=== PATIENT | female | born 1945 | race Asian ===

== ENCOUNTER 2016-04-30 14:45 | Inpatient (IN) | payer OTHER ==
[~2016-04-30] VITALS: Ht 157.5 cm; Wt 59.1 kg
[2016-04-30 15:43] LABS: BASOPHILS % 0.3 % (0.0-2.0); EOSINOPHILS # 0.4 10^3/ul (0.0-0.5); EOSINOPHILS % 5.6 % (0.0-7.0); HEMATOCRIT 34.2 % (37.0-47.0); HEMOGLOBIN 11.4 g/dl (12.0-16.0); LYMPHOCYTES # 2.1 10^3/ul (0.8-2.9); LYMPHOCYTES % 29.8 % (15.0-51.0); MEAN CORPUSCULAR HEMOGLOBIN 28.2 pg (29.0-33.0); MEAN CORPUSCULAR HGB CONC 33.3 g/dl (32.0-37.0); MEAN CORPUSCULAR VOLUME 84.7 fl (82.0-101.0); MEAN PLATELET VOLUME 9.6 fl (7.4-10.4); MONOCYTE # 0.6 10^3/ul (0.3-0.9); MONOCYTES % 8.3 % (0.0-11.0); NEUTROPHIL # 3.9 10^3/ul (1.6-7.5); PLATELET COUNT 126 10^3/UL (140-440); RED BLOOD COUNT 4.04 10^6/ul (4.20-5.40); RED CELL DISTRIBUTION WIDTH 15.3 % (11.5-14.5); UNCORRECTED WBC 6.9 10^3/ul (4.8-10.8); WHITE BLOOD COUNT 6.9 10^3/ul (4.8-10.8)
[2016-04-30 15:46] LABS: CONDITION 1; LH ANALYZER COMMENTS 1
[2016-04-30 15:53] LABS: INR 0.99; PROTIME 13.1 Sec (12.2-14.2)
[2016-04-30 15:54] LABS: PARTIAL THROMBOPLASTIN TIME 33.8 Sec (25.0-35.0)
[2016-04-30 15:55] LABS: CHLORIDE 96 mmol/L (97-110); SODIUM 138 mmol/L (135-144)
[2016-04-30 15:56] LABS: POTASSIUM 4.9 mmol/L (3.5-5.1)
[2016-04-30 15:58] LABS: CREATININE 4.83 mg/dl (0.44-1.00)
[2016-04-30 15:59] LABS: ANION GAP 23 (8-16); BLOOD UREA NITROGEN 73 mg/dl (7-20); CALCIUM 9.2 mg/dl (8.4-10.2); CARBON DIOXIDE 24 mmol/L (21-31); GLUCOSE 131 mg/dl (70-220)
[2016-04-30] MEDS ORDERED: LABETALOL HCL 20MG INJ IV ONE (16:00)
[2016-04-30 16:07] LABS: B-TYPE NATRIURETIC PEPTIDE 939 PG/ML (0-125)
--- NOTE | 2016-04-30 16:09 | RADRPT ---
PROCEDURE: Chest Radiograph. CLINICAL INDICATION: Chest pain TECHNIQUE: Single frontal chest radiograph. COMPARISON: None available FINDINGS: The cardiomediastinal silhouette is within normal limits. No infiltrate or effusion is seen. Th e bones are intact. IMPRESSION: 1. Unremarkable chest radiograph. RPTAT: KK .Khanh French MD, MD Date Time Electronically viewed and signed by .Khanh French MD, on 04/30/2016 16:09 .B/
[2016-04-30 16:12] LABS: TROPONIN-I < 0.012 ng/ml (0.00-0.12)
[2016-04-30] MEDS ORDERED: ONDANSETRON 4 MG INJ IV PRN (17:00)
[2016-04-30] MEDS ORDERED: ACETAMINOPHEN 325 MG TAB PO PRN (17:00)
--- NOTE | 2016-04-30 17:10 | RADRPT ---
PROCEDURE: US right upper extremity AV fistula/graft CLINICAL INDICATION: Renal failure, clotted AV fistula TECHNIQUE: Multiple sonographic images of the right upper extremity arteries, veins and hemodialys is access was obtained utilizing grayscale, color-flow, compressive sonography and doppler imaging. The images were reviewed on a PACS workstation. COMPARISON: None. FINDINGS: The right brachial artery is patent with a velocity of 121 cm/sec. The proximal right AV fistula is patent with a velocity of 180 cm/sec. There is thrombosis of the mid and distal outflow vein of th e right basilic outflow vein of the fistula. IMPRESSION: Thrombosed right AV fistula in its mid and distal aspects. Flow is noted in the proximal aspect of the right AV fistula. RPTAT: AA .Carmelo Hobbs MD, Date Time Electronically viewed and signed by .Carmelo Hobbs MD, on 04/30/2016 17:10 .S/
[2016-04-30 17:43] VITALS: TEMP 98
[2016-04-30 18:20] VITALS: BP 189/85; PULSE 69; RESP 18
[2016-04-30 18:45] VITALS: BP 144/83; PULSE 71
--- NOTE | 2016-04-30 19:06 | ERA ---
ER Documentation Chief Complaint Date/Time DATE: 04/30/16 TIME: 18:59 Chief Complaint dialysis access problem HPI 70-year-old female was sent from dialysis after defeated dialysis was completely unable to obtain any blood flow to her right upper arm graft. Patient herself does not have any shortness of breath chest pain lightheadedness. She also denies any pain currently. I spoke with the [facility] to obtain history that she had not received any dialysis and there had been no blood flow whatsoever. She was sent by verbal order from Dr. Beauchamp. ROS All systems reviewed and are negative except as per history of present illness. Medications Home Meds No Active Prescriptions or Reported Meds Allergies Allergies: Coded Allergies: No Known Allergy (Unverified , 04/30/16) PMhx/Soc Medical and Surgical Hx: Unable to obtain Hx Alcohol Use: No Hx Substance Use: No Hx Tobacco Use: No Smoking Status: Never smoker Physical Exam Vitals Vital Signs Date Time Temp Pulse Resp B/P Pulse Ox O2 Delivery O2 Flow Rate FiO2 04/30/16 17:43 98.0 62 20 122/55 99 Room Air 04/30/16 14:48 97.6 80 20 210/79 99 Physical Exam Const: [] No distress Head: Atraumatic Eyes: Normal Conjunctiva ENT: Normal External Ears, Nose and Mouth. Moist mucous membranes. Neck: Full range of motion..~ No meningismus. Resp: Clear to auscultation bilaterally Cardio: Regular rate and rhythm, no murmurs Abd: Soft, non tender, non distended. Normal bowel sounds Skin: No petechiae or rashes Back: No midline or flank tenderness Ext: No cyanosis, or edema, right upper arm with visible shunt area with multiple needle pokes and no active bleeding, no palpable thrill. Distal pulses are intact all 4 extremities. Neur: Awake and alert and oriented 3, no focal deficits Psych: Normal Mood and Affect Result Diagram: 04/30/16 1525 04/30/16 1525 Results 24 hrs Laboratory Tests Test 04/30/16 15:25 Activated Partial Thromboplast Time 33.8Sec Anion Gap 23 B-Type Natriuretic Peptide 939PG/ML Basophils # 0.010^3/ul Basophils % 0.3% Blood Morphology Comment Blood Urea Nitrogen 73mg/dl Calcium Level 9.2mg/dl Carbon Dioxide Level 24mmol/L Chloride Level 96mmol/L Creatinine 4.83mg/dl Eosinophils # 0.410^3/ul Eosinophils % 5.6% Glucose Level 131mg/dl Hematocrit 34.2% Hemoglobin 11.4g/dl INR International Normalized Ratio 0.99 Lymphocytes # 2.110^3/ul Lymphocytes % 29.8% Mean Corpuscular Hemoglobin 28.2pg Mean Corpuscular Hemoglobin Concent 33.3g/dl Mean Corpuscular Volume 84.7fl Mean Platelet Volume 9.6fl Monocytes # 0.610^3/ul Monocytes % 8.3% Neutrophils # 3.910^3/ul Neutrophils % 56.0% Nucleated Red Blood Cells # 0.010^3/ul Nucleated Red Blood Cells % 0.0/100WBC Platelet Count 25287^3/UL Potassium Level 4.9mmol/L Prothrombin Time 13.1Sec Prothrombin Time Ratio 1.0 Red Blood Count 4.0410^6/ul Red Cell Distribution Width 15.3% Sodium Level 138mmol/L Troponin I < 0.012ng/ml White Blood Count 6.910^3/ul Current Medications Medications (Trade) Dose Ordered Sig/Hiram Route PRN Reason Start Time Stop Time Status Last Admin Dose Admin Labetalol HCl (Labetalol) 20 mg ONCE ONCE IV 04/30/16 16:00 04/30/16 16:01 DC 04/30/16 17:27 Ondansetron HCl (Zofran Inj) 4 mg BRIDGE ORDER PRN IV NAUSEA AND/OR VOMITING 04/30/16 17:00 05/01/16 16:59 Acetaminophen (Tylenol Tab) 650 mg ER BRIDGE PRN PO MILD PAIN/FEVER 04/30/16 17:00 05/01/16 16:59 Procedures/MDM No functioning upper arm dialysis graft and patient requiring dialysis today. She currently has no electrolyte abnormalities. She will be dialysis to avoid fluid overload and impending lectured abnormalities. I spoke with Dr. Beauchamp who will be admitting and requested that , vascular wrist, be consulted. Review the patient's EMR and she's never been to this hospital. Go to Dr. Beauchamp her previous workup been done at [facility]. EKG interpretation: Normal sinus rhythm rate of 74, normal axis, no ST or T- wave changes concerning for acute ischemia Ultrasound arterial of dialysis shunt, right upper arm: Apparent coagulation of upper arm shunt flow only at the anastomosis site. a and p technician interpretation: Normal sinus rhythm without arrhythmia Chest x-ray interpretation by myself: No acute process, I see no infiltrate, no pulmonary edema no pleural effusions no fractures. Departure Diagnosis: Primary Impression: Clotted dialysis shunt Additional Impression: Acute on chronic renal failure WALE LUNA DO Apr 30, 2016 19:06
[2016-04-30 20:20] VITALS: BP 138/62; PULSE 69; RESP 18
[2016-04-30 20:30] VITALS: Ht 157.5 cm; Wt 59.1 kg
[2016-04-30] MEDS ORDERED: DEXTROSE 50% 50 ML SYRINGE IV PRN ×2 (22:30)
[2016-04-30] MEDS ORDERED: GLUCAGON 1 MG INJ IM PRN (22:30)
[2016-04-30] MEDS ORDERED: GLUCOSE GEL 15 GRAM TUBE PO PRN ×2 (22:30)
[2016-04-30] MEDS ORDERED: GLUCOSE GEL 15 GRAM TUBE BUCCAL PRN (22:30)
--- NOTE | 2016-04-30 22:35 | OPR ---
DATE OF OPERATION: 04/30/2016 TYPE OF CONSULTATION: Vascular Surgery. Dear Doctors, Mrs. Lezama is a 70-year-old female with a history of end-stage renal disease who has been on dialysi s for the past year. The patient presented with right upper extremity AV graft malfunction when she had gone for her dialysis session today. The patient is right-hand dominant, and she has had a pre vious upper extremity fistula creations on the left, and she has had multiple chest wall catheters p laced. At the moment, she denies shortness of breath, chest pain, nausea, vomiting, fever, chills. She denies upper extremity claudication, and rest pain-like symptoms. REVIEW OF SYSTEMS: A 12-point review performed and negative except for what was mentioned in the HP I. PAST MEDICAL HISTORY: Entails hypertension, diabetes, end-stage renal disease, hyperlipidemia. PAST SURGICAL HISTORY: Bilateral upper extremity access creation and chest wall catheters. FAMILY HISTORY: Coronary artery disease and hypertension. ALLERGIES: NO KNOWN DRUG ALLERGIES. SOCIAL HISTORY: Denies alcohol, tobacco, or illicit drug use. PHYSICAL EXAMINATION: GENERAL: Alert and oriented x3, no apparent distress. HEENT: Normocephalic, atraumatic. PERRLA, EOMI. Mucosa moist. NECK: Supple. No carotid bruit. RESPIRATORY: Clear to auscultation bilaterally. No crackles. CARDIOVASCULAR: S1, S2 present. No murmurs. ABDOMEN: Soft, nontender, nondistended. Bowel sounds positive. EXTREMITIES: The right upper extremity has a palpable brachial pulse. Motor, sensory intact. Capi llary refill 2 to 3 seconds. Surgical scars are well healed. Palpable thrombosed graft that seems to be a brachial access graft. Left upper extremity palpable from the brachial pulse. Motor, senso ry intact. Capillary refill 2 to 3 seconds. Surgical scar is well healed. There is a thrombosed g raft looks like also a brachial access. ASSESSMENT AND PLAN: 1. End-stage renal disease: It seems that the patient has developed a malfunctioned AV graft that has thrombosed. The patient will require some workup in order to delineate as to why the graft has thrombosed. The patient over the past year has had 2 grafts placed in bilateral upper extremities a nd would benefit from obtaining a bilateral upper extremity venogram and evaluating her central veno us system for possible stenosis. 2. We will plan to obtain bilateral upper extremity noninvasive vascular studies as well to evaluat e for possible access creation with her superficial veins. 3. Optimize vascular status (BP meds, diet, nutrition, exercise, and sugar control, antiplatelets). 4. We will obtain a cardiac evaluation for eventual surgical intervention. 5. We will schedule the patient for a Vivek catheter placement for now to allow her to have her d ialysis while we plan to work her up. 6. Discussed findings, plan of management with the patient and her son at the bedside, and they und erstand. Thank you for allowing us to participate in the care of your patient. Please call with any question s. Dictated By: FABIOLA LAZO/REESE Conf#: [id number] DID#: [id number]
[2016-04-30] MEDS: INSULIN ASPART [NOVOLOG] 3 ML PEN SC SCH (23:02)
[2016-05-01] VITALS (11 sets, daily range): BP systolic 95–182; BP diastolic 40–80; PULSE 66–90; RESP 18
[2016-05-01] MEDS: ACCUCHECK XX SCH (02:00)
[2016-05-01] MEDS: INSULIN ASPART [NOVOLOG] 3 ML PEN SC SCH ×4 (07:50→23:28)
[2016-05-01] MEDS: ASPIRIN 81 MG TAB PO SCH (08:51)
[2016-05-01] MEDS ORDERED: HEPARIN 1000 UNITS/ML 10 ML INJ ONE (09:47)
[2016-05-01] MEDS: PANTOPRAZOLE (EC) 40 MG TAB PO SCH (11:55)
--- NOTE | 2016-05-01 12:11 | HP ---
DATE OF ADMISSION: 04/30/2016 CHIEF COMPLAINT: Malfunctioning AV graft. HISTORY OF PRESENT ILLNESS: This is a 70-year-old female with a past medical history of end-stage r enal disease on dialysis Wednesday, , Wednesday with access of a right upper extremity AV fistu la. The patient yesterday was unable to have dialysis due to graft malfunction. The patient came to emergency room and was admitted to medical further evaluation. The patient at med/surg, was seen by Dr. Redmond. A Vivek catheter was placed. Overnight, the patient was noted to be hemodynamical ly stable and no shortness of breath, fevers, chills, nausea, vomiting. PAST MEDICAL HISTORY: As stated above, history of end-stage renal disease, history of hypertension, dyslipidemia, history of diabetes. PAST SURGICAL HISTORY: Status post IV fistula placement right upper extremity. ALLERGIES: NO KNOWN DRUG ALLERGIES. MEDICATIONS: The patient's medications have been reviewed. FAMILY HISTORY: No family history of kidney disease or heart disease. SOCIAL HISTORY: Does not drink, smoke or do drugs. REVIEW OF SYSTEMS: A 14-point review of systems was conducted. Pertinent positives in HPI, otherwi se negative. PHYSICAL EXAMINATION: VITAL SIGNS: Blood pressure is 178/80, respiration 18, pulse 66, temperature 97.2. HEENT: Head is normocephalic. NECK: Supple. HEART: Regular rate. LUNGS: Show diminished breath sounds at the base. ABDOMEN: Soft, nontender to palpation. No rebound or guarding. EXTREMITIES: Negative for clubbing, cyanosis, no edema. DERMATOLOGIC: No rashes. MUSCULOSKELETAL: No joint effusions. NEUROLOGIC: No change in exam. MEDICATIONS: The patient's medications have been reviewed. LABORATORY DATA: Shows sodium 138, potassium 4.9, chloride 96, BUN 72, creatinine 4.83. White coun t 6.9, hemoglobin 11.4, hematocrit 34.2, platelet count 126. ASSESSMENT AND PLAN: This is a 70-year-old female who presents with: 1. Access/AV fistula failure. The patient has been seen by vascular surgeon, Dr. Redmond. The pa tient is to undergo venous mapping and possible declotting of AV fistula. A Vivek catheter was pl aced for dialysis access. Will continue to monitor closely. 2. End-stage renal disease. The patient is on dialysis Wednesday, , Wednesday. Plan is for d ialysis today via the Vivek catheter. Will dialyze for 3 hours, 2K bath, calcium 2.5, ultrafiltrat e as tolerated. 3. Anemia of end-stage renal disease. Monitor H and H levels. We will give Epogen as needed. 4. Mineral bone disorder. Monitor calcium and phosphorus levels. No need for phosphate binders. 5. Hypertension. Blood pressure elevated. The plan is for ultrafiltration with hemodialysis. We will continue current blood pressure regimen. 6. Diabetes, continue Accu-Cheks and sliding scale. 7. Gastrointestinal and deep venous thrombosis prophylaxis. The patient will be placed on PPI and sequential leg squeezers. 8. Dyslipidemia. Continue statin therapy. Please note I spent over 40 minutes of time discussing code status, advance directive, the patient i s FULL CODE. Dictated By: LEFTY BARRAZA DO NR/NTS Conf#: [id number] DID#: [id number]
--- NOTE | 2016-05-01 14:31 | RADRPT ---
PROCEDURE: US upper extremity arterial. CLINICAL INDICATION: Pain, renal failure TECHNIQUE: Multiple sonographic images of the bilateral upper extremity arteries was obtained util izing grayscale, color-flow, compressive sonography and doppler imaging. The images were reviewed o n a PACS workstation. COMPARISON: 04/30/2016 FINDINGS: Velocities and waveforms were obtained as described below. Right arm Right subclavian artery: 95 cm/s; triphasic waveforms Right axillary artery: 114 cm/s; triphasic waveforms Right brachial artery: 77 cm/s; triphasic waveforms Right radial artery: 79 cm/s; triphasic waveforms Right ulnar artery: 93 cm/s; triphasic waveforms Left arm Left subclavian artery: 87 cm/s; triphasic waveforms Left axillary artery: 69 cm/s; triphasic waveforms Left brachial artery: 96 cm/s; triphasic waveforms Left radial artery: 95 cm/s; triphasic waveforms Left ulnar artery: 56 cm/s; triphasic waveforms IMPRESSION: Unremarkable bilateral upper extremity arterial Doppler ultrasound. RPTAT: AA .Carmelo Hobbs MD, Date Time Electronically viewed and signed by .Carmelo Hobbs MD, on 05/01/2016 14:31 .S/
--- NOTE | 2016-05-01 14:49 | OPR ---
Date/Time of Note Date/Time of Note DATE: 05/01/16 TIME: 14:36 Operative Report Free Text/Dictation DATE OF OPERATION: 09/09/2015 SURGEON: Mio Martinez MD PREOPERATIVE DIAGNOSIS: ESRD POSTOPERATIVE DIAGNOSIS: same ANESTHESIA: Local BLOOD LOSS: minimal COMPLICATIONS: None. ACCESS: Right common femoral vein INDICATIONS: This is a 70 year-old female with ESRD requiring dialysis. Patient and family have been informed of the alternatives, risks, and benefits. Risks including but not limited to bleeding, thrombosis, embolization, myocardial infarction, , device malfunction, infection, pneumothorax, nephrotoxicity and patient has agreed to proceed. PROCEDURE: 1. Ultrasound guided access of right common femoral vein 2. Emergent Right common femoral vein non-tunneled hemodialysis catheter placement DESCRIPTION: The patient was in supine position in her bed. Bed was placed in slight Trendelenburg position and the groin was prepped and draped with sterile technique. The central catheter was flushed with heparin to ensure function of each port. Landmarks were identified and the skin entry site was chosen using ultrasound guidance. The skin And subcutaneous tissue were anesthetized with 1% lidocaine. The vein was then located with a needle with a 10 mL syringe using ultrasound guidance. The needle was then directed towards the vein and was entered. The needle position was secured and syringe was removed. The hub was occluded to prevent venous air embolus. The guidewire was passed easily and the needle was removed while the wire was held in place. A small incision was then made at the point of the wire entry. The dilator was placed over the wire and the tract gently dilated. The catheter was fed over the wire, ensuring the wire exited from the port before advancing the catheter. The catheter was inserted to the desired depth and the wire removed. Each port was aspirated to ensure adequate blood flow and then flushed with heparinized saline solution. The catheter was secured in place with a 2-0 nylon suture and a sterile dressing was applied. The patient tolerated the procedure well and was in stable condition. All instrument, sponge and needle counts were correct 2. MIO MARTINEZ MD May 01, 2016 14:47
--- NOTE | 2016-05-01 17:06 | RADRPT ---
PROCEDURE: US Bilateral Upper Extremity Veins. CLINICAL INDICATION: Bilateral upper extremity swelling. Venous diameter for dialysis fistula plan anjana. TECHNIQUE: Multiple longitudinal and transverse images of the bilateral upper extremity venous rama e was obtained with hernandez scale and color Doppler imaging. COMPARISON: None available FINDINGS: On the right side, the basilic vein is completely occluded. On the left side, there is an old graft in the upper arm which is occluded and the left forearm basilic vein is not visualized. Diameters are as follows: Right arm cephalic upper: 0.30 cm. Right arm cephalic mid: 0.28 cm. Right arm cephalic lower: 0.21 cm. Right forearm cephalic upper: 0.15 cm. Right forearm cephalic mid: 0.17 cm. Right forearm cephalic lower: 0.10 cm. Right arm basilic: Occluded. Right forearm basilic : Occluded. Left arm cephalic upper: 0.09 cm. Left arm cephalic mid: 0.11 cm. Left arm cephalic lower: 0.09 cm. Left forearm cephalic upper: 0.12 cm. Left forearm cephalic mid: 0.11 cm. Left forearm cephalic lower: 0.09 cm. Left arm basilic upper: 0.18 cm. Left arm basilic mid: 0.10 cm. Left arm basilic lower: 0.12 cm. Left forearm basilic: Not visualized. IMPRESSION: 1. Cephalic veins are patent as described above. 2. The diameter of the vessels as indicated above. RPTAT: QQ .Marlon Treadwell MD, Date Time Electronically viewed and signed by .Marlon Treadwell MD, on 05/01/2016 17:05 .R/
[2016-05-01] MEDS: LABETALOL 200 MG TAB PO SCH (20:41)
[2016-05-01] MEDS: ATORVASTATIN 40 MG TAB PO SCH (23:29)
[2016-05-02] MEDS: ACCUCHECK XX SCH (02:00)
[2016-05-02] MEDS: PANTOPRAZOLE (EC) 40 MG TAB PO SCH (05:30)
[2016-05-02 05:42] LABS: BASOPHILS % 0.4 % (0.0-2.0); EOSINOPHILS # 0.3 10^3/ul (0.0-0.5); EOSINOPHILS % 4.4 % (0.0-7.0); HEMATOCRIT 26.6 % (37.0-47.0); HEMOGLOBIN 8.7 g/dl (12.0-16.0); LYMPHOCYTES # 1.4 10^3/ul (0.8-2.9); LYMPHOCYTES % 22.4 % (15.0-51.0); MEAN CORPUSCULAR HEMOGLOBIN 27.7 pg (29.0-33.0); MEAN CORPUSCULAR HGB CONC 32.8 g/dl (32.0-37.0); MEAN CORPUSCULAR VOLUME 84.4 fl (82.0-101.0); MEAN PLATELET VOLUME 9.7 fl (7.4-10.4); MONOCYTE # 0.4 10^3/ul (0.3-0.9); NEUTROPHIL # 4.1 10^3/ul (1.6-7.5); NEUTROPHILS % 65.8 % (39.0-77.0); PLATELET COUNT 95 10^3/UL (140-440); RED BLOOD COUNT 3.15 10^6/ul (4.20-5.40); RED CELL DISTRIBUTION WIDTH 15.3 % (11.5-14.5); UNCORRECTED WBC 6.3 10^3/ul (4.8-10.8); WHITE BLOOD COUNT 6.3 10^3/ul (4.8-10.8)
[2016-05-02 06:30] LABS: CONDITION 1; LH ANALYZER COMMENTS 1; SUSPECT 1
[2016-05-02 06:31] LABS: POTASSIUM 4.2 mmol/L (3.5-5.1)
[2016-05-02 06:33] LABS: CREATININE 3.35 mg/dl (0.44-1.00)
[2016-05-02 06:34] LABS: CALCIUM 8.3 mg/dl (8.4-10.2); PHOSPHORUS 5.4 mg/dl (2.5-4.9)
[2016-05-02] MEDS: INSULIN ASPART [NOVOLOG] 3 ML PEN SC SCH ×4 (08:06→20:54)
[2016-05-02 08:43] VITALS: BP 121/59; PULSE 72; RESP 16
--- NOTE | 2016-05-02 09:42 | CONS ---
Date/Time of Note Date/Time of Note DATE: 05/02/16 TIME: 09:37 Consult Date/Type/Reason Admit Date/Time May 01, 2016 at 12:41 Initial Consult Date Subjective This is a 70-year-old female with a past medical history of end-stage renal disease on dialysis Wednesday, , Wednesday with access of a right upper extremity AV fistula. The patient yesterday was unable to have dialysis due to graft malfunction. The patient came to emergency room and was admitted to medical further evaluation. The patient at med/surg, was seen by Dr. Redmond. A Vivek catheter was placed. the patient was noted to be hemodynamically stable and no shortness of breath, fevers, chills, nausea, vomiting. Objective Vital Signs Date Time Temp Pulse Resp B/P Pulse Ox O2 Delivery O2 Flow Rate FiO2 05/02/16 08:43 98.2 72 16 121/59 97 Room Air Intake and Output 05/01/16 05/01/16 05/02/16 15:00 23:00 07:00 Intake Total 1100 ml 450 ml Output Total 1700 ml 400 ml Balance -600 ml 50 ml HEENT: Head is normocephalic. NECK: Supple. HEART: Regular rate. LUNGS: Show diminished breath sounds at the base. ABDOMEN: Soft, nontender to palpation. No rebound or guarding. EXTREMITIES: Negative for clubbing, cyanosis, no edema. DERMATOLOGIC: No rashes. MUSCULOSKELETAL: No joint effusions. NEUROLOGIC: No change in exam. Results/Medications Result Diagram: 05/02/16 0434 05/02/16 0434 Results 24 hrs Laboratory Tests Test 05/01/16 11:54 05/01/16 17:34 05/01/16 23:20 05/02/16 03:09 Bedside Glucose 186 204 206 141 Test 05/02/16 04:34 05/02/16 07:28 Anion Gap 18 H Basophils # 0.0 Basophils % 0.4 Blood Morphology Comment Blood Urea Nitrogen 38 #H Calcium Level 8.3 L Carbon Dioxide Level 25 Chloride Level 98 Creatinine 3.35 #H Eosinophils # 0.3 Eosinophils % 4.4 Glucose Level 140 Hematocrit 26.6 #L Hemoglobin 8.7 #L Lymphocytes # 1.4 Lymphocytes % 22.4 Magnesium Level 2.0 Mean Corpuscular Hemoglobin 27.7 L Mean Corpuscular Hemoglobin Concent 32.8 Mean Corpuscular Volume 84.4 Mean Platelet Volume 9.7 Monocytes # 0.4 Monocytes % 7.0 Neutrophils # 4.1 Neutrophils % 65.8 Nucleated Red Blood Cells # 0.0 Nucleated Red Blood Cells % 0.0 Phosphorus Level 5.4 H Platelet Count 95 #L Potassium Level 4.2 Red Blood Count 3.15 #L Red Cell Distribution Width 15.3 H Sodium Level 137 White Blood Count 6.3 Bedside Glucose 145 Medications Current Medications Atorvastatin Calcium (Lipitor) 40 mg HS PO Last administered on 05/01/16at 23: 29; Admin Dose 40 MG; Start 05/01/16 at 23:00 Aspirin (Aspirin) 81 mg DAILY PO ; Start 05/01/16 at 09:00 Diagnostic Test (Pha) (Accucheck) 1 ea 02 XX ; Start 05/01/16 at 02:00 Miscellaneous Information 1 ea NOTE XX ; Start 04/30/16 at 22:30 Glucose (Glutose) 15 gm Q15M PRN PO DECREASED GLUCOSE; Start 04/30/16 at 22:30 Glucose (Glutose) 22.5 gm Q15M PRN PO DECREASED GLUCOSE; Start 04/30/16 at 22: 30 Dextrose (D50w Syringe) 25 ml Q15M PRN IV DECREASED GLUCOSE; Start 04/30/16 at 22:30 Dextrose (D50w Syringe) 50 ml Q15M PRN IV DECREASED GLUCOSE; Start 04/30/16 at 22:30 Glucagon (Glucagen) 1 mg Q15M PRN IM DECREASED GLUCOSE; Start 04/30/16 at 22: 30 Glucose (Glutose) 15 gm Q15M PRN BUCCAL DECREASED GLUCOSE; Start 04/30/16 at 22:30 Labetalol HCl (Normodyne) 200 mg BID PO Last administered on 05/01/16at 20:41; Admin Dose 200 MG; Start 05/01/16 at 21:00 Pantoprazole (Protonix Tab) 40 mg DAILY@06 PO Last administered on 05/02/16at 05:30; Admin Dose 40 MG; Start 05/01/16 at 11:00 Assessment/Plan Chief Complaint/Hosp Course 1. Access/AV fistula failure. The patient has been seen by vascular surgeon, Dr. Redmond. The patient is to undergo venous mapping and possible declotting of AV fistula. A Vivek catheter was placed for dialysis access. Will continue to monitor closely. 2. End-stage renal disease. The patient is on dialysis Wednesday, , Wednesday. Plan is for dialysis today via the Vivek catheter in anticipation for staying on schedule and discharge. 3. Anemia of end-stage renal disease. Monitor H and H levels. We will give Epogen as needed. 4. Mineral bone disorder. Monitor calcium and phosphorus levels. No need for phosphate binders. 5. Hypertension. Blood pressure elevated. The plan is for ultrafiltration with hemodialysis. We will continue current blood pressure regimen. 6. Diabetes, continue Accu-Cheks and sliding scale. 7. Gastrointestinal and deep venous thrombosis prophylaxis. The patient will be placed on PPI and sequential leg squeezers. 8. Dyslipidemia. Continue statin therapy. Problems: ZOLTAN LONGO MD May 02, 2016 09:42
[2016-05-02] MEDS: ASPIRIN 81 MG TAB PO SCH (09:56)
[2016-05-02 12:00] VITALS: BP 122/70; PULSE 78; RESP 18
[2016-05-02] MEDS: LABETALOL 200 MG TAB PO SCH ×2 (15:27→21:00)
[2016-05-02 19:10] VITALS: BP 140/64; PULSE 75; RESP 20
[2016-05-02] MEDS: ATORVASTATIN 40 MG TAB PO SCH (20:43)
[2016-05-02 22:30] VITALS: BP 170/81; PULSE 75
[2016-05-02 22:45] VITALS: BP 155/73; PULSE 76
[2016-05-02] MEDS ORDERED: ALTEPLASE (CATHFLO) 2 MG INJ CATHETER STA (22:56)
[2016-05-02 23:00] VITALS: BP 148/57; PULSE 82
[2016-05-03] VITALS (8 sets, daily range): BP systolic 104–178; BP diastolic 50–89; PULSE 72–86; RESP 18
[2016-05-03] MEDS: ACCUCHECK XX SCH (02:06)
[2016-05-03 05:51] LABS: BASOPHILS % 0.4 % (0.0-2.0); EOSINOPHILS # 0.3 10^3/ul (0.0-0.5); EOSINOPHILS % 5.2 % (0.0-7.0); HEMATOCRIT 24.1 % (37.0-47.0); HEMOGLOBIN 8.2 g/dl (12.0-16.0); LYMPHOCYTES # 1.7 10^3/ul (0.8-2.9); LYMPHOCYTES % 26.1 % (15.0-51.0); MEAN CORPUSCULAR HEMOGLOBIN 28.4 pg (29.0-33.0); MEAN CORPUSCULAR HGB CONC 33.9 g/dl (32.0-37.0); MEAN CORPUSCULAR VOLUME 83.8 fl (82.0-101.0); MEAN PLATELET VOLUME 10.1 fl (7.4-10.4); MONOCYTE # 0.5 10^3/ul (0.3-0.9); MONOCYTES % 7.4 % (0.0-11.0); NEUTROPHIL # 4.1 10^3/ul (1.6-7.5); NEUTROPHILS % 60.9 % (39.0-77.0); RED BLOOD COUNT 2.88 10^6/ul (4.20-5.40); RED CELL DISTRIBUTION WIDTH 14.9 % (11.5-14.5); UNCORRECTED WBC 6.7 10^3/ul (4.8-10.8); WHITE BLOOD COUNT 6.7 10^3/ul (4.8-10.8)
[2016-05-03 06:01] LABS: CONDITION 1; LH ANALYZER COMMENTS 1; SUSPECT 1
[2016-05-03 06:04] LABS: POTASSIUM 4.5 mmol/L (3.5-5.1)
[2016-05-03 06:07] LABS: CREATININE 4.21 mg/dl (0.44-1.00)
[2016-05-03 06:08] LABS: CALCIUM 8.3 mg/dl (8.4-10.2); PHOSPHORUS 5.6 mg/dl (2.5-4.9)
[2016-05-03] MEDS: PANTOPRAZOLE (EC) 40 MG TAB PO SCH (06:18)
[2016-05-03 08:51] LABS: PLATELET COUNT 63 10^3/UL (140-440)
[2016-05-03 08:52] LABS: ANISOCYTOSIS 1+; HYPOCHROMASIA 1+; PLATELET ESTIMATE PLT APPEAR DECREASED; POIKILOCYTOSIS 1+
[2016-05-03] MEDS: ASPIRIN 81 MG TAB PO SCH (08:53)
[2016-05-03] MEDS: INSULIN ASPART [NOVOLOG] 3 ML PEN SC SCH ×4 (08:54→21:56)
[2016-05-03] MEDS: LABETALOL 200 MG TAB PO SCH ×2 (08:54→21:05)
--- NOTE | 2016-05-03 10:25 | PN ---
Date/Time of Note Date/Time of Note DATE: 05/03/16 TIME: 10:18 Assessment/Plan Lines/Catheters IV Catheter Type (from [facility]): Vivek catheter Lowry in Place (from [facility]): No Assessment/Plan Chief Complaint/Hosp Course -End-stage renal disease: It seems that the patient has developed a malfunctioned AV graft that has thrombosed. The patient will require some workup in order to delineate as to why the graft has thrombosed. Over the past year the patient had grafts placed in bilateral upper extremities and would benefit from obtaining a bilateral upper extremity venogram and evaluating her central venous system for possible stenosis. -Bilateral upper extremity noninvasive vascular studies demonstrated limited options for access creation except RUE cephalic vein. Brachiocephalic is an option as the size may be adequate for creation -Optimize vascular status (BP meds, diet, nutrition, exercise, and sugar control , antiplatelets). -Cardiac evaluation for eventual surgical intervention. -We will schedule the patient for declotting and possible new fistula creation -Discussed findings, plan of management with the patient and her son at the bedside, and they understand and agree to proceed -Thank you for allowing us to participate in the care of your patient. Please call with any questions. Problems: Subjective 24 Hr Interval Summary no new vascular issues overnight Exam/Review of Systems Vital Signs Vitals Vital Signs Date Time Temp Pulse Resp B/P Pulse Ox O2 Delivery O2 Flow Rate FiO2 05/03/16 08:00 98.4 86 18 117/59 100 Room Air Intake and Output 05/02/16 05/02/16 05/03/16 15:00 23:00 07:00 Intake Total 1000 ml 300 ml Output Total 400 ml 800 ml Balance 600 ml -500 ml Exam Free Text/Dictation GENERAL: Alert and oriented x3, RESPIRATORY: Clear to auscultation bilaterally CARDIOVASCULAR: S1, S2 present ABDOMEN: Soft, nontender, nondistended. Bowel sounds positive. EXTREMITIES: Right upper extremity has a palpable brachial pulse. Motor, sensory intact. Capillary refill 2 to 3 seconds. Surgical scars are well healed. Palpable thrombosed graft that seems to be a brachial access graft. Left upper extremity palpable from the brachial pulse. Motor, sensory intact. Capillary refill 2 to 3 seconds. Surgical scar is well healed. There is a thrombosed graft looks like also a brachial access. Results Result Diagram: 05/03/16 0445 05/03/16 0445 FABIOLA MARTINEZ MD May 03, 2016 10:25
--- NOTE | 2016-05-03 12:17 | CONS ---
Date/Time of Note Date/Time of Note DATE: 05/03/16 TIME: 12:12 Consult Date/Type/Reason Admit Date/Time May 01, 2016 at 12:41 Type of Consultation: neph Subjective This is a 70-year-old female with a past medical history of end-stage renal disease on dialysis Wednesday, , Wednesday with access of a right upper extremity AV fistula. The patient yesterday was unable to have dialysis due to graft malfunction. The patient came to emergency room and was admitted to medical further evaluation. The patient at med/surg, was seen by Dr. Redmond. A Vivek catheter was placed. the patient was noted to be hemodynamically stable and no shortness of breath, fevers, chills, nausea, vomiting. Patient was attempted to be dialized but poor flow noted so activase protocol was administered. she is scheduled for hd today. She has been seen by vascular and are awaiting imaging studies and cardiology clearance before declot attempt vs new fistula. HEENT: Head is normocephalic. NECK: Supple. HEART: Regular rate. LUNGS: Show diminished breath sounds at the base. ABDOMEN: Soft, nontender to palpation. No rebound or guarding. EXTREMITIES: Negative for clubbing, cyanosis, no edema. DERMATOLOGIC: No rashes. MUSCULOSKELETAL: No joint effusions. NEUROLOGIC: No change in exam. Objective Vital Signs Date Time Temp Pulse Resp B/P Pulse Ox O2 Delivery O2 Flow Rate FiO2 05/03/16 08:00 98.4 86 18 117/59 100 Room Air Intake and Output 05/02/16 05/02/16 05/03/16 15:00 23:00 07:00 Intake Total 1000 ml 300 ml Output Total 400 ml 800 ml Balance 600 ml -500 ml Results/Medications Result Diagram: 05/03/16 0445 05/03/16 0445 Results 24 hrs Laboratory Tests Test 05/02/16 17:22 05/02/16 20:46 05/03/16 01:50 05/03/16 04:45 Bedside Glucose 207 210 158 Anion Gap 19 H Anisocytosis 1+ Basophils # 0.0 Basophils % 0.4 Blood Morphology Comment Blood Urea Nitrogen 52 H Calcium Level 8.3 L Carbon Dioxide Level 23 Chloride Level 101 Creatinine 4.21 H Differential Comment AUTO w/SCAN Eosinophils # 0.3 Eosinophils % 5.2 Glucose Level 146 Hematocrit 24.1 L Hemoglobin 8.2 L Hypochromasia 1+ Lymphocytes # 1.7 Lymphocytes % 26.1 Magnesium Level 2.0 Mean Corpuscular Hemoglobin 28.4 L Mean Corpuscular Hemoglobin Concent 33.9 Mean Corpuscular Volume 83.8 Mean Platelet Volume 10.1 Monocytes # 0.5 Monocytes % 7.4 Neutrophils # 4.1 Neutrophils % 60.9 Nucleated Red Blood Cells # 0.0 Nucleated Red Blood Cells % 0.0 Phosphorus Level 5.6 H Platelet Count 63 #L Platelet Estimate PLT APPEAR DECREASED Potassium Level 4.5 Red Blood Count 2.88 L Red Cell Distribution Width 14.9 H Sodium Level 138 White Blood Count 6.7 Test 05/03/16 07:56 Bedside Glucose 230 H Medications Current Medications Atorvastatin Calcium (Lipitor) 40 mg HS PO Last administered on 05/02/16at 20: 43; Admin Dose 40 MG; Start 05/01/16 at 23:00 Aspirin (Aspirin) 81 mg DAILY PO Last administered on 05/03/16at 08:53; Admin Dose 81 MG; Start 05/01/16 at 09:00 Diagnostic Test (Pha) (Accucheck) 1 ea 02 XX Last administered on 05/03/16at 02 :06; Admin Dose 1 EA; Start 05/01/16 at 02:00 Miscellaneous Information 1 ea NOTE XX ; Start 04/30/16 at 22:30 Glucose (Glutose) 15 gm Q15M PRN PO DECREASED GLUCOSE; Start 04/30/16 at 22:30 Glucose (Glutose) 22.5 gm Q15M PRN PO DECREASED GLUCOSE; Start 04/30/16 at 22: 30 Dextrose (D50w Syringe) 25 ml Q15M PRN IV DECREASED GLUCOSE; Start 04/30/16 at 22:30 Dextrose (D50w Syringe) 50 ml Q15M PRN IV DECREASED GLUCOSE; Start 04/30/16 at 22:30 Glucagon (Glucagen) 1 mg Q15M PRN IM DECREASED GLUCOSE; Start 04/30/16 at 22: 30 Glucose (Glutose) 15 gm Q15M PRN BUCCAL DECREASED GLUCOSE; Start 04/30/16 at 22:30 Labetalol HCl (Normodyne) 200 mg BID PO Last administered on 05/03/16at 08:54; Admin Dose 200 MG; Start 05/01/16 at 21:00 Pantoprazole (Protonix Tab) 40 mg DAILY@06 PO Last administered on 05/03/16at 06:18; Admin Dose 40 MG; Start 05/01/16 at 11:00 Assessment/Plan Chief Complaint/Hosp Course 1. Access/AV fistula failure. The patient has been seen by vascular surgeon, Dr. Redmond. The patient is to undergo venous mapping and possible declotting of AV fistula. A Vivek catheter was placed for dialysis access. sp activase. will reattempt hd toda. fortunately labs are in order and no evidence of volume overload. 2. End-stage renal disease. The patient is on dialysis Wednesday, , Wednesday. Plan is for dialysis today via the Vivek catheter in anticipation for staying on schedule and discharge. 3. Anemia of end-stage renal disease. Monitor H and H levels. We will give Epogen as needed. 4. Mineral bone disorder. Monitor calcium and phosphorus levels. No need for phosphate binders. 5. Hypertension. Blood pressure elevated. The plan is for ultrafiltration with hemodialysis. We will continue current blood pressure regimen. 6. Diabetes, continue Accu-Cheks and sliding scale. 7. Gastrointestinal and deep venous thrombosis prophylaxis. The patient will be placed on PPI and sequential leg squeezers. 8. Dyslipidemia. Continue statin therapy. Problems: ZOLTAN LONGO MD May 03, 2016 12:17
--- NOTE | 2016-05-03 12:33 | RADRPT ---
PROCEDURE: US Bilateral Upper Extremity Veins. CLINICAL INDICATION: Bilateral upper extremity swelling. Venous diameter for dialysis fistula plan anjana. TECHNIQUE: Multiple longitudinal and transverse images of the bilateral upper extremity cephalic a nd basilic veins was obtained with hernandze scale and color Doppler imaging. COMPARISON: 05/01/2016. FINDINGS: Diameters are as follows: Right arm cephalic upper: 0.32 cm. Right arm cephalic mid: 0.23 cm. Right arm cephalic lower: 0.25 cm. There is a right upper extremity dialysis fistula which is completely occluded. Right forearm cephalic upper: 0.12 cm. Right forearm cephalic mid: 0.06 cm. Right forearm cephalic lower: 0.13 cm. Right arm basilic upper: 0.20 cm. Right arm basilic mid: 0.20 cm. Right arm basilic lower: 0.20 cm. Right forearm basilic upper: 0.12 cm. Right forearm basilic mid: Not visualized. Right forearm basilic lower: Not visualized. Left arm cephalic upper: 0.17 cm. Left arm cephalic mid: 0.40 cm. Left arm cephalic lower: 0.09 cm. Left forearm cephalic upper: 0.10 cm. Left forearm cephalic mid: 0.07 cm. Left forearm cephalic lower: 0.08 cm. Left arm basilic upper: 0.11 cm. Left arm basilic mid: 0.11 cm. Left arm basilic lower: 0.14 cm. Left forearm basilic upper: 0.11 cm. Left forearm basilic mid: 0.08 cm. Left forearm basilic lower: Not visualized. IMPRESSION: 1. Thrombosed dialysis fistula in the right upper extremity. 2. The diameter of the vessels as indicated above. RPTAT: QQ .Marlon Treadwell MD, MD Date Time Electronically viewed and signed by .Marlon Treadwell MD, MD on 05/03/2016 12:32 .R/
[2016-05-03 18:44] LABS: THYROID STIMULATING HORMONE 3.64 MIU/L (0.465-4.680)
--- NOTE | 2016-05-03 20:01 | CONS ---
DATE OF ADMISSION: 05/01/2016 DATE OF CONSULTATION: 05/03/2016 REASON FOR CONSULTATION: Preop cardiac clearance. HISTORY OF PRESENT ILLNESS: The patient is a 70-year-old female who was at the dialysis center on 07/03/2015. Was unable to get dialyzed due to graft malfunction and she was sent to the ER for furth er evaluation. The patient denies any chest pain, shortness of breath, dizziness, syncope, or palpitations. Denies any nausea. Denies fever, chills, or rigors. PAST MEDICAL HISTORY: 1. Hypertension. 2. Diabetes. 3. Dyslipidemia. 4. End-stage renal disease on hemodialysis. PAST SURGICAL HISTORY: Status post AV fistula. SOCIAL HISTORY: No smoking, alcohol, or recreational drugs. ALLERGIES: NONE. CURRENT MEDICATIONS: 1. Lipitor. 2. Labetalol. 3. Protonix. 4. Aspirin. 5. Insulin. REVIEW OF SYSTEMS: Unremarkable except that mentioned in the HPI. PHYSICAL EXAMINATION: VITAL SIGNS: Temperature is 98.4, heart rate of 86, blood pressure 130/59 mmHg, breathing at 18, an d saturating 100% on room air. GENERAL: The patient awake, alert, oriented, no apparent distress. NECK: No JVD or carotid bruit. CARDIOVASCULAR: Regular rate and rhythm. No murmur, rub, or gallop. LUNGS: Clear to auscultation. ABDOMEN: Soft. Bowel sounds are present. There is no organomegaly. EXTREMITIES: No pedal edema. Pedal pulses are felt bilaterally. DIAGNOSTIC DATA: EKG shows sinus rhythm with a ventricular rate of 74 beats per minute with normal IL, normal QRS, and normal QT intervals with no acute ST-T wave changes. Chest x-ray shows no cardiomegaly, no congestion, no infiltrates. LABORATORY DATA: WBC 6.7, hemoglobin 8.0, hematocrit 34.7 with a platelet of 63. Sodium 138, potas sium 4.5, chloride 101, CO2 of 23, BUN 52, creatinine of 4.21. Magnesium 2. ASSESSMENT AND PLAN: A 70-year-old female with arteriovenous graft malfunction with history of hype rtension, dyslipidemia, diabetes, end-stage renal disease on hemodialysis. The patient is asymptoma tic. Review of 12-lead EKG shows normal sinus rhythm with no acute ST-T wave changes. RECOMMENDATIONS: 1. Trend troponin, BNP. 2. Echocardiogram to assess for systolic function and rule out for segmental wall motion abnormalit y and pulmonary hypertension and pericardial disease. 3. Continue labetalol as scheduled. 4. Continue Lipitor as scheduled. 5. Continue insulin. 6. Continue aspirin. 7. Continue GI and DVT prophylaxis. Dictated By: DREA DIAZ MD SR/NTS Conf#: [id number] DID#: [id number]
[2016-05-03] MEDS: ATORVASTATIN 40 MG TAB PO SCH (21:05)
[2016-05-04] MEDS: ACCUCHECK XX SCH (02:01)
[2016-05-04] MEDS: PANTOPRAZOLE (EC) 40 MG TAB PO SCH (06:04)
[2016-05-04 08:00] VITALS: BP 116/51; PULSE 72; RESP 18
[2016-05-04] MEDS: INSULIN ASPART [NOVOLOG] 3 ML PEN SC SCH ×4 (08:27→20:54)
[2016-05-04] MEDS: LABETALOL 200 MG TAB PO SCH ×2 (08:28→20:52)
[2016-05-04] MEDS: ASPIRIN 81 MG TAB PO SCH (08:28)
--- NOTE | 2016-05-04 10:01 | PN ---
DATE: 05/04/2016 SUBJECTIVE: The patient is stable, no acute events overnight. OBJECTIVE: VITAL SIGNS: Blood pressure 116/51, respirations 18, pulse 72, temperature 98.4. HEENT: Head is normocephalic. NECK: Supple. HEART: Regular rate. LUNGS: Show diminished breath sounds at the base. ABDOMEN: Soft, nontender to palpation. No rebound or guarding. EXTREMITIES: Negative for clubbing, cyanosis. No edema. DERMATOLOGIC: No rashes. MUSCULOSKELETAL: No joint effusions. NEUROLOGIC: No change in exam. LABORATORY DATA: From May 03 was reviewed. No new labs May 04. ASSESSMENT AND PLAN: 1. Access AV fistula failure. The patient has been seen by vascular surgeon, Dr. Redmond pending revision of patient's AV fistula with declotting today. We will follow up with vascular surgery. Will monitor. 2. End-stage renal disease. The patient is on dialysis Tuesdays, , Saturdays. The patien t's access is a Vivek catheter. The patient's last hemodialysis was yesterday, anticipate dialysi s tomorrow for 3 hours in a 3K bath, calcium 2.5. 3. Anemia of end-stage renal disease. Continue to monitor hemoglobin and hematocrit levels. Will give Epogen as needed. 4. Mineral bone disorder. Continue to monitor calcium and phosphorus levels. No need for phosphat e binders. 5. Hypertension. Continue current blood pressure regimen. 6. Diabetes, continue Accu-Cheks and insulin sliding scale. 7. Gastrointestinal and deep venous thrombosis prophylaxis. Continue proton pump inhibitor and seq uential leg squeezers. 8. Dyslipidemia. Continue statin therapy. Dictated By: LEFTY PERSON/REESE Conf#: [id number] DID#: [id number]
--- NOTE | 2016-05-04 15:18 | RADRPT ---
Echocardiogram Report Patient Name: DUTCH SMALLS Gender: Female Date: 1945 Study Date: 04-May-2016 Health Clinician: Rain Kirkpatrick RDCS Location: 403 Ref. Physician: JULIUS DIAZ Quality: Good Procedures: Transthoracic echocardiogram with complete 2D, M-Mode, and doppler examination. Indications: Evaluate Left Ventricular function. 2D/M Mode Doppler Measurement Value Normal Ranges Measurement Value Normal Ranges LVIDd 2D 4.0 3.5 - 5.6 cm AV Peak Travon 1.3 m/sec LVIDs 2D 2.2 2.1 - 4.1 cm AV Peak PG 6.5 mmHg LVPWd 2D 0.9 0.6 - 1.1 cm LVOT Peak Travon 1.1 m/sec IVSd 2D 0.8 0.6 - 1.1 cm LVOT Peak PG 4.5 mmHg AoR Diam 2D 2.2 2.0 - 3.7 cm MV E Peak Travon 0.7 m/sec EDV 2D 68.9 cm3 MV A Peak Travon 1.1 m/sec ESV 2D 9.9 cm3 MV E/A 0.6 LA Dimen 2D 3.3 2.3 - 4.0 cm MV Decel Time 236 msec MV Decel Orange 3 MV E/A 0.6 TR Peak Travon 2.4 m/sec TR Peak PG 23.2 mmHg RVSP 26.0 mmHg Findings Left Ventricle: Normal left ventricular systolic function. Normal left ventricular cavity size. Normal left ventricular wall thickness. Ejection fraction is visually estimated at 65 %. Tissue Doppler/Mitral Doppler indices are consistent with impaired relaxation (Stage I diastolic dysfunction). Right Ventricle: Normal right ventricular size. Normal right ventricular systolic function. Left Atrium: The left atrium is normal in size. Right Atrium: The right atrium is normal in size. Mitral Valve: Normal appearance and function of the mitral valve with trace physiologic regurgitation. Aortic Valve: Normal appearance of the aortic valve. No significant aortic stenosis or insufficiency. Tricuspid Valve: Normal appearance of the tricuspid valve. Estimated peak PA systolic pressure 26 mmHg. There is mild tricuspid regurgitation. Pulmonic Valve: Normal pulmonic valve appearance. Pericardium: Normal pericardium with no significant pericardial effusion. Aorta: Normal aortic root. IVC: Normal size and normal respiratory collapse consistent with normal right atrial pressure. Pulmonary Artery: Normal pulmonary artery size. Conclusions 1.Normal left ventricular systolic function. Normal left ventricular cavity size. Normal left ventricular wall thickness. Ejection fraction is visually estimated at 65 %. Tissue Doppler/Mitral Doppler indices are consistent with impaired relaxation (Stage I diastolic dysfunction). 2.Normal right ventricular size. Normal right ventricular systolic function. 3.Normal appearance and function of the mitral valve with trace physiologic regurgitation. 4.Normal appearance of the aortic valve. No significant aortic stenosis or insufficiency. 5.Normal appearance of the tricuspid valve. Estimated peak PA systolic pressure 26 mmHg. There is mild tricuspid regurgitation. 6.Normal pericardium with no significant pericardial effusion. Electronically Signed By: Julius Diaz 04-May-2016 15:17:28 -0800 Patient Name: DUTCH SMALLS Study Date: 04-May-2016 [id number]
--- NOTE | 2016-05-04 17:33 | CONS ---
Date/Time of Note Date/Time of Note DATE: 05/04/16 TIME: 17:30 Assessment/Plan Assessment/Plan Additional Assessment/Plan ASSESSMENT AND PLAN: A 70-year-old female with arteriovenous graft malfunction with history of hypertension, dyslipidemia, diabetes, end-stage renal disease on hemodialysis. The patient is asymptomatic. Review of 12-lead EKG shows normal sinus rhythm with no acute ST-T wave changes. She had been ruled out for ACS with negative troponin's and is not in pulmonary edema and echo shows normal systolic function RECOMMENDATIONS: 1. Cleared for AV Fistulae with low to intermediate risk 2. Continue labetalol as scheduled. 3. Continue Lipitor as scheduled. 4. Continue insulin. 5. Continue aspirin. 6. Continue GI and DVT prophylaxis. Consultation Date/Type/Reason Admit Date/Time May 01, 2016 at 12:41 Initial Consult Date Type of Consultation: neph Exam/Review of Systems Vital Signs Vitals Vital Signs Date Time Temp Pulse Resp B/P Pulse Ox O2 Delivery O2 Flow Rate FiO2 05/04/16 08:00 98.4 72 18 116/51 97 Room Air Intake and Output 05/03/16 05/03/16 05/04/16 15:00 23:00 07:00 Intake Total 1140 ml 470 ml Output Total 1900 ml Balance -760 ml 470 ml Exam Constitutional: alert, oriented Head: atraumatic, normocephalic Neck: non-tender, supple Respiratory: clear to auscultation Cardiovascular: regular rate and rhythm Gastrointestinal: nl liver, spleen, non-tender, soft Extremities: normal pulses Results Result Diagram: 05/03/16 0445 05/03/16 0445 Results 24 hrs Laboratory Tests Test 05/03/16 17:31 05/03/16 21:40 05/03/16 21:46 05/04/16 01:55 Bedside Glucose 242 H 213 161 Troponin I < 0.012 Test 05/04/16 08:23 05/04/16 11:00 05/04/16 12:11 05/04/16 13:35 Bedside Glucose 142 211 Troponin I < 0.012 < 0.012 Medications Medications Current Medications Atorvastatin Calcium (Lipitor) 40 mg HS PO Last administered on 05/03/16at 21: 05; Admin Dose 40 MG; Start 05/01/16 at 23:00 Aspirin (Aspirin) 81 mg DAILY PO Last administered on 05/03/16at 08:53; Admin Dose 81 MG; Start 05/01/16 at 09:00 Diagnostic Test (Pha) (Accucheck) 1 ea 02 XX Last administered on 05/04/16at 02 :01; Admin Dose 1 EA; Start 05/01/16 at 02:00 Miscellaneous Information 1 ea NOTE XX ; Start 04/30/16 at 22:30 Glucose (Glutose) 15 gm Q15M PRN PO DECREASED GLUCOSE; Start 04/30/16 at 22:30 Glucose (Glutose) 22.5 gm Q15M PRN PO DECREASED GLUCOSE; Start 04/30/16 at 22: 30 Dextrose (D50w Syringe) 25 ml Q15M PRN IV DECREASED GLUCOSE; Start 04/30/16 at 22:30 Dextrose (D50w Syringe) 50 ml Q15M PRN IV DECREASED GLUCOSE; Start 04/30/16 at 22:30 Glucagon (Glucagen) 1 mg Q15M PRN IM DECREASED GLUCOSE; Start 04/30/16 at 22: 30 Glucose (Glutose) 15 gm Q15M PRN BUCCAL DECREASED GLUCOSE; Start 04/30/16 at 22:30 Labetalol HCl (Normodyne) 200 mg BID PO Last administered on 05/03/16at 21:05; Admin Dose 200 MG; Start 05/01/16 at 21:00 Pantoprazole (Protonix Tab) 40 mg DAILY@06 PO Last administered on 05/04/16at 06:04; Admin Dose 40 MG; Start 05/01/16 at 11:00 DREA DIAZ M.D. May 04, 2016 17:33
[2016-05-04 20:07] VITALS: BP 115/55; PULSE 80; RESP 18
[2016-05-04] MEDS: ATORVASTATIN 40 MG TAB PO SCH (20:52)
[2016-05-05] MEDS: ACCUCHECK XX SCH (02:38)
[2016-05-05] MEDS: PANTOPRAZOLE (EC) 40 MG TAB PO SCH (05:28)
[2016-05-05] MEDS: INSULIN ASPART [NOVOLOG] 3 ML PEN SC SCH ×5 (07:50→20:57)
[2016-05-05 08:00] VITALS: BP 141/63; PULSE 74; RESP 18
[2016-05-05 08:05] LABS: BASOPHILS % 0.4 % (0.0-2.0); EOSINOPHILS # 0.3 10^3/ul (0.0-0.5); EOSINOPHILS % 5.1 % (0.0-7.0); HEMATOCRIT 24.9 % (37.0-47.0); HEMOGLOBIN 8.4 g/dl (12.0-16.0); LYMPHOCYTES # 1.4 10^3/ul (0.8-2.9); LYMPHOCYTES % 22.6 % (15.0-51.0); MEAN CORPUSCULAR HEMOGLOBIN 28.3 pg (29.0-33.0); MEAN CORPUSCULAR HGB CONC 33.7 g/dl (32.0-37.0); MEAN PLATELET VOLUME 9.6 fl (7.4-10.4); MONOCYTE # 0.5 10^3/ul (0.3-0.9); MONOCYTES % 7.5 % (0.0-11.0); NEUTROPHILS % 64.4 % (39.0-77.0); PLATELET COUNT 88 10^3/UL (140-440); RED BLOOD COUNT 2.97 10^6/ul (4.20-5.40); RED CELL DISTRIBUTION WIDTH 15.4 % (11.5-14.5); UNCORRECTED WBC 6.3 10^3/ul (4.8-10.8); WHITE BLOOD COUNT 6.3 10^3/ul (4.8-10.8)
[2016-05-05 08:14] LABS: CONDITION 1; LH ANALYZER COMMENTS 1
[2016-05-05] MEDS: ASPIRIN 81 MG TAB PO SCH ×2 (08:14→09:16)
[2016-05-05 08:24] LABS: POTASSIUM 5.4 mmol/L (3.5-5.1)
[2016-05-05] MEDS ORDERED: HEPARIN 1000 UNITS/NS (A-LINE) 0 ML ONE (08:25)
[2016-05-05] MEDS ORDERED: LIDOCAINE 1% (MDV) 20 ML INJ ONE (08:25)
[2016-05-05] MEDS ORDERED: IODIXANOL LOCM 100 ML BTL ONE (08:25)
[2016-05-05 08:26] LABS: CREATININE 5.53 mg/dl (0.44-1.00)
[2016-05-05 08:27] LABS: CALCIUM 9.1 mg/dl (8.4-10.2); MAGNESIUM 2.1 mg/dl (1.7-2.5); PHOSPHORUS 6.6 mg/dl (2.5-4.9)
[2016-05-05] MEDS: LABETALOL 200 MG TAB PO SCH ×3 (09:00→20:55)
--- NOTE | 2016-05-05 09:53 | PN ---
DATE: 05/05/2016 SUBJECTIVE: The patient is stable, no acute events overnight. No fevers, chills, nausea, vomiting, no shortness of breath. The patient is pending for surgery today of her clotted AV fistula. OBJECTIVE: VITAL SIGNS: Blood pressure 122/57, respiration 18, pulse 80, temperature 97.6. HEENT: Head is normocephalic. NECK: Supple. HEART: Regular rate. LUNGS: Show diminished breath sounds at the base. ABDOMEN: Soft, nontender to palpation without rebound or guarding. EXTREMITIES: Negative for clubbing, cyanosis. No edema. DERMATOLOGIC: No rashes. MUSCULOSKELETAL: No joint effusion. NEUROLOGIC: No change in exam. MEDICATIONS: Have been reviewed. LABORATORY DATA: Have been reviewed. The patient has a white count of 6.3, hemoglobin 8.4, hematoc rit 24.9, platelet count is 88. ASSESSMENT AND PLAN: 1. Access failure, arteriovenous fistula clotted. The patient has been pending possible thrombecto my and revascularization of her clotted arteriovenous fistula. We will follow up with Vascular Surg ivan. 2. End-stage renal disease. Patient scheduled for dialysis today for 3 hours, 2K bath, calcium 2.5 . 3. Anemia of end-stage renal disease. Continue monitoring hemoglobin and hematocrit levels. [place] nue Epogen following dialysis. 4. Mineral bone disorder. Continue to monitor calcium and phosphorus levels. 5. Hypertension. Continue current blood pressure regimen. 6. Diabetes, continue Accu-Cheks and sliding scale. 7. Gastrointestinal and deep venous thrombosis prophylaxis. Continue proton pump inhibitor, sequen tial leg squeezers. 8. Dyslipidemia. Continue statin therapy. Dictated By: LEFTY BARRAZA DO NR/NTS Conf#: [id number] DID#: [id number] CC: HUMAIRA MC DO;*EndCC*
--- NOTE | 2016-05-05 13:50 | CONS ---
Date/Time of Note Date/Time of Note DATE: 05/05/16 TIME: 13:45 Assessment/Plan Assessment/Plan Chief Complaint/Hosp Course IMp: 1. Pre-op eval prior to AVF intervention-negative troponin x 3/NL EF by echo this admit with no sig valve abnl. Ok to proceed at moderate CV risk. 2.HTN 3.ESRD on HD 4.HL 5.DM 6.Anemia Recc -Continue labetelol -Continue asa/statin -HD for volume removal -Check post-op ecg Problems: Consultation Date/Type/Reason Admit Date/Time May 01, 2016 at 12:41 Initial Consult Date 05/03/2016 Type of Consultation: Cardiology Reason for Consultation Pre-op Referring Provider: MEGHA CROFT MD Exam/Review of Systems Vital Signs Vitals Vital Signs Date Time Temp Pulse Resp B/P Pulse Ox O2 Delivery O2 Flow Rate FiO2 05/05/16 08:00 98.0 74 18 141/63 99 Room Air Intake and Output 05/04/16 05/04/16 05/05/16 14:59 22:59 06:59 Intake Total 1350 ml 900 ml Output Total 800 ml Balance 1350 ml 100 ml Exam Review of Systems: CONSTITUTIONAL: No fevers, chills. PULMONARY: No sob CARDIOVASCULAR: No chest pain/palpitations GASTROINTESTINAL: No nausea/vomiting. GENITOURINARY: No hematuria/dysuria. MUSCULOSKELETAL: No myagias/arthalgias. PSYCHIATRIC: The patient denies depression. NEUROLOGIC: No weakness Constitutional: alert Psych: no complaints Head: normocephalic ENMT: mucosa pink and moist Neck: jvd (9 cm water), supple Respiratory: diminished breath sounds (at bases/B) Cardiovascular: regular rate and rhythm Gastrointestinal: non-tender, soft Musculoskeletal: muscle tone (normal) Extremities: edema (none), other (ecchympsis in R arm near fistula) Results Result Diagram: 05/05/16 0745 05/05/16 0745 Results 24 hrs Laboratory Tests Test 05/04/16 17:15 05/04/16 17:23 05/04/16 20:49 05/04/16 21:00 Troponin I < 0.012 < 0.012 Bedside Glucose 163 207 Test 05/05/16 02:36 05/05/16 07:45 05/05/16 08:22 05/05/16 12:14 Bedside Glucose 181 169 223 H Anion Gap 24 H Basophils # 0.0 Basophils % 0.4 Blood Morphology Comment Blood Urea Nitrogen 74 H Calcium Level 9.1 Carbon Dioxide Level 19 L Chloride Level 102 Creatinine 5.53 H Eosinophils # 0.3 Eosinophils % 5.1 Glucose Level 170 Hematocrit 24.9 L Hemoglobin 8.4 L Lymphocytes # 1.4 Lymphocytes % 22.6 Magnesium Level 2.1 Mean Corpuscular Hemoglobin 28.3 L Mean Corpuscular Hemoglobin Concent 33.7 Mean Corpuscular Volume 84.0 Mean Platelet Volume 9.6 Monocytes # 0.5 Monocytes % 7.5 Neutrophils # 4.0 Neutrophils % 64.4 Nucleated Red Blood Cells # 0.0 Nucleated Red Blood Cells % 0.0 Phosphorus Level 6.6 H Platelet Count 88 #L Potassium Level 5.4 H Red Blood Count 2.97 L Red Cell Distribution Width 15.4 H Sodium Level 140 White Blood Count 6.3 Medications Medications Current Medications Atorvastatin Calcium (Lipitor) 40 mg HS PO Last administered on 05/04/16at 20: 52; Admin Dose 40 MG; Start 05/01/16 at 23:00 Aspirin (Aspirin) 81 mg DAILY PO Last administered on 05/05/16at 09:16; Admin Dose 81 MG; Start 05/01/16 at 09:00 Diagnostic Test (Pha) (Accucheck) 1 ea 02 XX Last administered on 05/05/16at 02 :38; Admin Dose 1 EA; Start 05/01/16 at 02:00 Miscellaneous Information 1 ea NOTE XX ; Start 04/30/16 at 22:30 Glucose (Glutose) 15 gm Q15M PRN PO DECREASED GLUCOSE; Start 04/30/16 at 22:30 Glucose (Glutose) 22.5 gm Q15M PRN PO DECREASED GLUCOSE; Start 04/30/16 at 22: 30 Dextrose (D50w Syringe) 25 ml Q15M PRN IV DECREASED GLUCOSE; Start 04/30/16 at 22:30 Dextrose (D50w Syringe) 50 ml Q15M PRN IV DECREASED GLUCOSE; Start 04/30/16 at 22:30 Glucagon (Glucagen) 1 mg Q15M PRN IM DECREASED GLUCOSE; Start 04/30/16 at 22: 30 Glucose (Glutose) 15 gm Q15M PRN BUCCAL DECREASED GLUCOSE; Start 04/30/16 at 22:30 Labetalol HCl (Normodyne) 200 mg BID PO Last administered on 05/04/16at 20:52; Admin Dose 200 MG; Start 05/01/16 at 21:00 Pantoprazole (Protonix Tab) 40 mg DAILY@06 PO Last administered on 05/04/16at 06:04; Admin Dose 40 MG; Start 05/01/16 at 11:00 RENÉ BECK May 05, 2016 13:50
--- NOTE | 2016-05-05 14:46 | PN ---
Date/Time of Note Date/Time of Note DATE: 05/05/16 TIME: 14:41 Assessment/Plan Lines/Catheters IV Catheter Type (from [facility]): DEXTER CATH [place] in Place (from [facility]): No Assessment/Plan Chief Complaint/Hosp Course -End-stage renal disease: It seems that the patient has developed a malfunctioned AV graft that has thrombosed. The patient will require some workup in order to delineate as to why the graft has thrombosed. Over the past year the patient had grafts placed in bilateral upper extremities and would benefit from obtaining a bilateral upper extremity venogram and evaluating her central venous system for possible stenosis. -Thrombocytopenia-Unclear etiology and will await for improvement -Bilateral upper extremity noninvasive vascular studies demonstrated limited options for access creation except RUE cephalic vein. Brachiocephalic is an option as the size may be adequate for creation -Optimize vascular status (BP meds, diet, nutrition, exercise, and sugar control , antiplatelets). -Cardiac evaluation appreciated -We will schedule the patient for declotting and possible new fistula creation once cleared from medical standpoint -Discussed findings, plan of management with the patient and her son at the bedside, and they understand and agree to proceed -Thank you for allowing us to participate in the care of your patient. Please call with any questions. Problems: Subjective 24 Hr Interval Summary no new vascular events overnight. Patient was fed yestersay morning prior to OR and recently developed thrombocytopenia. Exam/Review of Systems Vital Signs Vitals Vital Signs Date Time Temp Pulse Resp B/P Pulse Ox O2 Delivery O2 Flow Rate FiO2 05/05/16 08:00 98.0 74 18 141/63 99 Room Air Intake and Output 05/04/16 05/04/16 05/05/16 15:00 23:00 07:00 Intake Total 1350 ml 900 ml Output Total 800 ml Balance 1350 ml 100 ml Exam Free Text/Dictation GENERAL: Alert and oriented x3, RESPIRATORY: Clear to auscultation bilaterally CARDIOVASCULAR: S1, S2 present ABDOMEN: Soft, nontender, nondistended. Bowel sounds positive. EXTREMITIES: Right upper extremity has a palpable brachial pulse. Motor, sensory intact. Capillary refill 2 to 3 seconds. Surgical scars are well healed. Palpable thrombosed graft that seems to be a Brach-Ax access graft. Left upper extremity palpable from the brachial pulse. Motor, sensory intact. Capillary refill 2 to 3 seconds. Surgical scar is well healed. Palpable thrombosed graft Brach-Ax access. Results Result Diagram: 05/05/16 0745 05/05/16 0745 FABIOLA MARTINEZ MD May 05, 2016 14:46
[2016-05-05 20:00] VITALS: BP 168/72; PULSE 73; RESP 18
[2016-05-05] MEDS: ATORVASTATIN 40 MG TAB PO SCH (20:54)
[2016-05-06] VITALS (14 sets, daily range): BP systolic 84–175; BP diastolic 52–78; PULSE 73–79; RESP 16–18
[2016-05-06] MEDS: ACCUCHECK XX SCH (01:44)
[2016-05-06 05:21] LABS: BASOPHILS % 0.3 % (0.0-2.0); EOSINOPHILS # 0.4 10^3/ul (0.0-0.5); EOSINOPHILS % 5.5 % (0.0-7.0); HEMATOCRIT 23.6 % (37.0-47.0); LYMPHOCYTES # 2.1 10^3/ul (0.8-2.9); LYMPHOCYTES % 27.1 % (15.0-51.0); MEAN CORPUSCULAR HEMOGLOBIN 28.2 pg (29.0-33.0); MEAN CORPUSCULAR HGB CONC 33.9 g/dl (32.0-37.0); MEAN CORPUSCULAR VOLUME 83.2 fl (82.0-101.0); MEAN PLATELET VOLUME 9.8 fl (7.4-10.4); MONOCYTE # 0.6 10^3/ul (0.3-0.9); MONOCYTES % 7.1 % (0.0-11.0); NEUTROPHIL # 4.7 10^3/ul (1.6-7.5); PLATELET COUNT 98 10^3/UL (140-440); RED BLOOD COUNT 2.84 10^6/ul (4.20-5.40); RED CELL DISTRIBUTION WIDTH 14.8 % (11.5-14.5); UNCORRECTED WBC 7.8 10^3/ul (4.8-10.8); WHITE BLOOD COUNT 7.8 10^3/ul (4.8-10.8)
[2016-05-06 05:41] LABS: POTASSIUM 4.8 mmol/L (3.5-5.1)
[2016-05-06] MEDS: PANTOPRAZOLE (EC) 40 MG TAB PO SCH (05:41)
[2016-05-06 05:43] LABS: CREATININE 5.79 mg/dl (0.44-1.00)
[2016-05-06 05:44] LABS: MAGNESIUM 2.2 mg/dl (1.7-2.5)
[2016-05-06 06:02] LABS: CONDITION 1; LH ANALYZER COMMENTS 1
[2016-05-06] MEDS: LABETALOL 200 MG TAB PO SCH ×2 (08:19→20:22)
[2016-05-06] MEDS: ASPIRIN 81 MG TAB PO SCH (08:31)
[2016-05-06] MEDS: INSULIN ASPART [NOVOLOG] 3 ML PEN SC SCH ×4 (08:33→20:22)
[2016-05-06] MEDS ORDERED: EPOETIN 4000 UNITS/1 ML INJ (ESRD) SC SCH (10:00)
[2016-05-06] MEDS: SEVELAMER 800 MG TAB PO SCH ×2 (12:31→17:19)
--- NOTE | 2016-05-06 13:55 | CONS ---
Date/Time of Note Date/Time of Note DATE: 05/06/16 TIME: 13:54 Assessment/Plan Assessment/Plan Chief Complaint/Hosp Course IMp: 1. Pre-op eval prior to AVF intervention-negative troponin x 3/NL EF by echo this admit with no sig valve abnl. Ok to proceed at moderate CV risk. 2.HTN 3.ESRD on HD 4.HL 5.DM 6.Anemia Recc -pnding surgery -Continue labetelol -Continue asa/statin -HD for volume removal -Check post-op ecg Problems: Consultation Date/Type/Reason Admit Date/Time May 01, 2016 at 12:41 Initial Consult Date 05/03/2016 Type of Consultation: Cardiology Reason for Consultation Pre-op Referring Provider: MEGHA CROFT MD Exam/Review of Systems Vital Signs Vitals Vital Signs Date Time Temp Pulse Resp B/P Pulse Ox O2 Delivery O2 Flow Rate FiO2 05/06/16 08:00 98.1 77 17 122/56 98 Room Air Intake and Output 05/05/16 05/05/16 05/06/16 15:00 23:00 07:00 Intake Total 840 ml 350 ml Balance 840 ml 350 ml Exam Review of Systems: CONSTITUTIONAL: No fevers, chills. PULMONARY: No sob CARDIOVASCULAR: No chest pain/palpitations GASTROINTESTINAL: No nausea/vomiting. GENITOURINARY: No hematuria/dysuria. MUSCULOSKELETAL: No myagias/arthalgias. PSYCHIATRIC: The patient denies depression. NEUROLOGIC: No weakness Constitutional: alert, oriented Psych: no complaints Head: normocephalic ENMT: mucosa pink and moist Neck: jvd (9 cm water), supple Respiratory: clear to auscultation Cardiovascular: regular rate and rhythm Gastrointestinal: non-tender, soft Musculoskeletal: muscle tone (normal) Extremities: edema (none) Neurological: other (No focal deficits) Results Result Diagram: 05/06/16 0435 05/06/16 0435 Results 24 hrs Laboratory Tests Test 05/05/16 17:13 05/05/16 20:08 05/06/16 01:37 05/06/16 04:35 Bedside Glucose 158 219 175 Anion Gap 25 H Basophils # 0.0 Basophils % 0.3 Blood Morphology Comment Blood Urea Nitrogen 84 H Calcium Level 9.0 Carbon Dioxide Level 18 L Chloride Level 104 Creatinine 5.79 H Eosinophils # 0.4 Eosinophils % 5.5 Glucose Level 169 Hematocrit 23.6 L Hemoglobin 8.0 L Lymphocytes # 2.1 Lymphocytes % 27.1 Magnesium Level 2.2 Mean Corpuscular Hemoglobin 28.2 L Mean Corpuscular Hemoglobin Concent 33.9 Mean Corpuscular Volume 83.2 Mean Platelet Volume 9.8 Monocytes # 0.6 Monocytes % 7.1 Neutrophils # 4.7 Neutrophils % 60.0 Nucleated Red Blood Cells # 0.0 Nucleated Red Blood Cells % 0.0 Phosphorus Level 7.0 H Platelet Count 98 L Potassium Level 4.8 Red Blood Count 2.84 L Red Cell Distribution Width 14.8 H Sodium Level 142 White Blood Count 7.8 # Test 05/06/16 08:09 05/06/16 11:57 Bedside Glucose 168 147 Medications Medications Current Medications Atorvastatin Calcium (Lipitor) 40 mg HS PO Last administered on 05/05/16at 20: 54; Admin Dose 40 MG; Start 05/01/16 at 23:00 Aspirin (Aspirin) 81 mg DAILY PO Last administered on 05/06/16at 08:31; Admin Dose 81 MG; Start 05/01/16 at 09:00 Diagnostic Test (Pha) (Accucheck) 1 ea 02 XX Last administered on 05/05/16at 02 :38; Admin Dose 1 EA; Start 05/01/16 at 02:00 Miscellaneous Information 1 ea NOTE XX ; Start 04/30/16 at 22:30 Glucose (Glutose) 15 gm Q15M PRN PO DECREASED GLUCOSE; Start 04/30/16 at 22:30 Glucose (Glutose) 22.5 gm Q15M PRN PO DECREASED GLUCOSE; Start 04/30/16 at 22: 30 Dextrose (D50w Syringe) 25 ml Q15M PRN IV DECREASED GLUCOSE; Start 04/30/16 at 22:30 Dextrose (D50w Syringe) 50 ml Q15M PRN IV DECREASED GLUCOSE; Start 04/30/16 at 22:30 Glucagon (Glucagen) 1 mg Q15M PRN IM DECREASED GLUCOSE; Start 04/30/16 at 22: 30 Glucose (Glutose) 15 gm Q15M PRN BUCCAL DECREASED GLUCOSE; Start 04/30/16 at 22:30 Labetalol HCl (Normodyne) 200 mg BID PO Last administered on 05/04/16at 20:52; Admin Dose 200 MG; Start 05/01/16 at 21:00 Pantoprazole (Protonix Tab) 40 mg DAILY@06 PO Last administered on 05/06/16at 05:41; Admin Dose 40 MG; Start 05/01/16 at 11:00 RENÉ BECK May 06, 2016 13:55
--- NOTE | 2016-05-06 15:26 | PN ---
DATE: 05/06/2016 SUBJECTIVE: The patient is stable, no acute events overnight. The patient yesterday was unable to have hemodialysis as her Vivek catheter was not working. No other events noted. OBJECTIVE: VITAL SIGNS: Blood pressure is 122/76, respirations 16, pulse 72, temperature 98.6. HEENT: Head is normocephalic. NECK: Supple. HEART: Regular rate. LUNGS: Show diminished breath sounds at the base. ABDOMEN: Soft, nontender to palpation. No rebound or guarding. EXTREMITIES: Negative for clubbing, cyanosis, no edema. DERMATOLOGIC: No rashes. MUSCULOSKELETAL: No joint effusions. NEUROLOGIC: No change in exam. MEDICATIONS: The patient's medications have been reviewed. LABORATORY DATA: Shows a sodium of ____, potassium ____, ____, BUN 84, creatinine 5.79, phosphorus 7.0. White count 7.8, hemoglobin 9.0, hematocrit 32.6, platelet count is 98. ASSESSMENT AND PLAN: 1. Access failure. The patient is pending possible revascularization by Dr. Redmond probably in the next 1 to 2 days. We will follow up with vascular surgery. 2. End-stage renal disease. The patient is on dialysis, unable to be dialyzed yesterday as Vivek catheter clotted. We will discuss with Dr. Redmond about placing a new Vivek catheter. I anti cipate dialysis once a new access site is available. 3. Anemia of end-stage renal disease. Continue to monitor H and H levels. Continue Epogen. 4. Mineral bone disorder. The patient's phosphorus levels are elevated. We will start phosphate b inders, Renagel 800 mg t.i.d. with meals. 5. Diabetes. Continue Accu-Cheks and insulin sliding scale. 6. Dyslipidemia. Continue statin therapy. 7. Thrombocytopenia. Etiology is unclear. We will continue to monitor. Platelet counts have been improving. I would recommend outpatient hematologic evaluation. 8. Dyslipidemia. Continue statin therapy. 9. Hypertension. Continue current blood pressure regimen. Dictated By: LEFTY PERSON/NTS Conf#: [id number] DID#: [id number]
[2016-05-06] MEDS ORDERED: HEPARIN 1000 UNITS/ML 10 ML INJ ONE (15:38)
--- NOTE | 2016-05-06 16:36 | OPR ---
DATE OF OPERATION: 05/06/2016 SURGEON: Mio Redmond MD FLUOROSCOPY TOPETE: PREOPERATIVE DIAGNOSIS: End-stage renal disease and right groin malfunctioning HD catheter. POSTOPERATIVE DIAGNOSIS: End-stage renal disease and right groin malfunctioning HD catheter. ANESTHESIA: Local. BLOOD LOSS: Minimal. COMPLICATIONS: None. ACCESS: Right common femoral vein. INDICATIONS: This is a 70-year-old female with a history of end-stage renal disease and bilateral u pper extremity AV graft creations that have thrombosed and malfunctioned. The patient also had requ ired an emergent right groin common femoral vein HD catheter in which it has also malfunctioned. We have discussed with the patient that we will obtain bilateral upper extremity venograms to better a scertain as to why her previous grafts have occluded and exchange her right groin catheter. T he patient and family have been informed of alternatives, risks, benefits and risks not included, bu t not limited to bleeding, thrombosis, embolization, myocardial infarction, , stroke, device ma lfunction, infection, nephrotoxicity and the patient has agreed to proceed. PROCEDURE: 1. Bilateral upper extremity venograms. 2. Central venogram. 3. Exchange and placement of a new non-tunneled hemodialysis catheter in the right common femoral v ein. DESCRIPTION OF PROCEDURE: The patient was brought into the angio suite and placed in supine positio n. Bed was placed in slight Trendelenburg position and the groin was prepped and draped in usual st andard sterile fashion. The central catheter was then flushed with heparinized saline solution to e nsure function of each port. Landmarks were identified and the previous catheter port was used to p ass a stiff Amplatz wire. Once we had positioned the wire appropriately, the previous catheter was removed and exchanged with a new one. The guidewire passed easily through the catheter and the cath eter was fed over the wire without any problems. Ensuring that the wire exited the port before adva ncing the catheter any further. The catheter was inserted to the desired depth and the wire was rem rosalie. Each port was aspirated to ensure adequate blood flow and then flushed with heparinized solut ion. The catheter was secured in place with a 3-0 nylon suture and a sterile dressing was applied. Each port was flushed with heparin as indicated on the catheter itself. The patient tolerated the procedure well and was taken to the patient's room in stable condition. Next, we had placed 2 mini punctures in the bilateral upper extremity hands. We went ahead and performed a venogram of the tim ateral upper extremities and we also obtained a central venogram. These were done in multiple stati ons. FINDINGS: 1. Right upper extremity antecubital vein is patent. 2. Right cephalic vein is patent in the upper arm. 3. Right cephalic arch is patent. 4. Right basilic vein was occluded. 5. Right basilic vein was occluded. Right axillary vein is patent. 6. Right subclavian vein with a moderate stenosis at the junction of the internal jugular vein. Th e right superior vena cava was patent, right internal jugular vein is not visualized. 7. Left axillary vein is patent. 8. Left subclavian vein is patent. 9. Left brachiocephalic vein is patent. 10. Left brachial vein is patent. 11. Left basilic vein is small in caliber. 12. Right cephalic vein was small in caliber. Dictated By: MIO LAZO/REESE Conf#: [id number] DID#: [id number]
[2016-05-06] MEDS: ATORVASTATIN 40 MG TAB PO SCH (20:22)
[2016-05-07] MEDS: ACCUCHECK XX SCH (02:00)
[2016-05-07] MEDS: PANTOPRAZOLE (EC) 40 MG TAB PO SCH (05:00)
[2016-05-07 08:00] VITALS: BP 124/53; PULSE 78; RESP 17
[2016-05-07] MEDS: LABETALOL 200 MG TAB PO SCH ×2 (08:27→20:50)
[2016-05-07] MEDS: SEVELAMER 800 MG TAB PO SCH ×3 (08:28→17:38)
[2016-05-07] MEDS: ASPIRIN 81 MG TAB PO SCH (08:28)
[2016-05-07] MEDS: INSULIN ASPART [NOVOLOG] 3 ML PEN SC SCH ×4 (08:35→20:54)
--- NOTE | 2016-05-07 11:20 | PN ---
DATE: 05/07/2016 SUBJECTIVE: The patient is stable, no acute events overnight. The patient had hemodialysis yesterd ay, tolerated well. No other acute events noted. OBJECTIVE: VITAL SIGNS: Blood pressure is 130/59, respiration 18, pulse 75, temperature 97.9. HEENT: Head is normocephalic. NECK: Supple. HEART: Regular rate. LUNGS: Show diminished breath sounds at base. ABDOMEN: Soft, nontender to palpation without rebound or guarding. EXTREMITIES: Negative for clubbing, cyanosis, no edema. DERMATOLOGIC: No rashes. MUSCULOSKELETAL: No joint effusions. NEUROLOGIC: No change in exam. MEDICATIONS: Have been reviewed. LABORATORY DATA FOR 05/06/2016: Reviewed. ASSESSMENT AND PLAN: 1. Access failure. The patient had a new Vivek catheter placed yesterday, non-tunneled. The pat ient is pending revascularization surgery of her clotted AV fistula tomorrow, possibly by Dr. . Will continue to monitor. 2. End-stage renal disease. The patient had hemodialysis yesterday, tolerated well. Plan for dial ysis tomorrow. 3. Anemia of end-stage renal disease. Hemoglobin level stable. Continue Epogen. 4. Mineral bone disorder. Continue to monitor calcium and phosphorus levels. Continue Renagel. 5. Diabetes. Continue Accu-Cheks and sliding scale. 6. Continue statin therapy. 7. Thrombocytopenia, clear, slowly been improving. Continue to monitor. 8. Dyslipidemia. Continue statin therapy. 9. Hypertension. Continue current medical management. 10. Gastrointestinal and deep venous thrombosis prophylaxis. Continue sequential leg squeezers and PPI. Dictated By: LEFTY PERSON/REESE Conf#: [id number] DID#: [id number]
--- NOTE | 2016-05-07 17:37 | CONS ---
Date/Time of Note Date/Time of Note DATE: 05/07/16 TIME: 17:34 Assessment/Plan Assessment/Plan Chief Complaint/Hosp Course IMp: 1. Pre-op eval prior to AVF intervention-negative troponin x 3/NL EF by echo this admit with no sig valve abnl. Ok to proceed at moderate CV risk.-s/p R groin HD catheter placement and upper extremity venogram assessment of AVF site 2.HTN 3.ESRD on HD 4.HL 5.DM 6.Anemia Recc -Continue labetelol post-op -Continue asa/statin -HD for volume removal Problems: Consultation Date/Type/Reason Admit Date/Time May 01, 2016 at 12:41 Initial Consult Date 05/03/2016 Type of Consultation: Cardiology Reason for Consultation HTN/pre-op Referring Provider: MEGHA CROFT MD Exam/Review of Systems Vital Signs Vitals Vital Signs Date Time Temp Pulse Resp B/P Pulse Ox O2 Delivery O2 Flow Rate FiO2 05/07/16 08:00 98.4 78 17 124/53 94 Room Air Intake and Output 05/06/16 05/06/16 05/07/16 14:59 22:59 06:59 Intake Total 980 ml 440 ml Output Total 1900 ml Balance -920 ml 440 ml Exam Review of Systems: CONSTITUTIONAL: No fevers, chills. PULMONARY: No sob CARDIOVASCULAR: No chest pain/palpitations GASTROINTESTINAL: No nausea/vomiting. GENITOURINARY: No hematuria/dysuria. MUSCULOSKELETAL: Mild pain in arm PSYCHIATRIC: The patient denies depression. NEUROLOGIC: No weakness Constitutional: alert Psych: no complaints Head: normocephalic ENMT: mucosa pink and moist Neck: jvd (9 cm water), supple Respiratory: diminished breath sounds (at bases/B) Cardiovascular: regular rate and rhythm Gastrointestinal: non-tender, soft Genitourinary - Female: other (R femoral dialysis catheter) Musculoskeletal: muscle tone (normal), other Extremities: edema (none) Results Result Diagram: 05/06/16 0435 05/06/16 0435 Results 24 hrs Laboratory Tests Test 05/06/16 17:40 05/06/16 19:59 05/07/16 08:05 05/07/16 11:56 Bedside Glucose 177 178 170 195 Medications Medications Current Medications Atorvastatin Calcium (Lipitor) 40 mg HS PO Last administered on 05/06/16at 20: 22; Admin Dose 40 MG; Start 05/01/16 at 23:00 Aspirin (Aspirin) 81 mg DAILY PO Last administered on 05/07/16at 08:28; Admin Dose 81 MG; Start 05/01/16 at 09:00 Diagnostic Test (Pha) (Accucheck) 1 ea 02 XX Last administered on 05/05/16at 02 :38; Admin Dose 1 EA; Start 05/01/16 at 02:00 Miscellaneous Information 1 ea NOTE XX ; Start 04/30/16 at 22:30 Glucose (Glutose) 15 gm Q15M PRN PO DECREASED GLUCOSE; Start 04/30/16 at 22:30 Glucose (Glutose) 22.5 gm Q15M PRN PO DECREASED GLUCOSE; Start 04/30/16 at 22: 30 Dextrose (D50w Syringe) 25 ml Q15M PRN IV DECREASED GLUCOSE; Start 04/30/16 at 22:30 Dextrose (D50w Syringe) 50 ml Q15M PRN IV DECREASED GLUCOSE; Start 04/30/16 at 22:30 Glucagon (Glucagen) 1 mg Q15M PRN IM DECREASED GLUCOSE; Start 04/30/16 at 22: 30 Glucose (Glutose) 15 gm Q15M PRN BUCCAL DECREASED GLUCOSE; Start 04/30/16 at 22:30 Labetalol HCl (Normodyne) 200 mg BID PO Last administered on 05/06/16at 20:22; Admin Dose 200 MG; Start 05/01/16 at 21:00 Pantoprazole (Protonix Tab) 40 mg DAILY@06 PO Last administered on 05/07/16at 05:00; Admin Dose 40 MG; Start 05/01/16 at 11:00 RENÉ BECK May 07, 2016 17:37
[2016-05-07 20:00] VITALS: BP 134/65; PULSE 80; RESP 18
[2016-05-07] MEDS: ATORVASTATIN 40 MG TAB PO SCH (20:49)
[2016-05-08] VITALS (23 sets, daily range): BP systolic 77–164; BP diastolic 37–67; PULSE 65–118; RESP 12–18
[2016-05-08] MEDS: ACCUCHECK XX SCH ×2 (01:58→21:40)
[2016-05-08] MEDS: PANTOPRAZOLE (EC) 40 MG TAB PO SCH (06:00)
[2016-05-08 06:36] LABS: BASOPHILS % 0.3 % (0.0-2.0); EOSINOPHILS # 0.4 10^3/ul (0.0-0.5); EOSINOPHILS % 5.5 % (0.0-7.0); HEMATOCRIT 23.9 % (37.0-47.0); HEMOGLOBIN 8.1 g/dl (12.0-16.0); LYMPHOCYTES # 1.6 10^3/ul (0.8-2.9); LYMPHOCYTES % 21.5 % (15.0-51.0); MEAN CORPUSCULAR HEMOGLOBIN 28.3 pg (29.0-33.0); MEAN CORPUSCULAR HGB CONC 33.8 g/dl (32.0-37.0); MEAN CORPUSCULAR VOLUME 83.8 fl (82.0-101.0); MEAN PLATELET VOLUME 9.8 fl (7.4-10.4); MONOCYTE # 0.6 10^3/ul (0.3-0.9); MONOCYTES % 7.9 % (0.0-11.0); NEUTROPHIL # 4.7 10^3/ul (1.6-7.5); NEUTROPHILS % 64.8 % (39.0-77.0); PLATELET COUNT 98 10^3/UL (140-440); RED BLOOD COUNT 2.86 10^6/ul (4.20-5.40); RED CELL DISTRIBUTION WIDTH 15.1 % (11.5-14.5); UNCORRECTED WBC 7.3 10^3/ul (4.8-10.8); WHITE BLOOD COUNT 7.3 10^3/ul (4.8-10.8)
[2016-05-08 06:44] LABS: CONDITION 1; LH ANALYZER COMMENTS 1
[2016-05-08 07:04] LABS: POTASSIUM 4.7 mmol/L (3.5-5.1)
[2016-05-08 07:06] LABS: CREATININE 6.09 mg/dl (0.44-1.00)
[2016-05-08 07:07] LABS: CALCIUM 8.9 mg/dl (8.4-10.2); MAGNESIUM 2.1 mg/dl (1.7-2.5)
[2016-05-08] MEDS: INSULIN ASPART [NOVOLOG] 3 ML PEN SC SCH ×4 (07:50→21:00)
[2016-05-08] MEDS: SEVELAMER 800 MG TAB PO SCH ×3 (07:50→17:54)
[2016-05-08] MEDS ORDERED: VANCOMYCIN 1 GM (PMX) 250 ML IVPB SCH (08:00)
[2016-05-08] MEDS ORDERED: FENTAnyl 50 MCG/ML VIAL ONE (08:02)
[2016-05-08] MEDS ORDERED: GELATIN SIZE 100 SPONGE ONE (08:41)
[2016-05-08] MEDS ORDERED: THROMBIN 5000 UNIT VIAL ONE (08:41)
[2016-05-08] MEDS ORDERED: HEPARIN 1000 UNITS/ML 10 ML INJ ONE ×2 (08:41→09:30)
[2016-05-08] MEDS ORDERED: HEPARIN 1000 UNITS/ML 10 ML INJ IRR ONE (08:44)
[2016-05-08] MEDS ORDERED: FENTAnyl 50 MCG/ML VIAL IV PRN (09:00)
[2016-05-08] MEDS ORDERED: hydrALAzine 20 MG INJ IV PRN (09:00)
[2016-05-08] MEDS: ASPIRIN 81 MG TAB PO SCH (09:00)
[2016-05-08] MEDS ORDERED: ONDANSETRON 4 MG INJ IV PRN (09:00)
[2016-05-08] MEDS: LABETALOL 200 MG TAB PO SCH ×2 (09:00→20:59)
[2016-05-08] MEDS ORDERED: DIPHENHYDRAMINE 50 MG INJ IV PRN (09:00)
--- NOTE | 2016-05-08 09:34 | PN ---
DATE: 05/08/2016 SUBJECTIVE: The patient is stable, scheduled for surgery this morning. No other acute events noted . OBJECTIVE: VITAL SIGNS: Blood pressure is 134/64, respiration 18, pulse 78, temperature 97.8. HEENT: Head is normocephalic. NECK: Supple. HEART: Regular rate. LUNGS: Show diminished breath sounds at base. ABDOMEN: Soft, nontender to palpation without rebound or guarding. EXTREMITIES: Negative for clubbing, cyanosis, no edema. DERMATOLOGIC: No rashes. MUSCULOSKELETAL: No joint effusions. NEUROLOGIC: No change in exam. MEDICATIONS: The patient's medications have been reviewed. LABORATORY DATA: Shows sodium 139, potassium 4.7, BUN 80, creatinine 6.09. White count 7.3, hemogl obin 8.1, hematocrit 33.9, platelet count is 98. ASSESSMENT AND PLAN: 1. Access failure. The patient has a catheter. Pending revascularization surgery for clotte d AV fistula today. 2. End-stage renal disease. The patient is scheduled for hemodialysis today following surgery. 3. Anemia of end-stage renal disease. Continue to monitor hemoglobin and hematocrit levels. 4. Mineral bone disorder. Continue to monitor calcium and phosphorus levels. Continue Renagel. 5. Diabetes, continue Accu-Cheks and sliding scale. 6. Dyslipidemia. Continue statin therapy. 7. Thrombocytopenia. Etiology is unclear, slowly been improving. Continue to monitor. 8. Hypertension. Continue current medical management. 9. Gastrointestinal and deep vein thrombosis prophylaxis. Continue proton pump inhibitor and seque ntial leg squeezers. Dictated By: LEFTY PERSON/REESE Conf#: [id number] DID#: [id number]
[2016-05-08] MEDS ORDERED: ETOMIDATE 20 MG INJ ONE (10:18)
[2016-05-08] MEDS ORDERED: ONDANSETRON 4 MG INJ ONE (10:19)
[2016-05-08] MEDS ORDERED: LIDOCAINE 2% (SDV) 5 ML INJ ONE (10:19)
--- NOTE | 2016-05-08 11:33 | OPR ---
DATE OF OPERATION: 05/08/2016 SURGEON: Mio Redmond MD PREOPERATIVE DIAGNOSIS: End-stage renal disease and left upper extremity swelling. POSTOPERATIVE DIAGNOSIS: End-stage renal disease and left upper extremity swelling. PROCEDURE: Creation of a right brachiocephalic arteriovenous fistula (antecubital vein). Evacuatio n of hematoma in antecubital fossa. ANESTHESIA: LMA. COMPLICATIONS: None. SPECIMEN: Hematoma sent for pathology. ESTIMATED BLOOD LOSS: Minimal. TRANSFUSION: None. INDICATIONS: This is a 70-year-old female with a history of end-stage renal disease who underwent b ilateral upper extremity AV graft creation. As of recent her right upper extremity AV graft had becky tted and malfunctioned. She further developed a hematoma secondary from a cannulation site and punc ture injury. During her hospitalization, the patient had a right groin Vivek catheter placed and she was getting her hemodialysis sessions through that. She underwent bilateral upper extremity trice ogram which identified the patient having adequate cephalic vein of the right upper extremity. Risk s and benefits of the procedure were discussed with the patient not limited to , stroke, PR, pn eumonia, infection, thrombosis of arteriovenous fistula revisions of the arteriovenous fistula, stea l syndrome, nerve injury, limb loss, and she elected to undergo surgical intervention. DESCRIPTION OF PROCEDURE: The patient was brought into the operating room table, placed in supine p osition. Arms were padded at 80 degrees. Normal bony prominences were padded. The anesthesia team had placed appropriate lines anesthesia was induced. Patient tolerated that well. Time out was pe rformed. Appropriate site was marked and confirmed. The patient's right upper extremity was preppe d and draped in the usual standard sterile fashion. Preop antibiotics were administered prior to sk in incision. A 6 cm transverse incision was performed below the antecubital fossa. The cephalic vein was identif ied and dissected for a segment of nearly 5 cm. Dissection was then carried as distally as possible through that incision. It was also identified that the cephalic vein was attached to the antecubit al vein in which the basilic vein had its bifurcation there as well. At this point, it was decided to keep the basilic vein and the cephalic vein in continued fashion with antecubital vein. Attentio n was then directed to the brachial artery. There was a lot of hematoma present when the tendinous aponeurosis of the biceps muscle was incised. It seems that this was secondary to the patient dax andrew her puncture site hematoma that had developed over the past week and half when she was originally admitted. This hematoma was evacuated and with careful dissection the brachial artery was exposed. This dissection took some time as it was very difficult to remove and clean the hematoma that was pr esent. Location of the brachial artery was then identified with Doppler and palpation. The soft ti ssue over the brachial artery was incised. The brachial artery was then confirmed. The patient was given 2500 units of heparin intravenously. The cephalic vein was then ligated at its most distal e nd. This entailed it continuing to become antecubital vein, which was salvaged in order to give the patient of seeing which vein, basilic or cephalic will become the dominant vein for her fistula. T he ____ trocars were then applied to the brachial artery and a 6 mm incision in the anterior wall of the brachial artery was then performed. The antecubital vein was then curved and to lie over the a rteriotomy. The end of the vein was then spatulated to match the site of the arteriotomy. Anastomosis was then performed using a running 6-0 Prolene suture. At the completion of the suture line the brachial artery was forward flushed and then allowed to backbleed. The cephalic vein was a llowed to back bleed. The anastomosis was then irrigated with heparinized saline solution. The sut ure was then tied and the suture line evaluated for hemostasis which was adequate. There was eviden ce of excellent thrill in the cephalic vein. There was also strong pulse and a palpable pulse in th e brachial and radial arteries. The radial and ulnar arteries were also checked with Doppler which were triphasic. There was no evidence of any kinks. The subcutaneous tissue was then closed with 3 -0 Vicryl running suture. The skin was then closed with skin erickson. There was still evidence of excellent thrill in the cephalic vein after wound closure. We further checked with ultrasound the t rack of the cephalic vein which had adequate flow. There was also a good Dopplerable signal as well . The patient tolerated the procedure well and was taken to postanesthesia care unit in stable cond ition. All instruments, catheters, sponges and needles were correct x2. Dictated By: MIO SHINE/NTS Conf#: [id number] DID#: [id number]
[2016-05-08] MEDS: HYDROCODONE/APAP (5/325) TAB PO PRN (16:15)
[2016-05-08] MEDS ORDERED: morphine 4 MG/ML VIAL IV PRN (16:30)
--- NOTE | 2016-05-08 17:18 | CONS ---
Date/Time of Note Date/Time of Note DATE: 05/08/16 TIME: 17:14 Assessment/Plan Assessment/Plan Chief Complaint/Hosp Course IMp: 1. Pre-op eval prior to AVF intervention-negative troponin x 3/NL EF by echo this admit with no sig valve abnl. Ok to proceed at moderate CV risk.-s/p R groin HD catheter placement and upper extremity venogram assessment and now s/p creation AVF 2.HTN 3.ESRD on HD 4.HL 5.DM 6.Anemia Recc -Continue labetelol post-op -Continue asa/statin -HD for volume removal Problems: Consultation Date/Type/Reason Admit Date/Time May 01, 2016 at 12:41 Initial Consult Date 05/03/2016 Type of Consultation: Cardiology Reason for Consultation Pre-op/HTN Referring Provider: MEGHA CROFT MD Exam/Review of Systems Vital Signs Vitals Vital Signs Date Time Temp Pulse Resp B/P Pulse Ox O2 Delivery O2 Flow Rate FiO2 05/08/16 16:50 72 05/08/16 15:00 98.0 18 130/60 97 Room Air 05/08/16 10:42 8.0 Intake and Output 05/07/16 05/07/16 05/08/16 15:00 23:00 07:00 Intake Total 600 ml 650 ml Balance 600 ml 650 ml Exam Review of Systems: CONSTITUTIONAL: No fevers, chills. PULMONARY: No sob CARDIOVASCULAR: No chest pain/palpitations GASTROINTESTINAL: No nausea/vomiting. GENITOURINARY: No hematuria/dysuria. MUSCULOSKELETAL: No myagias/arthalgias. PSYCHIATRIC: The patient denies depression. NEUROLOGIC: No weakness Constitutional: alert, oriented Psych: no complaints Head: normocephalic ENMT: mucosa pink and moist Neck: jvd (8 cm water), supple Respiratory: diminished breath sounds (at bases/B) Cardiovascular: regular rate and rhythm Gastrointestinal: non-tender, soft Musculoskeletal: muscle tone (normal), other (eccymosis around dialysis access site) Extremities: edema (trace) Results Result Diagram: 05/08/16 0429 05/08/16 0429 Results 24 hrs Laboratory Tests Test 05/07/16 17:37 05/07/16 20:49 05/08/16 01:56 05/08/16 04:29 Bedside Glucose 133 188 172 Anion Gap 22 H Basophils # 0.0 Basophils % 0.3 Blood Morphology Comment Blood Urea Nitrogen 80 H Calcium Level 8.9 Carbon Dioxide Level 20 L Chloride Level 102 Creatinine 6.09 H Eosinophils # 0.4 Eosinophils % 5.5 Glucose Level 154 Hematocrit 23.9 L Hemoglobin 8.1 L Lymphocytes # 1.6 Lymphocytes % 21.5 Magnesium Level 2.1 Mean Corpuscular Hemoglobin 28.3 L Mean Corpuscular Hemoglobin Concent 33.8 Mean Corpuscular Volume 83.8 Mean Platelet Volume 9.8 Monocytes # 0.6 Monocytes % 7.9 Neutrophils # 4.7 Neutrophils % 64.8 Nucleated Red Blood Cells # 0.0 Nucleated Red Blood Cells % 0.0 Phosphorus Level 6.0 H Platelet Count 98 L Potassium Level 4.7 Red Blood Count 2.86 L Red Cell Distribution Width 15.1 H Sodium Level 139 White Blood Count 7.3 Test 05/08/16 06:41 05/08/16 12:29 Bedside Glucose 171 118 Medications Medications Current Medications Atorvastatin Calcium (Lipitor) 40 mg HS PO Last administered on 05/07/16at 20: 49; Admin Dose 40 MG; Start 05/01/16 at 23:00 Aspirin (Aspirin) 81 mg DAILY PO Last administered on 05/08/16at 09:00; Admin Dose 81 MG; Start 05/01/16 at 09:00 Diagnostic Test (Pha) (Accucheck) 1 ea 02 XX Last administered on 05/08/16at 01 :58; Admin Dose 1 EA; Start 05/01/16 at 02:00 Miscellaneous Information 1 ea NOTE XX ; Start 04/30/16 at 22:30 Glucose (Glutose) 15 gm Q15M PRN PO DECREASED GLUCOSE; Start 04/30/16 at 22:30 Glucose (Glutose) 22.5 gm Q15M PRN PO DECREASED GLUCOSE; Start 04/30/16 at 22: 30 Dextrose (D50w Syringe) 25 ml Q15M PRN IV DECREASED GLUCOSE; Start 04/30/16 at 22:30 Dextrose (D50w Syringe) 50 ml Q15M PRN IV DECREASED GLUCOSE; Start 04/30/16 at 22:30 Glucagon (Glucagen) 1 mg Q15M PRN IM DECREASED GLUCOSE; Start 04/30/16 at 22: 30 Glucose (Glutose) 15 gm Q15M PRN BUCCAL DECREASED GLUCOSE; Start 04/30/16 at 22:30 Labetalol HCl (Normodyne) 200 mg BID PO Last administered on 05/07/16at 20:50; Admin Dose 200 MG; Start 05/01/16 at 21:00 Pantoprazole (Protonix Tab) 40 mg DAILY@06 PO Last administered on 05/07/16at 05:00; Admin Dose 40 MG; Start 05/01/16 at 11:00 Acetaminophen/ Hydrocodone Bitart ([place] (5/325)) 1 tab Q6H PRN PO moderate pain Last administered on 05/08/16at 16:15; Admin Dose 1 TAB; Start 05/08/16 at 16:30 Morphine Sulfate (morphine) 4 mg Q6H PRN IV SEVERE PAIN; Start 05/08/16 at 16: 30 RENÉ BECK May 08, 2016 17:18
[2016-05-08] MEDS: ATORVASTATIN 40 MG TAB PO SCH (20:59)
[2016-05-09] VITALS: BP 146/64; PULSE 89; RESP 18
[2016-05-09] MEDS: HYDROCODONE/APAP (5/325) TAB PO PRN (01:16)
[2016-05-09] MEDS: PANTOPRAZOLE (EC) 40 MG TAB PO SCH (05:25)
[2016-05-09 05:29] LABS: BASOPHILS % 0.2 % (0.0-2.0); EOSINOPHILS # 0.2 10^3/ul (0.0-0.5); EOSINOPHILS % 2.5 % (0.0-7.0); HEMATOCRIT 22.8 % (37.0-47.0); HEMOGLOBIN 7.7 g/dl (12.0-16.0); LYMPHOCYTES # 0.9 10^3/ul (0.8-2.9); LYMPHOCYTES % 11.3 % (15.0-51.0); MEAN CORPUSCULAR HEMOGLOBIN 28.2 pg (29.0-33.0); MEAN CORPUSCULAR HGB CONC 33.7 g/dl (32.0-37.0); MEAN CORPUSCULAR VOLUME 83.9 fl (82.0-101.0); MEAN PLATELET VOLUME 9.1 fl (7.4-10.4); MONOCYTE # 0.6 10^3/ul (0.3-0.9); MONOCYTES % 7.4 % (0.0-11.0); NEUTROPHIL # 6.4 10^3/ul (1.6-7.5); NEUTROPHILS % 78.6 % (39.0-77.0); PLATELET COUNT 83 10^3/UL (140-440); RED BLOOD COUNT 2.72 10^6/ul (4.20-5.40); RED CELL DISTRIBUTION WIDTH 14.9 % (11.5-14.5); UNCORRECTED WBC 8.2 10^3/ul (4.8-10.8); WHITE BLOOD COUNT 8.2 10^3/ul (4.8-10.8)
[2016-05-09 05:55] LABS: CONDITION 1; LH ANALYZER COMMENTS 1
[2016-05-09 06:35] LABS: POTASSIUM 5.1 mmol/L (3.5-5.1)
[2016-05-09 06:38] LABS: CREATININE 5.71 mg/dl (0.44-1.00)
[2016-05-09 06:39] LABS: CALCIUM 8.1 mg/dl (8.4-10.2); MAGNESIUM 1.9 mg/dl (1.7-2.5)
[2016-05-09] MEDS: SEVELAMER 800 MG TAB PO SCH ×3 (07:50→17:39)
[2016-05-09] MEDS: INSULIN ASPART [NOVOLOG] 3 ML PEN SC SCH ×4 (07:50→21:02)
[2016-05-09 08:40] VITALS: BP 117/56; RESP 17
[2016-05-09] MEDS: ASPIRIN 81 MG TAB PO SCH (09:00)
[2016-05-09] MEDS: LABETALOL 200 MG TAB PO SCH ×2 (09:00→21:00)
--- NOTE | 2016-05-09 11:36 | CONS ---
Date/Time of Note Date/Time of Note DATE: 05/09/16 TIME: 11:35 Assessment/Plan Assessment/Plan Chief Complaint/Hosp Course IMp: 1. Pre-op eval prior to AVF intervention-negative troponin x 3/NL EF by echo this admit with no sig valve abnl. Ok to proceed at moderate CV risk.-s/p R groin HD catheter placement and upper extremity venogram assessment and now s/p creation AVF 2.HTN 3.ESRD on HD 4.HL 5.DM 6.Anemia Recc -Continue labetelol -Continue asa/statin -HD for volume removal -pnding tunneled HD catheter Problems: Consultation Date/Type/Reason Admit Date/Time May 01, 2016 at 12:41 Initial Consult Date 05/03/2016 Type of Consultation: Cardiology Reason for Consultation HTN/pre-op Referring Provider: MEGHA CROFT MD Exam/Review of Systems Vital Signs Vitals Vital Signs Date Time Temp Pulse Resp B/P Pulse Ox O2 Delivery O2 Flow Rate FiO2 05/09/16 08:40 97.7 17 117/56 96 Room Air 05/09/16 00:00 89 05/08/16 10:42 8.0 Intake and Output 05/08/16 05/08/16 05/09/16 14:59 22:59 06:59 Intake Total 450 ml 920 ml 550 ml Output Total 20 ml 800 ml 500 ml Balance 430 ml 120 ml 50 ml Exam Review of Systems: CONSTITUTIONAL: No fevers, chills. PULMONARY: No sob CARDIOVASCULAR: No chest pain/palpitations GASTROINTESTINAL: No nausea/vomiting. GENITOURINARY: No hematuria/dysuria. MUSCULOSKELETAL: No myagias/arthalgias. PSYCHIATRIC: The patient denies depression. NEUROLOGIC: No weakness Constitutional: alert, oriented Psych: no complaints Head: normocephalic ENMT: mucosa pink and moist Neck: jvd (9 cm water), supple Respiratory: diminished breath sounds (at bases/B) Cardiovascular: regular rate and rhythm Gastrointestinal: non-tender, soft Musculoskeletal: muscle tone Extremities: normal pulses Neurological: other (No focal deficits) Results Result Diagram: 05/09/16 0451 05/09/16 0451 Results 24 hrs Laboratory Tests Test 05/08/16 12:29 05/08/16 17:39 05/08/16 20:26 05/09/16 04:51 Bedside Glucose 118 163 177 Anion Gap 20 H Basophils # 0.0 Basophils % 0.2 Blood Morphology Comment Blood Urea Nitrogen 68 H Calcium Level 8.1 L Carbon Dioxide Level 21 Chloride Level 103 Creatinine 5.71 H Eosinophils # 0.2 Eosinophils % 2.5 Glucose Level 156 Hematocrit 22.8 L Hemoglobin 7.7 L Lymphocytes # 0.9 Lymphocytes % 11.3 L Magnesium Level 1.9 Mean Corpuscular Hemoglobin 28.2 L Mean Corpuscular Hemoglobin Concent 33.7 Mean Corpuscular Volume 83.9 Mean Platelet Volume 9.1 Monocytes # 0.6 Monocytes % 7.4 Neutrophils # 6.4 Neutrophils % 78.6 H Nucleated Red Blood Cells # 0.0 Nucleated Red Blood Cells % 0.0 Phosphorus Level 5.0 H Platelet Count 83 L Potassium Level 5.1 Red Blood Count 2.72 L Red Cell Distribution Width 14.9 H Sodium Level 139 White Blood Count 8.2 Test 05/09/16 07:47 Bedside Glucose 181 Medications Medications Current Medications Atorvastatin Calcium (Lipitor) 40 mg HS PO Last administered on 05/08/16at 20: 59; Admin Dose 40 MG; Start 05/01/16 at 23:00 Aspirin (Aspirin) 81 mg DAILY PO Last administered on 05/08/16at 09:00; Admin Dose 81 MG; Start 05/01/16 at 09:00 Diagnostic Test (Pha) (Accucheck) 1 ea 02 XX Last administered on 05/08/16at 01 :58; Admin Dose 1 EA; Start 05/01/16 at 02:00 Miscellaneous Information 1 ea NOTE XX ; Start 04/30/16 at 22:30 Glucose (Glutose) 15 gm Q15M PRN PO DECREASED GLUCOSE; Start 04/30/16 at 22:30 Glucose (Glutose) 22.5 gm Q15M PRN PO DECREASED GLUCOSE; Start 04/30/16 at 22: 30 Dextrose (D50w Syringe) 25 ml Q15M PRN IV DECREASED GLUCOSE; Start 04/30/16 at 22:30 Dextrose (D50w Syringe) 50 ml Q15M PRN IV DECREASED GLUCOSE; Start 04/30/16 at 22:30 Glucagon (Glucagen) 1 mg Q15M PRN IM DECREASED GLUCOSE; Start 04/30/16 at 22: 30 Glucose (Glutose) 15 gm Q15M PRN BUCCAL DECREASED GLUCOSE; Start 04/30/16 at 22:30 Labetalol HCl (Normodyne) 200 mg BID PO Last administered on 05/08/16at 20:59; Admin Dose 200 MG; Start 05/01/16 at 21:00 Pantoprazole (Protonix Tab) 40 mg DAILY@06 PO Last administered on 05/07/16at 05:00; Admin Dose 40 MG; Start 05/01/16 at 11:00 Acetaminophen/ Hydrocodone Bitart ([place] (5/325)) 1 tab Q6H PRN PO moderate pain Last administered on 05/09/16at 01:16; Admin Dose 1 TAB; Start 05/08/16 at 16:30 Morphine Sulfate (morphine) 4 mg Q6H PRN IV SEVERE PAIN Last administered on at 20:11; Admin Dose 4 MG; Start 05/08/16 at 16:30 RENÉ BECK May 09, 2016 11:36
--- NOTE | 2016-05-09 11:48 | PN ---
Date/Time of Note Date/Time of Note DATE: 05/09/16 TIME: 11:45 Assessment/Plan Lines/Catheters IV Catheter Type (from Nrs): Saline Lock Lowry in Place (from Nrs): No Assessment/Plan Chief Complaint/Hosp Course -End-stage renal disease: S/P right brachiocephalic fistula creation -Will schedule patient for perm cath with IR prior to discharge -May remove dressing on Wednesday -Followup in two weeks -Optimize vascular status (BP meds, diet, nutrition, exercise, and sugar control , antiplatelets). -Discussed findings, plan of management with the patient and her son at the bedside, and they understand and agree to proceed -Thank you for allowing us to participate in the care of your patient. Please call with any questions. Problems: Subjective 24 Hr Interval Summary no new vascular events overnight Exam/Review of Systems Vital Signs Vitals Vital Signs Date Time Temp Pulse Resp B/P Pulse Ox O2 Delivery O2 Flow Rate FiO2 05/09/16 08:40 97.7 17 117/56 96 Room Air 05/09/16 00:00 89 05/08/16 10:42 8.0 Intake and Output 05/08/16 05/08/16 05/09/16 15:00 23:00 07:00 Intake Total 450 ml 920 ml 550 ml Output Total 20 ml 800 ml 500 ml Balance 430 ml 120 ml 50 ml Exam Free Text/Dictation GENERAL: Alert and oriented x3, RESPIRATORY: Clear to auscultation bilaterally CARDIOVASCULAR: S1, S2 present ABDOMEN: Soft, nontender, nondistended. Bowel sounds positive. EXTREMITIES: Right upper extremity has a palpable brachial pulse. Motor, sensory intact. Capillary refill 2 to 3 seconds. Surgical scars are well healed. Palpable thrombosed graft that seems to be a Brach-Ax access graft. incision site w dressing intact, fistula with bruit and thrill present, ecchymosis and previous hematoma of the upper arm no change Left upper extremity palpable from the brachial pulse. Motor, sensory intact. Capillary refill 2 to 3 seconds. Surgical scar is well healed. Palpable thrombosed graft Brach-Ax access. Results Result Diagram: 05/09/16 0451 05/09/16 0451 FABIOLA MARTINEZ MD May 09, 2016 11:47
--- NOTE | 2016-05-09 14:09 | PN ---
DATE: 05/08/2016 SUBJECTIVE: Yesterday, the patient underwent a fistula placement on the right upper extremity, tole rated well with creation of a right radiocephalic AV fistula. The patient is otherwise stable. Curr ently n.p.o. pending possible Perm-A-Cath placement. No other events noted. OBJECTIVE VITAL SIGNS: Blood pressure 117/56, respirations 17, pulse 89, temperature 97.7. HEENT: Head is normocephalic. NECK: Supple. HEART: Regular rate. LUNGS: Show diminished breath sounds at base. ABDOMEN: Soft, nontender to palpation without rebound or guarding. EXTREMITIES: Negative for clubbing, cyanosis, no edema. DERMATOLOGIC: No rashes. MUSCULOSKELETAL: No joint effusions. NEUROLOGIC: No focal deficits. MEDICATIONS: Reviewed. LABORATORY DATA: Shows a white count 8.2, hemoglobin 7.7, hematocrit 22.8, platelet count is 83. S odium 139, potassium 5.1, BUN is 68, creatinine 5.51, phosphorus 5.0. ASSESSMENT AND PLAN 1. End-stage renal disease. The patient is on dialysis Wednesday, Wednesday, Wednesday. The patient had hemodialysis yesterday, tolerated well. Plan for next dialysis on Wednesday. 2. Access failure. The patient is status post brachiocephalic right AV fistula placement. The pat ient is impending a Perm-A-Cath placement. 3. Anemia of end-stage renal disease. Hemoglobin levels are low. Will check an iron panel. [place] nue Epogen following dialysis. Will start the patient on . 4. Mineral bone disorder. Continue to monitor calcium and phosphorus levels, phosphate binder s. 5. Diabetes. Continue Accu-Cheks and sliding scale. 5. Dyslipidemia. Continue statin therapy. 6. Thrombocytopenia, levels are low but stable. Continue to monitor. 7. Hypertension current medical management. 8. GI and DVT prophylaxis, continue PPI and sequential leg squeezers. Dictated By: LEFTY PERSON/REESE Conf#: [id number] DID#: [id number]
[2016-05-09 15:00] LABS: IRON 24 ug/dl (35-150)
[2016-05-09 15:16] LABS: TOTAL IRON BINDING CAPACITY 204 ug/dl (241-421)
[2016-05-09 16:07] VITALS: BP 118/64; PULSE 74; RESP 18
[2016-05-09] MEDS: EPOETIN 10000 UNITS/1 ML INJ (ESRD) SC SCH (18:04)
[2016-05-09 21:00] VITALS: BP 117/52; PULSE 82; RESP 18
[2016-05-09] MEDS: ATORVASTATIN 40 MG TAB PO SCH (21:02)
[2016-05-10] VITALS (10 sets, daily range): BP systolic 113–155; BP diastolic 50–72; PULSE 72–85; RESP 18–19
[2016-05-10] MEDS: ACCUCHECK XX SCH (02:00)
[2016-05-10 05:18] LABS: BASOPHILS % 0.2 % (0.0-2.0); EOSINOPHILS # 0.2 10^3/ul (0.0-0.5); EOSINOPHILS % 2.3 % (0.0-7.0); HEMATOCRIT 21.5 % (37.0-47.0); HEMOGLOBIN 7.2 g/dl (12.0-16.0); LYMPHOCYTES % 13.1 % (15.0-51.0); MEAN CORPUSCULAR HEMOGLOBIN 28.4 pg (29.0-33.0); MEAN CORPUSCULAR HGB CONC 33.6 g/dl (32.0-37.0); MEAN CORPUSCULAR VOLUME 84.5 fl (82.0-101.0); MEAN PLATELET VOLUME 9.2 fl (7.4-10.4); MONOCYTE # 0.6 10^3/ul (0.3-0.9); NEUTROPHIL # 5.7 10^3/ul (1.6-7.5); NEUTROPHILS % 76.4 % (39.0-77.0); PLATELET COUNT 95 10^3/UL (140-440); RED BLOOD COUNT 2.55 10^6/ul (4.20-5.40); RED CELL DISTRIBUTION WIDTH 15.4 % (11.5-14.5); UNCORRECTED WBC 7.5 10^3/ul (4.8-10.8); WHITE BLOOD COUNT 7.5 10^3/ul (4.8-10.8)
[2016-05-10 05:32] LABS: POTASSIUM 4.8 mmol/L (3.5-5.1)
[2016-05-10 05:34] LABS: CREATININE 6.66 mg/dl (0.44-1.00)
[2016-05-10 05:35] LABS: CALCIUM 8.2 mg/dl (8.4-10.2); PHOSPHORUS 5.8 mg/dl (2.5-4.9)
[2016-05-10 05:36] LABS: MAGNESIUM 2.1 mg/dl (1.7-2.5)
[2016-05-10] MEDS: PANTOPRAZOLE (EC) 40 MG TAB PO SCH (06:00)
[2016-05-10 06:40] LABS: CONDITION 1; LH ANALYZER COMMENTS 1
[2016-05-10] MEDS ORDERED: SOD CHLORIDE 0.9% 250 ML IV* ONE (10:03)
[2016-05-10] MEDS: ASPIRIN 81 MG TAB PO SCH (10:50)
[2016-05-10] MEDS: SEVELAMER 800 MG TAB PO SCH ×3 (10:50→17:46)
[2016-05-10] MEDS: LABETALOL 200 MG TAB PO SCH ×2 (10:52→21:06)
[2016-05-10] MEDS: INSULIN ASPART [NOVOLOG] 3 ML PEN SC SCH ×4 (10:53→21:00)
--- NOTE | 2016-05-10 11:48 | PN ---
Date/Time of Note Date/Time of Note DATE: 05/10/16 TIME: 11:47 Assessment/Plan Lines/Catheters IV Catheter Type (from Nrs): Saline Lock Lowry in Place (from Nrs): No Assessment/Plan Chief Complaint/Hosp Course -End-stage renal disease: S/P right brachiocephalic fistula creation -Will schedule patient for perm cath with IR prior to discharge -Followup in two weeks -Optimize vascular status (BP meds, diet, nutrition, exercise, and sugar control , antiplatelets). -Discussed findings, plan of management with the patient and her son at the bedside, and they understand and agree to proceed -Thank you for allowing us to participate in the care of your patient. Please call with any questions. Problems: Subjective 24 Hr Interval Summary no new vascular events overnight Exam/Review of Systems Vital Signs Vitals Vital Signs Date Time Temp Pulse Resp B/P Pulse Ox O2 Delivery O2 Flow Rate FiO2 05/10/16 08:00 98.0 81 19 121/54 98 05/09/16 21:00 Room Air 05/08/16 10:42 8.0 Intake and Output 05/09/16 05/09/16 05/10/16 15:00 23:00 07:00 Intake Total 400 ml 650 ml Output Total 500 ml Balance 400 ml 150 ml Exam Free Text/Dictation GENERAL: Alert and oriented x3, RESPIRATORY: Clear to auscultation bilaterally CARDIOVASCULAR: S1, S2 present ABDOMEN: Soft, nontender, nondistended. Bowel sounds positive. EXTREMITIES: Right upper extremity has a palpable brachial pulse. Motor, sensory intact. Capillary refill 2 to 3 seconds. Surgical scars are well healed. Palpable thrombosed graft that seems to be a Brach-Ax access graft. incision site w dressing - removed and clean, fistula with bruit and thrill present, ecchymosis and previous hematoma of the upper arm no change Results Result Diagram: 05/10/1642705/10/16427 FABIOLA MARTINEZ MD May 10, 2016 11:48
--- NOTE | 2016-05-10 12:39 | CONS ---
Date/Time of Note Date/Time of Note DATE: 05/10/16 TIME: 12:38 Assessment/Plan Assessment/Plan Chief Complaint/Hosp Course IMp: 1. Pre-op eval prior to AVF intervention-negative troponin x 3/NL EF by echo this admit with no sig valve abnl. Ok to proceed at moderate CV risk.-s/p R groin HD catheter placement and upper extremity venogram assessment and now s/p creation AVF 2.HTN 3.ESRD on HD 4.HL 5.DM 6.Anemia Recc -Continue labetelol -Continue asa/statin -HD for volume removal -pnding tunneled HD catheter Problems: Consultation Date/Type/Reason Admit Date/Time May 01, 2016 at 12:41 Initial Consult Date 05/03/2016 Type of Consultation: Cardiology Reason for Consultation Pre-op/HTN Referring Provider: MEGHA CROFT MD Exam/Review of Systems Vital Signs Vitals Vital Signs Date Time Temp Pulse Resp B/P Pulse Ox O2 Delivery O2 Flow Rate FiO2 05/10/16 08:00 98.0 81 19 121/54 98 05/09/16 21:00 Room Air 05/08/16 10:42 8.0 Intake and Output 05/09/16 05/09/16 05/10/16 14:59 22:59 06:59 Intake Total 400 ml 650 ml Output Total 500 ml Balance 400 ml 150 ml Exam Review of Systems: CONSTITUTIONAL: No fevers, chills. PULMONARY: No sob CARDIOVASCULAR: No chest pain/palpitations GASTROINTESTINAL: No nausea/vomiting. GENITOURINARY: No hematuria/dysuria. MUSCULOSKELETAL: No myagias/arthalgias. PSYCHIATRIC: The patient denies depression. NEUROLOGIC: No weakness Constitutional: alert, oriented Psych: no complaints Head: normocephalic ENMT: mucosa pink and moist Neck: jvd (9 cm water), supple Respiratory: diminished breath sounds (at bases/B) Cardiovascular: regular rate and rhythm Gastrointestinal: non-tender, soft Musculoskeletal: muscle tone (normal) Extremities: edema (none) Neurological: other (No focal deficits) Results Result Diagram: 05/10/16 0428 05/10/16 0428 Results 24 hrs Laboratory Tests Test 05/09/16 14:05 05/09/16 16:48 05/09/16 20:09 05/10/16 02:30 Ferritin 689.0 H Iron Level 24 L Percent Iron Saturation 12 L Total Iron Binding Capacity 204 L Bedside Glucose 170 205 140 Test 05/10/16 04:28 05/10/16 08:20 05/10/16 12:00 Anion Gap 22 H Basophils # 0.0 Basophils % 0.2 Blood Morphology Comment Blood Urea Nitrogen 79 H Calcium Level 8.2 L Carbon Dioxide Level 18 L Chloride Level 103 Creatinine 6.66 H Eosinophils # 0.2 Eosinophils % 2.3 Glucose Level 138 Hematocrit 21.5 L Hemoglobin 7.2 L Lymphocytes # 1.0 Lymphocytes % 13.1 L Magnesium Level 2.1 Mean Corpuscular Hemoglobin 28.4 L Mean Corpuscular Hemoglobin Concent 33.6 Mean Corpuscular Volume 84.5 Mean Platelet Volume 9.2 Monocytes # 0.6 Monocytes % 8.0 Neutrophils # 5.7 Neutrophils % 76.4 Nucleated Red Blood Cells # 0.0 Nucleated Red Blood Cells % 0.0 Phosphorus Level 5.8 H Platelet Count 95 L Potassium Level 4.8 Red Blood Count 2.55 L Red Cell Distribution Width 15.4 H Sodium Level 138 White Blood Count 7.5 Bedside Glucose 153 240 H Medications Medications Current Medications Atorvastatin Calcium (Lipitor) 40 mg HS PO Last administered on 05/09/16at 21: 02; Admin Dose 40 MG; Start 05/01/16 at 23:00 Aspirin (Aspirin) 81 mg DAILY PO Last administered on 05/10/16t 10:50; Admin Dose 81 MG; Start 05/01/16 at 09:00 Diagnostic Test (Pha) (Accucheck) 1 ea 02 XX Last administered on 05/08/16at 01 :58; Admin Dose 1 EA; Start 05/01/16 at 02:00 Miscellaneous Information 1 ea NOTE XX ; Start 04/30/16 at 22:30 Glucose (Glutose) 15 gm Q15M PRN PO DECREASED GLUCOSE; Start 04/30/16 at 22:30 Glucose (Glutose) 22.5 gm Q15M PRN PO DECREASED GLUCOSE; Start 04/30/16 at 22: 30 Dextrose (D50w Syringe) 25 ml Q15M PRN IV DECREASED GLUCOSE; Start 04/30/16 at 22:30 Dextrose (D50w Syringe) 50 ml Q15M PRN IV DECREASED GLUCOSE; Start 04/30/16 at 22:30 Glucagon (Glucagen) 1 mg Q15M PRN IM DECREASED GLUCOSE; Start 04/30/16 at 22: 30 Glucose (Glutose) 15 gm Q15M PRN BUCCAL DECREASED GLUCOSE; Start 04/30/16 at 22:30 Labetalol HCl (Normodyne) 200 mg BID PO Last administered on 05/10/16t 10:52; Admin Dose 200 MG; Start 05/01/16 at 21:00 Pantoprazole (Protonix Tab) 40 mg DAILY@06 PO Last administered on 05/07/16at 05:00; Admin Dose 40 MG; Start 05/01/16 at 11:00 Acetaminophen/ Hydrocodone Bitart ([place] (5/325)) 1 tab Q6H PRN PO moderate pain Last administered on 05/09/16at 01:16; Admin Dose 1 TAB; Start 05/08/16 at 16:30 Morphine Sulfate (morphine) 4 mg Q6H PRN IV SEVERE PAIN Last administered on at 20:11; Admin Dose 4 MG; Start 05/08/16 at 16:30 RENÉ BECK May 10, 2016 12:39
[2016-05-10] MEDS: EPOETIN 10000 UNITS/1 ML INJ (ESRD) SC SCH (17:47)
--- NOTE | 2016-05-10 18:10 | PN ---
DATE: 05/10/2016 SUBJECTIVE: The patient is stable, no acute events overnight. The fevers, chills, nausea, or vomit ing. No shortness of breath. OBJECTIVE: VITAL SIGNS: Blood pressure is 121/54, respiration 19, pulse 81, temperature 98.0. HEENT: Head is normocephalic. NECK: Supple. HEART: Regular rate. LUNGS: Show diminished breath sounds at base. ABDOMEN: Soft, nontender to palpation without rebound or guarding. EXTREMITIES: Negative for clubbing or cyanosis. No edema. DERMATOLOGIC: No rashes. MUSCULOSKELETAL: No joint effusions. NEUROLOGIC: No change in exam. MEDICATIONS: The patient's medications have been reviewed. LABORATORY DATA: Shows white count of 7.5, hemoglobin 7.2, hematocrit 21.5, platelet count is 95. Sodium 138, potassium 4.0, chloride 103, BUN of 79, creatinine 6.66, phosphorus 5.8. ASSESSMENT AND PLAN: 1. End-stage renal disease. The patient is on dialysis Wednesday, Wednesday, Wednesday. Plan is to anti cipate dialysis today for solute clearance. We will dialyze for 3 hours, 3K bath, calcium 2.5, ultr afiltrate as tolerated. 2. Anemia of end-stage renal disease. We will transfuse 2 units of PRBC with dialysis. Continue E pogen. 3. Status post brachiocephalic right AV fistula placement. We will continue to monitor. 4. Mineral bone disorder. Continue to monitor calcium and phosphorus levels. Continue phosphate b inders. 5. Diabetes. Continue Accu-Cheks and sliding scale. 6. Dyslipidemia. Continue statin therapy. 7. Thrombocytopenia. Platelet levels are low. Continue to monitor. 8. Hypertension. Continue current blood pressure regimen. 9. GI and DVT prophylaxis. Continue proton pump inhibitor and sequential leg squeezers. Dictated By: LEFTY BARRAZA DO NR/NTS Conf#: [id number] DID#: [id number]
[2016-05-10] MEDS: ATORVASTATIN 40 MG TAB PO SCH (21:05)
[2016-05-11] VITALS (19 sets, daily range): BP systolic 117–196; BP diastolic 51–85; PULSE 67–78; RESP 14–20
[2016-05-11] MEDS: ACCUCHECK XX SCH (02:00)
[2016-05-11 06:01] LABS: BASOPHILS % 0.1 % (0.0-2.0); EOSINOPHILS # 0.3 10^3/ul (0.0-0.5); EOSINOPHILS % 4.2 % (0.0-7.0); HEMATOCRIT 34.5 % (37.0-47.0); HEMOGLOBIN 11.6 g/dl (12.0-16.0); LYMPHOCYTES # 1.2 10^3/ul (0.8-2.9); LYMPHOCYTES % 19.1 % (15.0-51.0); MEAN CORPUSCULAR HEMOGLOBIN 28.4 pg (29.0-33.0); MEAN CORPUSCULAR HGB CONC 33.6 g/dl (32.0-37.0); MEAN CORPUSCULAR VOLUME 84.6 fl (82.0-101.0); MEAN PLATELET VOLUME 9.3 fl (7.4-10.4); MONOCYTE # 0.6 10^3/ul (0.3-0.9); MONOCYTES % 9.9 % (0.0-11.0); NEUTROPHIL # 4.1 10^3/ul (1.6-7.5); NEUTROPHILS % 66.7 % (39.0-77.0); PLATELET COUNT 112 10^3/UL (140-440); RED BLOOD COUNT 4.08 10^6/ul (4.20-5.40); RED CELL DISTRIBUTION WIDTH 15.5 % (11.5-14.5); UNCORRECTED WBC 6.1 10^3/ul (4.8-10.8); WHITE BLOOD COUNT 6.1 10^3/ul (4.8-10.8)
[2016-05-11 06:07] LABS: CONDITION 1; LH ANALYZER COMMENTS 1
[2016-05-11 06:23] LABS: POTASSIUM 4.3 mmol/L (3.5-5.1)
[2016-05-11 06:25] LABS: CREATININE 5.27 mg/dl (0.44-1.00)
[2016-05-11 06:26] LABS: CALCIUM 8.6 mg/dl (8.4-10.2); MAGNESIUM 2.3 mg/dl (1.7-2.5)
[2016-05-11] MEDS: PANTOPRAZOLE (EC) 40 MG TAB PO SCH (06:52)
[2016-05-11] MEDS: SEVELAMER 800 MG TAB PO SCH ×3 (07:29→17:55)
[2016-05-11] MEDS: ASPIRIN 81 MG TAB PO SCH (07:30)
[2016-05-11] MEDS: INSULIN ASPART [NOVOLOG] 3 ML PEN SC SCH ×4 (07:50→20:50)
[2016-05-11] MEDS: LABETALOL 200 MG TAB PO SCH ×2 (08:50→20:44)
--- NOTE | 2016-05-11 09:22 | PN ---
DATE: 05/11/2016 SUBJECTIVE: The patient had hemodialysis yesterday and received 2 units of PRBC, tolerated well. N o other acute events noted. No hemoptysis, hematemesis or hematochezia. OBJECTIVE: VITAL SIGNS: Blood pressure is 155/68, respiration 18, pulse 78, temperature 97.6. HEENT: Head is normocephalic. NECK: Supple. HEART: Regular rate. LUNGS: Show diminished breath sounds at the base. ABDOMEN: Soft, nontender to palpation. No rebound or guarding. EXTREMITIES: Negative for clubbing, cyanosis, no edema. DERMATOLOGIC: No rashes. MUSCULOSKELETAL: The patient has a right AV fistula with good thrill and bruit. NEUROLOGIC: No change in exam. MEDICATIONS: The patient's medications have been reviewed. LABORATORY DATA: Shows sodium 140, potassium 4.3, chloride 102, BUN 62, creatinine 5.27. White cou nt 6.1, hemoglobin 11.6, hematocrit 34.5, and platelet count is 112. ASSESSMENT AND PLAN: 1. End-stage renal disease. The patient has on dialysis Wednesday, Wednesday, Wednesday. Had dialysis y . Will have dialysis again today for 3 hours, 3K bath, calcium 2.5, ultrafiltrate as tolera jose g. 2. Anemia of end-stage renal disease. The patient was transfused 2 units PRBC with dialysis yester day with appropriate response. Will continue to monitor hemoglobin and hematocrit levels. Will giv e Epogen as needed. 3. Status post right brachiocephalic AV fistula placement. The patient has good thrill and bruit. Continue to monitor. 4. Mineral bone disorder. Continue to monitor calcium and phosphorous levels. Continue phos binders . 5. Diabetes. Continue Accu-Cheks and sliding scale. 6. Dyslipidemia. Continue statin therapy. 7. Thrombocytopenia. Platelet levels are low but stable. Continue to monitor. 8. Hypertension. Continue current blood pressure regimen. 9. Gastrointestinal and deep venous thrombosis prophylaxis. Continue proton pump inhibitor, sequen tial leg squeezers. Dictated By: LEFTY BARRAZA DO NR/NTS Conf#: [id number] DID#: [id number]
[2016-05-11] MEDS ORDERED: HEPARIN 1000 UNITS/ML 10 ML INJ ONE (10:23)
--- NOTE | 2016-05-11 11:26 | CONS ---
Date/Time of Note Date/Time of Note DATE: 05/11/16 TIME: 11:24 Assessment/Plan Assessment/Plan Chief Complaint/Hosp Course IMp: 1. Pre-op eval prior to AVF intervention-negative troponin x 3/NL EF by echo this admit with no sig valve abnl. Ok to proceed at moderate CV risk.-s/p R groin HD catheter placement and upper extremity venogram assessment and now s/p creation AVF 2.HTN-reasonable control 3.ESRD on HD 4.HL 5.DM 6.Anemia Recc -Continue labetelol -Continue asa/statin -HD for volume removal -pnding tunneled HD catheter? Problems: Consultation Date/Type/Reason Admit Date/Time May 01, 2016 at 12:41 Initial Consult Date 05/03/2016 Type of Consultation: Cardiology Reason for Consultation Pre-op/HTN Referring Provider: MEGHA CROFT MD Exam/Review of Systems Vital Signs Vitals Vital Signs Date Time Temp Pulse Resp B/P Pulse Ox O2 Delivery O2 Flow Rate FiO2 05/11/16 08:48 97.8 70 18 135/73 98 Room Air 05/08/16 10:42 8.0 Intake and Output 05/10/16 05/10/16 05/11/16 15:00 23:00 07:00 Intake Total 1400 ml 100 ml Output Total 2550 ml 400 ml Balance -1150 ml -300 ml Exam Review of Systems: CONSTITUTIONAL: No fevers, chills. PULMONARY: No sob CARDIOVASCULAR: No chest pain/palpitations GASTROINTESTINAL: No nausea/vomiting. GENITOURINARY: No hematuria/dysuria. MUSCULOSKELETAL: No myagias/arthalgias. PSYCHIATRIC: The patient denies depression. NEUROLOGIC: No weakness Constitutional: alert, oriented Psych: no complaints Head: normocephalic ENMT: mucosa pink and moist Neck: jvd (9 cm water), supple Respiratory: diminished breath sounds (at bases/B) Cardiovascular: regular rate and rhythm Gastrointestinal: non-tender, soft Musculoskeletal: muscle tone (normal) Extremities: edema (none), other (mild ecchymosis around AVF site) Neurological: other (No focal deficits) Results Result Diagram: 05/11/16 0427 05/11/16 0427 Results 24 hrs Laboratory Tests Test 05/10/16 12:00 05/10/16 17:25 05/10/16 21:04 05/11/16 04:27 Bedside Glucose 240 H 127 153 Anion Gap 21 H Basophils # 0.0 Basophils % 0.1 Blood Morphology Comment Blood Urea Nitrogen 62 H Calcium Level 8.6 Carbon Dioxide Level 21 Chloride Level 102 Creatinine 5.27 H Eosinophils # 0.3 Eosinophils % 4.2 Glucose Level 128 Hematocrit 34.5 #L Hemoglobin 11.6 #L Lymphocytes # 1.2 Lymphocytes % 19.1 Magnesium Level 2.3 Mean Corpuscular Hemoglobin 28.4 L Mean Corpuscular Hemoglobin Concent 33.6 Mean Corpuscular Volume 84.6 Mean Platelet Volume 9.3 Monocytes # 0.6 Monocytes % 9.9 Neutrophils # 4.1 Neutrophils % 66.7 Nucleated Red Blood Cells # 0.0 Nucleated Red Blood Cells % 0.0 Phosphorus Level 5.0 H Platelet Count 112 L Potassium Level 4.3 Red Blood Count 4.08 #L Red Cell Distribution Width 15.5 H Sodium Level 140 White Blood Count 6.1 Test 05/11/16 07:56 Bedside Glucose 127 Medications Medications Current Medications Atorvastatin Calcium (Lipitor) 40 mg HS PO Last administered on 05/10/16 21:05 ; Admin Dose 40 MG; Start 05/01/16 at 23:00 Aspirin (Aspirin) 81 mg DAILY PO Last administered on 05/10/16 10:50; Admin Dose 81 MG; Start 05/01/16 at 09:00 Diagnostic Test (Pha) (Accucheck) 1 ea 02 XX Last administered on 05/08/16at 01 :58; Admin Dose 1 EA; Start 05/01/16 at 02:00 Miscellaneous Information 1 ea NOTE XX ; Start 04/30/16 at 22:30 Glucose (Glutose) 15 gm Q15M PRN PO DECREASED GLUCOSE; Start 04/30/16 at 22:30 Glucose (Glutose) 22.5 gm Q15M PRN PO DECREASED GLUCOSE; Start 04/30/16 at 22: 30 Dextrose (D50w Syringe) 25 ml Q15M PRN IV DECREASED GLUCOSE; Start 04/30/16 at 22:30 Dextrose (D50w Syringe) 50 ml Q15M PRN IV DECREASED GLUCOSE; Start 04/30/16 at 22:30 Glucagon (Glucagen) 1 mg Q15M PRN IM DECREASED GLUCOSE; Start 04/30/16 at 22: 30 Glucose (Glutose) 15 gm Q15M PRN BUCCAL DECREASED GLUCOSE; Start 04/30/16 at 22:30 Labetalol HCl (Normodyne) 200 mg BID PO Last administered on 05/11/16 08:50; Admin Dose 200 MG; Start 05/01/16 at 21:00 Pantoprazole (Protonix Tab) 40 mg DAILY@06 PO Last administered on 05/11/16 06: 52; Admin Dose 40 MG; Start 05/01/16 at 11:00 Acetaminophen/ Hydrocodone Bitart (Paxton (5/325)) 1 tab Q6H PRN PO moderate pain Last administered on 05/09/16at 01:16; Admin Dose 1 TAB; Start 05/08/16 at 16:30 Morphine Sulfate (morphine) 4 mg Q6H PRN IV SEVERE PAIN Last administered on at 20:11; Admin Dose 4 MG; Start 05/08/16 at 16:30 RENÉ BECK May 11, 2016 11:26
--- NOTE | 2016-05-11 11:34 | RADRPT ---
PROCEDURE: US upper extremity Venous. CLINICAL INDICATION: Rule out DVT TECHNIQUE: Multiple sonographic images of the bilateral upper extremity venous system was obtained utilizing grayscale, color-flow, compressive sonography and doppler imaging with augmentation. The images were reviewed on a PACS workstation. COMPARISON: None. FINDINGS: There is normal compressibility and flow within the bilateral internal jugular vein, subclavian vein , axillary vein, brachial, basilic, cephalic , radial and ulnar veins. RPTAT: AA IMPRESSION: No sonographic evidence for venous thrombosis in the bilateral upper extremities, as above. Physician Frankie Date Time Electronically viewed and signed by Physician Frankie on 05/11/2016 11:33 /
[2016-05-11] MEDS ORDERED: ONDANSETRON 4 MG INJ ONE (12:07)
[2016-05-11] MEDS ORDERED: MIDAZOLAM 1 MG/ML 2 ML INJ ONE (12:07)
[2016-05-11] MEDS ORDERED: FENTAnyl 50 MCG/ML VIAL ONE (12:07)
--- NOTE | 2016-05-11 15:35 | RADRPT ---
PROCEDURE: Ultrasound guidance for placement of needle in left internal jugular vein. CLINICAL INDICATION: Venous access. TECHNIQUE: Prior to the procedure, informed consent was obtained. Risks including bleeding, infection, and pneu mothorax were explained to the patient. The patient understood and was willing to proceed. A procedu ral pause was performed. The patient's name, date of , and procedure to be performed were verif ied. The central line was inserted with all elements of maximal sterile barrier technique. All of th e following were used: head covering, facial mask, sterile gown, sterile gloves, a large sterile she et, hand hygiene, and 2% chlorhexidine for cutaneous antisepsis. The left neck and anterior/superi or chest wall was prepped and draped in usual sterile fashion. Limited sonography of the left neck was then performed. Noted is a patent left internal jugular vein . Ultrasound images were recorded and stored in the patient's medical record. Following the local injection of Xylocaine, the left internal jugular vein was punctured under sonog raphic guidance with a 20-gauge needle through which a 0.018 inch floppy tip guidewire was advanced into the superior vena cava. The patient tolerated the procedure well. The remainder of the proced ure was performed and dictated under separate cover. COMPARISON: None. FINDINGS: The ultrasound images demonstrate a patent left internal jugular vein. The subsequent images demons trate the needle entering the left internal jugular vein. IMPRESSION: 1. Ultrasound guidance for a needle placement in left internal jugular vein. RPTAT: QQ .Marlon Treadwell MD, Date Time Electronically viewed and signed by .Marlon Treadwell MD, on 05/11/2016 15:34 .R/
--- NOTE | 2016-05-11 15:36 | RADRPT ---
PROCEDURE: PLACEMENT OF LEFT INTERNAL JUGULAR VENOUS TUNNELED DIALYSIS CATHETER. CLINICAL INDICATION: Renal failure. Right arm dialysis fistula. TECHNIQUE: Prior to the procedure, informed consent was obtained. Risks including bleeding, infection, and pneu mothorax were explained to the patient. The patient understood and was willing to proceed. A procedu ral pause was performed. The patient's name, date of , and procedure to be performed were verif ied. The left neck and anterior/superior chest wall was prepped and draped in usual sterile fashion. The central line was inserted with all elements of maximal sterile barrier technique. All of the fol lowing were used: head covering, facial mask, sterile gown, sterile gloves, a large sterile sheet, h and hygiene, and 2% chlorhexidine for cutaneous antisepsis. Limited sonography of the left neck was then performed. Noted is a patent left internal jugular vein . Following the local injection of Xylocaine, the left internal jugular vein was punctured under sonog raphic guidance with a 20-gauge needle through which a 0.018 inch floppy tip guidewire was advanced into the superior vena cava. The tract was dilated to 5 Tunisian and the wire was then replaced with a 0.035 in Amplatz guidewire. A tunnel was then created from the anterior lateral aspect of the supe rior left chest wall to the puncture site in the neck and the catheter was pulled through the tract. Serial dilatation was then performed and a 16 Tunisian peel away sheath was introduced. The 14.5 Tunisian 23 cm tip to cuff Angiodynamics dialysis catheter was advanced through the 16 Tunisian peel-away sheath. The tip of the catheter was confirmed in position within the right atrium. The pe el-away sheath was removed. The 2 ports were each flushed with 2.4 ml of 1:1000 heparin. The catheter was secured to the skin w ith 2-0 silk. The wound in the neck was closed with 4-0 Vicryl suture using subcuticular running te chnique. The site was dressed. The patient tolerated the procedure well. COMPARISON: None. FINDINGS: Final images demonstrate the tip of the catheter in the upper right atrium. A total of 0.8 minutes of fluoroscopy time was used. IMPRESSION: 1. Percutaneous insertion of left internal jugular dialysis tunneled dialysis catheter under fluoros copic and sonographic guidance. RPTAT: QQ .Marlon Treadwell MD, MD Date Time Electronically viewed and signed by .Marlon Treadwell MD, MD on 05/11/2016 15:36 .R/
[2016-05-11] MEDS: ATORVASTATIN 40 MG TAB PO SCH (20:51)
[2016-05-12] MEDS: ACCUCHECK XX SCH (02:00)
[2016-05-12] MEDS: PANTOPRAZOLE (EC) 40 MG TAB PO SCH (06:23)
[2016-05-12 07:33] VITALS: BP 113/59; RESP 18
[2016-05-12] MEDS: INSULIN ASPART [NOVOLOG] 3 ML PEN SC SCH (07:50)
[2016-05-12] MEDS: LABETALOL 200 MG TAB PO SCH (08:52)
[2016-05-12] MEDS: ASPIRIN 81 MG TAB PO SCH (08:53)
[2016-05-12] MEDS: SEVELAMER 800 MG TAB PO SCH (08:53)
--- NOTE | 2016-05-12 11:09 | CONS ---
Date/Time of Note Date/Time of Note DATE: 05/12/16 TIME: 11:06 Assessment/Plan Assessment/Plan Additional Assessment/Plan 1. Pre-op eval prior to AVF intervention-negative troponin x 3/NL EF by echo this admit with no sig valve abnl. Ok to proceed at moderate CV risk.-s/p R groin HD catheter placement and upper extremity venogram assessment and now s/p creation AVF- tolerated procedure well. 2.HTN-reasonable control - con't to adjust Rx as needed. 3.ESRD on HD 4.HL 5.DM- con't to keep euglycemic,. Resumed diet now. 6.Anemia- of chronic disease. H/H stable now. Consultation Date/Type/Reason Admit Date/Time May 01, 2016 at 12:41 Initial Consult Date Type of Consultation: Cardiology Referring Provider: MEGHA CROFT MD 24 HR Interval Summary Free Text/Dictation No acte evens. Tolerated procedure well. ROS: No fever, no chills, no nausea, no vomiting, no diarrhea/constipation No recent weight changes No chest pain, no PND, no orthopnea No dizziness, blurred vision No thirst, no heat or cold intolerance Exam/Review of Systems Vital Signs Vitals Vital Signs Date Time Temp Pulse Resp B/P Pulse Ox O2 Delivery O2 Flow Rate FiO2 05/12/16 07:33 98.2 78 18 113/59 96 05/11/16 19:30 Room Air 05/11/16 13:08 3 Intake and Output 05/11/16 05/11/16 05/12/16 15:00 23:00 07:00 Intake Total 500 ml 300 ml Output Total 1700 ml Balance -1200 ml 300 ml Exam General: WN/WD/NAD, AOx 3 HEENT: Unicetric/atraumatic/EOMI (follow commands) NECK: JVD elevated, no thyromegaly Lymph: no lymphadenopathy HEART: regular with no S3, II/ systolic murmur at apex LUNGS: Coarse sounds ABD: soft, NT, ND, +BS : Intact Neuro: non focal SKIN: chronic changes, R/U E post op EXT: trace edema Results Result Diagram: 05/11/16 0427 05/11/16426 Results 24 hrs Laboratory Tests Test 05/11/16 13:51 05/11/16 17:15 05/11/16 20:48 05/12/16 07:48 Bedside Glucose 126 144 167 137 Medications Medications Current Medications Atorvastatin Calcium (Lipitor) 40 mg HS PO Last administered on 05/11/16 20:51 ; Admin Dose 40 MG; Start 05/01/16 at 23:00 Aspirin (Aspirin) 81 mg DAILY PO Last administered on 05/12/16 08:53; Admin Dose 81 MG; Start 05/01/16 at 09:00 Diagnostic Test (Pha) (Accucheck) 1 ea 02 XX Last administered on 05/08/16at 01 :58; Admin Dose 1 EA; Start 05/01/16 at 02:00 Miscellaneous Information 1 ea NOTE XX ; Start 04/30/16 at 22:30 Glucose (Glutose) 15 gm Q15M PRN PO DECREASED GLUCOSE; Start 04/30/16 at 22:30 Glucose (Glutose) 22.5 gm Q15M PRN PO DECREASED GLUCOSE; Start 04/30/16 at 22: 30 Dextrose (D50w Syringe) 25 ml Q15M PRN IV DECREASED GLUCOSE; Start 04/30/16 at 22:30 Dextrose (D50w Syringe) 50 ml Q15M PRN IV DECREASED GLUCOSE; Start 04/30/16 at 22:30 Glucagon (Glucagen) 1 mg Q15M PRN IM DECREASED GLUCOSE; Start 04/30/16 at 22: 30 Glucose (Glutose) 15 gm Q15M PRN BUCCAL DECREASED GLUCOSE; Start 04/30/16 at 22:30 Labetalol HCl (Normodyne) 200 mg BID PO Last administered on 05/11/16 08:50; Admin Dose 200 MG; Start 05/01/16 at 21:00 Pantoprazole (Protonix Tab) 40 mg DAILY@06 PO Last administered on 05/12/16 06: 23; Admin Dose 40 MG; Start 05/01/16 at 11:00 Acetaminophen/ Hydrocodone Bitart (Biggers (5/325)) 1 tab Q6H PRN PO moderate pain Last administered on 05/09/16at 01:16; Admin Dose 1 TAB; Start 05/08/16 at 16:30 Morphine Sulfate (morphine) 4 mg Q6H PRN IV SEVERE PAIN Last administered on at 20:11; Admin Dose 4 MG; Start 05/08/16 at 16:30 TOMMIE BHATT MD May 12, 2016 11:08
--- NOTE | 2016-05-12 13:28 | DS ---
DATE OF ADMISSION: 05/01/2016 DATE OF DISCHARGE: 05/12/2016 HOSPITAL COURSE: This is a 70-year-old female with a past medical history of end-stage renal diseas e on dialysis Wednesday, , Wednesday who presented to [facility] due to acces s failure. The patient was subsequently admitted in med/surg. While in med/surg, the patient was e valuated by vascular surgeon, Dr. Redmond. The patient had a Vivek catheter placed in order to do temporary dialysis. Dr. Redmond then created a new AV fistula in the patient's right upper ext remity. The patient tolerated the procedure well without any complications. The patient additional ly also had a Perm-A-Cath placed in her left upper chest, where she is using for access until such t lauren that her fistula matures. The patient's other medical problems including anemia, mineral bone disorder, diabetes have been wel l controlled. The patient was also placed on perioperative beta jemal prior to the surgery. The patient herself does not normally take blood pressure medications at home. Currently, at this time, the patient is stable, in no acute distress. She will be discharged home, where she will follow up with Dr. Redmond in 1 to 2 weeks' time to have erickson removed from her AV fistula, and she will follow up with her normal routined hemodialysis at her dialysis center. FINAL DIAGNOSES: 1. Status post right brachiocephalic fistula creation. 2. End-stage renal disease. 3. Anemia. 4. Diabetes. 5. Hypertension. 6. Dyslipidemia. 7. Thrombocytopenia. 8. Mineral bone disorder. FINAL MEDICATIONS: 1. Patient will resume her home medications of amlodipine. 2. Lipitor. 3. Aspirin. 4. Insulin. CONDITION ON DISCHARGE: At time of discharge, the patient is stable, in no acute distress. Please not I spent over 40 minutes of time preparing patient's discharge. Dictated By: LEFTY PERSON/REESE Conf#: [id number] DID#: [id number]
== END 2016-05-12 11:11 | disposition home or self-care (01) | DRG 264 ==
LOC: E/R 14:45 → MS1 17:56 → OBSVTOIN 05-01 12:41
PROVIDERS: ADMIT Internal Medicine Nephrology; ATTEND Internal Medicine Nephrology
PROC: 06HM33Z Insertion of Infusion Device into Right Femoral Vein, Percutaneous Approach (ICD-10-PCS; 2016-05-01)
PROC: 06PY33Z Removal of Infusion Device from Lower Vein, Percutaneous Approach (ICD-10-PCS; 2016-05-06)
PROC: 06HM33Z Insertion of Infusion Device into Right Femoral Vein, Percutaneous Approach (ICD-10-PCS; 2016-05-06)
PROC: 5A1D60Z (ICD-10-PCS; 2016-05-06)
PROC: 0KC Muscles, Extirpation (ICD-10-PCS; 2016-05-08)
PROC: 03170ZD Bypass Right Brachial Artery to Upper Arm Vein, Open Approach (ICD-10-PCS; principal; 2016-05-08 08:00)
PROC: 02H633Z Insertion of Infusion Device into Right Atrium, Percutaneous Approach (ICD-10-PCS; 2016-05-11)
DX: T82.868A Thrombosis due to vascular prosthetic devices, implants and grafts, initial encounter (principal); N18.6 End stage renal disease; I12.0 Hypertensive chronic kidney disease with stage 5 chronic kidney disease or end stage renal disease; E11.22 Type 2 diabetes mellitus with diabetic chronic kidney disease; D69.6 Thrombocytopenia, unspecified; M96.841 Postprocedural hematoma of a musculoskeletal structure following other procedure; Y83.2 Surgical operation with anastomosis, bypass or graft as the cause of abnormal reaction of the patient, or of later complication, without mention of misadventure at the time of the procedure; D63.1 Anemia in chronic kidney disease; E78.5 Hyperlipidemia, unspecified; E83.9 Disorder of mineral metabolism, unspecified; Y84.1 Kidney dialysis as the cause of abnormal reaction of the patient, or of later complication, without mention of misadventure at the time of the procedure; Y92.89 Other specified places as the place of occurrence of the external cause; Z99.2 Dependence on renal dialysis
CPT/HCPCS: 36430; 36558; 71010; 75822; 76942; 80048; 82728; 82962; 83540; 83735; 83880; 84100; 84443; 84484; 85025; 85610; 85730; 86644; 86850; 86900; 86901; 86920; 88304; 90935; 93005; 93306; 93923; 93931; 93965; 93970; 96374; 97001; 97116; 97530; C1769; G0378; J0886; J1644; J1815; J2250; J2270; J2405; J2997; J3010; J3370; J7040; P9016; Q9967

== ENCOUNTER 2016-09-28 11:03 | Day surgery (SDC) | payer OTHER ==
[~2016-09-28] VITALS: Ht 147.3 cm; Wt 56.5 kg
[2016-09-28] MEDS ORDERED: CALC667C PO (11:35)
[2016-09-28] MEDS ORDERED: ATOR80TA75 PO (11:35)
[2016-09-28] MEDS ORDERED: INSU100V3 IJ (11:38)
[2016-09-28] MEDS ORDERED: ASPI-664 PO (11:39)
[2016-09-28 13:05] VITALS: Ht 147.3 cm; Wt 56.5 kg
[2016-09-28 13:07] LABS: ADD SCAN DIFF NO
[2016-09-28 13:09] VITALS: BP 184/75; PULSE 78; RESP 16
[2016-09-28 13:11] LABS: BASOPHILS % 0.2 % (0.0-2.0); EOSINOPHILS # 0.3 10^3/ul (0.0-0.5); EOSINOPHILS % 4.8 % (0.0-7.0); HEMATOCRIT 35.8 % (37.0-47.0); HEMOGLOBIN 11.8 g/dl (12.0-16.0); LYMPHOCYTES # 2.1 10^3/ul (0.8-2.9); LYMPHOCYTES % 32.7 % (15.0-51.0); MEAN CORPUSCULAR HEMOGLOBIN 27.8 pg (29.0-33.0); MEAN CORPUSCULAR VOLUME 84.4 fl (82.0-101.0); MEAN PLATELET VOLUME 11.3 fl (7.4-10.4); MONOCYTE # 0.6 10^3/ul (0.3-0.9); NEUTROPHIL # 3.4 10^3/ul (1.6-7.5); PLATELET COUNT 102 10^3/UL (140-415); RED BLOOD COUNT 4.24 10^6/ul (4.20-5.40); RED CELL DISTRIBUTION WIDTH 15.1 % (11.5-14.5); WHITE BLOOD COUNT 6.4 10^3/ul (4.8-10.8)
[2016-09-28 13:18] LABS: ADD UMIC YES; URINE BILIRUBIN (Dip) NEGATIVE (NEGATIVE); URINE BLOOD (Dip) TRACE (NEGATIVE); URINE COLOR LT. YELLOW (YELLOW); URINE GLUCOSE (Dip) NEGATIVE (NEGATIVE); URINE KETONES (Dip) NEGATIVE (NEGATIVE); URINE LEUKOCYTE ESTERASE (Dip) NEGATIVE (NEGATIVE); URINE NITRITE (Dip) NEGATIVE (NEGATIVE); URINE TOTAL PROTEIN (Dip) 1+ (NEGATIVE); URINE UROBILINOGEN (Dip) 0.2 E.U./dL (0.1-1.0)
[2016-09-28 13:24] LABS: POTASSIUM 4.7 mmol/L (3.5-5.1)
[2016-09-28 13:27] LABS: CREATININE 4.92 mg/dl (0.44-1.00)
[2016-09-28 13:29] LABS: CALCIUM 9.5 mg/dl (8.4-10.2)
[2016-09-28 13:33] LABS: INR 1.12; PROTIME 14.4 Sec (12.2-14.2); PT RATIO 1.1
[2016-09-28 13:47] LABS: SQUAMOUS EPITHELIAL CELL,UR FEW; URINE RBCS 0-2 /HPF (0)
[2016-09-28 13:54] LABS: PARTIAL THROMBOPLASTIN TIME 35.8 Sec (25.0-35.0)
== END 2016-09-29 16:08 | disposition home or self-care (01) ==
LOC: SDS 11:03
PROVIDERS: ATTEND Student in an Organized Health Care Education/Training Program
DX: I12.0 Hypertensive chronic kidney disease with stage 5 chronic kidney disease or end stage renal disease (principal); N18.6 End stage renal disease; Z99.2 Dependence on renal dialysis; Z53.9 Procedure and treatment not carried out, unspecified reason
CPT/HCPCS: 80048; 81001; 81003; 82962; 85025; 85610; 85730

== ENCOUNTER 2016-09-30 08:17 | Day surgery (SDC) | payer OTHER ==
[~2016-09-30] VITALS: Ht 144.8 cm; Wt 56.1 kg
[~2016-09-30 08:17] MED LIST: ASPI-664 PO; ATOR80TA75 PO; CALC667C PO; INSU100V3 IJ
[2016-09-30 08:30] VITALS: BP 144/87; PULSE 75; RESP 16; Ht 144.8 cm; Wt 56.1 kg
[2016-09-30] MEDS ORDERED: IODIXANOL LOCM 100 ML BTL ONE (12:05)
[2016-09-30] MEDS ORDERED: LIDOCAINE 1% (MDV) 20 ML INJ ONE ×4 (12:05→13:06)
[2016-09-30] MEDS ORDERED: FENTAnyl 50 MCG/ML VIAL ONE (12:06)
[2016-09-30] MEDS ORDERED: IODIXANOL LOCM 50 ML BTL ONE ×3 (12:06→13:32)
[2016-09-30] MEDS ORDERED: MIDAZOLAM 1 MG/ML 2 ML INJ ONE (12:06)
[2016-09-30] MEDS ORDERED: HEPARIN 1000 UNITS/NS (A-LINE) 0 ML ONE (12:06)
[2016-09-30] MEDS ORDERED: hydrALAzine 20 MG INJ ONE (12:28)
[2016-09-30] MEDS ORDERED: HEPARIN 1000 UNITS/ML 10 ML INJ ONE (13:06)
[2016-09-30 14:17] VITALS: BP 139/60; PULSE 78; RESP 18
--- NOTE | 2016-10-07 13:56 | OPR ---
DATE OF OPERATION: 09/30/2016 SURGEON: Mio Redmond M.D. PREOPERATIVE DIAGNOSIS: Malfunctioning right upper extremity arteriovenous fistula. POSTOPERATIVE DIAGNOSIS: Malfunctioning right upper extremity arteriovenous fistula. ANESTHESIA: Local with sedation. BLOOD LOSS: Minimal. COMPLICATIONS: None. HEPARIN: As recorded. CONTRAST: As recorded. ACCESS: A 6 Urdu sheath at the right upper extremity fistula. CLOSURE: Manual compression and 3-0 nylon suture. INDICATIONS: This is a 70-year-old female who has presented with creation of a new right upper extr emity fistula that has now matured. The patient has been informed of the alternatives, risks and be nefits of an angiogram with an angioplasty and stenting. Risks include, but are not limited to blee ding, thrombosis, embolization, myocardial infarction, , device malfunction, infection, nephrot oxicity and the patient has agreed to proceed. PROCEDURES: 1. Ultrasound-guided access of the right upper extremity fistula. 2. Right upper extremity venogram. 3. Central venogram involving subclavian vein, superior vena cava and internal jugular vein. 4. Venoplasty of the cephalic vein in the upper arm. 5. Venoplasty of the basilic vein. 6. Venoplasty of the arterial anastomosis of the brachial artery. FINDINGS: 1. Upper arm cephalic vein, small in caliber and non-maturing. 2. Right cephalic arch patent. 3. Right axillary artery patent. 4. Right subclavian artery patent. 5. Right superior vena cava with mild stenosis, but patent. 6. Left hemodialysis catheter in appropriate place. 7. Right basilic vein seems to be patent. 8. The proximal aspect of the fistula with significant stenosis. DESCRIPTION OF PROCEDURE: The patient was brought into the angio suite and positioned in the supin e position on the fluoroscopic table. Sedation and local anesthesia was administered without any co mplications. The left upper extremity was shaved and prepped in the usual standard sterile fashion. A time-out and the appropriate site was marked and confirmed. Further local anesthesia was infiltr ated in the region of the right upper extremity fistula. The fistula was then cannulated with a angela ro access needle under ultrasound guidance and the guidewire was advanced into the upper arm cephali c vein under fluoroscopic guidance. The needle was then removed and a short 6 Urdu sheath was caryl monika. A venogram was performed of the upper extremity and the central veins. Findings are noted abo ve. The distal end was identified. The patient has a non-maturing cephalic vein; therefore, balloo n angioplasty was performed of this segment. Upon the completion of that, a retrograde fistulogram was performed which identified the patient having significant stenosis of the proximal spect of the cephalic vein near the arterial anastomosis. Also, there was stenosis in the segment where the ante cubital vein which was connected to both the cephalic vein and the brachial vein had significant harjinder nosis in that segment near the artery. At this point, it was determined to place a retrograde sheat h towards the anastomosis and to select the basilic vein in the second order of selection. At this point, the venogram was performed which identified the basilic vein being patent and no flow-limitin g stenosis was identified except near the anastomosis. Therefore, at this point, we went ahead and performed a balloon angioplasty of the proximal aspect of the cephalic vein and the arterial anastom osis segment and the proximal aspect of the basilic vein. Upon the completion of that, improved anibal w through both the cephalic vein and the basilic vein was identified. However, there was still mode rate stenosis in the segment of the arterial anastomosis and antecubital vein. We went ahead and pe rformed the venoplasty with the larger balloon in order to try to dilate the segment; however, the s egment still had its stenosis. A retrograde fistula angiogram was performed in order to evaluate th e arterial inflow to the forearm, which was adequate. At this point, it was determined that the pat ient had slightly improved inflow to both basilic vein and the cephalic vein from the antecubital an astomosis with the brachial artery. The patient tolerated the procedure well and was taken to the p ost-anesthesia care unit in stable condition. All needles, catheters and wires were counted for and correct x2. The sheath was removed, and then using a 3-0 nylon suture to close the puncture site w as performed for both sites. Manual compression was also applied. PLAN: We will schedule the patient to follow up in our office for evaluation of a new ultrasound to evaluate the cephalic and the basilic vein for maturation. Likely the basilic vein will be the vei n that has appropriately matured and we will transpose it for new fistula access. Dictated By: MIO LAZO/REESE Conf#: [id number] [facility]#: [id number]
== END 2016-09-30 14:40 | disposition home or self-care (01) ==
LOC: SDS 08:17
PROVIDERS: ATTEND Student in an Organized Health Care Education/Training Program
DX: T82.898A Other specified complication of vascular prosthetic devices, implants and grafts, initial encounter (principal); Y84.8 Other medical procedures as the cause of abnormal reaction of the patient, or of later complication, without mention of misadventure at the time of the procedure; Y92.89 Other specified places as the place of occurrence of the external cause; I12.0 Hypertensive chronic kidney disease with stage 5 chronic kidney disease or end stage renal disease; N18.6 End stage renal disease; Z99.2 Dependence on renal dialysis; E11.9 Type 2 diabetes mellitus without complications; Z79.4 Long term (current) use of insulin
CPT/HCPCS: 36902; 75820; 82962; 84132; C1725; C1769; C1887; C1894; J0360; J1644; J2250; J3010; Q9967; Z7610

== ENCOUNTER 2016-10-10 15:22 | Inpatient (IN) | payer OTHER ==
[~2016-10-10] VITALS: Ht 160 cm; Wt 60.0 kg
[2016-10-10 15:39] VITALS: Ht 160 cm; Wt 60.0 kg
[2016-10-10] MEDS ORDERED: SODIUM CHLORIDE 0.9% 1L BAG IV* STA (17:05)
[2016-10-10] MEDS ORDERED: CEFEPIME 2GM/50 ML (PMX) 50 ML IVPB STA (17:05)
[2016-10-10] MEDS ORDERED: ACETAMINOPHEN 500 MG TAB PO STA (17:05)
[2016-10-10] MEDS ORDERED: VANCOMYCIN 1 GM (PMX) 250 ML IVPB ONE (17:30)
[2016-10-10 17:50] LABS: ADD SCAN DIFF NO
[2016-10-10 17:55] LABS: ABNORMAL IP MESSAGE 1; HEMATOCRIT 32.4 % (37.0-47.0); MEAN CORPUSCULAR HEMOGLOBIN 28.2 pg (29.0-33.0); MEAN CORPUSCULAR VOLUME 83.1 fl (82.0-101.0); MEAN PLATELET VOLUME 10.6 fl (7.4-10.4); PLATELET COUNT 96 10^3/UL (140-415); RED CELL DISTRIBUTION WIDTH 15.2 % (11.5-14.5); WHITE BLOOD COUNT 6.3 10^3/ul (4.8-10.8)
[2016-10-10 18:12] LABS: INR 1.02; PARTIAL THROMBOPLASTIN TIME 29.9 Sec (25.0-35.0); PROTIME 13.4 Sec (12.2-14.2)
[2016-10-10 18:15] LABS: ALANINE AMINOTRANSFERASE 47 IU/L (13-69); ALBUMIN 4.9 g/dl (3.3-4.9); ALBUMIN/GLOBULIN RATIO 1.53; ALKALINE PHOSPHATASE 112 IU/L (42-121); ASPARTATE AMINO TRANSFERASE 42 IU/L (15-46); BILIRUBIN,INDIRECT 0.4 mg/dl (0-1.1); BILIRUBIN,TOTAL 0.4 mg/dl (0.2-1.3); BLOOD UREA NITROGEN 20 mg/dl (7-20); CALCIUM 8.7 mg/dl (8.4-10.2); CARBON DIOXIDE 31 mmol/L (21-31); CHLORIDE 94 mmol/L (97-110); CREATININE 2.84 mg/dl (0.44-1.00); GLUCOSE 70 mg/dl (70-220); SODIUM 134 mmol/L (135-144); TOTAL PROTEIN 8.1 g/dl (6.1-8.1)
[2016-10-10 18:16] LABS: EOSINOPHILS # 0.1 10^3/ul (0.0-0.5); LYMPHOCYTES # 0.6 10^3/ul (0.8-2.9); MONOCYTE # 0.3 10^3/ul (0.3-0.9); NEUTROPHIL # 5.2 10^3/ul (1.6-7.5)
[2016-10-10 18:17] LABS: ANISOCYTOSIS 1+; PLATELET ESTIMATE PLT APPEAR DECREASED
[2016-10-10 18:20] LABS: ADD UMIC YES; URINE BILIRUBIN (Dip) NEGATIVE (NEGATIVE); URINE BLOOD (Dip) TRACE (NEGATIVE); URINE COLOR LT. YELLOW (YELLOW); URINE GLUCOSE (Dip) NEGATIVE (NEGATIVE); URINE KETONES (Dip) NEGATIVE (NEGATIVE); URINE LEUKOCYTE ESTERASE (Dip) NEGATIVE (NEGATIVE); URINE NITRITE (Dip) NEGATIVE (NEGATIVE); URINE TOTAL PROTEIN (Dip) 2+ (NEGATIVE); URINE UROBILINOGEN (Dip) 0.2 E.U./dL (0.1-1.0)
[2016-10-10 18:27] LABS: URINE RBCS NONE SEEN /HPF (0)
[2016-10-10 18:31] LABS: ANION GAP 13 (8-16); POTASSIUM 4.3 mmol/L (3.5-5.1); TROPONIN-I < 0.012 ng/ml (0.00-0.12)
--- NOTE | 2016-10-10 19:51 | ERA ---
ER Documentation Chief Complaint Date/Time DATE: 10/10/16 TIME: 19:48 Chief Complaint FEVER CHILLS TREMORS TO WHOLE BODY HPI 70-year-old female history of end-stage renal disease on dialysis Wednesday and Wednesday with recent surgery to the right upper extremity for an AV fistula who presents with fever and chills. The patient during dialysis today started to develop a fever and shaking chills and rigors. She describes generalized malaise without focal complaints other than a dry nonproductive cough. She denies any abdominal pain but has had loose stools over the last 24- 48 hours. She states that the right upper extremity AV fistula has no erythema warmth or tenderness. ROS All systems reviewed and are negative except as per history of present illness. Medications Home Meds Reported Medications Aspirin (Low Dose Aspirin) 81 Mg Tablet.dr, 81 MG PO DAILY, #30 TAB 09/28/16 Insulin Regular, Human (Humulin R) 100 Unit/1 Ml Vial, 0 IJ AC MEALS, VIAL 09/28/16 Calcium Acetate* (Calcium Acetate*) 667 Mg Capsule, 667 MG PO WITH MEALS, #30 CAP 09/28/16 Atorvastatin* (Atorvastatin*) 80 Mg Tablet, 80 MG PO DAILY, #30 TAB 09/28/16 Allergies Allergies: Coded Allergies: No Known Allergy (Unverified , 09/30/16) PMhx/Soc History of Surgery: Yes (AV SHUNT PLACEMENT 2013, AV FISTULA REPAIR 2015) Anesthesia Reaction: No Hx Neurological Disorder: No Hx Respiratory Disorders: No Hx Cardiac Disorders: No Hx Psychiatric Problems: No Hx Miscellaneous Medical Probl: Yes (ESRD) Hx Alcohol Use: No Hx Substance Use: No Hx Tobacco Use: No Smoking Status: Never smoker FmHx Family History: No diabetes Physical Exam Vitals Vital Signs Date Time Temp Pulse Resp B/P Pulse Ox O2 Delivery O2 Flow Rate FiO2 10/10/16 18:25 99 23 129/53 97 Room Air 10/10/16 17:58 96 20 129/53 94 Room Air 10/10/16 15:39 101.5 109 19 150/69 97 Physical Exam General: Slightly ill-appearing Head: Normocephalic, atraumatic. Eyes: Pupils equally reactive, EOM intact ENT: Moist mucous membranes Neck: Supple, no lymphadenopathy Respiratory: Lungs clear bilaterally, no distress Cardiovascular: RRR, no murmurs, rubs, or gallops Abdominal: Soft, non-tender, non-distended, no peritoneal signs : Deferred MSK: No edema, no unilateral swelling, 5/5 strength, right upper extremity AV fistula without erythema warmth or tenderness with bruit and thrill Neurologic: Alert and oriented, moving all extremities, normal speech, no focal weakness, no cerebellar signs Skin: No rash Psych: Normal mood Result Diagram: 10/10/16 1740 10/10/16 1740 Results 24 hrs Laboratory Tests Test 10/10/16 17:40 10/10/16 18:10 White Blood Count 6.310^3/ul Red Blood Count 3.9010^6/ul Hemoglobin 11.0g/dl Hematocrit 32.4% Mean Corpuscular Volume 83.1fl Mean Corpuscular Hemoglobin 28.2pg Mean Corpuscular Hemoglobin Concent 34.0g/dl Red Cell Distribution Width 15.2% Platelet Count 9610^3/UL Mean Platelet Volume 10.6fl Neutrophils % 83.0% Band Neutrophils % 3.0% Lymphocytes % 9.0% Monocytes % 4.0% Eosinophils % 1.0% Neutrophils # 5.210^3/ul Lymphocytes # 0.610^3/ul Monocytes # 0.310^3/ul Eosinophils # 0.110^3/ul Platelet Estimate PLT APPEAR DECREASED Anisocytosis 1+ Prothrombin Time 13.4Sec Prothrombin Time Ratio 1.0 INR International Normalized Ratio 1.02 Activated Partial Thromboplast Time 29.9Sec Sodium Level 134mmol/L Potassium Level 4.3mmol/L Chloride Level 94mmol/L Carbon Dioxide Level 31mmol/L Anion Gap 13 Blood Urea Nitrogen 20mg/dl Creatinine 2.84mg/dl Glucose Level 70mg/dl Lactic Acid Level 1.7mmol/L Calcium Level 8.7mg/dl Total Bilirubin 0.4mg/dl Direct Bilirubin 0.00mg/dl Indirect Bilirubin 0.4mg/dl Aspartate Amino Transf (AST/SGOT) 42IU/L Alanine Aminotransferase (ALT/SGPT) 47IU/L Alkaline Phosphatase 112IU/L Troponin I < 0.012ng/ml Total Protein 8.1g/dl Albumin 4.9g/dl Globulin 3.20g/dl Albumin/Globulin Ratio 1.53 Urine Color LT. YELLOW Urine Clarity CLEAR Urine pH 8.0 Urine Specific [place] 1.015 Urine Ketones NEGATIVE Urine Nitrite NEGATIVE Urine Bilirubin NEGATIVE Urine Urobilinogen 0.2 E.U./dL Urine Leukocyte Esterase NEGATIVE Urine Microscopic RBC NONE SEEN/HPF Urine Microscopic WBC NONE SEEN/HPF Urine Hemoglobin TRACE Urine Glucose NEGATIVE% Urine Total Protein 2+ Current Medications Medications (Trade) Dose Ordered Sig/Hiram Route PRN Reason Start Time Stop Time Status Last Admin Dose Admin Sodium Chloride 1860 ml 1,860 ml BOLUS OVER 2 HOURS STAT IV* 10/10/16 17:05 10/10/16 17:06 DC 10/10/16 17:41 Cefepime HCl 50 ml @ 100 mls/hr ONCE STAT IVPB 10/10/16 17:05 10/10/16 17:34 DC 10/10/16 18:11 Vancomycin HCl (Vancocin) 250 ml @ 125 mls/hr ONCE ONCE IVPB 10/10/16 17:30 10/10/16 19:29 DC 10/10/16 19:05 Acetaminophen (Tylenol Tab) 1,000 mg ONCE STAT PO 10/10/16 17:05 10/10/16 17:07 DC 10/10/16 17:40 Ondansetron HCl (Zofran Inj) 4 mg BRIDGE ORDER PRN IV NAUSEA AND/OR VOMITING 10/10/16 21:30 10/11/16 21:29 Acetaminophen (Tylenol Tab) 650 mg ER BRIDGE PRN PO MILD PAIN/FEVER 10/10/16 21:30 10/11/16 21:29 Procedures/MDM EKG, MONITORS, & DIAGNOSTIC IMAGING: EKG: I reviewed and interpreted a 12-lead EKG. Rhythm: Normal sinus rhythm Ectopy: None Intervals: No abnormalities ST segments: No elevations or depressions T waves: No contiguous inversions Chest x-ray: I reviewed and interpreted a 1 view of the chest Mediastinum: No enlargement Cardiac silhouette: No cardiomegaly Airspace: Clear lung culver bilaterally without evidence of pneumothorax Bones: No evidence of fracture CT abdomen and pelvis: IMPRESSION: 1. Small posterior basal segment right lower lobe infiltrate not visible on portable chest x-ray is concerning for pneumonia. 2. Mild urinary bladder wall thickening and stranding of the surrounding urinary bladder fat is equivocal for cystitis and correlation with urinalysis, if not already performed, is suggested. 3. Cholelithiasis without evidence of cholecystitis. 4. Renal cortex thinning consistent with medical renal disease. 5. Constipation pattern and colonic diverticulosis. 6. Extensive atherosclerotic calcification. LAB INTERPRETATION: No leukocytosis, elevated creatinine, no hyperkalemia, normal lactic acid, negative troponin MEDICAL DECISION MAKING: The patient presents with fevers and chills. Consider viral process, consider diarrheal illness versus pneumonia given the patient's cough. The patient also has risk for line infection given her dialysis. Empiric antibiotics would be reasonable with inpatient hospitalization and culture monitoring. Her recent surgery to the right upper extremity has a well appearing AV fistula without evidence of infection. ER COURSE: Patient was initiated on saline but does not meet severe sepsis criteria, 300 cc total given, avoid aggressive fluid given her dialysis status. Blood cultures taken. Antipyretics provided. Patient given vancomycin and cefepime. She remains hemodynamically stable with a normal lactic acid. Patient has evidence of pneumonia. Appropriate antibiotics are provided. The patient does not meet severe sepsis criteria. The patient will be admitted for further management. I kept the patient and/or family informed of laboratory and diagnostic imaging results throughout the emergency room course. DISPOSITION PLAN: Medical surgical admission for management of fever, Sirs CONSULTATION: Accepting care team and consultations: I discussed the current laboratory data, diagnostic imaging and emergency care provided. Admitting team: Dr. Smith Admitting team indication: Insurance directed Departure Diagnosis: Primary Impression: Sepsis Qualified Code: A41.9 - Sepsis, due to unspecified organism Additional Impressions: Healthcare-associated pneumonia End stage renal disease on dialysis Thrombocytopenia Condition: Stable RICH COSBY MD Oct 10, 2016 19:51
--- NOTE | 2016-10-10 20:36 | RADRPT ---
PROCEDURE: XR Chest. CLINICAL INDICATION: Chest pain. Possible sepsis TECHNIQUE: Portable AP view of the chest was obtained. COMPARISON: 04/30/2016 FINDINGS: The cardiomediastinal silhouette is within normal limits. The lungs are clear. There is no evidenc e for pleural effusion, pneumothorax or pulmonary vascular congestion. The osseous structures are i ntact with no evidence for acute abnormality. A left-sided approach Perma-Cath is now present. Calci fication is visible within the aorta. RPTAT:HJJR IMPRESSION: 1. No evidence for acute intrathoracic pathology. 2. Interval insertion of a left-sided Perma-Cath compared to the prior study the distal tip project ing in the right atrium. 3. Aortic atherosclerosis is present. Physician Otilia Date Time Electronically viewed and signed by Physician Otilia on 10/10/2016 20:36 /
--- NOTE | 2016-10-10 20:43 | RADRPT ---
PROCEDURE: CT abdomen and pelvis without contrast. CLINICAL INDICATION: Abdominal pain. Possible sepsis TECHNIQUE: CT scan of the abdomen and pelvis without contrast was performed. Sagittal and coronal reformatted images were obtained from the axial source images. CTDI = 5.64 mGy; DLP = 304.37 mGy-cm COMPARISON: Chest x-ray 10/10/2016 FINDINGS: Visualized lower thorax: Not visible on the x-ray is a subtle infiltrate in the posterior basal seg ment right lower lobe concerning for pneumonia. The visualized left lung base is clear. There is n o evidence for pleural effusion. Liver, gallbladder, pancreas and spleen: The liver is normal and size, contour and attenuation. Th ere is no evidence for a liver mass or ductal dilatation. Calcified gallstones are present with mil d gallbladder hydrops but the pericholecystic fat appears preserved. No common bile duct abnormalit y is demonstrated. The pancreas is unremarkable. The spleen is normal in size. Adrenal glands and genitourinary system: The adrenal glands are normal bilaterally. Bilateral renal cortex thinning is present. There is no evidence of renal calculus or hydronephrosis. The ureters are unremarkable. The urinary bladder wall is mildly thickened at 4 mm and there is subtle strandin g of the adjacent fat. The uterus and adnexa are unremarkable. Gastrointestinal system: The stomach is normal in caliber with no abnormality of significance. The small bowel is normal in caliber with no ileus, obstruction or wall thickening. The appendix and s urrounding fat are within the limits of normal. Scattered diverticular disease of the colon is pres ent and there is a moderate constipation pattern. There is no evidence for colitis or diverticuliti s. Peritoneum, retroperitoneum, lymph nodes and vessels: The abdominal aorta is normal in caliber. The re is moderate to severe aortic and branch atherosclerotic calcification. The inferior vena cava is unremarkable. There is no evidence for adenopathy or mass. There is no ascites. No intraperitonea l abscess is present. There is no evidence of pneumoperitoneum Osseous structures and musculoskeletal findings: There is no fracture, lytic or blastic lesion. No muscular abnormality or soft tissue pathology is present. RPTAT:HJJR IMPRESSION: 1. Small posterior basal segment right lower lobe infiltrate not visible on portable chest x-ray is concerning for pneumonia. 2. Mild urinary bladder wall thickening and stranding of the surrounding urinary bladder fat is equ ivocal for cystitis and correlation with urinalysis, if not already performed, is suggested. 3. Cholelithiasis without evidence of cholecystitis. 4. Renal cortex thinning consistent with medical renal disease. 5. Constipation pattern and colonic diverticulosis. 6. Extensive atherosclerotic calcification. Physician Otilia Date Time Electronically viewed and signed by Misha Cruz Physician on 10/10/2016 20:43 JR/
[2016-10-10] MEDS ORDERED: ONDANSETRON 4 MG INJ IV PRN ×2 (21:30→23:30)
[2016-10-10] MEDS ORDERED: ACETAMINOPHEN 325 MG TAB PO PRN ×2 (21:30→23:30)
[2016-10-10 22:44] VITALS: BP 118/55; RESP 18
[2016-10-10] MEDS ORDERED: VANCOMYCIN IV PER PHARMACY XX SCH (23:30)
[2016-10-10] MEDS ORDERED: NACL 0.9% 3 ML SYG IV SCH (23:30)
[2016-10-10] MEDS ORDERED: GLUCAGON 1 MG INJ IM PRN (23:45)
[2016-10-10] MEDS ORDERED: DEXTROSE 50% 50 ML SYRINGE IV PRN ×2 (23:45)
[2016-10-10] MEDS ORDERED: GLUCOSE GEL 15 GRAM TUBE BUCCAL PRN (23:45)
[2016-10-10] MEDS ORDERED: GLUCOSE GEL 15 GRAM TUBE PO PRN ×2 (23:45)
[2016-10-10 23:50] VITALS: BP 140/64; RESP 20
[2016-10-11] MEDS: ALBUTEROL 0.083% (NEB) 2.5 MG/3 ML AMP NEB SCH ×6 (01:57→20:43)
[2016-10-11] MEDS: ACCU-CHEK XX SCH (02:00)
[2016-10-11 05:19] LABS: ADD SCAN DIFF NO
[2016-10-11 05:26] LABS: ABNORMAL IP MESSAGE 1; BASOPHILS % 0.1 % (0.0-2.0); EOSINOPHILS % 0.3 % (0.0-7.0); HEMATOCRIT 29.8 % (37.0-47.0); HEMOGLOBIN 9.8 g/dl (12.0-16.0); LYMPHOCYTES # 0.7 10^3/ul (0.8-2.9); LYMPHOCYTES % 5.3 % (15.0-51.0); MEAN CORPUSCULAR HEMOGLOBIN 27.4 pg (29.0-33.0); MEAN CORPUSCULAR HGB CONC 32.9 g/dl (32.0-37.0); MEAN CORPUSCULAR VOLUME 83.2 fl (82.0-101.0); MEAN PLATELET VOLUME 11.5 fl (7.4-10.4); MONOCYTE # 0.7 10^3/ul (0.3-0.9); MONOCYTES % 5.3 % (0.0-11.0); NEUTROPHIL # 11.3 10^3/ul (1.6-7.5); NEUTROPHILS % 88.7 % (39.0-77.0); PLATELET COUNT 96 10^3/UL (140-415); RED BLOOD COUNT 3.58 10^6/ul (4.20-5.40); RED CELL DISTRIBUTION WIDTH 15.3 % (11.5-14.5); WHITE BLOOD COUNT 12.7 10^3/ul (4.8-10.8)
[2016-10-11 05:46] LABS: ALBUMIN 4.1 g/dl (3.3-4.9); ALBUMIN/GLOBULIN RATIO 1.46; BILIRUBIN,INDIRECT 0.5 mg/dl (0-1.1); BILIRUBIN,TOTAL 0.5 mg/dl (0.2-1.3); CALCIUM 8.1 mg/dl (8.4-10.2); CREATININE 3.48 mg/dl (0.44-1.00); MAGNESIUM 1.7 mg/dl (1.7-2.5); PHOSPHORUS 4.3 mg/dl (2.5-4.9); POTASSIUM 4.2 mmol/L (3.5-5.1); TOTAL PROTEIN 6.9 g/dl (6.1-8.1)
[2016-10-11 06:01] LABS: T3 UPTAKE 38.9 % (23.5-40.5)
[2016-10-11] MEDS: CEFEPIME 2GM/50 ML (PMX) 50 ML IV SCH ×2 (06:53→14:04)
[2016-10-11 07:59] VITALS: BP 116/58; RESP 19
--- NOTE | 2016-10-11 08:34 | CONS ---
DATE OF ADMISSION: 10/10/2016 DATE OF CONSULTATION: 10/11/2016 TYPE OF CONSULTATION: VASCULAR SURGERY Dear Doctors, Ms. Lezama is a 70-year-old female known to our vascular surgery service group secondary to end-stage renal disease who had recently undergone a right upper extremity fistulogram for evaluation of a no nmaturing fistula. The patient seems to have presented with findings of fever and chills during her dialysis session. The patient was admitted for further evaluation. Upon her diagnostic studies, s he did have a CTA of the abdomen and pelvis which identified a right lower lobe infiltrate, possible pneumonia. Otherwise, she denies any upper extremity claudication or rest pain-like symptoms. Cur rently, denies any left-sided chest pain where her PermCath site is located. REVIEW OF SYSTEMS: A 14-point review performed and negative except what is mentioned in the HPI. PAST MEDICAL HISTORY: Entails hypertension, end-stage renal disease, coronary artery disease on eugenio lysis scheduled Wednesday, , and Wednesday. PAST SURGICAL HISTORY: 1. Bilateral upper extremity AV graft creation. 2. New right upper extremity AV fistula creation (antecubital vein to brachial artery). 3. Right upper extremity fistulogram and intervention. ALLERGIES: NO KNOWN DRUG ALLERGIES. FAMILY HISTORY: Positive for hypertension. SOCIAL HISTORY: Denies tobacco, alcohol, or illicit drug use. PHYSICAL EXAMINATION: GENERAL: Alert and oriented x3. HEENT: Normocephalic, atraumatic. Mucosa moist. EOMI. NECK: Supple. No carotid bruit. PULMONARY: Clear to auscultation bilaterally. No crackles. CARDIOVASCULAR: S1, S2 present. No murmurs. ABDOMEN: Soft, nontender, nondistended. Bowel sounds positive. EXTREMITIES: LOWER EXTREMITIES: Palpable femoral pulse, nonpalpable pedal pulse. Motor, sensory intact. Cap re fill 3 seconds. No ulcers. RIGHT UPPER EXTREMITY: Palpable brachial pulse. Motor, sensory intact. Cap refill 2 to 3 seconds. Surgical scar well healed. Two sutures that are intact in the anterolateral aspect of the upper a rm. There is a bruit in the medial aspect of the arm following the basilic vein, decreased bruit of the cephalic vein in the anterolateral aspect of the arm. ASSESSMENT AND PLAN: End-stage renal disease: It seems the patient has presented with what seems t o be a possible pneumonia. There is no concern of a chest wall catheter infection/line sepsis. Wou ld not recommend removing her PermCath for now unless there is active erythema, tenderness upon the location of her PermCath. As far as her right upper extremity AV fistula, the plan was to schedule to follow with our office as an outpatient for recommendations of the second stage intervention. Th e patient will likely require a transposition of her basilic vein for eventual fistula access. Discussed findings, plan, and management with the patient with a certified aviation consultant, and they unde rstand. Optimize vascular status (BP meds, diet, nutrition, exercise, sugar control, antiplatelet). We will continue to follow the patient's progress. Thank you for allowing us to partake in the care of your patient. Please call with any questions. Dictated By: FABIOLA LAZO/REESE Conf#: [id number] DID#: [id number]
[2016-10-11] MEDS: CALCIUM ACETATE 667 MG CAP PO SCH ×3 (09:19→18:19)
[2016-10-11] MEDS: ATORVASTATIN 80 MG TAB PO SCH (09:19)
[2016-10-11] MEDS: ASPIRIN (EC) 81 MG TAB PO SCH (09:20)
[2016-10-11] MEDS: ENOXAPARIN 30 MG/0.3 ML SYG SC SCH (09:25)
[2016-10-11] MEDS: INSULIN ASPART [NOVOLOG] 3 ML PEN SC SCH ×4 (10:04→21:04)
--- NOTE | 2016-10-11 11:03 | RADRPT ---
PROCEDURE: XR Chest. CLINICAL INDICATION: Pneumonia . TECHNIQUE: PA and lateral chest x-ray. COMPARISON: 04/30/2016 FINDINGS: The lungs are clear. The cardiomediastinal silhouette is unremarkable. The osseous structures are u nremarkable. There has been placement of a left-sided tunneled dialysis catheter with tip at the ca voatrial junction. There is no evidence of pneumothorax. IMPRESSION: 1. No acute cardiopulmonary disease. 2. Interval placement of left-sided tunneled dialysis catheter. RPTAT: QQ .Carlitos Pool MD, MD Date Time Electronically viewed and signed by .Carlitos Pool MD, MD on 10/11/2016 11:03 .L/
[2016-10-11 19:30] VITALS: BP 132/62; RESP 16
--- NOTE | 2016-10-11 23:49 | CONS ---
Date/Time of Note Date/Time of Note DATE: 10/11/16 TIME: 23:33 Consult Date/Type/Reason Admit Date/Time Oct 10, 2016 at 21:02 Initial Consult Date Subjective 70-year-old female history of end-stage renal disease on dialysis Wednesday and Wednesday with recent surgery to the right upper extremity for an AV fistula who presents with fever and chills. The patient during dialysis today started to develop a fever and shaking chills and rigors. She describes generalized malaise without focal complaints other than a dry nonproductive cough. She denies any abdominal pain but has had loose stools over the last 24- 48 hours. She states that the right upper extremity AV fistula has no erythema warmth or tenderness. She feels much better today after receiving abx. chills are nearly resolved. cough has improved. poc reviewed with dr. watson. spent 30 min reviewing goals and values and reaffirmed full code status. Objective Vital Signs Date Time Temp Pulse Resp B/P Pulse Ox O2 Delivery O2 Flow Rate FiO2 10/11/16 20:45 87 18 97 21 10/11/16 19:30 98.1 132/62 10/10/16 22:20 Room Air Results/Medications Result Diagram: 10/11/16 0430 10/11/16 0430 Results 24 hrs Laboratory Tests Test 10/11/16 00:31 10/11/16 04:30 10/11/16 09:57 10/11/16 13:13 Lactic Acid Level 1.2 White Blood Count 12.7 #H Red Blood Count 3.58 L Hemoglobin 9.8 L Hematocrit 29.8 L Mean Corpuscular Volume 83.2 Mean Corpuscular Hemoglobin 27.4 L Mean Corpuscular Hemoglobin Concent 32.9 Red Cell Distribution Width 15.3 H Platelet Count 96 L Mean Platelet Volume 11.5 H Neutrophils % 88.7 H Lymphocytes % 5.3 L Monocytes % 5.3 Eosinophils % 0.3 Basophils % 0.1 Nucleated Red Blood Cells % 0.0 Neutrophils # 11.3 H Lymphocytes # 0.7 L Monocytes # 0.7 Eosinophils # 0.0 Basophils # 0.0 Nucleated Red Blood Cells # 0.0 Sodium Level 135 Potassium Level 4.2 Chloride Level 97 Carbon Dioxide Level 26 Anion Gap 16 Blood Urea Nitrogen 26 H Creatinine 3.48 H Glucose Level 97 Calcium Level 8.1 L Phosphorus Level 4.3 Magnesium Level 1.7 Total Bilirubin 0.5 Direct Bilirubin 0.00 Indirect Bilirubin 0.5 Aspartate Amino Transf (AST/SGOT) 42 Alanine Aminotransferase (ALT/SGPT) 48 Alkaline Phosphatase 84 Total Protein 6.9 # Albumin 4.1 Globulin 2.80 Albumin/Globulin Ratio 1.46 Free Thyroxine Index 2.88 Thyroxine (T4) 7.4 Triiodothyronine (T3) Uptake 38.9 Bedside Glucose 160 149 Test 10/11/16 17:51 10/11/16 21:01 Bedside Glucose 213 253 H Medications Current Medications Ondansetron HCl (Zofran Inj) 4 mg Q6H PRN IV NAUSEA AND/OR VOMITING; Start 10/10 at 23:30 Acetaminophen (Tylenol Tab) 650 mg Q6H PRN PO PAIN LEVEL 1-3 OR FEVER; Start at 23:30 Enoxaparin Sodium (Lovenox) 30 mg DAILY SC Last administered on 10/11/16 09:25 ; Admin Dose 30 MG; Start 10/11/16 at 09:00 Aspirin (Halfprin) 81 mg DAILY PO Last administered on 10/11/16 09:20; Admin Dose 81 MG; Start 10/11/16 at 09:00 Atorvastatin Calcium (Lipitor) 80 mg DAILY PO Last administered on 10/11/16 09: 19; Admin Dose 80 MG; Start 10/11/16 at 09:00 Diagnostic Test (Pha) (Accu-Chek) 1 ea 02 XX ; Start 10/11/16 at 02:00 Miscellaneous Information 1 ea NOTE XX ; Start 10/10/16 at 23:45 Glucose (Glutose) 15 gm Q15M PRN PO DECREASED GLUCOSE; Start 10/10/16 at 23:45 Glucose (Glutose) 22.5 gm Q15M PRN PO DECREASED GLUCOSE; Start 10/10/16 at 23:45 Dextrose (D50w Syringe) 25 ml Q15M PRN IV DECREASED GLUCOSE; Start 10/10/16 at 23:45 Dextrose (D50w Syringe) 50 ml Q15M PRN IV DECREASED GLUCOSE; Start 10/10/16 at 23:45 Glucagon (Glucagen) 1 mg Q15M PRN IM DECREASED GLUCOSE; Start 10/10/16 at 23:45 Glucose 15 gm 15 gm Q15M PRN BUCCAL DECREASED GLUCOSE; Start 10/10/16 at 23:45 Vancomycin HCl 250 ml @ 125 mls/hr Q96H IVPB ; Start 10/12/16 at 20:00 Cefepime HCl (Maxipime 1gm/50 ml (Pmx)) 50 ml @ 100 mls/hr Q24H IVPB ; Start at 14:00 Assessment/Plan Chief Complaint/Hosp Course 1. Pneumonia- comm acquired. cont abx. fu cultures. 2. End-stage renal disease.Status post right brachiocephalic fistula creation. cont hd on qod schedule while in hospital. 3. Anemia. ackd. cont epo with hd. 4. Diabetes. 5. Hypertension. 6. Dyslipidemia. 7. Thrombocytopenia. 8. Mineral bone disorder 9. sepsis- likely r 10. chronic cough- suddenly improved. Problems: ZOLTAN LONGO MD Oct 11, 2016 23:43
[2016-10-12] MEDS: ALBUTEROL 0.083% (NEB) 2.5 MG/3 ML AMP NEB SCH ×6 (01:30→20:01)
[2016-10-12] MEDS: ACCU-CHEK XX SCH (01:49)
--- NOTE | 2016-10-12 03:39 | HP ---
DATE OF ADMISSION: 10/10/2016 HISTORY OF PRESENT ILLNESS: The patient is a 70-year-old female with past medical history of end-st age renal disease on dialysis Wednesday, , Wednesday with recent right upper extremity AV fistu la formation. The patient presents after dialysis, where she was noted to have severe chills. The patient has noted cough recently but has actually had a cough for 2 months, noted to have fever, sti ll has the catheter in, denies dysuria, hematuria, still urinates, was on dialysis for at least 10 m onths. Denies dysuria, hematuria. PAST MEDICAL HISTORY: Significant for end-stage renal disease, hypertension, dyslipidemia, history of diabetes. MEDICATIONS: Include 1. Aspirin. 2. Insulin. 3. Calcium acetate. 4. Lipitor. ALLERGIES: THE PATIENT HAS NO KNOWN ALLERGIES. SOCIAL HISTORY: Does not smoke, drink, or use drugs. FAMILY HISTORY: No significant history of kidney disease. REVIEW OF SYSTEMS: A 14-point review of systems attempted and negative unless stated. PHYSICAL EXAMINATION: VITAL SIGNS: We see temperature 98.1, blood pressure 132/62. HEENT: Normocephalic, atraumatic. Pupils equal and reactive to light. Moist mucous membranes. NECK: Supple. HEART: Regular rate and rhythm. LUNGS: Clear. ABDOMEN: Soft, nontender, nondistended, bowel sounds present. LABORATORY EVALUATION: White count 6.3, hemoglobin 11, hematocrit 32. Sodium is 134, potassium 4.3 , BUN 20, creatinine 2.84. UA is reviewed on microscopy. Chest x-ray ____. IMPRESSION: 1. Fevers, chills, possible early sepsis. Possibilities include pneumonia, early urinary tract inf ection, catheter related infection. Follow up cultures. 2. Pneumonia present on CT, small posterior basal segment right lower lobe infiltrate. Continue an tibiotics. 3. Urinary bladder wall thickening, possible UTI, covered with antibiotics. 4. End-stage renal disease on hemodialysis, completed dialysis today, so no need for emergent dialy sis. We will try to keep on schedule or one day early. 5. Persistent cough, concerning. We will monitor. 6. Diabetes. Continue sliding scale. 7. Hypertension, well controlled. 8. Anemia of chronic disease, mild. Epogen per recommendations. 9. Mineral bone disorder. Follow up phosphorus and PTH. 10. History of thrombocytopenia, possibly related to sepsis. Monitor serially. Dictated By: ZOLTAN LONGO MD DF/REESE Conf#: [id number] DID#: [id number]
[2016-10-12] MEDS: CALCIUM ACETATE 667 MG CAP PO SCH ×3 (08:44→17:58)
[2016-10-12] MEDS: ASPIRIN (EC) 81 MG TAB PO SCH (08:44)
[2016-10-12] MEDS: ATORVASTATIN 80 MG TAB PO SCH (08:44)
[2016-10-12] MEDS: ENOXAPARIN 30 MG/0.3 ML SYG SC SCH (08:45)
[2016-10-12] MEDS: INSULIN ASPART [NOVOLOG] 3 ML PEN SC SCH ×4 (08:46→20:48)
[2016-10-12 09:03] VITALS: BP 148/67; RESP 18
--- NOTE | 2016-10-12 11:21 | PN ---
DATE: 10/12/2016 SUBJECTIVE: The patient is stable, no acute events overnight. No fevers, chills, nausea, no shortn ess of breath. OBJECTIVE: VITAL SIGNS: Blood pressure 132/62, respiration 16, pulse 93, temperature 98.1. HEENT: Head is normocephalic. NECK: Supple. HEART: Regular rate. LUNGS: Show diminished breath sounds at base. ABDOMEN: Soft, nontender to palpation. No rebound or guarding. EXTREMITIES: Negative for clubbing, cyanosis, edema. DERMATOLOGIC: No rashes. MUSCULOSKELETAL: No joint effusions. NEUROLOGIC: No change in exam. MEDICATIONS: Reviewed. LABORATORY DATA: Has been reviewed. Blood culture grew out gram-negative rods. ASSESSMENT AND PLAN 1. Sepsis, etiology is unclear, possibly due to pneumonia, urinary tract infection versus line infe ction. The patient's blood culture grew out gram-negative rods. Plan at this point is continue cur rent antibiotic regimen. We will place an infectious disease consult for evaluation. 2. End-stage renal disease. The patient dialyzes Wednesday, , Wednesday. Anticipate dialysis tomorrow for 3 ours 3K bath, calcium 2.5. 3. Access. The patient has a left upper extremity AV fistula. Was seen by vascular surgery. Plan for outpatient transposition. 4. Diabetes. Continue Accu-Cheks and sliding scale. 5. Hypertension. Continue current blood pressure regimen. 6. Anemia of chronic disease. Continue to monitor hemoglobin and hematocrit levels. Will wit h dialysis. 7. Mineral bone disorder. Monitor calcium and phosphorus levels. 8. Thrombocytopenia, unclear etiology. We will continue to monitor. Dictated By: LEFTY PERSON/REESE Conf#: [id number] DID#: [id number]
[2016-10-12 12:09] LABS: ADD SCAN DIFF NO
[2016-10-12 12:15] LABS: ABNORMAL IP MESSAGE 1; BASOPHILS % 0.1 % (0.0-2.0); EOSINOPHILS # 0.3 10^3/ul (0.0-0.5); EOSINOPHILS % 3.8 % (0.0-7.0); HEMATOCRIT 27.5 % (37.0-47.0); HEMOGLOBIN 9.3 g/dl (12.0-16.0); LYMPHOCYTES # 0.9 10^3/ul (0.8-2.9); LYMPHOCYTES % 12.5 % (15.0-51.0); MEAN CORPUSCULAR HEMOGLOBIN 27.8 pg (29.0-33.0); MEAN CORPUSCULAR HGB CONC 33.8 g/dl (32.0-37.0); MEAN CORPUSCULAR VOLUME 82.3 fl (82.0-101.0); MEAN PLATELET VOLUME 11.7 fl (7.4-10.4); MONOCYTE # 0.8 10^3/ul (0.3-0.9); MONOCYTES % 11.4 % (0.0-11.0); NEUTROPHILS % 71.9 % (39.0-77.0); PLATELET COUNT 80 10^3/UL (140-415); RED BLOOD COUNT 3.34 10^6/ul (4.20-5.40); RED CELL DISTRIBUTION WIDTH 15.1 % (11.5-14.5); WHITE BLOOD COUNT 6.9 10^3/ul (4.8-10.8)
[2016-10-12 12:46] LABS: CALCIUM 8.7 mg/dl (8.4-10.2); CREATININE 5.1 mg/dl (0.44-1.00)
--- NOTE | 2016-10-12 13:34 | CONS ---
DATE OF ADMISSION: 10/10/2016 DATE OF CONSULTATION: 10/12/2016 TYPE OF CONSULTATION: Infectious Disease. REASON FOR CONSULTATION: Antibiotic management. HISTORY OF PRESENT ILLNESS: Tomy Lezama is a 70-year-old female who was admitted with significant cough and is being seen for antibiotic management. Her past problems include: 1. End-stage renal disease on hemodialysis. 2. Right upper extremity AV fistula recently placed. The patient developed severe chills after dialysis. She had noted a cough recently, but has had a c ough for 2 months. She still has a catheter in place. She denies dysuria or hematuria. On admissi on, her white count was 6.3, H and H of 11 and 32.4, platelet count of 96,000. BUN and creatinine w as 26/3.48. Urine is negative for nitrite and leukocyte esterase. Chest x-ray: No evidence for ac [place] intrathoracic pathology. The patient has a left-sided Perm-A-Cath, aortic atherosclerosis. CT scan of the abdomen and pelvis shows small posterior basilar segment right lower lobe infiltrate, no t visible on portable chest x-ray, consistent with pneumonia, mild urinary bladder thickening, preston lithiasis, renal cortex thinning. PAST MEDICAL HISTORY: Operations as outlined. FAMILY HISTORY: Noncontributory. SOCIAL HISTORY: She does not smoke, drink or abuse drugs. ALLERGIES: NONE TO PENICILLIN, SULFA OR FOODS. MEDICATIONS: Per chart. REVIEW OF SYSTEMS: Noncontributory. PHYSICAL EXAMINATION: GENERAL: The patient is an elderly-appearing female who is awake, responsive, in no acute distress. VITAL SIGNS: Stable. She is afebrile. SKIN: Without generalized rash. She has an AV fistula in the right upper extremity. HEENT: Within normal limits. NECK: Supple. LYMPH NODES: None palpable. CHEST: Decreased breath sounds at the bases. HEART: Without murmur or gallop. THORAX: She has a left-sided Perm-A-Cath. ABDOMEN: Soft, nontender, without organosplenomegaly or masses. EXTREMITIES: Without cyanosis, clubbing, or edema. RECTAL AND GENITAL: Exam is deferred. NEUROLOGIC: No focal neurological abnormality. RECTAL AND GENITAL: Exam deferred. NEUROLOGIC: No focal neurologic deficit. ANCILLARY LABORATORY DATA: Blood culture comes back with gram negative rods, etiology of which is u nclear. The patient is on vancomycin and cefepime. We will continue her on this regimen. I will d ictate my findings to Dr. Smith, Dr. Jamil and Dr. Redmond. Dictated By: ARIAS MARINA MD, JD/REESE Conf#: [id number] DID#: [id number]
[2016-10-12] MEDS: CEFEPIME 1GM/50 ML (PMX) 50 ML IVPB SCH (14:24)
[2016-10-12] MEDS ORDERED: VANCOMYCIN 1 GM in NS 250 ML IVPB SCH ×2 (19:00→20:00)
[2016-10-12 19:20] VITALS: BP 151/68; RESP 18
[2016-10-12] MEDS ORDERED: VANCOMYCIN 750 MG in SOD CHLORIDE 0.9% 150 ML IVPB SCH (20:00)
[2016-10-13] VITALS (10 sets, daily range): BP systolic 115–157; BP diastolic 50–88; PULSE 80–85; RESP 16–20
[2016-10-13] MEDS: ALBUTEROL 0.083% (NEB) 2.5 MG/3 ML AMP NEB SCH ×6 (01:36→20:19)
[2016-10-13] MEDS: ACCU-CHEK XX SCH (01:47)
[2016-10-13 05:35] LABS: ADD SCAN DIFF NO
[2016-10-13 05:44] LABS: ABNORMAL IP MESSAGE 1; BASOPHILS % 0.1 % (0.0-2.0); EOSINOPHILS # 0.3 10^3/ul (0.0-0.5); EOSINOPHILS % 4.7 % (0.0-7.0); HEMATOCRIT 27.4 % (37.0-47.0); HEMOGLOBIN 9.1 g/dl (12.0-16.0); LYMPHOCYTES # 1.2 10^3/ul (0.8-2.9); LYMPHOCYTES % 16.5 % (15.0-51.0); MEAN CORPUSCULAR HEMOGLOBIN 27.4 pg (29.0-33.0); MEAN CORPUSCULAR HGB CONC 33.2 g/dl (32.0-37.0); MEAN CORPUSCULAR VOLUME 82.5 fl (82.0-101.0); MEAN PLATELET VOLUME 11.3 fl (7.4-10.4); MONOCYTES % 13.7 % (0.0-11.0); NEUTROPHIL # 4.6 10^3/ul (1.6-7.5); NEUTROPHILS % 64.7 % (39.0-77.0); PLATELET COUNT 88 10^3/UL (140-415); RED BLOOD COUNT 3.32 10^6/ul (4.20-5.40); RED CELL DISTRIBUTION WIDTH 15.2 % (11.5-14.5); WHITE BLOOD COUNT 7.2 10^3/ul (4.8-10.8)
[2016-10-13 06:04] LABS: CALCIUM 9.1 mg/dl (8.4-10.2); CREATININE 5.68 mg/dl (0.44-1.00); MAGNESIUM 2.1 mg/dl (1.7-2.5); PHOSPHORUS 4.6 mg/dl (2.5-4.9); POTASSIUM 4.1 mmol/L (3.5-5.1)
[2016-10-13] MEDS: INSULIN ASPART [NOVOLOG] 3 ML PEN SC SCH ×4 (07:50→20:57)
[2016-10-13] MEDS ORDERED: EPOETIN 10000 UNITS/1 ML INJ (ESRD) SC SCH (08:30)
--- NOTE | 2016-10-13 09:56 | PN ---
DATE: 10/13/2016 SUBJECTIVE: The patient is stable, no acute events overnight. No fevers, chills, nausea or vomitin g. No shortness of breath. OBJECTIVE: VITAL SIGNS: Blood pressure is 151/68, respiration 18, pulse 83, temperature 98.0. HEENT: Head is normocephalic. NECK: Supple. HEART: Regular rate. LUNGS: Show diminished breath sounds at the base. ABDOMEN: Soft, nontender to palpation. No rebound or guarding. EXTREMITIES: Negative for clubbing, cyanosis, no edema. DERMATOLOGIC: No rashes. MUSCULOSKELETAL: No joint effusions. NEUROLOGIC: No change in exam. MEDICATIONS: The patient's medications have been reviewed. LABORATORY DATA: Shows sodium 143, potassium 4.1, BUN 54, creatinine ____ .61, white count 7.2, h emoglobin 10.1, hematocrit 27.4 and platelet count is 88. ASSESSMENT AND PLAN: 1. Sepsis, etiology is concerning for a line infection. Other possibilities including urinary trac t infection and pneumonia are consideration, although less likely. The patient's initial blood cult ures grew out Klebsiella. Repeat cultures have been negative. The patient is currently on broad sp ectrum antibiotics, tolerating well. Plan is to follow up with Infectious Disease for their recomme ndations to see if the patient's PermCath needs to be exchanged. Will continue to monitor closely. 2. End-stage renal disease. The patient is on dialysis Wednesday, , Wednesday. Plan for dial ysis today for 3 hours, 2K bath, calcium 2.5. 3. Access. The patient's left upper extremity AV fistula seen by vascular surgery. Plan for outpat ient transition. 4. Diabetes, continue Accu-Cheks and sliding scale. 5. Hypertension. Continue current blood pressure regimen. 6. Mineral bone disorder. Will monitor calcium and phosphorus levels. Continue phos binders. 7. Anemia of chronic disease. Continue to monitor H and H levels. Continue Epogen with dialysis. 8. Mild thrombocytopenia, improving. Continue to observe. 9. Gastrointestinal and deep venous thrombosis prophylaxis. Continue proton pump inhibitor and Kerrie enox. Dictated By: LEFTY PERSON/REESE Conf#: [id number] DID#: [id number]
[2016-10-13] MEDS: ASPIRIN (EC) 81 MG TAB PO SCH (10:50)
[2016-10-13] MEDS: CALCIUM ACETATE 667 MG CAP PO SCH ×3 (10:50→17:58)
[2016-10-13] MEDS: ATORVASTATIN 80 MG TAB PO SCH (10:51)
[2016-10-13] MEDS: ENOXAPARIN 30 MG/0.3 ML SYG SC SCH (10:59)
--- NOTE | 2016-10-13 11:49 | PN ---
Date/Time of Note Date/Time of Note DATE: 10/13/16 TIME: 11:44 Assessment/Plan Lines/Catheters IV Catheter Type (from [facility] Saline Lock Lowry in Place (from Nrs): No Assessment/Plan Chief Complaint/Hosp Course -End-stage renal disease: It seems the patient has presented with what seems to be a possible pneumonia. There is no concern of a chest wall catheter infection/line sepsis as there does not seem to be a clinical finding with the catheter thus far. Would not recommend removing her PermCath for now unless there is active erythema, tenderness upon the location of her PermCath. - Right upper extremity AV fistula plan to follow with our office as an outpatient for second stage intervention. The patient will likely require a transposition of her basilic vein for eventual fistula access. -Discussed findings, plan, and management with the patient with a certified accounts receivable associate, and they understand. -Optimize vascular status (BP meds, diet, nutrition, exercise, sugar control, antiplatelet). -We will continue to follow the patient's progress. -Thank you for allowing us to partake in the care of your patient. Please call with any questions. Problems: Subjective Detailed Summary Free Text/Dictation no new vascular events overnight Exam/Review of Systems Vital Signs Vitals Vital Signs Date Time Temp Pulse Resp B/P Pulse Ox O2 Delivery O2 Flow Rate FiO2 10/13/16 09:55 80 20 21 10/13/16 08:40 97.5 156/66 99 10/10/16 22:20 Room Air Intake and Output 10/12/16 10/12/16 10/13/16 15:00 23:00 07:00 Intake Total 50 ml 840 ml 200 ml Output Total 700 ml 600 ml Balance 50 ml 140 ml -400 ml Exam Free Text/Dictation GENERAL: Alert and oriented x3. PULMONARY: Clear to auscultation bilaterally, chest wall catheter intact and no erythema, nontender CARDIOVASCULAR: S1, S2 present. ABDOMEN: Soft, nontender, nondistended. Bowel sounds positive. EXTREMITIES: LOWER EXTREMITIES: Palpable femoral pulse, nonpalpable pedal pulse. Motor, sensory intact. Cap refill 3 seconds. No ulcers. RIGHT UPPER EXTREMITY: Palpable brachial pulse. Motor, sensory intact. Cap refill 2 to 3 seconds. Surgical scar well healed. Two sutures that are intact in the anterolateral aspect of the upper arm. There is a bruit in the medial aspect of the arm following the basilic vein, decreased bruit of the cephalic vein in the anterolateral aspect of the arm. Results Result Diagram: 10/13/16 0445 10/13/16 0445 FABIOLA MARTINEZ MD Oct 13, 2016 11:48
--- NOTE | 2016-10-13 13:45 | PN ---
DATE: 10/13/2016 SUBJECTIVE: No events overnight. The patient is awake, currently in hemodialysis, looks comfortabl e. No fevers. WBC 7.2, platelets 88, neutrophils 64.7. INDWELLINGS: Left chest Perm-A-Cath. MICROBIOLOGY: Blood cultures on admission grew Klebsiella pneumoniae susceptible to all antibiotics . Urine culture negative. ANTIMICROBIALS: The patient is on: 1. Vancomycin. 2. Cefepime. DIAGNOSTICS: Abdominal and pelvis CT revealed right lower lobe infiltrate concerning for pneumonia, mild urinary bladder wall thickening and cholelithiasis without evidence of cholecystitis, constipa tion pattern and colonic diverticulosis. Chest x-ray this morning revealed no acute cardiopulmonary disease. PHYSICAL EXAMINATION: GENERAL: This is a well-developed, elderly woman who is awake, in no distress. HEENT: Head atraumatic, normocephalic. Sclerae anicteric. Buccal mucosa dry. NECK: Supple. CHEST: Rise symmetrical. Breath sounds clear, diminished to bases. HEART: S1, S2. ABDOMEN: Soft. Bowel tones present. EXTREMITIES: Without cyanosis. ASSESSMENT: 1. Klebsiella pneumoniae bacteremia, possibly secondary to infected line. 2. Questionable pneumonia. 3. End-stage renal disease, hemodialysis dependent. 4. Diabetes. 5. Hypertension. PLAN: The patient remains stable. We are going to repeat blood cultures with hemodialysis and cont inue her on current antimicrobials for now and swab nares for MRSA. The patient may need hemodialys is catheter to be removed if repeat blood culture is positive. Dictated By: SAHARA RAYMUNDO SALON RECEPTIONIST for ARIAS MARY/REESE Conf#: [id number] DID#: [id number]
[2016-10-13] MEDS: CEFEPIME 1GM/50 ML (PMX) 50 ML IVPB SCH (17:13)
[2016-10-13] MEDS ORDERED: ZOLPIDEM 5 MG TAB PO PRN (23:00)
[2016-10-14] MEDS: ALBUTEROL 0.083% (NEB) 2.5 MG/3 ML AMP NEB SCH ×6 (00:33→20:44)
[2016-10-14] MEDS: ACCU-CHEK XX SCH (02:00)
[2016-10-14] MEDS: INSULIN ASPART [NOVOLOG] 3 ML PEN SC SCH ×4 (07:50→20:24)
[2016-10-14 08:54] VITALS: BP 154/117; RESP 18
--- NOTE | 2016-10-14 09:28 | PN ---
DATE: 10/14/2016 SUBJECTIVE: The patient is stable, no acute events overnight. The patient had low-grade temperatur e of 100.4. The patient was noted to have some episodes of confusion. Per patient's family, son, dorys his has been ongoing for the last several months. No other acute events noted. OBJECTIVE: VITAL SIGNS: Blood pressure is 131/51, respirations 28, pulse 105, temperature 100.4. HEENT: Head is normocephalic. NECK: Supple. HEART: Regular rate. LUNGS: Show diminished breath sounds at base, otherwise clear. ABDOMEN: Soft, nontender to palpation without rebound or guarding. EXTREMITIES: Negative for clubbing, cyanosis, or edema. DERMATOLOGIC: No rashes. MUSCULOSKELETAL: No joint effusions. NEUROLOGIC: No change in exam. MEDICATIONS: Reviewed. LABORATORY DATA: Reviewed labs. ASSESSMENT AND PLAN: 1. Sepsis. Etiology is concerning for a line infection. The patient is currently on broad-spectru m antibiotics with improvement in white count. The patient's repeat blood cultures and dialysis cat heter have been drawn. If they remain negative to date, the patient will be discharged with IV anti biotics. However, if the blood cultures are positive, will likely need replacement of Perm-A-Cath. We will follow up with infectious disease for further recommendations. 2. End-stage renal disease. The patient is on dialysis Wednesday, , Wednesday. Anticipate di alysis tomorrow. 3. Access. Patient has left upper extremity arteriovenous fistula. Was seen by vascular surgery w [facility] for outpatient transposition. 4. Diabetes. Continue current regimen. 5. Hypertension. Continue current blood pressure regimen. 6. Mineral bone disorder. Continue to monitor calcium. Continue phosphate binders. 7. Anemia of chronic disease. Continue to monitor H and H. 8. Mild thrombocytopenia, improving. Continue to monitor. 9. Gastrointestinal and deep venous thrombosis prophylaxis. Continue proton pump inhibitor and Kerrie enox. Dictated By: LEFTY PERSON/REESE Conf#: [id number] DID#: [id number]
[2016-10-14] MEDS: CALCIUM ACETATE 667 MG CAP PO SCH ×3 (10:47→17:37)
[2016-10-14] MEDS: ATORVASTATIN 80 MG TAB PO SCH (10:47)
[2016-10-14] MEDS: ASPIRIN (EC) 81 MG TAB PO SCH (10:47)
--- NOTE | 2016-10-14 12:26 | CONS ---
Date/Time of Note Date/Time of Note DATE: 10/14/16 TIME: 12:24 Assessment/Plan Assessment/Plan Chief Complaint/Hosp Course SUBJECTIVE: No events overnight. The patient is awake, looks comfortable. INDWELLINGS: Left chest Perm-A-Cath. MICROBIOLOGY: Blood cultures on admission grew Klebsiella pneumoniae susceptible to all antibiotics. Urine culture negative. ANTIMICROBIALS: 1. Vancomycin. 2. Cefepime. DIAGNOSTICS: Abdominal and pelvis CT revealed right lower lobe infiltrate concerning for pneumonia, mild urinary bladder wall thickening and cholelithiasis without evidence of cholecystitis, constipation pattern and colonic diverticulosis. PHYSICAL EXAMINATION: GENERAL: This is a well-developed, elderly woman who is awake, in no distress. HEENT: Head atraumatic, normocephalic. Sclerae anicteric. Buccal mucosa dry. NECK: Supple. CHEST: Rise symmetrical. Breath sounds clear, diminished to bases. HEART: S1, S2. ABDOMEN: Soft. Bowel tones present. EXTREMITIES: Without cyanosis. ASSESSMENT: 1. Klebsiella pneumoniae bacteremia, possibly secondary to infected line. 2. Questionable pneumonia. 3. End-stage renal disease, hemodialysis dependent. 4. Diabetes. 5. Hypertension. PLAN: The patient remains stable. Pending repeat blood cultures, continue antibiotics [facility] staff Problems: Consultation Date/Type/Reason Admit Date/Time Oct 10, 2016 at 21:02 Initial Consult Date Type of Consultation: ID Exam/Review of Systems Vital Signs Vitals Vital Signs Date Time Temp Pulse Resp B/P Pulse Ox O2 Delivery O2 Flow Rate FiO2 10/14/16 08:54 98.3 104 18 154/117 100 10/14/16 04:18 21 10/10/16 22:20 Room Air Intake and Output 10/13/16 10/13/16 10/14/16 15:00 23:00 07:00 Intake Total 1760 ml 950 ml Output Total 1800 ml 1100 ml Balance -40 ml -150 ml Results Result Diagram: 10/13/16 0445 10/13/16 0445 Results 24 hrs Laboratory Tests Test 10/13/16 17:19 10/13/16 20:56 10/14/16 08:46 Bedside Glucose 118 158 133 Medications Medications Current Medications Ondansetron HCl (Zofran Inj) 4 mg Q6H PRN IV NAUSEA AND/OR VOMITING; Start 10/10 at 23:30 Acetaminophen (Tylenol Tab) 650 mg Q6H PRN PO PAIN LEVEL 1-3 OR FEVER; Start at 23:30 Enoxaparin Sodium (Lovenox) 30 mg DAILY SC Last administered on 10/13/16 10:59 ; Admin Dose 30 MG; Start 10/11/16 at 09:00; Status Future Hold Aspirin (Halfprin) 81 mg DAILY PO Last administered on 10/14/16 10:47; Admin Dose 81 MG; Start 10/11/16 at 09:00 Atorvastatin Calcium (Lipitor) 80 mg DAILY PO Last administered on 10/14/16 10: 47; Admin Dose 80 MG; Start 10/11/16 at 09:00 Diagnostic Test (Pha) (Accu-Chek) 1 ea 02 XX Last administered on 10/12/16 01: 49; Admin Dose 1 EA; Start 10/11/16 at 02:00 Miscellaneous Information 1 ea NOTE XX ; Start 10/10/16 at 23:45 Glucose (Glutose) 15 gm Q15M PRN PO DECREASED GLUCOSE; Start 10/10/16 at 23:45 Glucose (Glutose) 22.5 gm Q15M PRN PO DECREASED GLUCOSE; Start 10/10/16 at 23:45 Dextrose (D50w Syringe) 25 ml Q15M PRN IV DECREASED GLUCOSE; Start 10/10/16 at 23:45 Dextrose (D50w Syringe) 50 ml Q15M PRN IV DECREASED GLUCOSE; Start 10/10/16 at 23:45 Glucagon (Glucagen) 1 mg Q15M PRN IM DECREASED GLUCOSE; Start 10/10/16 at 23:45 Glucose 15 gm 15 gm Q15M PRN BUCCAL DECREASED GLUCOSE; Start 10/10/16 at 23:45 Vancomycin HCl 250 ml @ 125 mls/hr Q96H IVPB Last administered on 10/12/16 20: 19; Admin Dose 125 MLS/HR; Start 10/12/16 at 20:00 Cefepime HCl (Maxipime 1gm/50 ml (Pmx)) 50 ml @ 100 mls/hr Q24H IVPB Last administered on 10/13/16 17:13; Admin Dose 100 MLS/HR; Start 10/12/16 at 14:00 Zolpidem Tartrate (Ambien) 5 mg HS PRN PO INSOMNIA Last administered on 6/6/ 17at 23:36; Admin Dose 5 MG; Start 10/13/16 at 23:00 SHAARA RAYMUNDO NP Oct 14, 2016 12:26
[2016-10-14] MEDS: CEFEPIME 1GM/50 ML (PMX) 50 ML IVPB SCH (16:43)
[2016-10-14 20:30] VITALS: BP 187/78; RESP 18
[2016-10-14] MEDS: hydrALAzine 20 MG INJ IV PRN (21:00)
[2016-10-15] VITALS (10 sets, daily range): BP systolic 107–174; BP diastolic 34–95; PULSE 95–112; RESP 18–20
[2016-10-15] MEDS: ALBUTEROL 0.083% (NEB) 2.5 MG/3 ML AMP NEB SCH ×6 (01:00→20:14)
[2016-10-15] MEDS: ACCU-CHEK XX SCH ×2 (02:00→20:48)
[2016-10-15 05:12] LABS: ADD SCAN DIFF NO
[2016-10-15 05:17] LABS: ABNORMAL IP MESSAGE 1; BASOPHILS % 0.1 % (0.0-2.0); EOSINOPHILS # 0.3 10^3/ul (0.0-0.5); HEMATOCRIT 30.2 % (37.0-47.0); HEMOGLOBIN 9.7 g/dl (12.0-16.0); LYMPHOCYTES # 1.3 10^3/ul (0.8-2.9); LYMPHOCYTES % 18.7 % (15.0-51.0); MEAN CORPUSCULAR HEMOGLOBIN 26.5 pg (29.0-33.0); MEAN CORPUSCULAR HGB CONC 32.1 g/dl (32.0-37.0); MEAN CORPUSCULAR VOLUME 82.5 fl (82.0-101.0); MEAN PLATELET VOLUME 11.5 fl (7.4-10.4); MONOCYTE # 0.8 10^3/ul (0.3-0.9); NEUTROPHIL # 4.6 10^3/ul (1.6-7.5); NEUTROPHILS % 65.8 % (39.0-77.0); RED BLOOD COUNT 3.66 10^6/ul (4.20-5.40); RED CELL DISTRIBUTION WIDTH 15.4 % (11.5-14.5)
[2016-10-15 05:39] LABS: PLATELET COUNT 75 10^3/UL (140-415)
[2016-10-15] MEDS: hydrALAzine 20 MG INJ IV PRN (06:32)
[2016-10-15] MEDS: ATORVASTATIN 80 MG TAB PO SCH (09:25)
[2016-10-15] MEDS: ASPIRIN (EC) 81 MG TAB PO SCH (09:25)
[2016-10-15] MEDS: CALCIUM ACETATE 667 MG CAP PO SCH ×3 (09:25→17:58)
[2016-10-15] MEDS: INSULIN ASPART [NOVOLOG] 3 ML PEN SC SCH ×4 (09:30→20:48)
--- NOTE | 2016-10-15 09:46 | PN ---
DATE: 10/15/2016 SUBJECTIVE: The patient is stable. The patient, however, is confused. I spoke yesterday with the patient's family. They informed me that she has been having episodes of confusion over the past sev eral months which they attributed to early dementia. No other acute events noted. No hemoptysis, h ematemesis, or hematochezia. OBJECTIVE: VITAL SIGNS: Blood pressure is 160/76, respirations 18, pulse 96, temperature 98.0. HEENT: Head is normocephalic. NECK: Supple. HEART: Regular rate. LUNGS: Show diminished breath sounds at the base. ABDOMEN: Soft, nontender to palpation. No rebound or guarding. EXTREMITIES: Negative for clubbing, cyanosis, no edema. DERMATOLOGIC: No rashes. MUSCULOSKELETAL: No joint effusions. NEUROLOGIC: No change in exam. MEDICATIONS: The patient's medications have been reviewed. LABORATORY DATA: From October 15, shows a white count 7.0, hemoglobin 9.7, hematocrit 30.0, platelet count is 75. ASSESSMENT AND PLAN: 1. Sepsis, etiology is concerning for possible line infection. The patient's repeat blood cultures have been negative. Currently on broad-spectrum antibiotics, tolerating it well, will follow up [facility] infectious disease for final recommendations. 2. End-stage renal disease. The patient is on dialysis Wednesday, , Wednesday. Plan for dial ysis today. 3. Access. The patient has a left upper extremity arteriovenous fistula, was seen by vascular surg ivan, plan for outpatient transposition. 4. Diabetes. Continue Accu-Cheks and insulin sliding scale. 5. Encephalopathy on top of dementia. Etiology is likely toxic metabolic. The patient continues t o be confused, although has improved with family at bedside. Will continue to monitor closely. Con child welfare manager neurologic evaluation. 6. Hypertension. Continue current blood pressure regimen. 7. Mineral bone disorder. Continue to monitor calcium and phosphorus levels. 8. Anemia. Continue to monitor hemoglobin and hematocrit levels. Continue Epogen. 9. Thrombocytopenia, chronic, unclear etiology. The patient would benefit from outpatient hematolo gic workup. 10. Gastrointestinal and deep venous thrombosis prophylaxis, continue PPI. Will hold Lovenox in th e setting of thrombocytopenia and use SCDs for DVT prophylaxis. Dictated By: LEFTY PERSON/REESE Conf#: [id number] [facility]#: [id number]
--- NOTE | 2016-10-15 13:13 | CONS ---
Date/Time of Note Date/Time of Note DATE: 10/15/16 TIME: 13:12 Assessment/Plan Assessment/Plan Chief Complaint/Hosp Course SUBJECTIVE: No events overnight. The patient is awake, looks comfortable, no fevers. INDWELLINGS: Left chest Perm-A-Cath. MICROBIOLOGY: Blood cultures on admission grew Klebsiella pneumoniae susceptible to all antibiotics. Urine culture negative. ANTIMICROBIALS: 1. Vancomycin. 2. Cefepime. DIAGNOSTICS: Abdominal and pelvis CT revealed right lower lobe infiltrate concerning for pneumonia, mild urinary bladder wall thickening and cholelithiasis without evidence of cholecystitis, constipation pattern and colonic diverticulosis. PHYSICAL EXAMINATION: GENERAL: This is a well-developed, elderly woman who is awake, in no distress. HEENT: Head atraumatic, normocephalic. Sclerae anicteric. Buccal mucosa dry. NECK: Supple. CHEST: Rise symmetrical. Breath sounds clear, diminished to bases. HEART: S1, S2. ABDOMEN: Soft. Bowel tones present. EXTREMITIES: Without cyanosis. ASSESSMENT: 1. Klebsiella pneumoniae bacteremia, possibly secondary to infected line. 2. Questionable pneumonia. 3. End-stage renal disease, hemodialysis dependent. 4. Diabetes. 5. Hypertension. PLAN: The patient remains stable.Repeat blood cultures negative, will change abx to Gentamicin and continue for 2 more weeks [facility] staff Problems: Consultation Date/Type/Reason Admit Date/Time Oct 10, 2016 at 21:02 Type of Consultation: ID Exam/Review of Systems Vital Signs Vitals Vital Signs Date Time Temp Pulse Resp B/P Pulse Ox O2 Delivery O2 Flow Rate FiO2 10/15/16 12:20 106 10/15/16 10:20 18 10/15/16 08:51 98 21 10/15/16 08:13 98.2 140/95 Intake and Output 10/14/16 10/14/16 10/15/16 15:00 23:00 07:00 Intake Total 1140 ml 240 ml Balance 1140 ml 240 ml Results Result Diagram: 10/15/16 0430 10/13/16 0445 Results 24 hrs Laboratory Tests Test 10/14/16 17:36 10/14/16 20:23 10/15/16 04:30 10/15/16 09:24 Bedside Glucose 162 167 144 White Blood Count 7.0 Red Blood Count 3.66 L Hemoglobin 9.7 L Hematocrit 30.2 L Mean Corpuscular Volume 82.5 Mean Corpuscular Hemoglobin 26.5 L Mean Corpuscular Hemoglobin Concent 32.1 Red Cell Distribution Width 15.4 H Platelet Count 75 L Mean Platelet Volume 11.5 H Neutrophils % 65.8 Lymphocytes % 18.7 Monocytes % 11.0 Eosinophils % 4.0 Basophils % 0.1 Nucleated Red Blood Cells % 0.0 Neutrophils # 4.6 Lymphocytes # 1.3 Monocytes # 0.8 Eosinophils # 0.3 Basophils # 0.0 Nucleated Red Blood Cells # 0.0 Test 10/15/16 11:54 Bedside Glucose 140 Medications Medications Current Medications Ondansetron HCl (Zofran Inj) 4 mg Q6H PRN IV NAUSEA AND/OR VOMITING; Start 10/10 at 23:30 Acetaminophen (Tylenol Tab) 650 mg Q6H PRN PO PAIN LEVEL 1-3 OR FEVER; Start at 23:30 Enoxaparin Sodium (Lovenox) 30 mg DAILY SC Last administered on 10/13/16 10:59 ; Admin Dose 30 MG; Start 10/11/16 at 09:00; Status Future Hold Aspirin (Halfprin) 81 mg DAILY PO Last administered on 10/15/16 09:25; Admin Dose 81 MG; Start 10/11/16 at 09:00 Atorvastatin Calcium (Lipitor) 80 mg DAILY PO Last administered on 10/15/16 09: 25; Admin Dose 80 MG; Start 10/11/16 at 09:00 Diagnostic Test (Pha) (Accu-Chek) 1 ea 02 XX Last administered on 10/12/16 01: 49; Admin Dose 1 EA; Start 10/11/16 at 02:00 Miscellaneous Information 1 ea NOTE XX ; Start 10/10/16 at 23:45 Glucose (Glutose) 15 gm Q15M PRN PO DECREASED GLUCOSE; Start 10/10/16 at 23:45 Glucose (Glutose) 22.5 gm Q15M PRN PO DECREASED GLUCOSE; Start 10/10/16 at 23:45 Dextrose (D50w Syringe) 25 ml Q15M PRN IV DECREASED GLUCOSE; Start 10/10/16 at 23:45 Dextrose (D50w Syringe) 50 ml Q15M PRN IV DECREASED GLUCOSE; Start 10/10/16 at 23:45 Glucagon (Glucagen) 1 mg Q15M PRN IM DECREASED GLUCOSE; Start 10/10/16 at 23:45 Glucose 15 gm 15 gm Q15M PRN BUCCAL DECREASED GLUCOSE; Start 10/10/16 at 23:45 Vancomycin HCl 250 ml @ 125 mls/hr Q96H IVPB Last administered on 10/12/16 20: 19; Admin Dose 125 MLS/HR; Start 10/12/16 at 20:00 Cefepime HCl (Maxipime 1gm/50 ml (Pmx)) 50 ml @ 100 mls/hr Q24H IVPB Last administered on 10/14/16 16:43; Admin Dose 100 MLS/HR; Start 10/12/16 at 14:00 Zolpidem Tartrate (Ambien) 5 mg HS PRN PO INSOMNIA Last administered on 23:36; Admin Dose 5 MG; Start 10/13/16 at 23:00 Hydralazine HCl (Apresoline) 10 mg Q4H PRN IV SBP greater than 160 Last administered on 10/15/16 06:32; Admin Dose 10 MG; Start 10/14/16 at 20:30 SAHARA RAYMUNDO NP Oct 15, 2016 13:13
[2016-10-15] MEDS ORDERED: GENTAMICIN IV PER PHARMACY XX SCH (13:30)
[2016-10-15] MEDS ORDERED: GENTAMICIN 100 MG in SOD CHLORIDE 0.9% 50 ML IVPB SCH (14:00)
--- NOTE | 2016-10-15 18:54 | PN ---
Date/Time of Note Date/Time of Note DATE: 10/15/16 TIME: 18:53 Assessment/Plan Lines/Catheters IV Catheter Type (from Nrs): Saline Lock Lowry in Place (from Nrs): No Assessment/Plan Chief Complaint/Hosp Course -End-stage renal disease: It seems the patient has presented with what seems to be a possible pneumonia. There is no concern of a chest wall catheter infection/line sepsis as there does not seem to be a clinical finding with the catheter itself thus far. Would not recommend removing her PermCath for now unless there is active erythema, tenderness upon the location of her PermCath- and for now the pt refuses to exchange the catheter so far should the source of infection be the catheter -Right upper extremity AV fistula plan to follow with our office as an outpatient for second stage intervention. The patient will likely require a transposition of her basilic vein for eventual fistula access. -Discussed findings, plan, and management with the patient with a certified inspector and clerk, and they understand. -Optimize vascular status (BP meds, diet, nutrition, exercise, sugar control, antiplatelet). -We will continue to follow the patient's progress. -Thank you for allowing us to partake in the care of your patient. Please call with any questions. Problems: Subjective 24 Hr Interval Summary no new vascular events overnight, denies chills or fever Exam/Review of Systems Vital Signs Vitals Vital Signs Date Time Temp Pulse Resp B/P Pulse Ox O2 Delivery O2 Flow Rate FiO2 10/15/16 13:20 95 10/15/16 10:20 18 10/15/16 08:51 98 21 10/15/16 08:13 98.2 140/95 Intake and Output 10/14/16 10/14/16 10/15/16 15:00 23:00 07:00 Intake Total 1140 ml 240 ml Balance 1140 ml 240 ml Exam Free Text/Dictation GENERAL: Alert and oriented x3. PULMONARY: Clear to auscultation bilaterally, chest wall catheter intact and no erythema, nontender CARDIOVASCULAR: S1, S2 present. ABDOMEN: Soft, nontender, nondistended. Bowel sounds positive. EXTREMITIES: LOWER EXTREMITIES: Palpable femoral pulse, nonpalpable pedal pulse. Motor, sensory intact. Cap refill 3 seconds. No ulcers. RIGHT UPPER EXTREMITY: Palpable brachial pulse. Motor, sensory intact. Cap refill 2 to 3 seconds. Surgical scar well healed. There is a bruit in the medial aspect of the arm following the basilic vein, decreased bruit of the cephalic vein in the anterolateral aspect of the arm. Results Result Diagram: 10/15/16 0430 10/13/16 0445 FABIOLA MARTINEZ MD Oct 15, 2016 18:54
[2016-10-16 00:27] VITALS: BP 128/56; RESP 20
[2016-10-16] MEDS: ALBUTEROL 0.083% (NEB) 2.5 MG/3 ML AMP NEB SCH ×5 (01:00→17:00)
[2016-10-16 05:32] LABS: ADD SCAN DIFF NO
[2016-10-16 05:42] LABS: BASOPHILS % 0.1 % (0.0-2.0); EOSINOPHILS # 0.3 10^3/ul (0.0-0.5); EOSINOPHILS % 3.2 % (0.0-7.0); HEMATOCRIT 29.8 % (37.0-47.0); HEMOGLOBIN 9.6 g/dl (12.0-16.0); LYMPHOCYTES # 1.6 10^3/ul (0.8-2.9); LYMPHOCYTES % 20.6 % (15.0-51.0); MEAN CORPUSCULAR HEMOGLOBIN 26.7 pg (29.0-33.0); MEAN CORPUSCULAR HGB CONC 32.2 g/dl (32.0-37.0); MEAN PLATELET VOLUME 12.4 fl (7.4-10.4); MONOCYTE # 0.8 10^3/ul (0.3-0.9); MONOCYTES % 10.5 % (0.0-11.0); NEUTROPHIL # 5.1 10^3/ul (1.6-7.5); PLATELET COUNT 104 10^3/UL (140-415); RED BLOOD COUNT 3.59 10^6/ul (4.20-5.40); RED CELL DISTRIBUTION WIDTH 15.6 % (11.5-14.5); WHITE BLOOD COUNT 7.9 10^3/ul (4.8-10.8)
[2016-10-16] MEDS: INSULIN ASPART [NOVOLOG] 3 ML PEN SC SCH ×3 (07:50→17:35)
[2016-10-16 08:04] VITALS: BP 150/67; RESP 18
[2016-10-16] MEDS: ASPIRIN (EC) 81 MG TAB PO SCH (09:01)
[2016-10-16] MEDS: ATORVASTATIN 80 MG TAB PO SCH (09:01)
[2016-10-16] MEDS: CALCIUM ACETATE 667 MG CAP PO SCH ×3 (09:01→17:39)
--- NOTE | 2016-10-16 09:36 | DS ---
DATE OF ADMISSION: 10/10/2016 DATE OF DISCHARGE: HOSPITAL COURSE: This is a 70-year-old female with a past medical history of end-stage renal diseas e, history of diabetes, and hypertension who presents to [facility] with fevers an d chills. The patient was subsequently admitted for evaluation. The patient was diagnosed with Kle bsiella pneumoniae bacteremia, likely secondary to line infection. The patient was treated with IV antibiotics with resolution of her bacteremia. Repeat blood cultures from the dialysis catheter and the periphery were negative. The patient was seen by infectious disease, Dr. Michael, who recommend ed a course of 14 days of IV antibiotics. If the patient should have recurrence of her bacteremia, she would require removal of PermCath. The patient has otherwise been clinically stable. The patie nt also, during the hospital course, has had hypertension, diabetes, and anemia that have been stabl e. The patient does have thrombocytopenia which is stable and chronic, and the patient will follow up with senior java web developer in outpatient setting for further evaluation. The patient also experienced epi sodes of encephalopathy. This was felt to be maybe toxic metabolic. Her mental status has been imp roving. The patient will also follow up with a neurologist in outpatient setting for definitive carri luation. Currently, at this time, the patient is stable, in no acute distress. She will be dischar ged home where she will be taken care by her daughter. The patient will continue IV antibiotics in outpatient setting at her dialysis center. At the time of discharge, the patient is stable, in no a cute distress. FINAL DIAGNOSES: 1. Sepsis secondary to line infection. 2. End-stage renal disease. 3. Diabetes. 4. Encephalopathy, resolved. 5. Hypertension. 6. Mineral bone disorder. 7. Anemia. 8. Chronic thrombocytopenia. At the time of discharge, the patient is stable, in no acute distress. Please note, I spent over 40 minutes of time preparing this patient's discharge. MEDICATIONS: See reconciliation list. Dictated By: LEFTY PERSON/REESE Conf#: [id number] DID#: [id number]
--- NOTE | 2016-10-16 13:12 | CONS ---
Date/Time of Note Date/Time of Note DATE: 10/16/16 TIME: 13:10 Assessment/Plan Assessment/Plan Chief Complaint/Hosp Course SUBJECTIVE: No events overnight. The patient is awake, looks comfortable, no fevers. INDWELLINGS: Left chest Perm-A-Cath. MICROBIOLOGY: Blood cultures on admission grew Klebsiella pneumoniae susceptible to all antibiotics. Urine culture negative. ANTIMICROBIALS: 1. Gentamicin DIAGNOSTICS: Abdominal and pelvis CT revealed right lower lobe infiltrate concerning for pneumonia, mild urinary bladder wall thickening and cholelithiasis without evidence of cholecystitis, constipation pattern and colonic diverticulosis. PHYSICAL EXAMINATION: GENERAL: This is a well-developed, elderly woman who is awake, in no distress. HEENT: Head atraumatic, normocephalic. Sclerae anicteric. Buccal mucosa dry. NECK: Supple. CHEST: Rise symmetrical. Breath sounds clear, diminished to bases. HEART: S1, S2. ABDOMEN: Soft. Bowel tones present. EXTREMITIES: Without cyanosis. ASSESSMENT: 1. Klebsiella pneumoniae bacteremia, possibly secondary to infected line, Repeat bx negative. 2. Questionable pneumonia. 3. End-stage renal disease, hemodialysis dependent. 4. Diabetes. 5. Hypertension. PLAN: The patient remains stable. Repeat blood cultures negative, continue Gentamicin for 2 more weeks. DW staff Problems: Consultation Date/Type/Reason Admit Date/Time Oct 10, 2016 at 21:02 Initial Consult Date Type of Consultation: ID Exam/Review of Systems Vital Signs Vitals Vital Signs Date Time Temp Pulse Resp B/P Pulse Ox O2 Delivery O2 Flow Rate FiO2 10/16/16 08:04 98.2 82 18 150/67 91 10/15/16 08:51 21 Intake and Output 10/15/16 10/15/16 10/16/16 15:00 23:00 07:00 Intake Total 403 ml 400 ml 100 ml Output Total 2300 ml Balance -1897 ml 400 ml 100 ml Results Result Diagram: 10/16/16 0432 10/13/16 0445 Results 24 hrs Laboratory Tests Test 10/15/16 17:57 10/15/16 20:46 10/16/16 04:32 10/16/16 08:53 Bedside Glucose 110 115 68 L White Blood Count 7.9 Red Blood Count 3.59 L Hemoglobin 9.6 L Hematocrit 29.8 L Mean Corpuscular Volume 83.0 Mean Corpuscular Hemoglobin 26.7 L Mean Corpuscular Hemoglobin Concent 32.2 Red Cell Distribution Width 15.6 H Platelet Count 104 #L Mean Platelet Volume 12.4 H Neutrophils % 65.0 Lymphocytes % 20.6 Monocytes % 10.5 Eosinophils % 3.2 Basophils % 0.1 Nucleated Red Blood Cells % 0.0 Neutrophils # 5.1 Lymphocytes # 1.6 Monocytes # 0.8 Eosinophils # 0.3 Basophils # 0.0 Nucleated Red Blood Cells # 0.0 Test 10/16/16 09:11 10/16/16 12:21 Bedside Glucose 105 138 Medications Medications Current Medications Ondansetron HCl (Zofran Inj) 4 mg Q6H PRN IV NAUSEA AND/OR VOMITING; Start 10/10 at 23:30 Acetaminophen (Tylenol Tab) 650 mg Q6H PRN PO PAIN LEVEL 1-3 OR FEVER; Start at 23:30 Enoxaparin Sodium (Lovenox) 30 mg DAILY SC Last administered on 10/13/16 10:59 ; Admin Dose 30 MG; Start 10/11/16 at 09:00; Status Future Hold Aspirin (Halfprin) 81 mg DAILY PO Last administered on 10/16/16 09:01; Admin Dose 81 MG; Start 10/11/16 at 09:00 Atorvastatin Calcium (Lipitor) 80 mg DAILY PO Last administered on 10/16/16 09: 01; Admin Dose 80 MG; Start 10/11/16 at 09:00 Diagnostic Test (Pha) (Accu-Chek) 1 ea 02 XX Last administered on 10/12/16 01: 49; Admin Dose 1 EA; Start 10/11/16 at 02:00 Miscellaneous Information 1 ea NOTE XX ; Start 10/10/16 at 23:45 Glucose (Glutose) 15 gm Q15M PRN PO DECREASED GLUCOSE; Start 10/10/16 at 23:45 Glucose (Glutose) 22.5 gm Q15M PRN PO DECREASED GLUCOSE; Start 10/10/16 at 23:45 Dextrose (D50w Syringe) 25 ml Q15M PRN IV DECREASED GLUCOSE; Start 10/10/16 at 23:45 Dextrose (D50w Syringe) 50 ml Q15M PRN IV DECREASED GLUCOSE; Start 10/10/16 at 23:45 Glucagon (Glucagen) 1 mg Q15M PRN IM DECREASED GLUCOSE; Start 10/10/16 at 23:45 Glucose (Glutose) 15 gm Q15M PRN BUCCAL DECREASED GLUCOSE; Start 10/10/16 at 23: 45 Zolpidem Tartrate (Ambien) 5 mg HS PRN PO INSOMNIA Last administered on 23:36; Admin Dose 5 MG; Start 10/13/16 at 23:00 Hydralazine HCl (Apresoline) 10 mg Q4H PRN IV SBP greater than 160 Last administered on 10/15/16 06:32; Admin Dose 10 MG; Start 10/14/16 at 20:30 Gentamicin Sulfate (Gentamicin Iv Per Pharmacy) GENTAMICIN PER PHARMACY NOTE XX ; Start 10/15/16 at 13:30 JADE DOYLE NP Oct 16, 2016 13:12
[2016-10-16] MEDS ORDERED: GENTAMICIN 60 MG in SOD CHLORIDE 0.9% 50 ML IVPB SCH (13:30)
[2016-10-16 19:00] VITALS: BP 147/63; RESP 18
== END 2016-10-16 20:20 | disposition home or self-care (01) | DRG 314 ==
LOC: E/R 15:22 → MS1 21:02
PROVIDERS: ADMIT Internal Medicine; ATTEND Internal Medicine
PROC: 5A1D60Z (ICD-10-PCS; principal; 2016-10-13)
DX: T82.7XXA Infection and inflammatory reaction due to other cardiac and vascular devices, implants and grafts, initial encounter (principal); A41.59 Other Gram-negative sepsis; N18.6 End stage renal disease; G93.40 Encephalopathy, unspecified; J18.9 Pneumonia, unspecified organism; I12.0 Hypertensive chronic kidney disease with stage 5 chronic kidney disease or end stage renal disease; E11.22 Type 2 diabetes mellitus with diabetic chronic kidney disease; D69.6 Thrombocytopenia, unspecified; F03.90 Unspecified dementia, unspecified severity, without behavioral disturbance, psychotic disturbance, mood disturbance, and anxiety; Z99.2 Dependence on renal dialysis; M89.8X9 Other specified disorders of bone, unspecified site; D63.8 Anemia in other chronic diseases classified elsewhere
CPT/HCPCS: 36415; 71010; 71020; 74176; 80048; 80053; 81001; 82962; 83605; 83735; 84100; 84436; 84479; 84484; 85025; 85610; 85730; 87040; 87086; 90935; 92610; 93005; 94640; 94664; 96374; 96375; J0360; J0692; J1580; J1650; J1815; J3370; J7030; Q4081

== ENCOUNTER 2016-10-20 14:42 | Outpatient (CLI) | payer OTHER ==
[~2016-10-20] VITALS: Ht 160 cm; Wt 57.3 kg
[2016-10-20 14:38] VITALS: BP 111/56; PULSE 83; RESP 18; Ht 160 cm; Wt 57.3 kg
--- NOTE | 2016-10-20 16:04 | PN ---
Date/Time of Note Date/Time of Note DATE: 10/20/16 TIME: 15:57 Outpatient Progress Note Chief Complaint Sepsis/diabetes/hypertension/anemia/end-stage renal disease HPI Sepsis/patient was recently admitted with a sepsis, patient also had a UTI and line sepsis, and pneumonia, patient was treated with antibiotic, patient afebrile, feeling better, no fever chill, Diabetes/no polydipsia polyuria hypoglycemia, gastroparesis, blood sugar between 101 and 150, Hypertension/no headache or dizziness, no lightheadedness, no local focal weakness, Anemia/no hematemesis or melena, ecchymoses bruises or bleeding, slightly fatigued, End-stage renal disease/patient has end-stage renal disease, patient on hemodialysis, Review of Systems Const: No Fever, no chills, no Wt. loss, slight fatigue, normal appetite, no diaphoresis. Eyes: No pain, no discharge, no redness, no visual change, no foreign body. ENT: No pain, no bleeding, no congestion, no sore throat, no dysphagia, no discharge or rhinitis. Lymph: No adenopathy, no tender nodes, no lymphedema. Resp: No SOB, no cough, no sputum, no wheezing, no chest pain. CV: No chest pain, no palpitaions, no DIAZ, no PND, no edema. GI: Normal appetite, no pain, no nausea, no vomiting, no diarrhea, no blood, no constipation. : No frequency, no urgency, no dysuria, no hematuria, no flank pain, no discharge, no bleeding. Musc: No bone/joint pain, no back pain, no neck pain, no knee pain, no restricted ROM. Skin: No rash, no skin lesions, no erythema, no laceration, no bruising, no pruritus. Neuro: No CORTEZ, no dizziness, no syncope, no seizure, no focal-weakness. Endo: No polyuria, no polydypsia, no dry-skin, no temp-intolerance. Psych: No hallucinations, no depression, no anxiety, no suicidal ideation. Ext: No edema, no pain, no ulcer, no weakness. Physical Exam Vital Signs Date Time Temp Pulse Resp B/P Pulse Ox O2 Delivery O2 Flow Rate FiO2 10/20/16 14:38 98.1 83 18 111/56 100 Room Air General Appearance: A 70] year-old female who appears well-developed, well- nourished, in no acute distress. HEENT: Head normocephalic, atraumatic. Pupils equal, round, reactive to light and accommodate. Sclerae are no jaundice. Nasal turbinates pink without erythema or nasal discharge. Mucous membranes pink and moist without lesions. Oropharynx clear without any exudate or discharge. NECK: Supple. Trachea midline, No thyromegaly, No cervical lymphadenopathy, No mass, No carotid bruits, No JVD, Carotid pulses 2+ bilaterally. PULMONARY: Clear to auscultaion bilaterally, No retractions, Chest expansion symmetric bilaterally, no rales, no ronchi, no dulness on percussion. Patient has dialysis access on the left side of the chest, CARDIAC: Normal SI and S2, Regular rate and rythm, no murmur, gallop, or rub. GASTROINTESTINAL: Abdomen is soft, non-tender, Non Rigid, No distention, Positive bowel sounds x4 quadrants, Liver normal. SKIN: Warm, dry, no rash, no bruise, no echmosis. No cellulitis at site of dialysis line, EXTREMITIES: Bilateral lower extremities normal, no edema, no phlabitus, pulse palpable, no contracture. MUSCULOSKELETAL: Spine Normal, Non-tender, Normal range of motion, No swelling, no deformity, no clubbing, or cyanosis, the patient has no edema to bilateral lower extremities, dorsalis pedis pulses palpable bilaterally. NEUROLOGIC: The patient is awake, alert, oriented, responding to yes/no questions appropriately, moving all extremities, cranial nerve intact, normal strenght, normal power, normal coordination, normal gait. Allergies Coded Allergies: No Known Allergy (Unverified , 09/30/16) PMH Renal failure/diabetes/hypertension/anemia/thrombocytopenia/slight depression Dialysis access left side of chest wall, Social Hx No smoking no drinking, Family Hx Noncontributory Assessment/Plan Impression Sepsis/diabetes/hypertension/anemia/end-stage renal disease/thrombocytopenia Plan Patient education done about diabetes hypertension sepsis etc., Discussed with the family/daughter If patient has any fever to call us immediately and will see her next day, Patient encouraged to increase activity, patient slightly depressed after the hospitalization, discussed with the daughter, Patient has all the medical supply, patient to bring blood sugar report and a blood pressure report, Medications Home Meds Reported Medications Aspirin (Low Dose Aspirin) 81 Mg Tablet.dr, 81 MG PO DAILY, #30 TAB 09/28/16 Insulin Regular, Human (Humulin R) 100 Unit/1 Ml Vial, 0 IJ AC MEALS, VIAL 09/28/16 Calcium Acetate* (Calcium Acetate*) 667 Mg Capsule, 667 MG PO WITH MEALS, #30 CAP 09/28/16 Atorvastatin* (Atorvastatin*) 80 Mg Tablet, 80 MG PO DAILY, #30 TAB 09/28/16 EBN MARTINEZ MD Oct 20, 2016 16:04
== END 2016-10-20 16:48 | disposition home or self-care (01) ==
LOC: DCC 14:42
PROVIDERS: ATTEND Internal Medicine
DX: E11.9 Type 2 diabetes mellitus without complications (principal); I12.0 Hypertensive chronic kidney disease with stage 5 chronic kidney disease or end stage renal disease; N18.6 End stage renal disease; Z99.2 Dependence on renal dialysis; D64.9 Anemia, unspecified; D69.6 Thrombocytopenia, unspecified

== ENCOUNTER 2016-10-30 15:36 | Outpatient (CLI) | payer OTHER ==
[~2016-10-30] VITALS: Ht 160 cm; Wt 56.8 kg
[2016-10-30 15:44] VITALS: BP 117/56; PULSE 80; RESP 18; Ht 160 cm; Wt 56.8 kg
--- NOTE | 2016-10-30 16:18 | PN ---
Date/Time of Note Date/Time of Note DATE: 10/30/16 TIME: 16:13 Outpatient Progress Note Chief Complaint Chills/chronic renal failure/diabetes/hypertension/anemia/ HPI Chill/patient had chill during dialysis, patient was referred to ER, patient did not want to go to ER, no chills now, no fever, patient is okay at present, feels fine, Chronic renal failure/no nausea vomiting, on hemodialysis, no pruritus, Diabetes/no polydipsia polyuria hypoglycemia, gastroparesis, Hypertension/no headache or dizziness, no lightheadedness, no local focal weakness, Anemia/no hematemesis melena, ecchymoses bruises or bleeding, Review of Systems Const: No Fever, no chills, no Wt. loss, no Fatigue, normal appetite, no diaphoresis. Eyes: No pain, no discharge, no redness, no visual change, no foreign body. ENT: No pain, no bleeding, no congestion, no sore throat, no dysphagia, no discharge or rhinitis. Lymph: No adenopathy, no tender nodes, no lymphedema. Resp: No SOB, no cough, no sputum, no wheezing, no chest pain. CV: No chest pain, no palpitaions, no DIAZ, no PND, no edema. GI: Normal appetite, no pain, no nausea, no vomiting, no diarrhea, no blood, no constipation. : No frequency, no urgency, no dysuria, no hematuria, no flank pain, no discharge, no bleeding. Musc: No bone/joint pain, no back pain, no neck pain, no knee pain, no restricted ROM. Skin: No rash, no skin lesions, no erythema, no laceration, no bruising, no pruritus. Neuro: No CORTEZ, no dizziness, no syncope, no seizure, no focal-weakness. Endo: No polyuria, no polydypsia, no dry-skin, no temp-intolerance. Psych: No hallucinations, no depression, no anxiety, no suicidal ideation. Ext: No edema, no pain, no ulcer, no weakness. Patient has AV shunt new on the right upper extremity, and has old shunt on left upper extremity, which is closed in thrombosed, patient also has hemodialysis access on the left side of the chest, patient used to have on the right side of the chest previously, Physical Exam Vital Signs Date Time Temp Pulse Resp B/P Pulse Ox O2 Delivery O2 Flow Rate FiO2 10/30/16 15:44 98.8 80 18 117/56 96 Room Air General Appearance: A 71 year-old female who appears well-developed, well- nourished, in no acute distress. HEENT: Head normocephalic, atraumatic. Pupils equal, round, reactive to light and accommodate. Sclerae are no jaundice. Nasal turbinates pink without erythema or nasal discharge. Mucous membranes pink and moist without lesions. Oropharynx clear without any exudate or discharge. NECK: Supple. Trachea midline, No thyromegaly, No cervical lymphadenopathy, No mass, No carotid bruits, No JVD, Carotid pulses 2+ bilaterally. PULMONARY: Clear to auscultaion bilaterally, No retractions, Chest expansion symmetric bilaterally, no rales, no ronchi, no dulness on percussion. CARDIAC: Normal SI and S2, Regular rate and rythm, no murmur, gallop, or rub. GASTROINTESTINAL: Abdomen is soft, non-tender, Non Rigid, No distention, Positive bowel sounds x4 quadrants, Liver normal. SKIN: Warm, dry, no rash, no bruise, no echmosis. EXTREMITIES: Bilateral lower extremities normal, no edema, no phlabitus, pulse palpable, no contracture. Patient has a left-sided clotted AV fistula, and has a new right-sided AV fistula, and has Anil catheter on the left side of chest wall, MUSCULOSKELETAL: Spine Normal, Non-tender, Normal range of motion, No swelling, no deformity, no clubbing, or cyanosis, the patient has no edema to bilateral lower extremities, dorsalis pedis pulses palpable bilaterally. NEUROLOGIC: The patient is awake, alert, oriented, responding to yes/no questions appropriately, moving all extremities, cranial nerve intact, normal strenght, normal power, normal coordination, normal gait. Allergies Coded Allergies: No Known Allergy (Unverified , 09/30/16) PMH No change Family Hx No change Assessment/Plan Impression Chill/chronic renal failure/diabetes/hypertension/anemia Plan Patient daughter says patient had chill at the dialysis center, and at present patient feeling okay, no subjective complaint, Patient advised to get CBC CMP blood culture, and patient and the family wants to wait, as patient is feeling fine, I have explained the risk of sepsis, patient very high risk for repeated admission, Patient also told and her daughter told if any fever chill take the patient to emergency room, and get admitted, patient also going for surgery in few days, Patient daughter feel that patient will be going for surgery on the shunt in few days so they are going to do blood test anyway, I explained that it will be very important that she has a blood test right away when she has a fever and chill, and also had a blood culture, Patient encouraged to follow with the primary care physician, patient has appointment with primary care physician, Medications Home Meds Reported Medications Aspirin (Low Dose Aspirin) 81 Mg Tablet.dr, 81 MG PO DAILY, #30 TAB 09/28/16 Insulin Regular, Human (Humulin R) 100 Unit/1 Ml Vial, 0 IJ AC MEALS, VIAL 09/28/16 Calcium Acetate* (Calcium Acetate*) 667 Mg Capsule, 667 MG PO WITH MEALS, #30 CAP 09/28/16 Atorvastatin* (Atorvastatin*) 80 Mg Tablet, 80 MG PO DAILY, #30 TAB 09/28/16 BEN MARTINEZ MD Oct 30, 2016 16:18
== END 2016-10-30 16:46 | disposition home or self-care (01) ==
LOC: DCC 15:36
PROVIDERS: ATTEND Internal Medicine
DX: R68.83 Chills (without fever) (principal); I12.0 Hypertensive chronic kidney disease with stage 5 chronic kidney disease or end stage renal disease; N18.6 End stage renal disease; Z99.2 Dependence on renal dialysis; D64.9 Anemia, unspecified; E11.9 Type 2 diabetes mellitus without complications; Z79.4 Long term (current) use of insulin; Z79.82 Long term (current) use of aspirin

== ENCOUNTER 2016-11-14 16:30 | Inpatient (IN) | payer OTHER ==
[~2016-11-14] VITALS: Ht 160 cm; Wt 57.9 kg
[2016-11-14 16:40] VITALS: Ht 160 cm; Wt 57.9 kg
[2016-11-14] MEDS ORDERED: CEFEPIME 2GM/50 ML (PMX) 50 ML IVPB STA (16:46)
[2016-11-14] MEDS ORDERED: ACETAMINOPHEN 500 MG TAB PO STA (16:46)
[2016-11-14] MEDS ORDERED: VANCOMYCIN 1 GM (PMX) 250 ML IVPB ONE (17:00)
[2016-11-14 17:32] LABS: ADD SCAN DIFF NO
[2016-11-14 17:54] LABS: ABNORMAL IP MESSAGE 1; HEMATOCRIT 28.2 % (37.0-47.0); HEMOGLOBIN 9.1 g/dl (12.0-16.0); MEAN CORPUSCULAR HEMOGLOBIN 26.3 pg (29.0-33.0); MEAN CORPUSCULAR HGB CONC 32.3 g/dl (32.0-37.0); MEAN CORPUSCULAR VOLUME 81.5 fl (82.0-101.0); MEAN PLATELET VOLUME 11.6 fl (7.4-10.4); PLATELET COUNT 103 10^3/UL (140-415); RED BLOOD COUNT 3.46 10^6/ul (4.20-5.40); RED CELL DISTRIBUTION WIDTH 16.3 % (11.5-14.5); WHITE BLOOD COUNT 9.6 10^3/ul (4.8-10.8)
--- NOTE | 2016-11-14 17:59 | RADRPT ---
PROCEDURE: XR Chest. CLINICAL INDICATION: Shortness of breath. Possible sepsis. TECHNIQUE: Single frontal view. COMPARISON: 10/11/2016. FINDINGS: There is a tunneled left internal jugular vein dialysis catheter with the tip in the right atrium. The lungs are clear. The heart size is normal. There is calcification in the aorta consistent with atherosclerosis. There is no pleural effusion. There is no pneumothorax. IMPRESSION: 1. Dialysis catheter in satisfactory position. 2. Atherosclerosis. 3. Clear lungs. RPTAT: QQ .Marlon Treadwell MD, MD Date Time Electronically viewed and signed by .Marlon Treadwell MD, MD on 11/14/2016 17:59 .R/
[2016-11-14] MEDS ORDERED: AMLO-147 PO (18:04)
[2016-11-14 18:05] LABS: INR 1.1; PROTIME 14.2 Sec (12.2-14.2); PT RATIO 1.1
[2016-11-14 18:06] LABS: PARTIAL THROMBOPLASTIN TIME 31.9 Sec (25.0-35.0)
[2016-11-14 18:17] LABS: ALANINE AMINOTRANSFERASE 49 IU/L (13-69); ALBUMIN 4.6 g/dl (3.3-4.9); ALBUMIN/GLOBULIN RATIO 1.53; ALKALINE PHOSPHATASE 106 IU/L (42-121); ANION GAP 16 (8-16); ASPARTATE AMINO TRANSFERASE 42 IU/L (15-46); BILIRUBIN,INDIRECT 0.4 mg/dl (0-1.1); BILIRUBIN,TOTAL 0.4 mg/dl (0.2-1.3); BLOOD UREA NITROGEN 14 mg/dl (7-20); CALCIUM 8.3 mg/dl (8.4-10.2); CARBON DIOXIDE 29 mmol/L (21-31); CHLORIDE 95 mmol/L (97-110); CREATININE 2.29 mg/dl (0.44-1.00); GLUCOSE 118 mg/dl (70-220); POTASSIUM 3.8 mmol/L (3.5-5.1); SODIUM 136 mmol/L (135-144); TOTAL PROTEIN 7.6 g/dl (6.1-8.1)
--- NOTE | 2016-11-14 18:17 | RADRPT ---
PROCEDURE: CT Brain without contrast. CLINICAL INDICATION: Altered mental status. TECHNIQUE: A CT of the brain without contrast was performed utilizing axial sections from the skul l base through the vertex. The patient was scanned without intravenous contrast enhancement. Sagitta l and coronal reformatted images were obtained using the data from the axial images. Total exam DLP is 630.20 mGy-cm. CTDIvol is 44.33 mGy. One or more of the following dose reduction techniques were used: Automated exposure control, adjustment of the mA and/or kV according to patient size, use of iterative reconstruction technique. COMPARISON: None available. FINDINGS: There is normal hernandez-white matter differentiation. There is enlargement of the ventricles and subarachnoid spaces consistent with atrophy. There is decreased attenuation of the periventricular white matter consistent with microangiopathic ischemic change. There is no intracranial hemorrhage or space-occupying lesion. There are vascular calcifications consistent with atherosclerosis. There is no skull fracture or lytic lesion. IMPRESSION: 1. Atrophy. 2. Microangiopathic ischemic change. 3. Atherosclerosis. 4. Otherwise unremarkable noncontrast CT scan of the brain. RPTAT: QQ .Marlon Treadwell MD, MD Date Time Electronically viewed and signed by .Marlon Treadwell MD, on 11/14/2016 18:16 .R/
[2016-11-14 18:26] LABS: EOSINOPHILS # 0.1 10^3/ul (0.0-0.5); LYMPHOCYTES # 0.6 10^3/ul (0.8-2.9); MONOCYTE # 0.3 10^3/ul (0.3-0.9); NEUTROPHIL # 8.6 10^3/ul (1.6-7.5)
[2016-11-14 18:28] LABS: PLATELET ESTIMATE PLT APPEAR DECREASED
[2016-11-14 18:43] LABS: TROPONIN-I < 0.012 ng/ml (0.00-0.12)
--- NOTE | 2016-11-14 19:03 | ERA ---
ER Documentation Chief Complaint Date/Time DATE: 11/14/16 TIME: 18:55 Chief Complaint FROM DIALYSIS WITH N/V HPI 71-year-old female who presents with nausea vomiting, fever from dialysis. The patient does not speak Upper Sorbian. Initially we did not know what language she spoke however a grandson arrived later and states that she speaks Swedish. Further conversation with the patient's referring physician Dr. Smith appears that the patient had a temperature at dialysis. She initially refused to go to the emergency room. It is unclear whether she received vancomycin because she was refusing care. However, EMS reports that the patient was found outside in a jacket in 100 weather. Remainder of HPI is limited. ROS Limited given language barrier as we did not know what language she spoke upon arrival. Medications Home Meds Reported Medications Amlodipine Besylate* (Amlodipine Besylate*) 10 Mg Tablet, 10 MG PO DAILY, #30 TAB 11/14/16 Aspirin (Low Dose Aspirin) 81 Mg Tablet.dr, 81 MG PO DAILY, #30 TAB 09/28/16 Insulin Regular, Human (Humulin R) 100 Unit/1 Ml Vial, 2 UNITS IJ AC MEALS, VIAL 09/28/16 Calcium Acetate* (Calcium Acetate*) 667 Mg Capsule, 667 MG PO WITH MEALS, #30 CAP 09/28/16 Atorvastatin* (Atorvastatin*) 80 Mg Tablet, 80 MG PO DAILY, #30 TAB 09/28/16 Allergies Allergies: Coded Allergies: No Known Allergy (Unverified , 11/14/16) PMhx/Soc History of Surgery: Yes (AV SHUNT PLACEMENT 2013 (REPAIR 2015,2016)) Anesthesia Reaction: No Hx Neurological Disorder: No Hx Respiratory Disorders: No Hx Cardiac Disorders: No Hx Psychiatric Problems: No Hx Miscellaneous Medical Probl: Yes (IMPAIRED VISION) Hx Alcohol Use: No Hx Substance Use: No Hx Tobacco Use: No Smoking Status: Never smoker FmHx Family History: No diabetes Physical Exam Vitals Vital Signs Date Time Temp Pulse Resp B/P Pulse Ox O2 Delivery O2 Flow Rate FiO2 11/14/16 18:25 101.1 90 22 108/35 98 Room Air 11/14/16 16:40 102.8 86 20 116/84 95 Physical Exam General: Well developed, well nourished, no acute distress Head: Normocephalic, atraumatic. Eyes: Pupils equally reactive, EOM intact ENT: Moist mucous membranes Neck: Supple, no lymphadenopathy Respiratory: Lungs clear bilaterally, no distress Cardiovascular: RRR, no murmurs, rubs, or gallops Abdominal: Soft, non-tender, non-distended, no peritoneal signs : Deferred MSK: No edema, no unilateral swelling, 5/5 strength Neurologic: Alert and oriented, moving all extremities, normal speech, no focal weakness, no cerebellar signs Skin: No rash Psych: Normal mood Result Diagram: 11/14/16 1725 11/14/16 1725 Results 24 hrs Laboratory Tests Test 11/14/16 17:25 11/14/16 17:26 White Blood Count 9.610^3/ul Red Blood Count 3.4610^6/ul Hemoglobin 9.1g/dl Hematocrit 28.2% Mean Corpuscular Volume 81.5fl Mean Corpuscular Hemoglobin 26.3pg Mean Corpuscular Hemoglobin Concent 32.3g/dl Red Cell Distribution Width 16.3% Platelet Count 68179^3/UL Mean Platelet Volume 11.6fl Neutrophils % 90.0% Lymphocytes % 6.0% Monocytes % 3.0% Eosinophils % 1.0% Neutrophils # 8.610^3/ul Lymphocytes # 0.610^3/ul Monocytes # 0.310^3/ul Eosinophils # 0.110^3/ul Platelet Estimate PLT APPEAR DECREASED Prothrombin Time 14.2Sec Prothrombin Time Ratio 1.1 INR International Normalized Ratio 1.10 Activated Partial Thromboplast Time 31.9Sec Sodium Level 136mmol/L Potassium Level 3.8mmol/L Chloride Level 95mmol/L Carbon Dioxide Level 29mmol/L Anion Gap 16 Blood Urea Nitrogen 14mg/dl Creatinine 2.29mg/dl Glucose Level 118mg/dl Lactic Acid Level 1.9mmol/L Calcium Level 8.3mg/dl Total Bilirubin 0.4mg/dl Direct Bilirubin 0.00mg/dl Indirect Bilirubin 0.4mg/dl Aspartate Amino Transf (AST/SGOT) 42IU/L Alanine Aminotransferase (ALT/SGPT) 49IU/L Alkaline Phosphatase 106IU/L Troponin I < 0.012ng/ml Total Protein 7.6g/dl Albumin 4.6g/dl Globulin 3.00g/dl Albumin/Globulin Ratio 1.53 Bedside Glucose 108mg/dL Current Medications Medications (Trade) Dose Ordered Sig/Hiram Route PRN Reason Start Time Stop Time Status Last Admin Dose Admin Cefepime HCl 50 ml @ 100 mls/hr ONCE STAT IVPB 11/14/16 16:46 11/14/16 17:15 DC 11/14/16 17:22 Vancomycin HCl (Vancocin) 250 ml @ 125 mls/hr ONCE ONCE IVPB 11/14/16 17:00 11/14/16 18:59 11/14/16 18:23 Acetaminophen (Tylenol Tab) 1,000 mg ONCE STAT PO 11/14/16 16:46 11/14/16 16:48 DC 11/14/16 17:27 Procedures/MDM EKG, MONITORS, & DIAGNOSTIC IMAGING: EKG: I reviewed and interpreted a 12-lead EKG. Rhythm: Normal sinus rhythm Ectopy: None Intervals: No abnormalities ST segments: No elevations or depressions T waves: No contiguous inversions Chest x-ray: I reviewed and interpreted a 1 view of the chest Mediastinum: No enlargement Cardiac silhouette: No cardiomegaly Airspace: Clear lung culver bilaterally without evidence of pneumothorax Bones: No evidence of fracture CT brain: IMPRESSION: 1. Atrophy. 2. Microangiopathic ischemic change. 3. Atherosclerosis. 4. Otherwise unremarkable noncontrast CT scan of the brain. RPTAT: QQ LAB INTERPRETATION: No leukocytosis, no lactic acidosis, chronic renal insufficiency MEDICAL DECISION MAKING: The patient presents with altered mental status and a fever. However, after appear to time it is clear that the patient is not altered and there may have been a language barrier. Her grandson is here and speaking to the patient states that she is at her neurologic baseline. She does have a fever, consider environmental exposure versus catheter associated sepsis. Empiric antibiotics provided in the form of vancomycin and cefepime. The patient is a dialysis patient does not have hypotension therefore she does not require a full 30 cc/ kg bolus of saline. She has no evidence of endorgan dysfunction and does not meet severe sepsis criteria. Gentle fluid bolus appropriate, aggressive fluid resuscitation may precipitate respiratory failure. Given that the patient is not altered and no signs of meningismus no indication for lumbar puncture. ER COURSE: The patient is stabilized. She has received empiric antibiotics. Her fever is improving. The patient will be admitted to medical surgical service for culture monitoring, broad-spectrum antibiotics and further assessment. I kept the patient and/or family informed of laboratory and diagnostic imaging results throughout the emergency room course. DISPOSITION PLAN: Medical surgical admission for management of sepsis CONSULTATION: Accepting care team and consultations: I discussed the current laboratory data, diagnostic imaging and emergency care provided. Admitting team: Dr. Smith Admitting team indication: Insurance directed Sepsis Documentation: Patient's infectious symptoms have not stabilized and the patient is at risk of rapid decompensation. The patient will be admitted for careful hydration, antibiotic therapy, and infectious source control. SEVERE SEPSIS CRITERIA: Infectious source: Potential dialysis site End organ damage indicated by: No endorgan damage, renal function at baseline SEPSIS MANAGEMENT Time of recognition of severe sepsis/septic shock: Upon arrival 3 HOUR BUNDLE Blood cultures x 2 before broad-spectrum antibiotics: Yes 30 ml/kg NS bolus not provided given no evidence of severe sepsis Initial lactate less than 2 Repeat lactate pending SEPTIC SHOCK ASSESSMENT: No lactic acid > 4.0 No persistent hypotension (SBP < 90 or 40 mmHg drop, MAP < 65) despite 30 mL/kg IV fluid bolus VOLUME REASSESSMENT FOR SEPTIC SHOCK: Reevaluation Time: Patient does not meet criteria for septic shock. Reevaluation at 7:01 PM Temperature 101.1, heart rate 90, respiratory rate 22, blood pressure 108/35, pulse ox 98 Heart Regular rate & rhythm Lungs No crackles Skin Warm & dry Cap Refill Less than 2 seconds Peripheral pulses Radially present PERSISTENT HYPOTENSION TREATMENT: Comfort care No Central line Not Required Vasopressor started Not required I considered further perfusion assessment with CVP measurement, SCVO2, bedside ultrasound volume assessment, passive leg raise, trial of further fluid bolus. And proceeded with fluid bolus of NSS, broad spectrum antbiotics, and admission. CRITICAL CARE Critical care time 35 minutes Emergent fluid management while maintaining close respiratory support. Provision of immediate and broad-spectrum antibiotic therapy. Simultaneous assessment for possible sources in order to direct targeted therapy. Consideration for invasive and chemical support to prevent cardiopulmonary collapse. Critical care time is independent of procedures performed. Departure Diagnosis: Primary Impression: Sepsis Qualified Code: A41.9 - Sepsis, due to unspecified organism Additional Impression: End stage renal disease on dialysis Condition: Stable RICH COSBY MD Nov 14, 2016 19:03
[2016-11-14] MEDS ORDERED: ONDANSETRON 4 MG INJ IV PRN ×2 (19:30→21:30)
[2016-11-14] MEDS ORDERED: ACETAMINOPHEN 325 MG TAB PO PRN ×2 (19:30→21:30)
[2016-11-14 19:58] VITALS: TEMP 98.1
[2016-11-14 21:21] VITALS: BP 110/53; RESP 18
[2016-11-14] MEDS ORDERED: VANCOMYCIN IV PER PHARMACY XX SCH (21:30)
[2016-11-14] MEDS ORDERED: ZOLPIDEM 5 MG TAB PO PRN (21:30)
[2016-11-14] MEDS ORDERED: DEXTROSE 50% 50 ML SYRINGE IV PRN ×2 (22:30)
[2016-11-14] MEDS ORDERED: GLUCOSE GEL 15 GRAM TUBE PO PRN ×2 (22:30)
[2016-11-14] MEDS ORDERED: GLUCOSE GEL 15 GRAM TUBE BUCCAL PRN (22:30)
[2016-11-14] MEDS ORDERED: GLUCAGON 1 MG INJ IM PRN (22:30)
[2016-11-14] MEDS: HEPARIN 5,000 UNIT/0.5 ML VIAL SC SCH (22:38)
[2016-11-15 02:00] VITALS: BP 103/51; RESP 18
[2016-11-15] MEDS: ACCU-CHEK XX SCH (02:00)
[2016-11-15 06:23] LABS: ADD SCAN DIFF NO
[2016-11-15 06:32] LABS: ABNORMAL IP MESSAGE 1; BASOPHILS % 0.2 % (0.0-2.0); EOSINOPHILS # 0.1 10^3/ul (0.0-0.5); EOSINOPHILS % 2.3 % (0.0-7.0); HEMATOCRIT 30.2 % (37.0-47.0); HEMOGLOBIN 9.4 g/dl (12.0-16.0); LYMPHOCYTES # 0.4 10^3/ul (0.8-2.9); LYMPHOCYTES % 7.1 % (15.0-51.0); MEAN CORPUSCULAR HEMOGLOBIN 25.4 pg (29.0-33.0); MEAN CORPUSCULAR HGB CONC 31.1 g/dl (32.0-37.0); MEAN CORPUSCULAR VOLUME 81.6 fl (82.0-101.0); MONOCYTE # 0.7 10^3/ul (0.3-0.9); MONOCYTES % 10.7 % (0.0-11.0); NEUTROPHIL # 4.9 10^3/ul (1.6-7.5); NEUTROPHILS % 79.2 % (39.0-77.0); PLATELET COUNT 109 10^3/UL (140-415); RED CELL DISTRIBUTION WIDTH 16.5 % (11.5-14.5); WHITE BLOOD COUNT 6.2 10^3/ul (4.8-10.8)
[2016-11-15 06:59] LABS: ALBUMIN 4.2 g/dl (3.3-4.9); ALBUMIN/GLOBULIN RATIO 1.44; BILIRUBIN,INDIRECT 0.3 mg/dl (0-1.1); BILIRUBIN,TOTAL 0.3 mg/dl (0.2-1.3); CREATININE 3.21 mg/dl (0.44-1.00); MAGNESIUM 1.7 mg/dl (1.7-2.5); PHOSPHORUS 4.4 mg/dl (2.5-4.9); POTASSIUM 3.9 mmol/L (3.5-5.1); TOTAL PROTEIN 7.1 g/dl (6.1-8.1)
[2016-11-15] MEDS ORDERED: INSULIN REGULAR, HUMAN 100 UNIT/1 ML 3ML VIAL SC SCH (08:00)
[2016-11-15] MEDS: INSULIN ASPART [NOVOLOG] 3 ML PEN SC SCH ×7 (08:00→22:01)
[2016-11-15 08:15] VITALS: BP 117/58; RESP 20
[2016-11-15] MEDS: CEFEPIME 1GM/50 ML (PMX) 50 ML IVPB SCH (08:56)
[2016-11-15] MEDS: ASPIRIN (EC) 81 MG TAB PO SCH (08:57)
[2016-11-15] MEDS: AMLODIPINE 10 MG TAB PO SCH (08:57)
[2016-11-15] MEDS: CALCIUM ACETATE 667 MG CAP PO SCH ×3 (08:57→16:11)
[2016-11-15] MEDS: ATORVASTATIN 80 MG TAB PO SCH (08:57)
[2016-11-15] MEDS: HEPARIN 5,000 UNIT/0.5 ML VIAL SC SCH ×2 (09:14→21:56)
--- NOTE | 2016-11-15 11:05 | HP ---
Date/Time of Note Date/Time of Note DATE: 11/15/16 TIME: 10:50 Assessment/Plan VTE Prophylaxis VTE Prophylaxis Intervention: heparin Lines/Catheters IV Catheter Type (from [facility]): Sal[facility] Lock Urinary Cath still in place: No Assessment/Plan Chief Complaint/Hosp Course 1. Fevers, chills, possible early sepsis. Possibilities include pneumonia, early urinary tract infection, catheter related infection, and ho cholelithiasis. Follow up cultures. ruq amy. 2. ho Pneumonia present on CT, small posterior basal segment right lower lobe infiltrate. Continue antibiotics. 3. ho Urinary bladder wall thickening, possible UTI, covered with antibiotics. 4. End-stage renal disease on hemodialysis, completed dialysis yesterday, so no need for emergent dialysis. We will try to keep on schedule or one day early. 5. Persistent cough, concerning. We will monitor. 6. Diabetes. Continue sliding scale. 7. Hypertension, well controlled. 8. Anemia of chronic disease, mild. Epogen per recommendations. 9. Mineral bone disorder. Follow up phosphorus and PTH. 10. History of thrombocytopenia, possibly related to sepsis. Monitor serially. Problems: HPI/ROS Admit Date/Time Admit Date/Time Nov 14, 2016 at 19:06 Hx of Present Illness HISTORY OF PRESENT ILLNESS: The patient is a 70-year-old female with past medical history of end-stage renal disease on dialysis Wednesday, , Wednesday with recent right upper extremity AV fistula formation. The patient presents after dialysis, where she was noted to have severe chills. The patient has noted cough recently but has actually had a cough for 2 months, noted to have fever, still has the catheter in, denies dysuria, hematuria, still urinates, was on dialysis for at least 10 months. Denies dysuria, hematuria. Had recent hospitalization for similar episode. The patient was diagnosed with Klebsiella pneumoniae bacteremia, likely secondary to line infection and received full treatment. Initially refused to go to er. given vanco in dialysis unit and again in er. started on cefepime. PAST MEDICAL HISTORY: Significant for end-stage renal disease, hypertension, dyslipidemia, history of diabetes. SOCIAL HISTORY: Does not smoke, drink, or use drugs. FAMILY HISTORY: No significant history of kidney disease. REVIEW OF SYSTEMS: A 14-point review of systems attempted and negative unless stated. LABORATORY EVALUATION: White count 6.3, hemoglobin 11, hematocrit 32. Sodium is 134, potassium 4.3, BUN 20, creatinine 2.84. UA is reviewed on microscopy. Chest x-ray ____. IMPRESSION: 1. Fevers, chills, possible early sepsis. Possibilities include pneumonia, early urinary tract infection, catheter related infection. Follow up cultures. 2. Pneumonia present on CT, small posterior basal segment right lower lobe infiltrate. Continue antibiotics. 3. Urinary bladder wall thickening, possible UTI, covered with antibiotics. 4. End-stage renal disease on hemodialysis, completed dialysis today, so no need for emergent dialysis. We will try to keep on schedule or one day early. 5. Persistent cough, concerning. We will monitor. 6. Diabetes. Continue sliding scale. 7. Hypertension, well controlled. 8. Anemia of chronic disease, mild. Epogen per recommendations. 9. Mineral bone disorder. Follow up phosphorus and PTH. 10. History of thrombocytopenia, possibly related to sepsis. Monitor serially. PMH/Family/Social Social History Smoking Status: Never smoker Exam/Review of Systems Vital Signs Vitals Vital Signs Date Time Temp Pulse Resp B/P Pulse Ox O2 Delivery O2 Flow Rate FiO2 11/15/16 08:15 99.4 81 20 117/58 95 11/14/16 19:58 Room Air Intake and Output 11/14/16 11/14/16 11/15/16 15:00 23:00 07:00 Intake Total 300 ml Balance 300 ml Exam Exam HEENT: Normocephalic, atraumatic. Pupils equal and reactive to light. Moist mucous membranes. NECK: Supple. HEART: Regular rate and rhythm. LUNGS: Clear. ABDOMEN: Soft, nontender, nondistended, bowel sounds present. Labs Result Diagram: 11/15/16 0520 11/15/16 0520 Medications Medications Current Medications Acetaminophen (Tylenol Tab) 650 mg Q6H PRN PO PAIN AND OR ELEVATED TEMP; Start 11/14/16 at 21:30 Ondansetron HCl (Zofran Inj) 4 mg Q6H PRN IV NAUSEA AND/OR VOMITING; Start 11/14 at 21:30 Zolpidem Tartrate 5 mg 5 mg HS PRN PO INSOMNIA; Start 11/14/16 at 21:30 Cefepime HCl (Maxipime 1gm/50 ml (Pmx)) 50 ml @ 100 mls/hr DAILY IVPB Last administered on 11/15/16 08:56; Admin Dose 100 MLS/HR; Start 11/15/16 at 09:00 Heparin Sodium (Porcine) (Heparin (5000 Units/0.5 ml)) 5,000 unit BID SC Last administered on 11/15/16 09:14; Admin Dose 5,000 UNIT; Start 11/14/16 at 21:30 Diagnostic Test (Pha) (Accu-Chek) 1 ea 02 XX ; Start 11/15/16 at 02:00 Amlodipine Besylate (Norvasc) 10 mg DAILY PO Last administered on 11/15/16 08: 57; Admin Dose 10 MG; Start 11/15/16 at 09:00 Aspirin (Halfprin) 81 mg DAILY PO Last administered on 11/15/16 08:57; Admin Dose 81 MG; Start 11/15/16 at 09:00 Atorvastatin Calcium (Lipitor) 80 mg DAILY PO Last administered on 11/15/16 08: 57; Admin Dose 80 MG; Start 11/15/16 at 09:00 Miscellaneous Information 1 ea NOTE XX ; Start 11/14/16 at 22:30 Glucose (Glutose) 15 gm Q15M PRN PO DECREASED GLUCOSE; Start 11/14/16 at 22:30 Glucose (Glutose) 22.5 gm Q15M PRN PO DECREASED GLUCOSE; Start 11/14/16 at 22:30 Dextrose (D50w Syringe) 25 ml Q15M PRN IV DECREASED GLUCOSE; Start 11/14/16 at 22:30 Dextrose (D50w Syringe) 50 ml Q15M PRN IV DECREASED GLUCOSE; Start 11/14/16 at 22:30 Glucagon (Glucagen) 1 mg Q15M PRN IM DECREASED GLUCOSE; Start 11/14/16 at 22:30 Glucose (Glutose) 15 gm Q15M PRN BUCCAL DECREASED GLUCOSE; Start 11/14/16 at 22: 30 Miscellaneous Information (*Rx Drug Level Order Reminder*) RANDOM VANCOMYCIN LEVEL 7... ONCE ONCE XX ; Start 11/16/16 at 05:00; Stop 11/16/16 at 05:01 ZOLTAN LONGO MD Nov 15, 2016 11:00
--- NOTE | 2016-11-15 16:19 | RADRPT ---
PROCEDURE: US Abdomen and Retroperitoneum. CLINICAL INDICATION: Elevated liver function tests. TECHNIQUE: Multiple real-time longitudinal and transverse images were acquired of the patient's ab domen and retroperitoneum utilizing a curved array transducer. COMPARISON: CT scan of the abdomen and pelvis dated 10/10/2016. FINDINGS: The liver is normal in size and normal in echogenicity. The liver has a normal smooth surface. Ther e is no focal hepatic lesion. Color Doppler and pulsed Doppler sonography demonstrate normal antegra de flow in the portal vein. Gallstones are present in the gallbladder. There is mild gallbladder wall thickening measuring 3.6 mm. There is no surrounding fluid. The bile ducts are normal with the common bile duct measuring 3.6 mm in diameter. The spleen is normal in size. There is no focal splenic lesion. The pancreas is not visualized due to overlying bowel gas. There is no free fluid. The right kidney measures 8.1 x 4.5 x 3.8 cm and the left kidney measures 8.2 x 3.8 x 3.5 cm. There is no renal mass, hydronephrosis, or calculus. Both kidneys small and have increased echogenicity consistent with medical renal disease. There is thinning of the renal parenchyma bilaterally. The abdominal aorta is not dilated. The inferior vena cava is unremarkable. IMPRESSION: 1. Multiple gallstones in the gallbladder and mild gallbladder wall thickening. This may indicate cholecystitis. Clinical correlation is advised. Correlation with nuclear medicine hepatobiliary sc an should be considered. 2. Pancreas not visualized. 3. Bilateral hyperechoic and atrophic kidneys consistent with medical renal disease. 4. Otherwise unremarkable study. RPTAT: QQ .Marlon Treadwell MD, Date Time Electronically viewed and signed by .Marlon Treadwell MD, MD on 11/15/2016 16:18 .R/
[2016-11-15 20:16] VITALS: BP 103/54; RESP 20
[2016-11-16] MEDS: ACCU-CHEK XX SCH (02:00)
[2016-11-16 02:09] VITALS: BP 109/53; RESP 18
[2016-11-16 06:05] LABS: ADD SCAN DIFF NO
[2016-11-16 06:46] LABS: ABNORMAL IP MESSAGE 1; BASOPHILS % 0.2 % (0.0-2.0); EOSINOPHILS # 0.2 10^3/ul (0.0-0.5); EOSINOPHILS % 4.7 % (0.0-7.0); HEMATOCRIT 28.4 % (37.0-47.0); HEMOGLOBIN 9.1 g/dl (12.0-16.0); LYMPHOCYTES # 1.2 10^3/ul (0.8-2.9); LYMPHOCYTES % 26.5 % (15.0-51.0); MEAN CORPUSCULAR HEMOGLOBIN 26.4 pg (29.0-33.0); MEAN CORPUSCULAR VOLUME 82.3 fl (82.0-101.0); MONOCYTE # 0.7 10^3/ul (0.3-0.9); MONOCYTES % 14.5 % (0.0-11.0); NEUTROPHIL # 2.5 10^3/ul (1.6-7.5); NEUTROPHILS % 53.9 % (39.0-77.0); PLATELET COUNT 100 10^3/UL (140-415); RED BLOOD COUNT 3.45 10^6/ul (4.20-5.40); RED CELL DISTRIBUTION WIDTH 16.5 % (11.5-14.5); WHITE BLOOD COUNT 4.7 10^3/ul (4.8-10.8)
[2016-11-16] MEDS ORDERED: VANCOMYCIN 1 GM in NS 250 ML IVPB SCH (07:00)
[2016-11-16 07:05] LABS: ALBUMIN 4.2 g/dl (3.3-4.9); ALBUMIN/GLOBULIN RATIO 1.44; BILIRUBIN,INDIRECT 0.1 mg/dl (0-1.1); BILIRUBIN,TOTAL 0.1 mg/dl (0.2-1.3); CALCIUM 8.5 mg/dl (8.4-10.2); CREATININE 4.74 mg/dl (0.44-1.00); PHOSPHORUS 4.7 mg/dl (2.5-4.9); POTASSIUM 3.9 mmol/L (3.5-5.1); TOTAL PROTEIN 7.1 g/dl (6.1-8.1)
[2016-11-16 07:34] VITALS: BP 125/59; RESP 20
[2016-11-16] MEDS: INSULIN ASPART [NOVOLOG] 3 ML PEN SC SCH ×8 (08:00→22:33)
[2016-11-16] MEDS: ATORVASTATIN 80 MG TAB PO SCH (09:13)
[2016-11-16] MEDS: CEFEPIME 1GM/50 ML (PMX) 50 ML IVPB SCH (09:13)
[2016-11-16] MEDS: ASPIRIN (EC) 81 MG TAB PO SCH (09:14)
[2016-11-16] MEDS: AMLODIPINE 10 MG TAB PO SCH (09:14)
[2016-11-16] MEDS: HEPARIN 5,000 UNIT/0.5 ML VIAL SC SCH ×2 (09:27→22:55)
[2016-11-16] MEDS: CALCIUM ACETATE 667 MG CAP PO SCH ×3 (09:37→17:40)
[2016-11-16] MEDS: ERTAPENEM SODIUM 1 GM in SOD CHLORIDE 0.9% 100 ML IVPB SCH (11:57)
--- NOTE | 2016-11-16 12:22 | PN ---
Date/Time of Note Date/Time of Note DATE: 11/16/16 TIME: 12:18 Assessment/Plan VTE Prophylaxis VTE Prophylaxis Intervention: other Lines/Catheters IV [facility] Sal[facility] Urinary Cath still in place: No Assessment/Plan Chief Complaint/Hosp Course 1. Sepsis. -Etiology secondary to UTI. ? cholecystitis -Abdominal ultrasound shows evidence of gallstones., Clinically patient has no abdominal pain -Continue current antibiotic regimen. Will place ID consult for evaluation 2. Cholelithiasis -No clinical evidence of cholecystitis. -We will place a general surgery consult for evaluation 2. End-stage renal disease. The patient is on dialysis Wednesday, , Wednesday. Anticipate dialysis tomorrow. 4. Diabetes. Continue current regimen. 5. Hypertension. Continue current blood pressure regimen. 6. Mineral bone disorder. Continue to monitor calcium. Continue phosphate binders. 7. Anemia of chronic disease. Continue to monitor H and H. 8. Mild thrombocytopenia, improving. Continue to monitor. 9. Gastrointestinal and deep venous thrombosis prophylaxis. Continue proton pump inhibitor and Lovenox. 10. Recent history of line infection. Patient completed antibiotic course Problems: Subjective 24 Hr Interval Summary Free Text/Dictation Patient seen. No acute events overnight. No fevers chills nausea vomiting Exam/Review of Systems Vital Signs Vitals Vital Signs Date Time Temp Pulse Resp B/P Pulse Ox O2 Delivery O2 Flow Rate FiO2 11/16/16 07:34 98.5 77 20 125/59 99 11/14/16 19:58 Room Air Intake and Output 11/15/16 11/15/16 11/16/16 15:00 23:00 07:00 Intake Total 250 ml 360 ml 440 ml Output Total 250 ml 500 ml Balance 250 ml 110 ml -60 ml Exam HEENT: Head is normocephalic. NECK: Supple. HEART: Regular rate. LUNGS: Show diminished breath sounds at base, otherwise clear. ABDOMEN: Soft, nontender to palpation without rebound or guarding. EXTREMITIES: Negative for clubbing, cyanosis, or edema. DERMATOLOGIC: No rashes. MUSCULOSKELETAL: No joint effusions. NEUROLOGIC: No change in exam. Results Result Diagram: 11/16/16 0510 11/16/16 0510 Results 24 hrs Laboratory Tests Test 11/15/16 16:03 11/15/16 21:58 11/16/16 05:10 11/16/16 08:11 Bedside Glucose 99 107 103 White Blood Count 4.7 #L Red Blood Count 3.45 L Hemoglobin 9.1 L Hematocrit 28.4 L Mean Corpuscular Volume 82.3 Mean Corpuscular Hemoglobin 26.4 L Mean Corpuscular Hemoglobin Concent 32.0 Red Cell Distribution Width 16.5 H Platelet Count 100 L Mean Platelet Volume Neutrophils % 53.9 Lymphocytes % 26.5 Monocytes % 14.5 H Eosinophils % 4.7 Basophils % 0.2 Nucleated Red Blood Cells % 0.0 Neutrophils # 2.5 Lymphocytes # 1.2 Monocytes # 0.7 Eosinophils # 0.2 Basophils # 0.0 Nucleated Red Blood Cells # 0.0 Sodium Level 137 Potassium Level 3.9 Chloride Level 97 Carbon Dioxide Level 26 Anion Gap 18 H Blood Urea Nitrogen 37 #H Creatinine 4.74 #H Glucose Level 101 Calcium Level 8.5 Phosphorus Level 4.7 Magnesium Level 2.0 Total Bilirubin 0.1 L Direct Bilirubin 0.00 Indirect Bilirubin 0.1 Aspartate Amino Transf (AST/SGOT) 31 Alanine Aminotransferase (ALT/SGPT) 40 Alkaline Phosphatase 90 Total Protein 7.1 Albumin 4.2 Globulin 2.90 Albumin/Globulin Ratio 1.44 Random Vancomycin Level 21.1 Test 11/16/16 12:13 Bedside Glucose 147 Medications Medications Current Medications Acetaminophen (Tylenol Tab) 650 mg Q6H PRN PO PAIN AND OR ELEVATED TEMP; Start 11/14/16 at 21:30 Ondansetron HCl (Zofran Inj) 4 mg Q6H PRN IV NAUSEA AND/OR VOMITING; Start 11/14 at 21:30 Zolpidem Tartrate (Ambien) 5 mg HS PRN PO INSOMNIA; Start 11/14/16 at 21:30 Heparin Sodium (Porcine) (Heparin (5000 Units/0.5 ml)) 5,000 unit BID SC Last administered on 11/16/16 09:27; Admin Dose 5,000 UNIT; Start 11/14/16 at 21:30 Diagnostic Test (Pha) (Accu-Chek) 1 ea 02 XX ; Start 11/15/16 at 02:00 Amlodipine Besylate (Norvasc) 10 mg DAILY PO Last administered on 11/16/16 09: 14; Admin Dose 10 MG; Start 11/15/16 at 09:00 Aspirin (Halfprin) 81 mg DAILY PO Last administered on 11/16/16 09:14; Admin Dose 81 MG; Start 11/15/16 at 09:00 Atorvastatin Calcium (Lipitor) 80 mg DAILY PO Last administered on 11/16/16 09 :13; Admin Dose 80 MG; Start 11/15/16 at 09:00 Miscellaneous Information 1 ea NOTE XX ; Start 11/14/16 at 22:30 Glucose (Glutose) 15 gm Q15M PRN PO DECREASED GLUCOSE; Start 11/14/16 at 22:30 Glucose (Glutose) 22.5 gm Q15M PRN PO DECREASED GLUCOSE; Start 11/14/16 at 22:30 Dextrose (D50w Syringe) 25 ml Q15M PRN IV DECREASED GLUCOSE; Start 11/14/16 at 22:30 Dextrose (D50w Syringe) 50 ml Q15M PRN IV DECREASED GLUCOSE; Start 11/14/16 at 22:30 Glucagon (Glucagen) 1 mg Q15M PRN IM DECREASED GLUCOSE; Start 11/14/16 at 22:30 Glucose 15 gm 15 gm Q15M PRN BUCCAL DECREASED GLUCOSE; Start 11/14/16 at 22:30 Vancomycin HCl 750 mg/Sodium Chloride 150 ml @ 75 mls/hr Q96H IVPB ; Start 03/26 at 16:00 Ertapenem/Sodium Chloride (Invanz/NS) 100 ml @ 200 mls/hr Q24H IVPB Last administered on 11/16/16 11:57; Admin Dose 200 MLS/HR; Start 11/16/16 at 10:30 LEFTY BARRAZA DO Nov 16, 2016 12:22
--- NOTE | 2016-11-16 13:19 | CONS ---
Date/Time of Note Date/Time of Note DATE: 11/16/16 TIME: 13:19 Assessment/Plan Assessment/Plan Chief Complaint/Hosp Course Awake, denies pain, looks comfortable, no fevers Indwelling left chest permacath WBC today 4.7 no shift no balance Urine culture on November 14 growing E. coli ESBL Antibiotics:Vanco Invanz Chest x-ray on admission revealed clear lung culver, ultrasound of the abdomen revealed multiple gallstones with mild gallbladder wall thickening Physical examination: Well-developed chronically ill-appearing fragile elderly woman who is alert in no distress. Head atraumatic, normocephalic, sclera anicteric. Neck is supple, trachea midline. Chest rise symmetrical breath sounds clear. Heart: S1-S2. Abdomen soft, bowel tones present. Extremities without cyanosis Assessment: 1. Sepsis with high fevers and worsening mental status 2. E. coli ESBL UTI 3. Gallstones with a questionable cholecystitis 4. End-stage renal disease, hemodialysis dependent 5. Hypertension 6. Diabetes Plan: Clinically stable, discontinue vancomycin continue Invanz, consider HIDA scan Problems: Consultation Date/Type/Reason Admit Date/Time Nov 14, 2016 at 19:06 Initial Consult Date Type of Consultation: ID Exam/Review of Systems Vital Signs Vitals Vital Signs Date Time Temp Pulse Resp B/P Pulse Ox O2 Delivery O2 Flow Rate FiO2 11/16/16 07:34 98.5 77 20 125/59 99 11/14/16 19:58 Room Air Intake and Output 11/15/16 11/15/16 11/16/16 15:00 23:00 07:00 Intake Total 250 ml 360 ml 440 ml Output Total 250 ml 500 ml Balance 250 ml 110 ml -60 ml Results Result Diagram: 11/16/16 0510 11/16/16 0510 Results 24 hrs Laboratory Tests Test 11/15/16 16:03 11/15/16 21:58 11/16/16 05:10 11/16/16 08:11 Bedside Glucose 99 107 103 White Blood Count 4.7 #L Red Blood Count 3.45 L Hemoglobin 9.1 L Hematocrit 28.4 L Mean Corpuscular Volume 82.3 Mean Corpuscular Hemoglobin 26.4 L Mean Corpuscular Hemoglobin Concent 32.0 Red Cell Distribution Width 16.5 H Platelet Count 100 L Mean Platelet Volume Neutrophils % 53.9 Lymphocytes % 26.5 Monocytes % 14.5 H Eosinophils % 4.7 Basophils % 0.2 Nucleated Red Blood Cells % 0.0 Neutrophils # 2.5 Lymphocytes # 1.2 Monocytes # 0.7 Eosinophils # 0.2 Basophils # 0.0 Nucleated Red Blood Cells # 0.0 Sodium Level 137 Potassium Level 3.9 Chloride Level 97 Carbon Dioxide Level 26 Anion Gap 18 H Blood Urea Nitrogen 37 #H Creatinine 4.74 #H Glucose Level 101 Calcium Level 8.5 Phosphorus Level 4.7 Magnesium Level 2.0 Total Bilirubin 0.1 L Direct Bilirubin 0.00 Indirect Bilirubin 0.1 Aspartate Amino Transf (AST/SGOT) 31 Alanine Aminotransferase (ALT/SGPT) 40 Alkaline Phosphatase 90 Total Protein 7.1 Albumin 4.2 Globulin 2.90 Albumin/Globulin Ratio 1.44 Random Vancomycin Level 21.1 Test 11/16/16 12:13 Bedside Glucose 147 Medications Medications Current Medications Acetaminophen (Tylenol Tab) 650 mg Q6H PRN PO PAIN AND OR ELEVATED TEMP; Start 11/14/16 at 21:30 Ondansetron HCl (Zofran Inj) 4 mg Q6H PRN IV NAUSEA AND/OR VOMITING; Start 11/14 at 21:30 Zolpidem Tartrate (Ambien) 5 mg HS PRN PO INSOMNIA; Start 11/14/16 at 21:30 Heparin Sodium (Porcine) (Heparin (5000 Units/0.5 ml)) 5,000 unit BID SC Last administered on 11/16/16 09:27; Admin Dose 5,000 UNIT; Start 11/14/16 at 21:30 Diagnostic Test (Pha) (Accu-Chek) 1 ea 02 XX ; Start 11/15/16 at 02:00 Amlodipine Besylate (Norvasc) 10 mg DAILY PO Last administered on 11/16/16 09: 14; Admin Dose 10 MG; Start 11/15/16 at 09:00 Aspirin (Halfprin) 81 mg DAILY PO Last administered on 11/16/16 09:14; Admin Dose 81 MG; Start 11/15/16 at 09:00 Atorvastatin Calcium (Lipitor) 80 mg DAILY PO Last administered on 11/16/16 09 :13; Admin Dose 80 MG; Start 11/15/16 at 09:00 Miscellaneous Information 1 ea NOTE XX ; Start 11/14/16 at 22:30 Glucose (Glutose) 15 gm Q15M PRN PO DECREASED GLUCOSE; Start 11/14/16 at 22:30 Glucose (Glutose) 22.5 gm Q15M PRN PO DECREASED GLUCOSE; Start 11/14/16 at 22:30 Dextrose (D50w Syringe) 25 ml Q15M PRN IV DECREASED GLUCOSE; Start 11/14/16 at 22:30 Dextrose (D50w Syringe) 50 ml Q15M PRN IV DECREASED GLUCOSE; Start 11/14/16 at 22:30 Glucagon (Glucagen) 1 mg Q15M PRN IM DECREASED GLUCOSE; Start 11/14/16 at 22:30 Glucose 15 gm 15 gm Q15M PRN BUCCAL DECREASED GLUCOSE; Start 11/14/16 at 22:30 Vancomycin HCl 750 mg/Sodium Chloride 150 ml @ 75 mls/hr Q96H IVPB ; Start 03/26 at 16:00 Ertapenem/Sodium Chloride (Invanz/NS) 100 ml @ 200 mls/hr Q24H IVPB Last administered on 11/16/16t 11:57; Admin Dose 200 MLS/HR; Start 11/16/16 at 10:30 SAHARA RAYMUNDO NP Nov 16, 2016 13:19
[2016-11-16 20:03] VITALS: BP 122/58; RESP 16
[2016-11-17] VITALS (11 sets, daily range): BP systolic 100–144; BP diastolic 50–66; PULSE 74–79; RESP 16–18
[2016-11-17] MEDS: ACCU-CHEK XX SCH (01:54)
[2016-11-17 05:44] LABS: ADD SCAN DIFF NO
[2016-11-17 05:45] LABS: ABNORMAL IP MESSAGE 1; BASOPHILS % 0.2 % (0.0-2.0); EOSINOPHILS # 0.2 10^3/ul (0.0-0.5); EOSINOPHILS % 4.8 % (0.0-7.0); HEMOGLOBIN 9.6 g/dl (12.0-16.0); LYMPHOCYTES # 1.5 10^3/ul (0.8-2.9); LYMPHOCYTES % 31.3 % (15.0-51.0); MEAN CORPUSCULAR HEMOGLOBIN 26.1 pg (29.0-33.0); MEAN CORPUSCULAR VOLUME 81.5 fl (82.0-101.0); MONOCYTE # 0.4 10^3/ul (0.3-0.9); MONOCYTES % 8.9 % (0.0-11.0); NEUTROPHIL # 2.6 10^3/ul (1.6-7.5); NEUTROPHILS % 54.6 % (39.0-77.0); PLATELET COUNT 102 10^3/UL (140-415); RED BLOOD COUNT 3.68 10^6/ul (4.20-5.40); RED CELL DISTRIBUTION WIDTH 16.2 % (11.5-14.5); WHITE BLOOD COUNT 4.8 10^3/ul (4.8-10.8)
[2016-11-17 06:29] LABS: CALCIUM 9.6 mg/dl (8.4-10.2); CREATININE 5.53 mg/dl (0.44-1.00); MAGNESIUM 2.1 mg/dl (1.7-2.5); PHOSPHORUS 4.4 mg/dl (2.5-4.9); POTASSIUM 4.1 mmol/L (3.5-5.1)
[2016-11-17] MEDS: INSULIN ASPART [NOVOLOG] 3 ML PEN SC SCH ×7 (08:15→21:00)
[2016-11-17] MEDS: ASPIRIN (EC) 81 MG TAB PO SCH (08:20)
[2016-11-17] MEDS: CALCIUM ACETATE 667 MG CAP PO SCH ×3 (08:20→17:52)
[2016-11-17] MEDS: ATORVASTATIN 80 MG TAB PO SCH (08:20)
[2016-11-17] MEDS: HEPARIN 5,000 UNIT/0.5 ML VIAL SC SCH ×2 (08:31→21:32)
[2016-11-17] MEDS: AMLODIPINE 10 MG TAB PO SCH (09:00)
--- NOTE | 2016-11-17 10:40 | PN ---
Date/Time of Note Date/Time of Note DATE: 11/17/16 TIME: 10:38 Assessment/Plan Lines/Catheters IV C[facility]ter Type (from [facility]): Permacath Urinary Cath still in place: No Assessment/Plan Chief Complaint/Hosp Course 1. Sepsis. -Etiology secondary to UTI. ? cholecystitis -Abdominal ultrasound shows evidence of gallstones., Clinically patient has no abdominal pain -Continue current antibiotic regimen. Will place ID consult for evaluation 2. Cholelithiasis -No clinical evidence of cholecystitis. -We will place a general surgery consult for evaluation 2. End-stage renal disease. The patient is on dialysis Wednesday, , Wednesday. Anticipate dialysis tomorrow. 4. Diabetes. Continue current regimen. 5. Hypertension. Continue current blood pressure regimen. 6. Mineral bone disorder. Continue to monitor calcium. Continue phosphate binders. 7. Anemia of chronic disease. Continue to monitor H and H. 8. Mild thrombocytopenia, improving. Continue to monitor. 9. Gastrointestinal and deep venous thrombosis prophylaxis. Continue proton pump inhibitor and Lovenox. 10. Recent history of line infection. Patient completed antibiotic course Problems: Subjective 24 Hr Interval Summary Free Text/Dictation Patient stable. No acute events overnight Receiving hemodialysis Exam/Review of Systems Vital Signs Vitals Vital Signs Date Time Temp Pulse Resp B/P Pulse Ox O2 Delivery O2 Flow Rate FiO2 11/17/16 10:30 78 11/17/16 07:45 16 11/17/16 07:45 98.5 127/61 96 11/16/16 20:00 Room Air Intake and Output 11/16/16 11/16/16 11/17/16 15:00 23:00 07:00 Intake Total 150 ml 600 ml 500 ml Balance 150 ml 600 ml 500 ml Exam HEENT: Head is normocephalic. NECK: Supple. HEART: Regular rate. LUNGS: Show diminished breath sounds at base, otherwise clear. ABDOMEN: Soft, nontender to palpation without rebound or guarding. EXTREMITIES: Negative for clubbing, cyanosis, or edema. DERMATOLOGIC: No rashes. MUSCULOSKELETAL: No joint effusions. NEUROLOGIC: No change in exam. Results Result Diagram: 11/17/16 0507 11/17/16 0507 Results 24 hrs Laboratory Tests Test 11/16/16 12:13 11/16/16 17:38 11/16/16 22:21 11/17/16 05:07 Bedside Glucose 147 113 103 White Blood Count 4.8 Red Blood Count 3.68 L Hemoglobin 9.6 L Hematocrit 30.0 L Mean Corpuscular Volume 81.5 L Mean Corpuscular Hemoglobin 26.1 L Mean Corpuscular Hemoglobin Concent 32.0 Red Cell Distribution Width 16.2 H Platelet Count 102 L Mean Platelet Volume Neutrophils % 54.6 Lymphocytes % 31.3 Monocytes % 8.9 Eosinophils % 4.8 Basophils % 0.2 Nucleated Red Blood Cells % 0.0 Neutrophils # 2.6 Lymphocytes # 1.5 Monocytes # 0.4 Eosinophils # 0.2 Basophils # 0.0 Nucleated Red Blood Cells # 0.0 Sodium Level 141 Potassium Level 4.1 Chloride Level 99 Carbon Dioxide Level 24 Anion Gap 22 H Blood Urea Nitrogen 46 H Creatinine 5.53 H Glucose Level 86 Calcium Level 9.6 Phosphorus Level 4.4 Magnesium Level 2.1 Test 11/17/16 08:08 Bedside Glucose 90 Medications Medications Current Medications Acetaminophen (Tylenol Tab) 650 mg Q6H PRN PO PAIN AND OR ELEVATED TEMP; Start 11/14/16 at 21:30 Ondansetron HCl (Zofran Inj) 4 mg Q6H PRN IV NAUSEA AND/OR VOMITING; Start 11/14 at 21:30 Zolpidem Tartrate (Ambien) 5 mg HS PRN PO INSOMNIA; Start 11/14/16 at 21:30 Heparin Sodium (Porcine) (Heparin (5000 Units/0.5 ml)) 5,000 unit BID SC Last administered on 11/17/16 08:31; Admin Dose 5,000 UNIT; Start 11/14/16 at 21:30 Diagnostic Test (Pha) (Accu-Chek) 1 ea 02 XX ; Start 11/15/16 at 02:00 Amlodipine Besylate (Norvasc) 10 mg DAILY PO Last administered on 11/16/16 09: 14; Admin Dose 10 MG; Start 11/15/16 at 09:00 Aspirin (Halfprin) 81 mg DAILY PO Last administered on 11/17/16 08:20; Admin Dose 81 MG; Start 11/15/16 at 09:00 Atorvastatin Calcium (Lipitor) 80 mg DAILY PO Last administered on 11/17/16 08 :20; Admin Dose 80 MG; Start 11/15/16 at 09:00 Miscellaneous Information 1 ea NOTE XX ; Start 11/14/16 at 22:30 Glucose (Glutose) 15 gm Q15M PRN PO DECREASED GLUCOSE; Start 11/14/16 at 22:30 Glucose (Glutose) 22.5 gm Q15M PRN PO DECREASED GLUCOSE; Start 11/14/16 at 22:30 Dextrose (D50w Syringe) 25 ml Q15M PRN IV DECREASED GLUCOSE; Start 11/14/16 at 22:30 Dextrose (D50w Syringe) 50 ml Q15M PRN IV DECREASED GLUCOSE; Start 11/14/16 at 22:30 Glucagon (Glucagen) 1 mg Q15M PRN IM DECREASED GLUCOSE; Start 11/14/16 at 22:30 Glucose 15 gm 15 gm Q15M PRN BUCCAL DECREASED GLUCOSE; Start 11/14/16 at 22:30 Ertapenem/Sodium Chloride (Invanz/NS) 100 ml @ 200 mls/hr Q24H IVPB Last administered on 11/16/16t 11:57; Admin Dose 200 MLS/HR; Start 11/16/16 at 10:30 LEFTY BARRAZA DO Nov 17, 2016 10:40
[2016-11-17] MEDS: ERTAPENEM SODIUM 1 GM in SOD CHLORIDE 0.9% 100 ML IVPB SCH (11:28)
--- NOTE | 2016-11-17 12:01 | CONS ---
Date/Time of Note Date/Time of Note DATE: 11/17/16 TIME: 11:41 Assessment/Plan Assessment/Plan Chief Complaint/Hosp Course 1. Cholelithiasis without cholecystitis: abdominal us: mild gallbladder wall thickening measuring 3.6 mm without surrounding fluid; LFT's normal; HIDA today -supportive -on abx 2. Sepsis: UTI; urine cx: ecoli -supportive -abx 3. ESRD: on dialysis -dialysis per renal 4. Diabetes: bedside glucose well controlled -blood sugar optimization -accuchecks 5. Hypertension. BP controlled -on norvasc 6. Mineral bone disorder. Continue to monitor calcium. Continue phosphate binders. 7. Anemia: chronic disease, ESRD; h/h stable -monitor -transfuse as needed 8. Thrombocytopenia: likely 2/2 Infection -monitor -bleeding precautions 9. Hyperlipidemia: -continue statin Patient seen and examined in collaboration with Dr. Dexter Beauchamp Problems: Consultation Date/Type/Reason Admit Date/Time Nov 14, 2016 at 19:06 Date of Consultation: Nov 17, 2016 Type of Consultation: surgical Reason for Consultation cholelithiasis Tomy Lezama is a 70 yo female with past medical history of on dialysis with recent right upper extremity AV fistula formation. Post dialysis she was noted to have severe chills. Associated symptoms include cough for 2 months and fevers. She denies dysuria, hematuria, still urinates. While at dialysis she was given iv vanco because she initially refused to go to ED. Had recent hospitalization for similar episode. Ultrasound of abdomen shows cholelithiasis. General surgery was called to evaluate. Constitutional: chills, No diaphoresis, No febrile Eyes: no complaints, No pain ENT: No pain Respiratory: No cough, No pain, No shortness of breath Cardiovascular: No chest pain, No edema, No lightheadedness Gastrointestinal: passing stool, No constipation, No pain Genitourinary: No dysuria Musculoskeletal: No back pain Skin: No bruising, No erythema, No pruritis Neurologic: confusion Psychological: nl mood/affect Past Medical History end-stage renal disease on dialysis hypertension dyslipidemia history of diabetes. Past Surgical History av fistula Family History Significant Family History: no pertinent family hx Social History Alcohol Use: none Smoking Status: Never smoker Drug Use: none Exam/Review of Systems Vital Signs Vitals Vital Signs Date Time Temp Pulse Resp B/P Pulse Ox O2 Delivery O2 Flow Rate FiO2 11/17/16 11:33 78 11/17/16 07:45 16 11/17/16 07:45 98.5 127/61 96 11/16/16 20:00 Room Air Intake and Output 11/16/16 11/16/16 11/17/16 15:00 23:00 07:00 Intake Total 150 ml 600 ml 500 ml Balance 150 ml 600 ml 500 ml Exam Constitutional: alert, No oriented (confused ) Psych: nl mood/affect, no complaints Head: atraumatic, normocephalic Eyes: nl lids, nl sclera ENMT: mucosa pink and moist Neck: non-tender, supple Respiratory: clear to auscultation Cardiovascular: nl pulses, regular rate and rhythm Gastrointestinal: non-tender, soft, No rebound or guarding (negative mann's) Musculoskeletal: nl extremities to inspection Extremities: normal pulses Neurological: No nl mental status (confused) Skin: nl turgor, No rash or lesions Results Result Diagram: 11/17/16 0507 11/17/16 0507 Results 24 hrs Laboratory Tests Test 11/16/16 12:13 11/16/16 17:38 11/16/16 22:21 11/17/16 05:07 Bedside Glucose 147 113 103 White Blood Count 4.8 Red Blood Count 3.68 L Hemoglobin 9.6 L Hematocrit 30.0 L Mean Corpuscular Volume 81.5 L Mean Corpuscular Hemoglobin 26.1 L Mean Corpuscular Hemoglobin Concent 32.0 Red Cell Distribution Width 16.2 H Platelet Count 102 L Mean Platelet Volume Neutrophils % 54.6 Lymphocytes % 31.3 Monocytes % 8.9 Eosinophils % 4.8 Basophils % 0.2 Nucleated Red Blood Cells % 0.0 Neutrophils # 2.6 Lymphocytes # 1.5 Monocytes # 0.4 Eosinophils # 0.2 Basophils # 0.0 Nucleated Red Blood Cells # 0.0 Sodium Level 141 Potassium Level 4.1 Chloride Level 99 Carbon Dioxide Level 24 Anion Gap 22 H Blood Urea Nitrogen 46 H Creatinine 5.53 H Glucose Level 86 Calcium Level 9.6 Phosphorus Level 4.4 Magnesium Level 2.1 Test 11/17/16 08:08 Bedside Glucose 90 Medications Medications Current Medications Acetaminophen (Tylenol Tab) 650 mg Q6H PRN PO PAIN AND OR ELEVATED TEMP; Start 11/14/16 at 21:30 Ondansetron HCl (Zofran Inj) 4 mg Q6H PRN IV NAUSEA AND/OR VOMITING; Start 11/14 at 21:30 Zolpidem Tartrate (Ambien) 5 mg HS PRN PO INSOMNIA; Start 11/14/16 at 21:30 Heparin Sodium (Porcine) (Heparin (5000 Units/0.5 ml)) 5,000 unit BID SC Last administered on 11/17/16 08:31; Admin Dose 5,000 UNIT; Start 11/14/16 at 21:30 Diagnostic Test (Pha) (Accu-Chek) 1 ea 02 XX ; Start 11/15/16 at 02:00 Amlodipine Besylate (Norvasc) 10 mg DAILY PO Last administered on 11/16/16 09: 14; Admin Dose 10 MG; Start 11/15/16 at 09:00 Aspirin (Halfprin) 81 mg DAILY PO Last administered on 11/17/16 08:20; Admin Dose 81 MG; Start 11/15/16 at 09:00 Atorvastatin Calcium (Lipitor) 80 mg DAILY PO Last administered on 11/17/16 08 :20; Admin Dose 80 MG; Start 11/15/16 at 09:00 Miscellaneous Information 1 ea NOTE XX ; Start 11/14/16 at 22:30 Glucose (Glutose) 15 gm Q15M PRN PO DECREASED GLUCOSE; Start 11/14/16 at 22:30 Glucose (Glutose) 22.5 gm Q15M PRN PO DECREASED GLUCOSE; Start 11/14/16 at 22:30 Dextrose (D50w Syringe) 25 ml Q15M PRN IV DECREASED GLUCOSE; Start 11/14/16 at 22:30 Dextrose (D50w Syringe) 50 ml Q15M PRN IV DECREASED GLUCOSE; Start 11/14/16 at 22:30 Glucagon (Glucagen) 1 mg Q15M PRN IM DECREASED GLUCOSE; Start 11/14/16 at 22:30 Glucose 15 gm 15 gm Q15M PRN BUCCAL DECREASED GLUCOSE; Start 11/14/16 at 22:30 Ertapenem/Sodium Chloride (Invanz/NS) 100 ml @ 200 mls/hr Q24H IVPB Last administered on 11/17/16 11:28; Admin Dose 200 MLS/HR; Start 11/16/16 at 10:30 ETHEL YANG NP Nov 17, 2016 12:01
--- NOTE | 2016-11-17 13:29 | CONS ---
Date/Time of Note Date/Time of Note DATE: 11/17/16 TIME: 13:27 Assessment/Plan Assessment/Plan Chief Complaint/Hosp Course Awake, denies pain, looks comfortable, no fevers Indwelling left chest permacath Urine culture on November 14 growing E. coli ESBL Antibiotics: Invanz Chest x-ray on admission revealed clear lung culver, ultrasound of the abdomen revealed multiple gallstones with mild gallbladder wall thickening Physical examination: Well-developed chronically ill-appearing fragile elderly woman who is alert in no distress. Head atraumatic, normocephalic, sclera anicteric. Neck is supple, trachea midline. Chest rise symmetrical breath sounds clear. Heart: S1-S2. Abdomen soft, bowel tones present. Extremities without cyanosis Assessment: 1. S/p sepsis with high fevers and worsening mental status on admission 2. E. coli ESBL UTI 3. Gallstones with a questionable cholecystitis 4. End-stage renal disease, hemodialysis dependent 5. Hypertension 6. Diabetes Plan: Clinically stable, continue Invanz, surgical rec-s noted [facility] staff Problems: Consultation Date/Type/Reason Admit Date/Time Nov 14, 2016 at 19:06 Type of Consultation: ID Exam/Review of Systems Vital Signs Vitals Vital Signs Date Time Temp Pulse Resp B/P Pulse Ox O2 Delivery O2 Flow Rate FiO2 11/17/16 11:33 78 11/17/16 07:45 16 11/17/16 07:45 98.5 127/61 96 11/16/16 20:00 Room Air Intake and Output 11/16/16 11/16/16 11/17/16 15:00 23:00 07:00 Intake Total 150 ml 600 ml 500 ml Balance 150 ml 600 ml 500 ml Results Result Diagram: 11/17/16 0507 11/17/16 0507 Results 24 hrs Laboratory Tests Test 11/16/16 17:38 11/16/16 22:21 11/17/16 05:07 11/17/16 08:08 Bedside Glucose 113 103 90 White Blood Count 4.8 Red Blood Count 3.68 L Hemoglobin 9.6 L Hematocrit 30.0 L Mean Corpuscular Volume 81.5 L Mean Corpuscular Hemoglobin 26.1 L Mean Corpuscular Hemoglobin Concent 32.0 Red Cell Distribution Width 16.2 H Platelet Count 102 L Mean Platelet Volume Neutrophils % 54.6 Lymphocytes % 31.3 Monocytes % 8.9 Eosinophils % 4.8 Basophils % 0.2 Nucleated Red Blood Cells % 0.0 Neutrophils # 2.6 Lymphocytes # 1.5 Monocytes # 0.4 Eosinophils # 0.2 Basophils # 0.0 Nucleated Red Blood Cells # 0.0 Sodium Level 141 Potassium Level 4.1 Chloride Level 99 Carbon Dioxide Level 24 Anion Gap 22 H Blood Urea Nitrogen 46 H Creatinine 5.53 H Glucose Level 86 Calcium Level 9.6 Phosphorus Level 4.4 Magnesium Level 2.1 Test 11/17/16 12:34 Bedside Glucose 105 Medications Medications Current Medications Acetaminophen (Tylenol Tab) 650 mg Q6H PRN PO PAIN AND OR ELEVATED TEMP; Start 11/14/16 at 21:30 Ondansetron HCl (Zofran Inj) 4 mg Q6H PRN IV NAUSEA AND/OR VOMITING; Start 11/14 at 21:30 Zolpidem Tartrate (Ambien) 5 mg HS PRN PO INSOMNIA; Start 11/14/16 at 21:30 Heparin Sodium (Porcine) (Heparin (5000 Units/0.5 ml)) 5,000 unit BID SC Last administered on 11/17/16 08:31; Admin Dose 5,000 UNIT; Start 11/14/16 at 21:30 Diagnostic Test (Pha) (Accu-Chek) 1 ea 02 XX ; Start 11/15/16 at 02:00 Amlodipine Besylate (Norvasc) 10 mg DAILY PO Last administered on 11/16/16 09: 14; Admin Dose 10 MG; Start 11/15/16 at 09:00 Aspirin (Halfprin) 81 mg DAILY PO Last administered on 11/17/16 08:20; Admin Dose 81 MG; Start 11/15/16 at 09:00 Atorvastatin Calcium (Lipitor) 80 mg DAILY PO Last administered on 11/17/16 08 :20; Admin Dose 80 MG; Start 11/15/16 at 09:00 Miscellaneous Information 1 ea NOTE XX ; Start 11/14/16 at 22:30 Glucose (Glutose) 15 gm Q15M PRN PO DECREASED GLUCOSE; Start 11/14/16 at 22:30 Glucose (Glutose) 22.5 gm Q15M PRN PO DECREASED GLUCOSE; Start 11/14/16 at 22:30 Dextrose (D50w Syringe) 25 ml Q15M PRN IV DECREASED GLUCOSE; Start 11/14/16 at 22:30 Dextrose (D50w Syringe) 50 ml Q15M PRN IV DECREASED GLUCOSE; Start 11/14/16 at 22:30 Glucagon (Glucagen) 1 mg Q15M PRN IM DECREASED GLUCOSE; Start 11/14/16 at 22:30 Glucose 15 gm 15 gm Q15M PRN BUCCAL DECREASED GLUCOSE; Start 11/14/16 at 22:30 Ertapenem/Sodium Chloride (Invanz/NS) 100 ml @ 200 mls/hr Q24H IVPB Last administered on 11/17/16t 11:28; Admin Dose 200 MLS/HR; Start 11/16/16 at 10:30 SAHARA RAYMUNDO NP Nov 17, 2016 13:29
[2016-11-17] MEDS ORDERED: VANCOMYCIN 750 MG in SOD CHLORIDE 0.9% 150 ML IVPB SCH (16:00)
--- NOTE | 2016-11-17 20:24 | RADRPT ---
PROCEDURE: Nuclear medicine hepatobiliary scan CLINICAL INDICATION: Gallstones TECHNIQUE: 7.9 Millicuries of technetium 99 Choletec was injected intravenously. Anterior images of the abdomen obtained 75 - 90 minutes post injection as well as anterior, posterior, bilateral latera l and right anterior oblique and left posterior oblique images of the abdomen performed 90 - 95 brandi az postinjection are submitted. COMPARISON: Abdominal ultrasound of 11/15/2016 FINDINGS: On the submitted images, activity is seen in the gallbladder consistent with patency of the cystic d uct. Activity is seen in bowel consistent with patency of the common bile duct. IMPRESSION: Images obtained 75- 95 minutes post injection are available for interpretation. Patent cystic and c ommon bile ducts. No evidence of acute cholecystitis. RPTAT: HJES .Carlitos Fultno MD, MD Date Time Electronically viewed and signed by .Carlitos Fulton MD, on 11/17/2016 20:24 .S/
[2016-11-18] MEDS: ACCU-CHEK XX SCH (02:00)
[2016-11-18 05:34] LABS: ADD SCAN DIFF NO
[2016-11-18 05:42] LABS: ABNORMAL IP MESSAGE 1; BASOPHILS % 0.2 % (0.0-2.0); EOSINOPHILS # 0.2 10^3/ul (0.0-0.5); EOSINOPHILS % 4.5 % (0.0-7.0); HEMATOCRIT 31.3 % (37.0-47.0); HEMOGLOBIN 10.2 g/dl (12.0-16.0); LYMPHOCYTES # 1.4 10^3/ul (0.8-2.9); LYMPHOCYTES % 34.4 % (15.0-51.0); MEAN CORPUSCULAR HEMOGLOBIN 26.6 pg (29.0-33.0); MEAN CORPUSCULAR HGB CONC 32.6 g/dl (32.0-37.0); MEAN CORPUSCULAR VOLUME 81.7 fl (82.0-101.0); MONOCYTE # 0.4 10^3/ul (0.3-0.9); MONOCYTES % 10.3 % (0.0-11.0); NEUTROPHIL # 2.1 10^3/ul (1.6-7.5); NEUTROPHILS % 50.4 % (39.0-77.0); PLATELET COUNT 106 10^3/UL (140-415); RED BLOOD COUNT 3.83 10^6/ul (4.20-5.40); RED CELL DISTRIBUTION WIDTH 16.5 % (11.5-14.5); WHITE BLOOD COUNT 4.2 10^3/ul (4.8-10.8)
[2016-11-18 06:08] LABS: CALCIUM 9.5 mg/dl (8.4-10.2); CREATININE 4.51 mg/dl (0.44-1.00); POTASSIUM 4.2 mmol/L (3.5-5.1)
[2016-11-18 07:50] VITALS: BP 135/63; RESP 18
[2016-11-18] MEDS: INSULIN ASPART [NOVOLOG] 3 ML PEN SC SCH ×7 (07:56→20:58)
[2016-11-18] MEDS: CALCIUM ACETATE 667 MG CAP PO SCH ×3 (08:27→18:06)
[2016-11-18] MEDS: ATORVASTATIN 80 MG TAB PO SCH (09:12)
[2016-11-18] MEDS: ASPIRIN (EC) 81 MG TAB PO SCH (09:12)
[2016-11-18] MEDS: AMLODIPINE 10 MG TAB PO SCH (09:14)
[2016-11-18 09:17] VITALS: BP 126/58; PULSE 74
[2016-11-18] MEDS: HEPARIN 5,000 UNIT/0.5 ML VIAL SC SCH ×2 (09:19→20:59)
[2016-11-18] MEDS: ERTAPENEM SODIUM 1 GM in SOD CHLORIDE 0.9% 100 ML IVPB SCH (10:19)
--- NOTE | 2016-11-18 10:23 | PN ---
Date/Time of Note Date/Time of Note DATE: 11/18/16 TIME: 10:15 Assessment/Plan Lines/Catheters IV Catheter Type (from [facility]): [facility] cath [place] in Place (from [facility]): No Assessment/Plan Chief Complaint/Hosp Course 1. Cholelithiasis without cholecystitis: abdominal us: mild gallbladder wall thickening measuring 3.6 mm without surrounding fluid; LFT's normal; HIDA negative; no abdominal pain/guarding/tenderness -supportive -on abx 2. Sepsis: UTI; urine cx: ecoli; improved -supportive -abx 3. ESRD: on dialysis -dialysis per renal 4. Diabetes: bedside glucose well controlled -blood sugar optimization -accuchecks 5. Hypertension. BP controlled -on norvasc 6. Mineral bone disorder. Continue to monitor calcium. Continue phosphate binders. 7. Anemia: chronic disease, ESRD; h/h improved -monitor -transfuse as needed 8. Thrombocytopenia: likely 2/2 Infection -monitor -bleeding precautions 9. Hyperlipidemia: -continue statin Patient seen and examined in collaboration with Dr. Dexter Beauchamp Problems: Subjective 24 Hr Interval Summary Awake, in good spirits. No c/o abdominal pain/tenderness, n/v/d,cp, palpitations , santiago, sz, fevers. Tolerating diet. + flatus. Exam/Review of Systems Vital Signs Vitals Vital Signs Date Time Temp Pulse Resp B/P Pulse Ox O2 Delivery O2 Flow Rate FiO2 11/18/16 09:17 74 126/58 11/18/16 07:50 98.0 18 100 11/16/16 20:00 Room Air Intake and Output 11/17/16 11/17/16 11/18/16 14:59 22:59 06:59 Intake Total 300 ml 180 ml 120 ml Output Total 2500 ml Balance -2200 ml 180 ml 120 ml Exam Free Text/Dictation Constitutional: alert, No oriented (confused ) Psych: nl mood/affect, no complaints Head: atraumatic, normocephalic Eyes: nl lids, nl sclera ENMT: mucosa pink and moist Neck: non-tender, supple Respiratory: clear to auscultation Cardiovascular: nl pulses, regular rate and rhythm Gastrointestinal: non-tender, soft, No rebound or guarding (negative mann's) Musculoskeletal: nl extremities to inspection Extremities: normal pulses Neurological: No nl mental status (confused) Skin: nl turgor, No rash or lesions Results Result Diagram: 11/18/16 0523 11/18/16 0523 ETHEL YANG NP Nov 18, 2016 10:23
[2016-11-18] MEDS ORDERED: ERTAPENEM SODIUM 0.5 GM in SOD CHLORIDE 0.9% 100 ML IVPB SCH (11:11)
--- NOTE | 2016-11-18 11:53 | CONS ---
Date/Time of Note Date/Time of Note DATE: 11/18/16 TIME: 11:52 Assessment/Plan Assessment/Plan Chief Complaint/Hosp Course Alert denies pain, looks comfortable, no fevers Indwelling: Left chest permacath Urine culture on November 14 growing E. coli ESBL Antibiotics: Invanz Chest x-ray on admission revealed clear lung culver, ultrasound of the abdomen revealed multiple gallstones with mild gallbladder wall thickening Physical examination: Well-developed chronically ill-appearing fragile elderly woman who is alert in no distress. Head atraumatic, normocephalic, sclera anicteric. Neck is supple, trachea midline. Chest rise symmetrical breath sounds clear. Heart: S1-S2. Abdomen soft, bowel tones present. Extremities without cyanosis Assessment: 1. S/p sepsis with high fevers and worsening mental status on admission 2. E. coli ESBL UTI 3. Gallstones, no evidence of cholecystitis per surgery 4. End-stage renal disease, hemodialysis dependent 5. Hypertension 6. Diabetes Plan: Clinically stable, will change Invanz to amikacin for 7 more days Invanz [facility] staff Problems: Consultation Date/Type/Reason Admit Date/Time Nov 14, 2016 at 19:06 Type of Consultation: ID Exam/Review of Systems Vital Signs Vitals Vital Signs Date Time Temp Pulse Resp B/P Pulse Ox O2 Delivery O2 Flow Rate FiO2 11/18/16 09:17 74 126/58 11/18/16 07:50 98.0 18 100 11/16/16 20:00 Room Air Intake and Output 11/17/16 11/17/16 11/18/16 15:00 23:00 07:00 Intake Total 300 ml 180 ml 120 ml Output Total 2500 ml Balance -2200 ml 180 ml 120 ml Results Result Diagram: 11/18/16 0523 11/18/16 0523 Results 24 hrs Laboratory Tests Test 11/17/16 12:34 11/17/16 17:38 11/17/16 21:25 11/18/16 05:23 Bedside Glucose 105 86 120 White Blood Count 4.2 L Red Blood Count 3.83 L Hemoglobin 10.2 L Hematocrit 31.3 L Mean Corpuscular Volume 81.7 L Mean Corpuscular Hemoglobin 26.6 L Mean Corpuscular Hemoglobin Concent 32.6 Red Cell Distribution Width 16.5 H Platelet Count 106 L Mean Platelet Volume Neutrophils % 50.4 Lymphocytes % 34.4 Monocytes % 10.3 Eosinophils % 4.5 Basophils % 0.2 Nucleated Red Blood Cells % 0.0 Neutrophils # 2.1 Lymphocytes # 1.4 Monocytes # 0.4 Eosinophils # 0.2 Basophils # 0.0 Nucleated Red Blood Cells # 0.0 Sodium Level 134 L Potassium Level 4.2 Chloride Level 99 Carbon Dioxide Level 27 Anion Gap 12 # Blood Urea Nitrogen 30 #H Creatinine 4.51 #H Glucose Level 94 Calcium Level 9.5 Test 11/18/16 07:54 Bedside Glucose 102 Medications Medications Current Medications Acetaminophen (Tylenol Tab) 650 mg Q6H PRN PO PAIN AND OR ELEVATED TEMP; Start 11/14/16 at 21:30 Ondansetron HCl (Zofran Inj) 4 mg Q6H PRN IV NAUSEA AND/OR VOMITING; Start 11/14 at 21:30 Zolpidem Tartrate (Ambien) 5 mg HS PRN PO INSOMNIA; Start 11/14/16 at 21:30 Heparin Sodium (Porcine) (Heparin (5000 Units/0.5 ml)) 5,000 unit BID SC Last administered on 11/18/16 09:19; Admin Dose 5,000 UNIT; Start 11/14/16 at 21:30 Diagnostic Test (Pha) (Accu-Chek) 1 ea 02 XX ; Start 11/15/16 at 02:00 Amlodipine Besylate (Norvasc) 10 mg DAILY PO Last administered on 11/18/16 09: 14; Admin Dose 10 MG; Start 11/15/16 at 09:00 Aspirin (Halfprin) 81 mg DAILY PO Last administered on 11/18/16 09:12; Admin Dose 81 MG; Start 11/15/16 at 09:00 Atorvastatin Calcium (Lipitor) 80 mg DAILY PO Last administered on 11/18/16 09 :12; Admin Dose 80 MG; Start 11/15/16 at 09:00 Miscellaneous Information 1 ea NOTE XX ; Start 11/14/16 at 22:30 Glucose (Glutose) 15 gm Q15M PRN PO DECREASED GLUCOSE; Start 11/14/16 at 22:30 Glucose (Glutose) 22.5 gm Q15M PRN PO DECREASED GLUCOSE; Start 11/14/16 at 22:30 Dextrose (D50w Syringe) 25 ml Q15M PRN IV DECREASED GLUCOSE; Start 11/14/16 at 22:30 Dextrose (D50w Syringe) 50 ml Q15M PRN IV DECREASED GLUCOSE; Start 11/14/16 at 22:30 Glucagon (Glucagen) 1 mg Q15M PRN IM DECREASED GLUCOSE; Start 11/14/16 at 22:30 Glucose 15 gm 15 gm Q15M PRN BUCCAL DECREASED GLUCOSE; Start 11/14/16 at 22:30 Ertapenem/Sodium Chloride (Invanz/NS) 100 ml @ 200 mls/hr Q24H IVPB ; Start at 12:00 SAHARA RAYMUNDO NP Nov 18, 2016 11:53
[2016-11-18] MEDS ORDERED: AMIKACIN IV PER PHARMACY XX SCH (12:00)
[2016-11-18] MEDS ORDERED: AMIKACIN 350 MG in SOD CHLORIDE 0.9% 100 ML IVPB SCH (14:00)
[2016-11-18 20:13] VITALS: BP 123/59; RESP 18
[2016-11-19] VITALS (11 sets, daily range): BP systolic 90–149; BP diastolic 43–94; PULSE 70–87; RESP 16–22
[2016-11-19] MEDS: ACCU-CHEK XX SCH (02:00)
[2016-11-19] MEDS: INSULIN ASPART [NOVOLOG] 3 ML PEN SC SCH ×9 (07:58→20:45)
[2016-11-19] MEDS: CALCIUM ACETATE 667 MG CAP PO SCH ×3 (07:58→17:16)
[2016-11-19] MEDS: AMLODIPINE 10 MG TAB PO SCH ×2 (09:00→10:39)
[2016-11-19] MEDS: ATORVASTATIN 80 MG TAB PO SCH ×2 (09:00→10:34)
[2016-11-19] MEDS: ASPIRIN (EC) 81 MG TAB PO SCH ×2 (09:00→10:34)
[2016-11-19] MEDS: HEPARIN 5,000 UNIT/0.5 ML VIAL SC SCH ×3 (09:00→21:31)
--- NOTE | 2016-11-19 09:52 | PN ---
Date/Time of Note Date/Time of Note DATE: 11/19/16 TIME: 09:46 Assessment/Plan Lines/Catheters IV Catheter Type (from [facility]): port a cath Urinary Cath still in place: No Assessment/Plan Chief Complaint/Hosp Course 1. Sepsis. -Etiology secondary to UTI. -Abdominal ultrasound shows evidence of gallstones., Clinically patient has no abdominal pain -Continue current antibiotic regimen. 2. Cholelithiasis -HIDA scan negative -No evidence of cholecystitis. General surgery evaluated patient no plan for surgery 2. End-stage renal disease. The patient is on dialysis Wednesday, , Wednesday. Anticipate dialysis today 4. Diabetes. Continue current regimen. 5. Hypertension. Continue current blood pressure regimen. 6. Mineral bone disorder. Continue to monitor calcium. Continue phosphate binders. 7. Anemia of chronic disease. Continue to monitor H and H. 8. Mild thrombocytopenia, improving. Continue to monitor. 9. Gastrointestinal and deep venous thrombosis prophylaxis. Continue proton pump inhibitor and Lovenox. 10. Recent history of line infection. Patient completed antibiotic course Disposition. Plan for DC home and will continue antibiotics at the dialysis center Problems: Subjective 24 Hr Interval Summary Free Text/Dictation Patient is stable currently on hemodialysis No other events noted Exam/Review of Systems Vital Signs Vitals Vital Signs Date Time Temp Pulse Resp B/P Pulse Ox O2 Delivery O2 Flow Rate FiO2 11/19/16 09:00 78 11/19/16 07:51 98.2 16 90/51 99 11/16/16 20:00 Room Air Intake and Output 11/18/16 11/18/16 11/19/16 15:00 23:00 07:00 Intake Total 202 ml 880 ml Balance 202 ml 880 ml Exam HEENT: Head is normocephalic. NECK: Supple. HEART: Regular rate. LUNGS: Show diminished breath sounds at base, otherwise clear. ABDOMEN: Soft, nontender to palpation without rebound or guarding. EXTREMITIES: Negative for clubbing, cyanosis, or edema. DERMATOLOGIC: No rashes. MUSCULOSKELETAL: No joint effusions. NEUROLOGIC: No change in exam. Results Result Diagram: 11/18/16 0523 11/18/16 0523 Results 24 hrs Laboratory Tests Test 11/18/16 11:59 11/18/16 17:20 11/18/16 20:57 11/19/16 07:46 Bedside Glucose 151 105 103 120 Medications Medications Current Medications Acetaminophen (Tylenol Tab) 650 mg Q6H PRN PO PAIN AND OR ELEVATED TEMP; Start 11/14/16 at 21:30 Ondansetron HCl (Zofran Inj) 4 mg Q6H PRN IV NAUSEA AND/OR VOMITING; Start 11/14 at 21:30 Zolpidem Tartrate (Ambien) 5 mg HS PRN PO INSOMNIA; Start 11/14/16 at 21:30 Heparin Sodium (Porcine) (Heparin (5000 Units/0.5 ml)) 5,000 unit BID SC Last administered on 11/18/16 20:59; Admin Dose 5,000 UNIT; Start 11/14/16 at 21:30 Diagnostic Test (Pha) (Accu-Chek) 1 ea 02 XX ; Start 11/15/16 at 02:00 Amlodipine Besylate (Norvasc) 10 mg DAILY PO Last administered on 11/18/16 09: 14; Admin Dose 10 MG; Start 11/15/16 at 09:00 Aspirin (Halfprin) 81 mg DAILY PO Last administered on 11/18/16 09:12; Admin Dose 81 MG; Start 11/15/16 at 09:00 Atorvastatin Calcium (Lipitor) 80 mg DAILY PO Last administered on 11/18/16 09 :12; Admin Dose 80 MG; Start 11/15/16 at 09:00 Miscellaneous Information 1 ea NOTE XX ; Start 11/14/16 at 22:30 Glucose (Glutose) 15 gm Q15M PRN PO DECREASED GLUCOSE; Start 11/14/16 at 22:30 Glucose (Glutose) 22.5 gm Q15M PRN PO DECREASED GLUCOSE; Start 11/14/16 at 22:30 Dextrose (D50w Syringe) 25 ml Q15M PRN IV DECREASED GLUCOSE; Start 11/14/16 at 22:30 Dextrose (D50w Syringe) 50 ml Q15M PRN IV DECREASED GLUCOSE; Start 11/14/16 at 22:30 Glucagon (Glucagen) 1 mg Q15M PRN IM DECREASED GLUCOSE; Start 11/14/16 at 22:30 Glucose (Glutose) 15 gm Q15M PRN BUCCAL DECREASED GLUCOSE; Start 11/14/16 at 22: 30 Amikacin Sulfate (Amikacin Iv Per Pharmacy) AMIKACIN PER PHARMACY NOTE XX ; Start 11/18/16 at 12:00 LEFTY BARRAZA DO Nov 19, 2016 09:52
[2016-11-19] MEDS: AMIKACIN 250 MG in SOD CHLORIDE 0.9% 100 ML IVPB SCH (11:19)
[2016-11-19] MEDS ORDERED: ERTAPENEM SODIUM 0.5 GM in SOD CHLORIDE 0.9% 100 ML IVPB SCH (12:00)
--- NOTE | 2016-11-19 12:20 | PN ---
Date/Time of Note Date/Time of Note DATE: 11/19/16 TIME: 12:15 Assessment/Plan Lines/Catheters IV Catheter Type (from [facility]): port a cath [place] in [facility] (from [facility]): No Assessment/Plan Chief Complaint/Hosp Course 1. Cholelithiasis without cholecystitis: abdominal us: mild gallbladder wall thickening measuring 3.6 mm without surrounding fluid; LFT's normal; HIDA negative; no abdominal pain/guarding/tenderness -supportive- no surgical interventions recommended at this time -on abx 2. Sepsis: UTI; urine cx: ecoli; improved -supportive -abx 3. ESRD: on dialysis -dialysis per renal 4. Diabetes: bedside glucose well controlled -blood sugar optimization -accuchecks 5. Hypertension. BP controlled -on norvasc 6. Mineral bone disorder. Continue to monitor calcium. Continue phosphate binders. 7. Anemia: chronic disease, ESRD; h/h improved -monitor -transfuse as needed 8. Thrombocytopenia: likely 2/2 Infection, -monitor -bleeding precautions 9. Hyperlipidemia: -continue statin 10. Leukopenia: patient with chills, no fevers -blood cultures resent Patient seen and examined in collaboration with Dr. Dexter Beauchamp Problems: Subjective 24 Hr Interval Summary Patient with chills today but no fevers. No c/o abdominal pain. + bowel function. No n/v/d, cp, palpitations, sob, dizziness, santiago, dysuria Exam/Review of Systems Vital Signs Vitals Vital Signs Date Time Temp Pulse Resp B/P Pulse Ox O2 Delivery O2 Flow Rate FiO2 11/19/16 10:40 97.7 87 18 127/94 100 Room Air Intake and Output 11/18/16 11/18/16 11/19/16 14:59 22:59 06:59 Intake Total 100 ml 982 ml Balance 100 ml 982 ml Exam Free Text/Dictation Constitutional: alert, No oriented (confused ) Psych: nl mood/affect, no complaints Head: atraumatic, normocephalic Eyes: nl lids, nl sclera ENMT: mucosa pink and moist Neck: non-tender, supple Respiratory: clear to auscultation Cardiovascular: nl pulses, regular rate and rhythm Gastrointestinal: non-tender, soft, No rebound or guarding (negative mann's) Musculoskeletal: nl extremities to inspection Extremities: normal pulses Neurological: No nl mental status (confused) Skin: nl turgor, No rash or lesions Results Result Diagram: 11/18/16 0523 11/18/16 0523 ETHEL YANG NP Nov 19, 2016 12:20
--- NOTE | 2016-11-19 12:26 | CONS ---
Date/Time of Note Date/Time of Note DATE: 11/19/16 TIME: 12:24 Assessment/Plan Assessment/Plan Chief Complaint/Hosp Course Patient is status post hemodialysis, she is awake, shivering, afebrile, no vomiting or diarrhea Indwelling: Left chest permacath Urine culture on November 14 growing E. coli ESBL Antibiotics: Amikacin Chest x-ray on admission revealed clear lung culver, ultrasound of the abdomen revealed multiple gallstones with mild gallbladder wall thickening Physical examination: Well-developed chronically ill-appearing fragile elderly woman who is alert in no distress. Head atraumatic, normocephalic, sclera anicteric. Neck is supple, trachea midline. Chest rise symmetrical breath sounds clear. Heart: S1-S2. Abdomen soft, bowel tones present. Extremities without cyanosis Assessment: 1. Sepsis with recurrent shivering after hemodialysis, rule out infected permacath 2. E. coli ESBL UTI 3. Gallstones, no evidence of cholecystitis per surgery 4. End-stage renal disease, hemodialysis dependent 5. Hypertension 6. Diabetes Plan: Clinically stable, will order repeat 2 sets of blood cultures and chest x- ray, continue antibiotics, follow labs in a.m. staff Discussed with Dr. Jamil Problems: Consultation Date/Type/Reason Admit Date/Time Nov 14, 2016 at 19:06 Type of Consultation: ID Exam/Review of Systems Vital Signs Vitals Vital Signs Date Time Temp Pulse Resp B/P Pulse Ox O2 Delivery O2 Flow Rate FiO2 11/19/16 10:40 97.7 87 18 127/94 100 Room Air Intake and Output 11/18/16 11/18/16 11/19/16 15:00 23:00 07:00 Intake Total 202 ml 880 ml Balance 202 ml 880 ml Results Result Diagram: 11/18/16 0523 11/18/16 0523 Results 24 hrs Laboratory Tests Test 11/18/16 17:20 11/18/16 20:57 11/19/16 07:46 11/19/16 11:54 Bedside Glucose 105 103 120 125 Medications Medications Current Medications Acetaminophen (Tylenol Tab) 650 mg Q6H PRN PO PAIN AND OR ELEVATED TEMP; Start 11/14/16 at 21:30 Ondansetron HCl (Zofran Inj) 4 mg Q6H PRN IV NAUSEA AND/OR VOMITING; Start 11/14 at 21:30 Zolpidem Tartrate (Ambien) 5 mg HS PRN PO INSOMNIA; Start 11/14/16 at 21:30 Heparin Sodium (Porcine) (Heparin (5000 Units/0.5 ml)) 5,000 unit BID SC Last administered on 11/19/16 10:54; Admin Dose 5,000 UNIT; Start 11/14/16 at 21:30 Diagnostic Test (Pha) (Accu-Chek) 1 ea 02 XX ; Start 11/15/16 at 02:00 Amlodipine Besylate (Norvasc) 10 mg DAILY PO Last administered on 11/19/16 10: 39; Admin Dose 10 MG; Start 11/15/16 at 09:00 Aspirin (Halfprin) 81 mg DAILY PO Last administered on 11/19/16 10:34; Admin Dose 81 MG; Start 11/15/16 at 09:00 Atorvastatin Calcium (Lipitor) 80 mg DAILY PO Last administered on 11/19/16 10 :34; Admin Dose 80 MG; Start 11/15/16 at 09:00 Miscellaneous Information 1 ea NOTE XX ; Start 11/14/16 at 22:30 Glucose (Glutose) 15 gm Q15M PRN PO DECREASED GLUCOSE; Start 11/14/16 at 22:30 Glucose (Glutose) 22.5 gm Q15M PRN PO DECREASED GLUCOSE; Start 11/14/16 at 22:30 Dextrose (D50w Syringe) 25 ml Q15M PRN IV DECREASED GLUCOSE; Start 11/14/16 at 22:30 Dextrose (D50w Syringe) 50 ml Q15M PRN IV DECREASED GLUCOSE; Start 11/14/16 at 22:30 Glucagon (Glucagen) 1 mg Q15M PRN IM DECREASED GLUCOSE; Start 11/14/16 at 22:30 Glucose (Glutose) 15 gm Q15M PRN BUCCAL DECREASED GLUCOSE; Start 11/14/16 at 22: 30 Amikacin Sulfate (Amikacin Iv Per Pharmacy) AMIKACIN PER PHARMACY NOTE XX ; Start 11/18/16 at 12:00 SAHARA RAYMUNDO NP Nov 19, 2016 12:26
--- NOTE | 2016-11-19 16:02 | RADRPT ---
PROCEDURE: XR Chest. CLINICAL INDICATION: Cough and fever. TECHNIQUE: Single frontal view. COMPARISON: 11/14/2016. FINDINGS: There is a tunneled left internal jugular vein dialysis catheter with the tip in the right atrium. The lungs are clear. The heart size is normal. Calcification is present in the aorta consistent with atherosclerosis. There is no pleural effusion. There is no pneumothorax. IMPRESSION: 1. Dialysis catheter in satisfactory position. 2. Atherosclerosis. 3. Clear lungs. 4. No change from 11/14/2016. RPTAT: QQ .Marlon Treadwell MD, MD Date Time Electronically viewed and signed by .Marlon Treadwell MD, MD on 11/19/2016 16:02 .R/
[2016-11-20 02:00] VITALS: BP 115/52; RESP 20
[2016-11-20] MEDS: ACCU-CHEK XX SCH (02:00)
[2016-11-20 06:09] LABS: ADD SCAN DIFF NO
[2016-11-20 06:54] LABS: CALCIUM 8.7 mg/dl (8.4-10.2); CREATININE 4.63 mg/dl (0.44-1.00); PHOSPHORUS 3.5 mg/dl (2.5-4.9)
[2016-11-20 08:04] VITALS: BP 109/55; RESP 18
[2016-11-20] MEDS: INSULIN ASPART [NOVOLOG] 3 ML PEN SC SCH ×7 (08:15→20:22)
--- NOTE | 2016-11-20 08:50 | PN ---
Date/Time of Note Date/Time of Note DATE: 11/20/16 TIME: 08:45 Assessment/Plan Lines/Catheters IV Catheter Type (from [facility]): PORT A CATH [place] in [facility] (from [facility]): No Assessment/Plan Chief Complaint/Hosp Course 1. Cholelithiasis without cholecystitis: abdominal us: mild gallbladder wall thickening measuring 3.6 mm without surrounding fluid; LFT's normal; HIDA negative; no abdominal pain/guarding/tenderness -supportive- no surgical interventions recommended at this time -on abx 2. Sepsis: UTI; urine cx: ecoli; improved -supportive -abx 3. ESRD: on dialysis; HD yesterday with chills -dialysis per renal 4. Diabetes: bedside glucose well controlled -blood sugar optimization -accuchecks 5. Hypertension. BP controlled -on norvasc 6. Mineral bone disorder. Continue to monitor calcium. Continue phosphate binders. 7. Anemia: chronic disease, ESRD; h/h improved -monitor -transfuse as needed 8. Thrombocytopenia: likely 2/2 Infection, -monitor -bleeding precautions 9. Hyperlipidemia: -continue statin 10. Leukopenia: patient with chills, min temp overnight, cxr negative -blood cultures resent Patient seen and examined in collaboration with Dr. Dexter Beauchamp Problems: Subjective 24 Hr Interval Summary Min temp overnight. No c/o abdominal pain. +bm/flatus. no n/v/d, cp, sob, palpitations, santiago, dizziness, lightheadedness, dysuria. hd yesterday with chills Exam/Review of Systems Vital Signs Vitals Vital Signs Date Time Temp Pulse Resp B/P Pulse Ox O2 Delivery O2 Flow Rate FiO2 11/20/16 08:04 98.0 71 18 109/55 96 11/19/16 10:40 Room Air Intake and Output 11/19/16 11/19/16 11/20/16 15:00 23:00 07:00 Intake Total 1401 ml 1080 ml 200 ml Output Total 1500 ml Balance -99 ml 1080 ml 200 ml Exam Free Text/Dictation Constitutional: alert, No oriented (confused ) Psych: nl mood/affect, no complaints, pleasant Head: atraumatic, normocephalic Eyes: nl lids, nl sclera ENMT: mucosa pink and moist Neck: non-tender, supple Respiratory: clear to auscultation Cardiovascular: nl pulses, regular rate and rhythm Gastrointestinal: non-tender, soft, No rebound or guarding (negative mann's) Musculoskeletal: nl extremities to inspection Extremities: normal pulses Neurological: No nl mental status (confused) Skin: nl turgor, No rash or lesions Results Result Diagram: 11/18/16 0523 11/20/16 0547 ETHEL YANG NP Nov 20, 2016 08:50
[2016-11-20] MEDS: ASPIRIN (EC) 81 MG TAB PO SCH (08:53)
[2016-11-20] MEDS: ATORVASTATIN 80 MG TAB PO SCH (08:53)
[2016-11-20] MEDS: AMLODIPINE 10 MG TAB PO SCH (08:53)
[2016-11-20] MEDS: CALCIUM ACETATE 667 MG CAP PO SCH ×3 (08:53→17:53)
[2016-11-20] MEDS: HEPARIN 5,000 UNIT/0.5 ML VIAL SC SCH ×2 (09:21→20:25)
[2016-11-20 09:45] LABS: ABNORMAL IP MESSAGE 1; BASOPHILS % 0.2 % (0.0-2.0); EOSINOPHILS # 0.2 10^3/ul (0.0-0.5); EOSINOPHILS % 2.1 % (0.0-7.0); HEMATOCRIT 29.4 % (37.0-47.0); HEMOGLOBIN 9.2 g/dl (12.0-16.0); LYMPHOCYTES # 2.4 10^3/ul (0.8-2.9); LYMPHOCYTES % 25.6 % (15.0-51.0); MEAN CORPUSCULAR HEMOGLOBIN 25.9 pg (29.0-33.0); MEAN CORPUSCULAR HGB CONC 31.3 g/dl (32.0-37.0); MEAN CORPUSCULAR VOLUME 82.8 fl (82.0-101.0); MONOCYTE # 0.8 10^3/ul (0.3-0.9); MONOCYTES % 8.8 % (0.0-11.0); NEUTROPHIL # 5.8 10^3/ul (1.6-7.5); PLATELET COUNT 91 10^3/UL (140-415); RED BLOOD COUNT 3.55 10^6/ul (4.20-5.40); RED CELL DISTRIBUTION WIDTH 16.7 % (11.5-14.5); WHITE BLOOD COUNT 9.3 10^3/ul (4.8-10.8)
--- NOTE | 2016-11-20 09:51 | CONS ---
Date/Time of Note Date/Time of Note DATE: 11/20/16 TIME: 09:49 Consult Date/Type/Reason Admit Date/Time Nov 14, 2016 at 19:06 Initial Consult Date 11/17/16 Type of Consultation: nephrology Subjective pt. seen and examined dw daughter at bedside. had low grade temp and chills with hd yesterday Objective Vital Signs Date Time Temp Pulse Resp B/P Pulse Ox O2 Delivery O2 Flow Rate FiO2 11/20/16 08:04 98.0 71 18 109/55 96 11/19/16 10:40 Room Air Intake and Output 11/19/16 11/19/16 11/20/16 15:00 23:00 07:00 Intake Total 1401 ml 1080 ml 200 ml Output Total 1500 ml Balance -99 ml 1080 ml 200 ml Exam HEENT: Head is normocephalic. NECK: Supple. HEART: Regular rate. LUNGS: Show diminished breath sounds at base, otherwise clear. ABDOMEN: Soft, nontender to palpation without rebound or guarding. EXTREMITIES: Negative for clubbing, cyanosis, or edema. DERMATOLOGIC: No rashes. MUSCULOSKELETAL: No joint effusions. NEUROLOGIC: No change in exam. Results/Medications Result Diagram: 11/18/16 0523 11/20/16 0547 Results 24 hrs Laboratory Tests Test 11/19/16 11:54 11/19/16 16:24 11/19/16 20:44 11/20/16 05:47 Bedside Glucose 125 101 140 Sodium Level 137 Potassium Level 4.0 Chloride Level 96 L Carbon Dioxide Level 34 H Anion Gap 11 Blood Urea Nitrogen 27 H Creatinine 4.63 H Glucose Level 101 Calcium Level 8.7 Phosphorus Level 3.5 Magnesium Level 2.0 Test 11/20/16 08:15 Bedside Glucose 104 Medications Current Medications Acetaminophen (Tylenol Tab) 650 mg Q6H PRN PO PAIN AND OR ELEVATED TEMP; Start 11/14/16 at 21:30 Ondansetron HCl (Zofran Inj) 4 mg Q6H PRN IV NAUSEA AND/OR VOMITING; Start 11/14 at 21:30 Zolpidem Tartrate (Ambien) 5 mg HS PRN PO INSOMNIA; Start 11/14/16 at 21:30 Heparin Sodium (Porcine) (Heparin (5000 Units/0.5 ml)) 5,000 unit BID SC Last administered on 11/20/16 09:21; Admin Dose 5,000 UNIT; Start 11/14/16 at 21:30 Diagnostic Test (Pha) (Accu-Chek) 1 ea 02 XX ; Start 11/15/16 at 02:00 Amlodipine Besylate (Norvasc) 10 mg DAILY PO Last administered on 11/20/16 08: 53; Admin Dose 10 MG; Start 11/15/16 at 09:00 Aspirin (Halfprin) 81 mg DAILY PO Last administered on 11/20/16 08:53; Admin Dose 81 MG; Start 11/15/16 at 09:00 Atorvastatin Calcium (Lipitor) 80 mg DAILY PO Last administered on 11/20/16 08 :53; Admin Dose 80 MG; Start 11/15/16 at 09:00 Miscellaneous Information 1 ea NOTE XX ; Start 11/14/16 at 22:30 Glucose (Glutose) 15 gm Q15M PRN PO DECREASED GLUCOSE; Start 11/14/16 at 22:30 Glucose (Glutose) 22.5 gm Q15M PRN PO DECREASED GLUCOSE; Start 11/14/16 at 22:30 Dextrose (D50w Syringe) 25 ml Q15M PRN IV DECREASED GLUCOSE; Start 11/14/16 at 22:30 Dextrose (D50w Syringe) 50 ml Q15M PRN IV DECREASED GLUCOSE; Start 11/14/16 at 22:30 Glucagon (Glucagen) 1 mg Q15M PRN IM DECREASED GLUCOSE; Start 11/14/16 at 22:30 Glucose (Glutose) 15 gm Q15M PRN BUCCAL DECREASED GLUCOSE; Start 11/14/16 at 22: 30 Amikacin Sulfate (Amikacin Iv Per Pharmacy) AMIKACIN PER PHARMACY NOTE XX ; Start 11/18/16 at 12:00 Assessment/Plan Chief Complaint/Hosp Course 1. Sepsis. -Etiology secondary to UTI. -may have line infection...get blood cultures, d/w ID, need to probably change line. -Abdominal ultrasound shows evidence of gallstones., Clinically patient has no abdominal pain -Continue current antibiotic regimen. 2. Cholelithiasis -HIDA scan negative -No evidence of cholecystitis. General surgery evaluated patient no plan for surgery 2. End-stage renal disease. The patient is on dialysis Wednesday, , Wednesday. Anticipate dialysis in am 4. Diabetes. Continue current regimen. 5. Hypertension. Continue current blood pressure regimen. 6. Mineral bone disorder. Continue to monitor calcium. Continue phosphate binders. 7. Anemia of chronic disease. Continue to monitor H and H. 8. Mild thrombocytopenia, improving. Continue to monitor. 9. Gastrointestinal and deep venous thrombosis prophylaxis. Continue proton pump inhibitor and Lovenox. 10. Recent history of line infection. Patient completed antibiotic course Disposition. Plan for DC home and will continue antibiotics at the dialysis center Problems: MIRANDA BALES MD Nov 20, 2016 09:51
--- NOTE | 2016-11-20 14:25 | CONS ---
Date/Time of Note Date/Time of Note DATE: 11/20/16 TIME: 14:23 Assessment/Plan Assessment/Plan Chief Complaint/Hosp Course Alert, eating lunch, looks comfortable, no fevers Indwelling: Left chest permacath Urine culture on November 14 growing E. coli ESBL Antibiotics: Amikacin Chest x-ray on admission revealed clear lung culver, ultrasound of the abdomen revealed multiple gallstones with mild gallbladder wall thickening Physical examination: Well-developed chronically ill-appearing fragile elderly woman who is alert in no distress. Head atraumatic, normocephalic, sclera anicteric. Neck is supple, trachea midline. Chest rise symmetrical breath sounds clear. Heart: S1-S2. Abdomen soft, bowel tones present. Extremities without cyanosis Assessment: 1. Sepsis with recurrent shivering after hemodialysis, rule out infected permacath 2. E. coli ESBL UTI 3. Gallstones, no evidence of cholecystitis per surgery 4. End-stage renal disease, hemodialysis dependent 5. Hypertension 6. Diabetes Plan: Clinically stable, pending repeat blood cultures, chest x-ray revealed no pneumonia, continue antibiotics, recommend line change DW staff Discussed with Dr. Jamil Problems: Consultation Date/Type/Reason Admit Date/Time Nov 14, 2016 at 19:06 Type of Consultation: Infectious disease Exam/Review of Systems Vital Signs Vitals Vital Signs Date Time Temp Pulse Resp B/P Pulse Ox O2 Delivery O2 Flow Rate FiO2 11/20/16 08:04 98.0 71 18 109/55 96 11/19/16 10:40 Room Air Intake and Output 11/19/16 11/19/16 11/20/16 15:00 23:00 07:00 Intake Total 1401 ml 1080 ml 200 ml Output Total 1500 ml Balance -99 ml 1080 ml 200 ml Results Result Diagram: 11/20/16 0547 11/20/16 0547 Results 24 hrs Laboratory Tests Test 11/19/16 16:24 11/19/16 20:44 11/20/16 05:47 11/20/16 08:15 Bedside Glucose 101 140 104 White Blood Count 9.3 # Red Blood Count 3.55 L Hemoglobin 9.2 L Hematocrit 29.4 L Mean Corpuscular Volume 82.8 Mean Corpuscular Hemoglobin 25.9 L Mean Corpuscular Hemoglobin Concent 31.3 L Red Cell Distribution Width 16.7 H Platelet Count 91 L Mean Platelet Volume Neutrophils % 63.0 Lymphocytes % 25.6 Monocytes % 8.8 Eosinophils % 2.1 Basophils % 0.2 Nucleated Red Blood Cells % 0.0 Neutrophils # 5.8 Lymphocytes # 2.4 Monocytes # 0.8 Eosinophils # 0.2 Basophils # 0.0 Nucleated Red Blood Cells # 0.0 Sodium Level 137 Potassium Level 4.0 Chloride Level 96 L Carbon Dioxide Level 34 H Anion Gap 11 Blood Urea Nitrogen 27 H Creatinine 4.63 H Glucose Level 101 Calcium Level 8.7 Phosphorus Level 3.5 Magnesium Level 2.0 Test 11/20/16 11:53 Bedside Glucose 118 Medications Medications Current Medications Acetaminophen (Tylenol Tab) 650 mg Q6H PRN PO PAIN AND OR ELEVATED TEMP; Start 11/14/16 at 21:30 Ondansetron HCl (Zofran Inj) 4 mg Q6H PRN IV NAUSEA AND/OR VOMITING; Start 11/14 at 21:30 Zolpidem Tartrate (Ambien) 5 mg HS PRN PO INSOMNIA; Start 11/14/16 at 21:30 Heparin Sodium (Porcine) (Heparin (5000 Units/0.5 ml)) 5,000 unit BID SC Last administered on 11/20/16 09:21; Admin Dose 5,000 UNIT; Start 11/14/16 at 21:30 Diagnostic Test (Pha) (Accu-Chek) 1 ea 02 XX ; Start 11/15/16 at 02:00 Amlodipine Besylate (Norvasc) 10 mg DAILY PO Last administered on 11/20/16 08: 53; Admin Dose 10 MG; Start 11/15/16 at 09:00 Aspirin (Halfprin) 81 mg DAILY PO Last administered on 11/20/16 08:53; Admin Dose 81 MG; Start 11/15/16 at 09:00 Atorvastatin Calcium (Lipitor) 80 mg DAILY PO Last administered on 11/20/16 08 :53; Admin Dose 80 MG; Start 11/15/16 at 09:00 Miscellaneous Information 1 ea NOTE XX ; Start 11/14/16 at 22:30 Glucose (Glutose) 15 gm Q15M PRN PO DECREASED GLUCOSE; Start 11/14/16 at 22:30 Glucose (Glutose) 22.5 gm Q15M PRN PO DECREASED GLUCOSE; Start 11/14/16 at 22:30 Dextrose (D50w Syringe) 25 ml Q15M PRN IV DECREASED GLUCOSE; Start 11/14/16 at 22:30 Dextrose (D50w Syringe) 50 ml Q15M PRN IV DECREASED GLUCOSE; Start 11/14/16 at 22:30 Glucagon (Glucagen) 1 mg Q15M PRN IM DECREASED GLUCOSE; Start 11/14/16 at 22:30 Glucose (Glutose) 15 gm Q15M PRN BUCCAL DECREASED GLUCOSE; Start 11/14/16 at 22: 30 Amikacin Sulfate (Amikacin Iv Per Pharmacy) AMIKACIN PER PHARMACY NOTE XX ; Start 11/18/16 at 12:00 SAHARA RAYMUNDO NP Nov 20, 2016 14:25
[2016-11-20 15:33] VITALS: BP 120/56; RESP 18
[2016-11-20 20:11] VITALS: BP 123/70; RESP 18
[2016-11-21] VITALS (12 sets, daily range): BP systolic 88–147; BP diastolic 43–79; PULSE 70–80; RESP 16–18
[2016-11-21] MEDS: ACCU-CHEK XX SCH (02:00)
[2016-11-21] MEDS: INSULIN ASPART [NOVOLOG] 3 ML PEN SC SCH ×7 (08:02→21:31)
[2016-11-21] MEDS: CALCIUM ACETATE 667 MG CAP PO SCH ×3 (08:20→17:13)
[2016-11-21] MEDS: ATORVASTATIN 80 MG TAB PO SCH (08:20)
[2016-11-21] MEDS: ASPIRIN (EC) 81 MG TAB PO SCH (08:20)
[2016-11-21] MEDS: HEPARIN 5,000 UNIT/0.5 ML VIAL SC SCH ×2 (08:22→21:36)
[2016-11-21] MEDS: AMLODIPINE 10 MG TAB PO SCH (08:25)
--- NOTE | 2016-11-21 08:37 | CONS ---
Date/Time of Note Date/Time of Note DATE: 11/21/16 TIME: 08:32 Consult Date/Type/Reason Admit Date/Time Nov 14, 2016 at 19:06 Initial Consult Date 11/17/16 Type of Consultation: Infectious disease Subjective pt. seen and examined dw daughter at bedside. had low grade temp and chills with hd yesterday Exam HEENT: Head is normocephalic. NECK: Supple. HEART: Regular rate. LUNGS: Show diminished breath sounds at base, otherwise clear. ABDOMEN: Soft, nontender to palpation without rebound or guarding. EXTREMITIES: Negative for clubbing, cyanosis, or edema. DERMATOLOGIC: No rashes. MUSCULOSKELETAL: No joint effusions. NEUROLOGIC: No change in exam. Objective Vital Signs Date Time Temp Pulse Resp B/P Pulse Ox O2 Delivery O2 Flow Rate FiO2 11/21/16 07:44 97.9 75 16 124/60 99 11/19/16 10:40 Room Air Intake and Output 11/20/16 11/20/16 11/21/16 15:00 23:00 07:00 Intake Total 1080 ml Balance 1080 ml Results/Medications Result Diagram: 11/20/16 0547 11/20/16 0547 Results 24 hrs Laboratory Tests Test 11/20/16 11:53 11/20/16 17:30 11/20/16 20:21 11/21/16 07:58 Bedside Glucose 118 133 147 121 Medications Current Medications Acetaminophen (Tylenol Tab) 650 mg Q6H PRN PO PAIN AND OR ELEVATED TEMP; Start 11/14/16 at 21:30 Ondansetron HCl (Zofran Inj) 4 mg Q6H PRN IV NAUSEA AND/OR VOMITING; Start 11/14 at 21:30 Zolpidem Tartrate (Ambien) 5 mg HS PRN PO INSOMNIA; Start 11/14/16 at 21:30 Heparin Sodium (Porcine) (Heparin (5000 Units/0.5 ml)) 5,000 unit BID SC Last administered on 11/21/16 08:22; Admin Dose 5,000 UNIT; Start 11/14/16 at 21:30 Diagnostic Test (Pha) (Accu-Chek) 1 ea 02 XX ; Start 11/15/16 at 02:00 Amlodipine Besylate (Norvasc) 10 mg DAILY PO Last administered on 11/20/16 08: 53; Admin Dose 10 MG; Start 11/15/16 at 09:00 Aspirin (Halfprin) 81 mg DAILY PO Last administered on 11/21/16 08:20; Admin Dose 81 MG; Start 11/15/16 at 09:00 Atorvastatin Calcium (Lipitor) 80 mg DAILY PO Last administered on 11/21/16 08 :20; Admin Dose 80 MG; Start 11/15/16 at 09:00 Miscellaneous Information 1 ea NOTE XX ; Start 11/14/16 at 22:30 Glucose (Glutose) 15 gm Q15M PRN PO DECREASED GLUCOSE; Start 11/14/16 at 22:30 Glucose (Glutose) 22.5 gm Q15M PRN PO DECREASED GLUCOSE; Start 11/14/16 at 22:30 Dextrose (D50w Syringe) 25 ml Q15M PRN IV DECREASED GLUCOSE; Start 11/14/16 at 22:30 Dextrose (D50w Syringe) 50 ml Q15M PRN IV DECREASED GLUCOSE; Start 11/14/16 at 22:30 Glucagon (Glucagen) 1 mg Q15M PRN IM DECREASED GLUCOSE; Start 11/14/16 at 22:30 Glucose (Glutose) 15 gm Q15M PRN BUCCAL DECREASED GLUCOSE; Start 11/14/16 at 22: 30 Amikacin Sulfate (Amikacin Iv Per Pharmacy) AMIKACIN PER PHARMACY NOTE XX ; Start 11/18/16 at 12:00 Assessment/Plan Chief Complaint/Hosp Course 1. Sepsis. -Etiology secondary to UTI. esbl. on amikacin. -may have line infection...get blood cultures, d/w ID, need to probably change line. -Abdominal ultrasound shows evidence of gallstones., Clinically patient has no abdominal pain -Continue current antibiotic regimen. 2. Cholelithiasis -HIDA scan negative -No evidence of cholecystitis. General surgery evaluated patient no plan for surgery 2. End-stage renal disease. The patient is on dialysis Wednesday, , Wednesday. Anticipate dialysis in am 4. Diabetes. Continue current regimen. 5. Hypertension. Continue current blood pressure regimen. 6. Mineral bone disorder. Continue to monitor calcium. Continue phosphate binders. 7. Anemia of chronic disease. Continue to monitor H and H. 8. Mild thrombocytopenia, improving. Continue to monitor. 9. Gastrointestinal and deep venous thrombosis prophylaxis. Continue proton pump inhibitor and Lovenox. 10. Recent history of line infection. Patient completed antibiotic course dont believe amikacin is available at dialysis center. need to arrange for outpatient administration after hd or cefepime Problems: ZOLTAN LONGO MD Nov 21, 2016 08:36
--- NOTE | 2016-11-21 11:56 | CONS ---
Date/Time of Note Date/Time of Note DATE: 11/21/16 TIME: 11:55 Assessment/Plan Assessment/Plan Chief Complaint/Hosp Course ID PROGRESS NOTE TOTAL ABX DAY # 8 => Amikacin #4 s/p Cefepime/Vanco -> Ertapenem 24H INTERVAL SUMMARY * Awake, alert, responsive, tells me she feels well, VSS, NAD, chart reviewed * BCx 11/14(-) and 11/19(-) preliminary * Urine (+)E.Coli/ESBL low colony counts PHYSICAL EXAMINATION: GENERAL: VSS, NAD, no fevers HEENT: Unremarkable NECK: Supple, CHEST: Equal chest rise bilaterally, without dyspnea on observation, left subclavian central line HEART: Pulse RRR ABDOMEN: Soft EXTREMITIES: Warm SKIN: Warm, dry ID ASSESSMENT: 71 yo F admitted with: 1. Sepsis with recurrent shivering after hemodialysis, low grade Tmax 99.8 => likely due to early UTI vs rule out infected PermCath 2. E. coli ESBL UTI 3. Cholelithiasis without cholecystitis = conservative Tx per surgery * abdominal us: mild gallbladder wall thickening measuring 3.6 mm without surrounding fluid; LFT's normal; HIDA negative; no abdominal pain/guarding/ tenderness 4. End-stage renal disease, hemodialysis dependent 5. Hypertension 6. Diabetes INVASIVES: * L-subclavian central line ABX ALLERGIES: KNDA CURRENT ABX: DAY # 8 => Amikacin #4 ID RECOMMENDATIONS: 1. If repeat BCx remain negative, then line salvage is appropriate 2. May DC from ID Perspective as long as no recurrent shivering/fevers when cleared by primary MD on Amikacin IV post HD until LAST DAY 11/28/16. . . Problems: Consultation Date/Type/Reason Admit Date/Time Nov 14, 2016 at 19:06 Initial Consult Date 11/17/16 Type of Consultation: Infectious disease Exam/Review of Systems Vital Signs Vitals Vital Signs Date Time Temp Pulse Resp B/P Pulse Ox O2 Delivery O2 Flow Rate FiO2 11/21/16 09:30 72 18 11/21/16 07:44 97.9 124/60 99 11/19/16 10:40 Room Air Intake and Output 11/20/16 11/20/16 11/21/16 15:00 23:00 07:00 Intake Total 1080 ml Balance 1080 ml Results Result Diagram: 11/20/16 0547 11/20/16 0547 Results 24 hrs Laboratory Tests Test 11/20/16 17:30 11/20/16 20:21 11/21/16 07:58 Bedside Glucose 133 147 121 Medications Medications Current Medications Acetaminophen (Tylenol Tab) 650 mg Q6H PRN PO PAIN AND OR ELEVATED TEMP; Start 11/14/16 at 21:30 Ondansetron HCl (Zofran Inj) 4 mg Q6H PRN IV NAUSEA AND/OR VOMITING; Start 11/14 at 21:30 Zolpidem Tartrate (Ambien) 5 mg HS PRN PO INSOMNIA; Start 11/14/16 at 21:30 Heparin Sodium (Porcine) (Heparin (5000 Units/0.5 ml)) 5,000 unit BID SC Last administered on 11/21/16 08:22; Admin Dose 5,000 UNIT; Start 11/14/16 at 21:30 Diagnostic Test (Pha) (Accu-Chek) 1 ea 02 XX ; Start 11/15/16 at 02:00 Amlodipine Besylate (Norvasc) 10 mg DAILY PO Last administered on 11/20/16 08: 53; Admin Dose 10 MG; Start 11/15/16 at 09:00 Aspirin (Halfprin) 81 mg DAILY PO Last administered on 11/21/16 08:20; Admin Dose 81 MG; Start 11/15/16 at 09:00 Atorvastatin Calcium (Lipitor) 80 mg DAILY PO Last administered on 11/21/16 08 :20; Admin Dose 80 MG; Start 11/15/16 at 09:00 Miscellaneous Information 1 ea NOTE XX ; Start 11/14/16 at 22:30 Glucose (Glutose) 15 gm Q15M PRN PO DECREASED GLUCOSE; Start 11/14/16 at 22:30 Glucose (Glutose) 22.5 gm Q15M PRN PO DECREASED GLUCOSE; Start 11/14/16 at 22:30 Dextrose (D50w Syringe) 25 ml Q15M PRN IV DECREASED GLUCOSE; Start 11/14/16 at 22:30 Dextrose (D50w Syringe) 50 ml Q15M PRN IV DECREASED GLUCOSE; Start 11/14/16 at 22:30 Glucagon (Glucagen) 1 mg Q15M PRN IM DECREASED GLUCOSE; Start 11/14/16 at 22:30 Glucose (Glutose) 15 gm Q15M PRN BUCCAL DECREASED GLUCOSE; Start 11/14/16 at 22: 30 Amikacin Sulfate (Amikacin Iv Per Pharmacy) AMIKACIN PER PHARMACY NOTE XX ; Start 11/18/16 at 12:00 CELY TREVIÑO NP Nov 21, 2016 11:56
--- NOTE | 2016-11-21 12:25 | PN ---
Date/Time of Note Date/Time of Note DATE: 11/21/16 TIME: 12:22 Assessment/Plan Lines/Catheters IV Catheter Type (from [facility]): PERMACATH Lowry in Place (from [facility]): No Assessment/Plan Chief Complaint/Hosp Course 1. Cholelithiasis without cholecystitis: abdominal us: mild gallbladder wall thickening measuring 3.6 mm without surrounding fluid; LFT's normal; HIDA negative; no abdominal pain/guarding/tenderness; +bowel function -supportive- no surgical interventions recommended at this time -on abx 2. Sepsis: UTI; urine cx: ecoli; improved -supportive -abx 3. ESRD: on dialysis; HD today -dialysis per renal 4. Diabetes: bedside glucose well controlled -blood sugar optimization -accuchecks 5. Hypertension. BP controlled -on norvasc 6. Mineral bone disorder. Continue to monitor calcium. Continue phosphate binders. 7. Anemia: chronic disease, ESRD; -monitor -transfuse as needed 8. Thrombocytopenia: likely 2/2 Infection, -monitor -bleeding precautions 9. Hyperlipidemia: -continue statin 10. Leukopenia: patient with chills,no fevers overnight, cxr negative -blood cultures resent no growth so far Patient seen and examined in collaboration with Dr. Dexter Beauchamp Problems: Subjective 24 Hr Interval Summary No fevers. No c/o abdominal pain. +bm/flatus. no n/v/d, cp, sob, palpitations, santiago, dizziness, lightheadedness, dysuria. HD today Exam/Review of Systems Vital Signs Vitals Vital Signs Date Time Temp Pulse Resp B/P Pulse Ox O2 Delivery O2 Flow Rate FiO2 11/21/16 12:03 72 11/21/16 09:30 18 11/21/16 07:44 97.9 124/60 99 11/19/16 10:40 Room Air Intake and Output 11/20/16 11/20/16 11/21/16 15:00 23:00 07:00 Intake Total 1080 ml Balance 1080 ml Exam Free Text/Dictation Constitutional: alert, No oriented (confused ) Psych: nl mood/affect, no complaints, pleasant Head: atraumatic, normocephalic Eyes: nl lids, nl sclera ENMT: mucosa pink and moist Neck: non-tender, supple Respiratory: clear to auscultation Cardiovascular: nl pulses, regular rate and rhythm Gastrointestinal: non-tender, soft, No rebound or guarding (negative mann's) Musculoskeletal: nl extremities to inspection Extremities: normal pulses Neurological: No nl mental status (confused) Skin: nl turgor, No rash or lesions Results Result Diagram: 11/20/16 0547 11/20/16 0547 ETHEL YANG NP Nov 21, 2016 12:25
[2016-11-22] MEDS: ACCU-CHEK XX SCH (02:00)
[2016-11-22 02:29] VITALS: BP 140/65; RESP 16
[2016-11-22 07:59] VITALS: BP 133/61; RESP 20
[2016-11-22] MEDS: INSULIN ASPART [NOVOLOG] 3 ML PEN SC SCH ×7 (08:07→21:00)
[2016-11-22] MEDS: ATORVASTATIN 80 MG TAB PO SCH (08:25)
[2016-11-22] MEDS: ASPIRIN (EC) 81 MG TAB PO SCH (08:25)
[2016-11-22] MEDS: AMLODIPINE 10 MG TAB PO SCH (08:25)
[2016-11-22] MEDS: CALCIUM ACETATE 667 MG CAP PO SCH ×3 (08:25→17:23)
[2016-11-22] MEDS: HEPARIN 5,000 UNIT/0.5 ML VIAL SC SCH ×2 (08:28→21:40)
--- NOTE | 2016-11-22 08:42 | CONS ---
DATE OF ADMISSION: 11/14/2016 DATE OF CONSULTATION: 11/15/2016 REASON FOR CONSULTATION: Antibiotic management. HISTORY OF PRESENT ILLNESS: Tomy Lezama is a 71-year-old female who has end-stage renal disease on hemodialysis with recent right upper extremity AV fistula formation. Patient presents after dialysis with severe chills. She noted a cough recently and has had a cough for about 2 months. She is also noted to have some fever. She still has her catheter in. She denies dysuria, hematuria, and has been on dialysis for at least 10 months. She denies dysuria or hematuria. Patient was diagnosed with Klebsiella pneumoniae bacteremia likely secondary to line infection and received full treatment. She was given vancomycin in dialysis and also started on cefepime. She presented with fever, chills and early sepsis. On admission, her white count was 6.2, H and H of 9.4 and 30.2, platelet count 109,000. BUN and creatinine 21/3.2, glucose of 90. PAST MEDICAL HISTORY: Operations as outlined. Past medical history significant for end-stage renal disease, hypertension, hyperlipidemia and diabetes. FAMILY HISTORY: Noncontributory. SOCIAL HISTORY: She does not smoke, drink or abuse drugs. ALLERGIES: NONE TO PENICILLIN, SULFA OR FOODS. MEDICATION: Per chart and include cefepime and she did receive vancomycin as well. REVIEW OF SYSTEMS: As per HPI. PHYSICAL EXAMINATION: GENERAL APPEARANCE: Patient is a well-developed, well-nourished female who is awake, responsive, no acute distress. VITAL SIGNS: Stable. She is afebrile. SKIN: Without generalized rash. HEENT: Within normal limits. NECK: Supple. Lymph nodes nonpalpable. CHEST: Decreased breath sounds at the bases. CARDIAC: Without murmur or gallop. ABDOMEN: Soft, nontender, without organosplenomegaly or masses. EXTREMITIES: Without cyanosis, clubbing, or edema. She has an right upper extremity AV fistula. RECTAL AND GENITAL: Exams deferred. NEUROLOGIC: No focal neurological abnormality. LABORATORY: Chest x-ray shows a tunneled left internal jugular vein dialysis catheter. Lungs are clear. No pleural effusion. No pneumothorax. Urine shows gram-negative rods. White count today is 6.2. IMPRESSION/PLAN: The patient could have line sepsis. She certainly has a urinary tract infection. I do not see any evidence of pneumonia at this point. Pneumonia present on CT scan with a small posterior basilar segment right lower lobe infiltrate, so there is some evidence of pneumonitis. She has end-stage renal disease. We will continue her on vancomycin and cefepime. Dictated By: Tristin Michael MD JD/kenneth/[email or web address] /Document#: [id number]
--- NOTE | 2016-11-22 09:55 | PN ---
Date/Time of Note Date/Time of Note DATE: 11/22/16 TIME: 09:48 Assessment/Plan Lines/Catheters IV Catheter Type (from [facility]): PERMACATH Lowry in Place (from [facility]): No Assessment/Plan Chief Complaint/Hosp Course 1. Cholelithiasis without cholecystitis: abdominal us: mild gallbladder wall thickening measuring 3.6 mm without surrounding fluid; LFT's normal; HIDA negative; no abdominal pain/guarding/tenderness; +bowel function -supportive- no surgical interventions recommended at this time -on abx 2. Sepsis: UTI; urine cx: ecoli; improved -supportive -abx 3. ESRD: on dialysis; HD yesterday without issues -dialysis per renal 4. Diabetes: bedside glucose well controlled -blood sugar optimization -accuchecks 5. Hypertension. BP controlled -on norvasc 6. Mineral bone disorder. Continue to monitor calcium. Continue phosphate binders. 7. Anemia: chronic disease, ESRD; -monitor -transfuse as needed 8. Thrombocytopenia: , -monitor -bleeding precautions 9. Hyperlipidemia: -continue statin 10. Leukopenia: patient with chills,no fevers overnight, cxr & blood cx negative ; now normal wbc Patient seen and examined in collaboration with Dr. Dexter Beauchamp Problems: Subjective 24 Hr Interval Summary In good spirits. No fevers. No c/o abdominal pain. +bm/flatus. Ambulating ad samantha. no n/v/d, cp, sob, palpitations, santiago, dizziness, lightheadedness, dysuria. HD yesterday Exam/Review of Systems Vital Signs Vitals Vital Signs Date Time Temp Pulse Resp B/P Pulse Ox O2 Delivery O2 Flow Rate FiO2 11/22/16 07:59 98.0 77 20 133/61 97 11/19/16 10:40 Room Air Intake and Output 11/21/16 11/21/16 11/22/16 15:00 23:00 07:00 Intake Total 500 ml 1080 ml 360 ml Output Total 2000 ml Balance -1500 ml 1080 ml 360 ml Exam Free Text/Dictation Constitutional: alert, No oriented (confused ) Psych: nl mood/affect, no complaints, pleasant Head: atraumatic, normocephalic Eyes: nl lids, nl sclera ENMT: mucosa pink and moist Neck: non-tender, supple Respiratory: clear to auscultation Cardiovascular: nl pulses, regular rate and rhythm Gastrointestinal: non-tender, soft, No rebound or guarding (negative mann's) Musculoskeletal: nl extremities to inspection Extremities: normal pulses Neurological: No nl mental status (confused) Skin: nl turgor, No rash or lesions Results Result Diagram: 11/20/16 0547 11/20/16 0547 ETHEL YANG NP Nov 22, 2016 09:54
--- NOTE | 2016-11-22 10:47 | CONS ---
Date/Time of Note Date/Time of Note DATE: 11/22/16 TIME: 10:45 Consult Date/Type/Reason Admit Date/Time Nov 14, 2016 at 19:06 Initial Consult Date 11/17/16 Type of Consultation: im Subjective pt. seen and examined specialist input appreciated. Exam HEENT: Head is normocephalic. NECK: Supple. HEART: Regular rate. LUNGS: Show diminished breath sounds at base, otherwise clear. ABDOMEN: Soft, nontender to palpation without rebound or guarding. EXTREMITIES: Negative for clubbing, cyanosis, or edema. DERMATOLOGIC: No rashes. MUSCULOSKELETAL: No joint effusions. NEUROLOGIC: No change in exam. Objective Vital Signs Date Time Temp Pulse Resp B/P Pulse Ox O2 Delivery O2 Flow Rate FiO2 11/22/16 07:59 98.0 77 20 133/61 97 11/19/16 10:40 Room Air Intake and Output 11/21/16 11/21/16 11/22/16 15:00 23:00 07:00 Intake Total 500 ml 1080 ml 360 ml Output Total 2000 ml Balance -1500 ml 1080 ml 360 ml Results/Medications Result Diagram: 11/20/16 0547 11/20/16 0547 Results 24 hrs Laboratory Tests Test 11/21/16 11:58 11/21/16 16:50 11/21/16 21:25 11/22/16 02:59 Bedside Glucose 165 149 192 101 Test 11/22/16 07:52 Bedside Glucose 108 Medications Current Medications Acetaminophen (Tylenol Tab) 650 mg Q6H PRN PO PAIN AND OR ELEVATED TEMP; Start 11/14/16 at 21:30 Ondansetron HCl (Zofran Inj) 4 mg Q6H PRN IV NAUSEA AND/OR VOMITING; Start 11/14 at 21:30 Zolpidem Tartrate (Ambien) 5 mg HS PRN PO INSOMNIA; Start 11/14/16 at 21:30 Heparin Sodium (Porcine) (Heparin (5000 Units/0.5 ml)) 5,000 unit BID SC Last administered on 11/22/16t 08:28; Admin Dose 5,000 UNIT; Start 11/14/16 at 21:30 Diagnostic Test (Pha) (Accu-Chek) 1 ea 02 XX ; Start 11/15/16 at 02:00 Amlodipine Besylate (Norvasc) 10 mg DAILY PO Last administered on 11/22/16 08: 25; Admin Dose 10 MG; Start 11/15/16 at 09:00 Aspirin (Halfprin) 81 mg DAILY PO Last administered on 11/22/16 08:25; Admin Dose 81 MG; Start 11/15/16 at 09:00 Atorvastatin Calcium (Lipitor) 80 mg DAILY PO Last administered on 11/22/16 08 :25; Admin Dose 80 MG; Start 11/15/16 at 09:00 Miscellaneous Information 1 ea NOTE XX ; Start 11/14/16 at 22:30 Glucose (Glutose) 15 gm Q15M PRN PO DECREASED GLUCOSE; Start 11/14/16 at 22:30 Glucose (Glutose) 22.5 gm Q15M PRN PO DECREASED GLUCOSE; Start 11/14/16 at 22:30 Dextrose (D50w Syringe) 25 ml Q15M PRN IV DECREASED GLUCOSE; Start 11/14/16 at 22:30 Dextrose (D50w Syringe) 50 ml Q15M PRN IV DECREASED GLUCOSE; Start 11/14/16 at 22:30 Glucagon (Glucagen) 1 mg Q15M PRN IM DECREASED GLUCOSE; Start 11/14/16 at 22:30 Glucose (Glutose) 15 gm Q15M PRN BUCCAL DECREASED GLUCOSE; Start 11/14/16 at 22: 30 Amikacin Sulfate (Amikacin Iv Per Pharmacy) AMIKACIN PER PHARMACY NOTE XX ; Start 11/18/16 at 12:00 Assessment/Plan Chief Complaint/Hosp Course 1. Sepsis. -Etiology secondary to UTI. esbl. on amikacin. -may have line infection...get blood cultures, d/w ID, possibility of line salvage as long as culture remains negative. -Abdominal ultrasound shows evidence of gallstones., Clinically patient has no abdominal pain -Continue current antibiotic regimen. 2. Cholelithiasis -HIDA scan negative -No evidence of cholecystitis. General surgery evaluated patient no plan for surgery 2. End-stage renal disease. The patient is on dialysis Wednesday, , Wednesday. Anticipate dialysis in am 4. Diabetes. Continue current regimen. 5. Hypertension. Continue current blood pressure regimen. 6. Mineral bone disorder. Continue to monitor calcium. Continue phosphate binders. 7. Anemia of chronic disease. Continue to monitor H and H. 8. Mild thrombocytopenia, improving. Continue to monitor. 9. Gastrointestinal and deep venous thrombosis prophylaxis. Continue proton pump inhibitor and Lovenox. 10. Recent history of line infection. Patient completed antibiotic course I dont believe amikacin is available at dialysis center. need to arrange for outpatient administration after hd or cefepime or to complete course. Problems: ZOLTAN LONGO MD Nov 22, 2016 10:46
[2016-11-22] MEDS: AMIKACIN 250 MG in SOD CHLORIDE 0.9% 100 ML IVPB SCH (12:16)
--- NOTE | 2016-11-22 13:08 | CONS ---
Date/Time of Note Date/Time of Note DATE: 11/22/16 TIME: 12:58 Assessment/Plan Assessment/Plan Chief Complaint/Hosp Course Assessment/Plan Chief Complaint/Hosp Course ID PROGRESS NOTE TOTAL ABX DAY # 8 => Amikacin #4 s/p Cefepime/Vanco -> Ertapenem 24H INTERVAL SUMMARY * Awake. Responsive. No Acute Distress. * BCx 11/14(-) and 11/19(-) preliminary * Urine (+)E.Coli/ESBL low colony counts PHYSICAL EXAMINATION: GENERAL: VSS, NAD. No Fevers. HEENT: Unremarkable NECK: Supple, CHEST: Equal chest rise bilaterally, without dyspnea on observation, left subclavian central line HEART: Pulse RRR ABDOMEN: Soft EXTREMITIES: Warm SKIN: Warm, dry ID ASSESSMENT: 71 yo F admitted with: 1. Sepsis with recurrent shivering after hemodialysis, low grade Tmax 99.8 => likely due to early UTI vs rule out infected PermCath 2. E. coli ESBL UTI 3. Cholelithiasis without cholecystitis = conservative Tx per surgery * abdominal us: mild gallbladder wall thickening measuring 3.6 mm without surrounding fluid; LFT's normal; HIDA negative; no abdominal pain/guarding/ tenderness 4. End-stage renal disease, hemodialysis dependent 5. Hypertension 6. Diabetes INVASIVES: * L-subclavian central line ABX ALLERGIES: KNDA CURRENT ABX: DAY # 8 => Amikacin #4 ID RECOMMENDATIONS: 1. If repeat BCx remain negative, then line salvage is appropriate 2. May DC from ID Perspective as long as no recurrent shivering/fevers when cleared by primary MD on Amikacin IV post HD until LAST DAY 11/28/16. 3. Monitor Labs. Problems: Consultation Date/Type/Reason Admit Date/Time Nov 14, 2016 at 19:06 Initial Consult Date 11/17/16 Type of Consultation: id Exam/Review of Systems Vital Signs Vitals Vital Signs Date Time Temp Pulse Resp B/P Pulse Ox O2 Delivery O2 Flow Rate FiO2 11/22/16 07:59 98.0 77 20 133/61 97 11/19/16 10:40 Room Air Intake and Output 11/21/16 11/21/16 11/22/16 15:00 23:00 07:00 Intake Total 500 ml 1080 ml 360 ml Output Total 2000 ml Balance -1500 ml 1080 ml 360 ml Results Result Diagram: 11/20/16 0547 11/20/16 0547 Results 24 hrs Laboratory Tests Test 11/21/16 16:50 11/21/16 21:25 11/22/16 02:59 11/22/16 07:52 Bedside Glucose 149 192 101 108 Test 11/22/16 12:12 Bedside Glucose 117 Medications Medications Current Medications Acetaminophen (Tylenol Tab) 650 mg Q6H PRN PO PAIN AND OR ELEVATED TEMP; Start 11/14/16 at 21:30 Ondansetron HCl (Zofran Inj) 4 mg Q6H PRN IV NAUSEA AND/OR VOMITING; Start 11/14 at 21:30 Zolpidem Tartrate (Ambien) 5 mg HS PRN PO INSOMNIA; Start 11/14/16 at 21:30 Heparin Sodium (Porcine) (Heparin (5000 Units/0.5 ml)) 5,000 unit BID SC Last administered on 11/22/16 08:28; Admin Dose 5,000 UNIT; Start 11/14/16 at 21:30 Diagnostic Test (Pha) (Accu-Chek) 1 ea 02 XX ; Start 11/15/16 at 02:00 Amlodipine Besylate (Norvasc) 10 mg DAILY PO Last administered on 11/22/16 08: 25; Admin Dose 10 MG; Start 11/15/16 at 09:00 Aspirin (Halfprin) 81 mg DAILY PO Last administered on 11/22/16 08:25; Admin Dose 81 MG; Start 11/15/16 at 09:00 Atorvastatin Calcium (Lipitor) 80 mg DAILY PO Last administered on 11/22/16 08 :25; Admin Dose 80 MG; Start 11/15/16 at 09:00 Miscellaneous Information 1 ea NOTE XX ; Start 11/14/16 at 22:30 Glucose (Glutose) 15 gm Q15M PRN PO DECREASED GLUCOSE; Start 11/14/16 at 22:30 Glucose (Glutose) 22.5 gm Q15M PRN PO DECREASED GLUCOSE; Start 11/14/16 at 22:30 Dextrose (D50w Syringe) 25 ml Q15M PRN IV DECREASED GLUCOSE; Start 11/14/16 at 22:30 Dextrose (D50w Syringe) 50 ml Q15M PRN IV DECREASED GLUCOSE; Start 11/14/16 at 22:30 Glucagon (Glucagen) 1 mg Q15M PRN IM DECREASED GLUCOSE; Start 11/14/16 at 22:30 Glucose (Glutose) 15 gm Q15M PRN BUCCAL DECREASED GLUCOSE; Start 11/14/16 at 22: 30 Amikacin Sulfate (Amikacin Iv Per Pharmacy) AMIKACIN PER PHARMACY NOTE XX ; Start 11/18/16 at 12:00 JADE DOYLE NP Nov 22, 2016 13:08
[2016-11-22 14:35] VITALS: BP 120/58; RESP 20
[2016-11-22 20:00] VITALS: BP 139/65; RESP 20
[2016-11-23] VITALS (12 sets, daily range): BP systolic 97–143; BP diastolic 50–83; PULSE 70–79; RESP 18–20
[2016-11-23] MEDS: ACCU-CHEK XX SCH (02:00)
[2016-11-23] MEDS: INSULIN ASPART [NOVOLOG] 3 ML PEN SC SCH ×7 (08:15→21:00)
--- NOTE | 2016-11-23 08:55 | PN ---
Date/Time of Note Date/Time of Note DATE: 11/23/16 TIME: 08:48 Assessment/Plan Lines/Catheters IV Catheter Type (from [facility]): permacath [facility] in Place (from [facility]): No Assessment/Plan Chief Complaint/Hosp Course 1. Cholelithiasis without cholecystitis: abdominal us: mild gallbladder wall thickening measuring 3.6 mm without surrounding fluid; LFT's normal; HIDA negative; no abdominal pain/guarding/tenderness; +bowel function -supportive- no surgical interventions recommended at this time 2. Sepsis: UTI; urine cx: ecoli vs. line infection: improved -supportive -to be discharged with abx 3. ESRD: on dialysis; previous HD without issues -dialysis per renal 4. Diabetes: bedside glucose well controlled -blood sugar optimization -accuchecks 5. Hypertension. BP controlled -on norvasc 6. Mineral bone disorder. Continue to monitor calcium. Continue phosphate binders. 7. Anemia: chronic disease, ESRD; -monitor -transfuse as needed 8. Thrombocytopenia: , -monitor -bleeding precautions 9. Hyperlipidemia: -continue statin 10. Leukopenia: patient with chills,no fevers overnight, cxr & blood cx negative ; now normal wbc Patient seen and examined in collaboration with Dr. Dexter Beauchamp Problems: Subjective 24 Hr Interval Summary HD today. Feels well. No c/o abdominal pain/discomfort. tolerating diet. + bowel function. No fevers, chills, santiago, dizziness, fainting, cp, palpitations, n/ v/d. Exam/Review of Systems Vital Signs Vitals Vital Signs Date Time Temp Pulse Resp B/P Pulse Ox O2 Delivery O2 Flow Rate FiO2 11/23/16 08:00 98.6 84 18 136/83 100 11/19/16 10:40 Room Air Intake and Output 11/22/16 11/22/16 11/23/16 15:00 23:00 07:00 Intake Total 1341 ml 120 ml Balance 1341 ml 120 ml Exam Free Text/Dictation Constitutional: alert, No oriented (forgetful ) Psych: nl mood/affect, no complaints, pleasant Head: atraumatic, normocephalic Eyes: nl lids, nl sclera ENMT: mucosa pink and moist Neck: non-tender, supple Respiratory: clear to auscultation Cardiovascular: nl pulses, regular rate and rhythm Gastrointestinal: non-tender, soft, nondistended No rebound or guarding (negative mann's) Musculoskeletal: nl extremities to inspection Extremities: normal pulses Neurological: No nl mental status (confused) Skin: nl turgor, No rash or lesions Results Result Diagram: 11/20/16 0547 11/20/16 0547 ETHEL YANG NP Nov 23, 2016 08:55
[2016-11-23] MEDS: AMLODIPINE 10 MG TAB PO SCH (09:00)
[2016-11-23] MEDS: CALCIUM ACETATE 667 MG CAP PO SCH ×3 (09:11→17:51)
[2016-11-23] MEDS: ATORVASTATIN 80 MG TAB PO SCH (09:11)
[2016-11-23] MEDS: ASPIRIN (EC) 81 MG TAB PO SCH (09:11)
[2016-11-23] MEDS: HEPARIN 5,000 UNIT/0.5 ML VIAL SC SCH ×2 (09:33→21:13)
--- NOTE | 2016-11-23 09:52 | PN ---
Date/Time of Note Date/Time of Note DATE: 11/23/16 TIME: 09:50 Assessment/Plan Lines/Catheters IV C[facility] permacath Urinary Cath still in place: No Assessment/Plan Chief Complaint/Hosp Course 1. Sepsis. -Etiology secondary to UTI. -Possibility of line infection is a concern. Patient's repeat cultures have been negative. -At this point we will continue current antibiotic regimen. No need to change dialysis catheter -Patient was also evaluated by vascular surgeon 2. Access -Plan for revision of AV fistula tomorrow by vascular surgery 2. Cholelithiasis -HIDA scan negative -No evidence of cholecystitis. General surgery evaluated patient no plan for surgery 2. End-stage renal disease. The patient is on dialysis Wednesday, , Wednesday. Anticipate dialysis today 4. Diabetes. Continue current regimen. 5. Hypertension. Continue current blood pressure regimen. 6. Mineral bone disorder. Continue to monitor calcium. Continue phosphate binders. 7. Anemia of chronic disease. Continue to monitor H and H. 8. Mild thrombocytopenia, improving. Continue to monitor. 9. Gastrointestinal and deep venous thrombosis prophylaxis. Continue proton pump inhibitor and Lovenox. 10. Recent history of line infection. Patient completed antibiotic course Disposition. Plan for DC home and will continue antibiotics at the dialysis center Problems: Subjective 24 Hr Interval Summary Free Text/Dictation Patient seen and examined no events overnight. Pending hemodialysis today Pending the surgical revision of her fistula Exam/Review of Systems Vital Signs Vitals Vital Signs Date Time Temp Pulse Resp B/P Pulse Ox O2 Delivery O2 Flow Rate FiO2 11/23/16 08:00 98.6 84 18 136/83 100 11/19/16 10:40 Room Air Intake and Output 11/22/16 11/22/16 11/23/16 15:00 23:00 07:00 Intake Total 1341 ml 120 ml Balance 1341 ml 120 ml Exam HEENT: Head is normocephalic. NECK: Supple. HEART: Regular rate. LUNGS: Show diminished breath sounds at base, otherwise clear. ABDOMEN: Soft, nontender to palpation without rebound or guarding. EXTREMITIES: Negative for clubbing, cyanosis, or edema. DERMATOLOGIC: No rashes. MUSCULOSKELETAL: No joint effusions. NEUROLOGIC: No change in exam. Results Result Diagram: 11/20/16 0547 11/20/1647 Results 24 hrs Laboratory Tests Test 11/22/16 12:12 11/22/16 17:15 11/22/16 21:36 11/23/16 08:22 Bedside Glucose 117 166 111 113 Medications Medications Current Medications Acetaminophen (Tylenol Tab) 650 mg Q6H PRN PO PAIN AND OR ELEVATED TEMP; Start 11/14/16 at 21:30 Ondansetron HCl (Zofran Inj) 4 mg Q6H PRN IV NAUSEA AND/OR VOMITING; Start 11/14 at 21:30 Zolpidem Tartrate (Ambien) 5 mg HS PRN PO INSOMNIA; Start 11/14/16 at 21:30 Heparin Sodium (Porcine) (Heparin (5000 Units/0.5 ml)) 5,000 unit BID SC Last administered on 11/23/16 09:33; Admin Dose 5,000 UNIT; Start 11/14/16 at 21:30 Diagnostic Test (Pha) (Accu-Chek) 1 ea 02 XX ; Start 11/15/16 at 02:00 Amlodipine Besylate (Norvasc) 10 mg DAILY PO Last administered on 11/22/16 08: 25; Admin Dose 10 MG; Start 11/15/16 at 09:00 Aspirin (Halfprin) 81 mg DAILY PO Last administered on 11/23/16 09:11; Admin Dose 81 MG; Start 11/15/16 at 09:00 Atorvastatin Calcium (Lipitor) 80 mg DAILY PO Last administered on 11/23/16 09 :11; Admin Dose 80 MG; Start 11/15/16 at 09:00 Miscellaneous Information 1 ea NOTE XX ; Start 11/14/16 at 22:30 Glucose (Glutose) 15 gm Q15M PRN PO DECREASED GLUCOSE; Start 11/14/16 at 22:30 Glucose (Glutose) 22.5 gm Q15M PRN PO DECREASED GLUCOSE; Start 11/14/16 at 22:30 Dextrose (D50w Syringe) 25 ml Q15M PRN IV DECREASED GLUCOSE; Start 11/14/16 at 22:30 Dextrose (D50w Syringe) 50 ml Q15M PRN IV DECREASED GLUCOSE; Start 11/14/16 at 22:30 Glucagon (Glucagen) 1 mg Q15M PRN IM DECREASED GLUCOSE; Start 11/14/16 at 22:30 Glucose (Glutose) 15 gm Q15M PRN BUCCAL DECREASED GLUCOSE; Start 11/14/16 at 22: 30 Amikacin Sulfate (Amikacin Iv Per Pharmacy) AMIKACIN PER PHARMACY NOTE XX ; Start 11/18/16 at 12:00 LEFTY BARRAZA DO Nov 23, 2016 09:52
--- NOTE | 2016-11-23 13:07 | CONS ---
Date/Time of Note Date/Time of Note DATE: 11/23/16 TIME: 13:06 Assessment/Plan Assessment/Plan Chief Complaint/Hosp Course Alert, looks comfortable, no fevers Indwelling: Left chest permacath Urine culture on November 14 growing E. coli ESBL Antibiotics: Amikacin Chest x-ray on admission revealed clear lung culver, ultrasound of the abdomen revealed multiple gallstones with mild gallbladder wall thickening Physical examination: Well-developed chronically ill-appearing fragile elderly woman who is alert in no distress. Head atraumatic, normocephalic, sclera anicteric. Neck is supple, trachea midline. Chest rise symmetrical breath sounds clear. Heart: S1-S2. Abdomen soft, bowel tones present. Extremities without cyanosis Assessment: 1. Sepsis with recurrent shivering after hemodialysis, rule out infected permacath 2. E. coli ESBL UTI 3. Gallstones, no evidence of cholecystitis per surgery 4. End-stage renal disease, hemodialysis dependent 5. Hypertension 6. Diabetes Plan: Remains stable, repeat blood cultures from permacath negative, continue antibiotics for 5 more days [facility] staff Problems: Consultation Date/Type/Reason Admit Date/Time Nov 14, 2016 at 19:06 Type of Consultation: id Exam/Review of Systems Vital Signs Vitals Vital Signs Date Time Temp Pulse Resp B/P Pulse Ox O2 Delivery O2 Flow Rate FiO2 11/23/16 08:00 98.6 84 18 136/83 100 11/19/16 10:40 Room Air Intake and Output 11/22/16 11/22/16 11/23/16 15:00 23:00 07:00 Intake Total 1341 ml 120 ml Balance 1341 ml 120 ml Results Result Diagram: 11/20/16 0547 11/20/16 0547 Results 24 hrs Laboratory Tests Test 11/22/16 17:15 11/22/16 21:36 11/23/16 08:22 11/23/16 12:53 Bedside Glucose 166 111 113 148 Medications Medications Current Medications Acetaminophen (Tylenol Tab) 650 mg Q6H PRN PO PAIN AND OR ELEVATED TEMP; Start 11/14/16 at 21:30 Ondansetron HCl (Zofran Inj) 4 mg Q6H PRN IV NAUSEA AND/OR VOMITING; Start 11/14 at 21:30 Zolpidem Tartrate (Ambien) 5 mg HS PRN PO INSOMNIA; Start 11/14/16 at 21:30 Heparin Sodium (Porcine) (Heparin (5000 Units/0.5 ml)) 5,000 unit BID SC Last administered on 11/23/16 09:33; Admin Dose 5,000 UNIT; Start 11/14/16 at 21:30 Diagnostic Test (Pha) (Accu-Chek) 1 ea 02 XX ; Start 11/15/16 at 02:00 Amlodipine Besylate (Norvasc) 10 mg DAILY PO Last administered on 11/22/16 08: 25; Admin Dose 10 MG; Start 11/15/16 at 09:00 Aspirin (Halfprin) 81 mg DAILY PO Last administered on 11/23/16 09:11; Admin Dose 81 MG; Start 11/15/16 at 09:00 Atorvastatin Calcium (Lipitor) 80 mg DAILY PO Last administered on 11/23/16 09 :11; Admin Dose 80 MG; Start 11/15/16 at 09:00 Miscellaneous Information 1 ea NOTE XX ; Start 11/14/16 at 22:30 Glucose (Glutose) 15 gm Q15M PRN PO DECREASED GLUCOSE; Start 11/14/16 at 22:30 Glucose (Glutose) 22.5 gm Q15M PRN PO DECREASED GLUCOSE; Start 11/14/16 at 22:30 Dextrose (D50w Syringe) 25 ml Q15M PRN IV DECREASED GLUCOSE; Start 11/14/16 at 22:30 Dextrose (D50w Syringe) 50 ml Q15M PRN IV DECREASED GLUCOSE; Start 11/14/16 at 22:30 Glucagon (Glucagen) 1 mg Q15M PRN IM DECREASED GLUCOSE; Start 11/14/16 at 22:30 Glucose (Glutose) 15 gm Q15M PRN BUCCAL DECREASED GLUCOSE; Start 11/14/16 at 22: 30 Amikacin Sulfate (Amikacin Iv Per Pharmacy) AMIKACIN PER PHARMACY NOTE XX ; Start 11/18/16 at 12:00 SAHARA RAYMUNDO NP Nov 23, 2016 13:07
[2016-11-23] MEDS: AMIKACIN 250 MG in SOD CHLORIDE 0.9% 100 ML IVPB SCH (17:51)
[2016-11-24] VITALS (11 sets, daily range): BP systolic 109–132; BP diastolic 53–72; PULSE 71–77; RESP 16–20
[2016-11-24] MEDS: ACCU-CHEK XX SCH (02:00)
--- NOTE | 2016-11-24 03:56 | HP ---
DATE OF ADMISSION: 11/14/2016 HISTORY OF PRESENT ILLNESS: Dear Doctors, The patient is a 70- year-old female known to our vas surgery service secondary to history of end-stage renal disease, in which she undergoes dialysis Wednesday, , and Wednesday. The patient had presented with noted chills and prior to that, she has had history of noted cough for about 2 months in which she underwent workup and had pneumonia for which she was treated. Further, the patient had been currently worked up for Klebsiella pneumonia bacteremia, with possible workup for UTI and cholecystitis. The patient has been evaluated for cholecystitis and her HIDA scan has been negative. She does have cholelithiasis and it seems that she still has some wheezing. Vascular surgery was consulted for evaluation of possible left chest wall catheter infection. At the moment patient denies shortness of breath, chest pain, nausea, vomiting, fever, chills. REVIEW OF SYSTEMS: Fourteen point review performed, negative except as mentioned in HPI. PAST MEDICAL HISTORY: Entails history of pneumonia right lower lobe. End-stage renal disease, on dialysis. Persistent cough, diabetes, hypertension, anemia of chronic disease. Coronary artery disease. Mineral bone disease. History of thrombocytopenia. SURGICAL HISTORY: Multiple upper extremity AV graft creations done in outside facility. Recently underwent a new right upper extremity antecubital vein fistula creation with a matured dominant basilic vein. Left upper extremity venogram and fistula . SOCIAL HISTORY: Denies tobacco, alcohol, illicit drug use. FAMILY HISTORY: Positive for hypertension. PHYSICAL EXAMINATION: GENERAL: Alert, oriented x2. Patient seems a little bit not aware of time. HEENT: Normocephalic, atraumatic. Mucosa moist. NECK: Supple. No carotid bruit. LUNGS: Clear to auscultation bilaterally. No crackles. CARDIOVASCULAR: S1, S2 present. No murmurs. ABDOMEN: Soft, nontender, nondistended. Bowel sounds positive. EXTREMITIES: Lower extremities palpable femoral pulse. Nonpalpable pedal pulse. Motor sensory intact. Capillary refill 2-3 seconds. Right upper extremity. Surgical scar well healed. Palpable brachial pulse. Motor sensory intact. Fistula with bruit and thrill present in the medial aspect of the upper arm. Left upper extremity. Palpable radial pulse. Motor sensory intact. Capillary refill 2-3 seconds. Her previous surgical scar, well healed. Previous graft is thrombosed. ASSESSMENT/PLAN: End-stage renal disease: It seems the patient's right upper extremity fistula has developed and she actually is scheduled for a basilic vein transposition this upcoming week. From standpoint of her left chest wall catheter, it is unlikely that her bacteremia is from the catheter, as she does not have any tenderness in that area. No suggestion of wound infection, or drainage from the catheter site. I would not recommend to remove the catheter unless there is more clinical evidence in terms of her findings. Optimize vascular status (diet, nutrition, exercise, pressure control and antiplatelets). Will follow her workup for reason for bacteremia and follow wound cultures and hoping that she will be cleared for surgery for this upcoming week. if she still continues to have positive cultures, will plan to delay her fistula transposition and will reschedule her for that. Discussed findings plan and management with the patient and family at the bedside with certified mothercraft nurse. Thank you for allowing us to partake in the care of your patient. Please call with any questions. Dictated By: Mio Redmond MD /kenneth/candace /Document#: [id number]
--- NOTE | 2016-11-24 07:10 | PN ---
Date/Time of Note Date/Time of Note DATE: 11/24/16 TIME: 07:05 Assessment/Plan Lines/Catheters IV Catheter Type (from [facility]): HemoDialysis Access Site Lowry in Place (from [facility]): No Assessment/Plan Chief Complaint/Hosp Course -End-stage renal disease: It seems the patient's right upper extremity fistula has developed and she was scheduled for a basilic vein transposition this morning as outpt. However will await medical clearance and cardiac clearance for intervention prior to surgery as she presented w bacteremia. -From standpoint of her left chest wall catheter, it is unlikely that her bacteremia is from the catheter, as she does not have any tenderness in that area. No suggestion of wound infection, or drainage from the catheter site. I would not recommend to remove the catheter unless there is more clinical evidence in terms of her findings. -Optimize vascular status (diet, nutrition, exercise, blood pressure meds, and antiplatelets). -Will follow her workup for bacteremia and follow wound cultures and hoping that she will be cleared for surgery for this upcoming week. if she still continues to have positive cultures, will plan to her fistula transposition as an outpt in the near future her for that. -Discussed findings plan and management with the patient and family at the bedside with certified garment mender. -Thank you for allowing us to partake in the care of your patient. Please call with any questions. Problems: Subjective 24 Hr Interval Summary no new vascular events overnight Constitutional: no complaints Exam/Review of Systems Vital Signs Vitals Vital Signs Date Time Temp Pulse Resp B/P Pulse Ox O2 Delivery O2 Flow Rate FiO2 11/24/16 02:09 98.0 69 18 120/57 100 Intake and Output 11/23/16 11/23/16 11/24/16 15:00 23:00 07:00 Intake Total 1541 ml Output Total 1504 ml 300 ml Balance 37 ml -300 ml Exam Free Text/Dictation GENERAL: Alert, and awake LUNGS: Clear to auscultation bilaterally. No crackles. CARDIOVASCULAR: S1, S2 present. No murmurs. ABDOMEN: Soft, nontender, nondistended. Bowel sounds positive. EXTREMITIES: Lower extremities palpable femoral pulse. Nonpalpable pedal pulse. Motor sensory intact. Capillary refill 2-3 seconds. Right upper extremity: Surgical scar well healed. Palpable brachial pulse. Motor sensory intact. Fistula with bruit and thrill present in the medial aspect of the upper arm. Left upper extremity. Palpable radial pulse. Motor sensory intact. Capillary refill 2-3 seconds. Her previous surgical scar, well healed. Previous graft is thrombosed. Results Result Diagram: 11/20/16 0547 11/20/16 0547 FABIOLA MARTINEZ MD Nov 24, 2016 07:09
[2016-11-24] MEDS: INSULIN ASPART [NOVOLOG] 3 ML PEN SC SCH ×7 (08:15→20:44)
[2016-11-24] MEDS: ATORVASTATIN 80 MG TAB PO SCH (08:55)
[2016-11-24] MEDS: ASPIRIN (EC) 81 MG TAB PO SCH (08:55)
[2016-11-24] MEDS: AMLODIPINE 10 MG TAB PO SCH (08:56)
[2016-11-24] MEDS: HEPARIN 5,000 UNIT/0.5 ML VIAL SC SCH ×2 (08:58→20:52)
--- NOTE | 2016-11-24 08:58 | PN ---
Date/Time of Note Date/Time of Note DATE: 11/24/16 TIME: 08:57 Assessment/Plan Lines/Catheters IV Catheter Type (from [facility]): HemoDialysis Access Site Urinary Cath still in place: No Assessment/Plan Chief Complaint/Hosp Course 1. Sepsis. -Etiology secondary to UTI. -Low suspicion for line infection, patient's repeat cultures have been negative. -At this point we will continue current antibiotic regimen. No need to change dialysis catheter -Patient was also evaluated by vascular surgeon 2. Access -Plan for revision of AV fistula will be done as an outpatient once patient completed antibiotic course 2. Cholelithiasis -HIDA scan negative -No evidence of cholecystitis. General surgery evaluated patient no plan for surgery 2. End-stage renal disease. The patient is on dialysis Wednesday, , Wednesday. Anticipate dialysis today 4. Diabetes. Continue current regimen. 5. Hypertension. Continue current blood pressure regimen. 6. Mineral bone disorder. Continue to monitor calcium. Continue phosphate binders. 7. Anemia of chronic disease. Continue to monitor H and H. 8. Mild thrombocytopenia, improving. Continue to monitor. 9. Gastrointestinal and deep venous thrombosis prophylaxis. Continue proton pump inhibitor and Lovenox. 10. Recent history of line infection. Patient completed antibiotic course Disposition. Plan for DC home and will continue antibiotics at the dialysis center Problems: Subjective 24 Hr Interval Summary Free Text/Dictation Patient seen and examined, no events overnight. Spoke with vascular surgeon, no plan for surgery at this time until patient completes antibiotic course Exam/Review of Systems Vital Signs Vitals Vital Signs Date Time Temp Pulse Resp B/P Pulse Ox O2 Delivery O2 Flow Rate FiO2 11/24/16 07:53 97.6 73 16 131/60 99 Intake and Output 11/23/16 11/23/16 11/24/16 15:00 23:00 07:00 Intake Total 1541 ml Output Total 1504 ml 300 ml Balance 37 ml -300 ml Exam HEENT: Head is normocephalic. NECK: Supple. HEART: Regular rate LUNGS: Show diminished breath sounds at base. ABDOMEN: Soft, nontender to palpation without rebound or guarding. EXTREMITIES: Negative for clubbing, cyanosis. DERMATOLOGIC: No rashes. MUSCULOSKELETAL: No joint effusions, NEUROLOGIC: No change in exam. Results Result Diagram: 11/20/16 0547 11/20/16 0547 Results 24 hrs Laboratory Tests Test 11/23/16 12:53 11/23/16 17:40 11/23/16 21:07 11/24/16 08:19 Bedside Glucose 148 100 119 99 Medications Medications Current Medications Acetaminophen (Tylenol Tab) 650 mg Q6H PRN PO PAIN AND OR ELEVATED TEMP; Start 11/14/16 at 21:30 Ondansetron HCl (Zofran Inj) 4 mg Q6H PRN IV NAUSEA AND/OR VOMITING; Start 11/14 at 21:30 Zolpidem Tartrate (Ambien) 5 mg HS PRN PO INSOMNIA; Start 11/14/16 at 21:30 Heparin Sodium (Porcine) (Heparin (5000 Units/0.5 ml)) 5,000 unit BID SC Last administered on 11/23/16 21:13; Admin Dose 5,000 UNIT; Start 11/14/16 at 21:30 Diagnostic Test (Pha) (Accu-Chek) 1 ea 02 XX ; Start 11/15/16 at 02:00 Amlodipine Besylate (Norvasc) 10 mg DAILY PO Last administered on 11/22/16 08: 25; Admin Dose 10 MG; Start 11/15/16 at 09:00 Aspirin (Halfprin) 81 mg DAILY PO Last administered on 11/23/16 09:11; Admin Dose 81 MG; Start 11/15/16 at 09:00 Atorvastatin Calcium (Lipitor) 80 mg DAILY PO Last administered on 11/23/16 09 :11; Admin Dose 80 MG; Start 11/15/16 at 09:00 Miscellaneous Information 1 ea NOTE XX ; Start 11/14/16 at 22:30 Glucose (Glutose) 15 gm Q15M PRN PO DECREASED GLUCOSE; Start 11/14/16 at 22:30 Glucose (Glutose) 22.5 gm Q15M PRN PO DECREASED GLUCOSE; Start 11/14/16 at 22:30 Dextrose (D50w Syringe) 25 ml Q15M PRN IV DECREASED GLUCOSE; Start 11/14/16 at 22:30 Dextrose (D50w Syringe) 50 ml Q15M PRN IV DECREASED GLUCOSE; Start 11/14/16 at 22:30 Glucagon (Glucagen) 1 mg Q15M PRN IM DECREASED GLUCOSE; Start 11/14/16 at 22:30 Glucose (Glutose) 15 gm Q15M PRN BUCCAL DECREASED GLUCOSE; Start 11/14/16 at 22: 30 Amikacin Sulfate (Amikacin Iv Per Pharmacy) AMIKACIN PER PHARMACY NOTE XX ; Start 11/18/16 at 12:00 LEFTY BARRAZA DO Nov 24, 2016 08:58
[2016-11-24] MEDS: CALCIUM ACETATE 667 MG CAP PO SCH ×3 (08:59→17:44)
--- NOTE | 2016-11-24 17:23 | CONS ---
Date/Time of Note Date/Time of Note DATE: 11/24/16 TIME: 17:22 Assessment/Plan Assessment/Plan Chief Complaint/Hosp Course Status post hemodialysis, alert, looks comfortable, no fevers Indwelling: Left chest permacath Physical examination: Well-developed chronically ill-appearing fragile elderly woman who is alert in no distress. Head atraumatic, normocephalic, sclera anicteric. Neck is supple, trachea midline. Chest rise symmetrical breath sounds clear. Heart: S1-S2. Abdomen soft, bowel tones present. Extremities without cyanosis Assessment: 1. Sepsis with recurrent shivering after hemodialysis, repeat blood cultures negative 2. Status post E. coli ESBL UTI 3. Gallstones, no evidence of cholecystitis per surgery 4. End-stage renal disease, hemodialysis dependent 5. Hypertension 6. Diabetes Plan: Remains stable, repeat blood cultures from permacath negative, per vascular note no evidence of hemodialysis catheter infection, will discontinue antibiotics and observe. Patient received amikacin dose today [facility] staff Discussed with Dr. Jamil Problems: Consultation Date/Type/Reason Admit Date/Time Nov 14, 2016 at 19:06 Type of Consultation: id Exam/Review of Systems Vital Signs Vitals Vital Signs Date Time Temp Pulse Resp B/P Pulse Ox O2 Delivery O2 Flow Rate FiO2 11/24/16 14:57 71 11/24/16 13:50 98.0 16 131/63 100 Intake and Output 11/23/16 11/23/16 11/24/16 15:00 23:00 07:00 Intake Total 1541 ml Output Total 1504 ml 300 ml Balance 37 ml -300 ml Results Result Diagram: 11/20/16 0547 11/20/16 0547 Results 24 hrs Laboratory Tests Test 11/23/16 17:40 11/23/16 21:07 11/24/16 08:19 11/24/16 12:36 Bedside Glucose 100 119 99 124 Medications Medications Current Medications Acetaminophen (Tylenol Tab) 650 mg Q6H PRN PO PAIN AND OR ELEVATED TEMP; Start 11/14/16 at 21:30 Ondansetron HCl (Zofran Inj) 4 mg Q6H PRN IV NAUSEA AND/OR VOMITING; Start 11/14 at 21:30 Zolpidem Tartrate (Ambien) 5 mg HS PRN PO INSOMNIA; Start 11/14/16 at 21:30 Heparin Sodium (Porcine) (Heparin (5000 Units/0.5 ml)) 5,000 unit BID SC Last administered on 11/24/16 08:58; Admin Dose 5,000 UNIT; Start 11/14/16 at 21:30 Diagnostic Test (Pha) (Accu-Chek) 1 ea 02 XX ; Start 11/15/16 at 02:00 Amlodipine Besylate (Norvasc) 10 mg DAILY PO Last administered on 11/24/16 08: 56; Admin Dose 10 MG; Start 11/15/16 at 09:00 Aspirin (Halfprin) 81 mg DAILY PO Last administered on 11/24/16 08:55; Admin Dose 81 MG; Start 11/15/16 at 09:00 Atorvastatin Calcium (Lipitor) 80 mg DAILY PO Last administered on 11/24/16 08 :55; Admin Dose 80 MG; Start 11/15/16 at 09:00 Miscellaneous Information 1 ea NOTE XX ; Start 11/14/16 at 22:30 Glucose (Glutose) 15 gm Q15M PRN PO DECREASED GLUCOSE; Start 11/14/16 at 22:30 Glucose (Glutose) 22.5 gm Q15M PRN PO DECREASED GLUCOSE; Start 11/14/16 at 22:30 Dextrose (D50w Syringe) 25 ml Q15M PRN IV DECREASED GLUCOSE; Start 11/14/16 at 22:30 Dextrose (D50w Syringe) 50 ml Q15M PRN IV DECREASED GLUCOSE; Start 11/14/16 at 22:30 Glucagon (Glucagen) 1 mg Q15M PRN IM DECREASED GLUCOSE; Start 11/14/16 at 22:30 Glucose (Glutose) 15 gm Q15M PRN BUCCAL DECREASED GLUCOSE; Start 11/14/16 at 22: 30 Amikacin Sulfate (Amikacin Iv Per Pharmacy) AMIKACIN PER PHARMACY NOTE XX ; Start 11/18/16 at 12:00 SAHARA RAYMUNDO NP Nov 24, 2016 17:23
[2016-11-24] MEDS: AMIKACIN 250 MG in SOD CHLORIDE 0.9% 100 ML IVPB SCH (18:29)
--- NOTE | 2016-11-24 23:33 | PN ---
Date/Time of Note Date/Time of Note DATE: 11/24/16 TIME: 23:28 Assessment/Plan Lines/Catheters IV Catheter Type (from [facility]): permacath Low[place] in Place (from [facility]): No Assessment/Plan Chief Complaint/Hosp Course 1. Cholelithiasis without cholecystitis: abdominal us: mild gallbladder wall thickening measuring 3.6 mm without surrounding fluid; LFT's normal; HIDA negative; no abdominal pain/guarding/tenderness; +bowel function -supportive- no surgical interventions recommended at this time 2. Sepsis: UTI; urine cx: ecoli vs. line infection: improved -supportive -to be discharged with abx 3. ESRD: on dialysis; previous HD without issues; poss revision of hd access -dialysis per renal 4. Diabetes: bedside glucose well controlled -blood sugar optimization -accuchecks 5. Hypertension. BP controlled -on norvasc 6. Mineral bone disorder. Continue to monitor calcium. Continue phosphate binders. 7. Anemia: chronic disease, ESRD; -monitor -transfuse as needed 8. Thrombocytopenia: , -monitor -bleeding precautions 9. Hyperlipidemia: -continue statin 10. Leukopenia: patient with chills,no fevers overnight, cxr & blood cx negative ; now normal wbc Patient seen and examined in collaboration with Dr. Dexter Beauchamp Problems: Subjective 24 Hr Interval Summary Possible revision of hd fistula. Feels well. No c/o abdominal pain/discomfort. tolerating diet. + bowel function. No fevers, chills, santiago, dizziness, fainting, cp, palpitation Exam/Review of Systems Vital Signs Vitals Vital Signs Date Time Temp Pulse Resp B/P Pulse Ox O2 Delivery O2 Flow Rate FiO2 11/24/16 19:35 98.4 67 20 121/57 97 Intake and Output 11/23/16 11/23/16 11/24/16 15:00 23:00 07:00 Intake Total 1541 ml Output Total 1504 ml 300 ml Balance 37 ml -300 ml Exam Free Text/Dictation Constitutional: alert, No oriented (forgetful ) Psych: nl mood/affect, no complaints, pleasant Head: atraumatic, normocephalic Eyes: nl lids, nl sclera ENMT: mucosa pink and moist Neck: non-tender, supple Respiratory: clear to auscultation Cardiovascular: nl pulses, regular rate and rhythm Gastrointestinal: non-tender, soft, nondistended No rebound or guarding (negative mann's) Musculoskeletal: nl extremities to inspection Extremities: normal pulses Neurological: No nl mental status (confused) Skin: nl turgor, No rash or lesions Results Result Diagram: 11/20/16 0547 11/20/16 0547 ETHEL YANG NP Nov 24, 2016 23:32
[2016-11-25 02:00] VITALS: BP 127/58; RESP 20
[2016-11-25] MEDS: ACCU-CHEK XX SCH (02:00)
[2016-11-25] MEDS: INSULIN ASPART [NOVOLOG] 3 ML PEN SC SCH ×6 (08:12→17:34)
[2016-11-25] MEDS: AMLODIPINE 10 MG TAB PO SCH (08:13)
[2016-11-25] MEDS: CALCIUM ACETATE 667 MG CAP PO SCH ×3 (08:13→17:29)
[2016-11-25] MEDS: ATORVASTATIN 80 MG TAB PO SCH (08:13)
[2016-11-25] MEDS: ASPIRIN (EC) 81 MG TAB PO SCH (08:13)
[2016-11-25] MEDS: HEPARIN 5,000 UNIT/0.5 ML VIAL SC SCH (08:16)
[2016-11-25 08:53] VITALS: BP 127/58; RESP 16
--- NOTE | 2016-11-25 12:55 | CONS ---
Date/Time of Note Date/Time of Note DATE: 11/25/16 TIME: 12:54 Assessment/Plan Assessment/Plan Chief Complaint/Hosp Course No acute changes patient is alert looks comfortable afebrile, she remains on amikacin, repeat blood cultures negative. Physical examination: Well-developed chronically ill-appearing elderly woman who is awake in no distress. Head atraumatic normocephalic sclera nonicteric. Neck is supple. Chest rise symmetrical breath sounds diminished to bases. Heart, S1-S2 abdomen soft bowel tones present extremities no cyanosis Assessment: #1 status post E. coli ESBL UTI #2 end-stage renal disease, hemodialysis dependent #3 hypertension #4 diabetes #5 gallstones without evidence of cholecystitis #6 Left chest permacath Plan: Remain stable, repeat blood cultures have been negative, she is on antibiotics day #11, were going to discontinue antibiotics and observe for. She is being seen by vascular team, plan for fistula transposition Problems: Consultation Date/Type/Reason Admit Date/Time Nov 14, 2016 at 19:06 Type of Consultation: id Exam/Review of Systems Vital Signs Vitals Vital Signs Date Time Temp Pulse Resp B/P Pulse Ox O2 Delivery O2 Flow Rate FiO2 11/25/16 08:53 97.8 75 16 127/58 95 Intake and Output 11/24/16 11/24/16 11/25/16 15:00 23:00 07:00 Intake Total 1200 ml 450 ml Balance 1200 ml 450 ml Results Results 24 hrs Laboratory Tests Test 11/24/16 17:30 11/24/16 20:43 11/25/16 08:11 11/25/16 12:10 Bedside Glucose 109 166 111 105 Medications Medications Current Medications Acetaminophen (Tylenol Tab) 650 mg Q6H PRN PO PAIN AND OR ELEVATED TEMP; Start 11/14/16 at 21:30 Ondansetron HCl (Zofran Inj) 4 mg Q6H PRN IV NAUSEA AND/OR VOMITING; Start 11/14 at 21:30 Zolpidem Tartrate (Ambien) 5 mg HS PRN PO INSOMNIA; Start 11/14/16 at 21:30 Heparin Sodium (Porcine) (Heparin (5000 Units/0.5 ml)) 5,000 unit BID SC Last administered on 11/25/16t 08:16; Admin Dose 5,000 UNIT; Start 11/14/16 at 21:30 Diagnostic Test (Pha) (Accu-Chek) 1 ea 02 XX ; Start 11/15/16 at 02:00 Amlodipine Besylate (Norvasc) 10 mg DAILY PO Last administered on 11/25/16 08: 13; Admin Dose 10 MG; Start 11/15/16 at 09:00 Aspirin (Halfprin) 81 mg DAILY PO Last administered on 11/25/16 08:13; Admin Dose 81 MG; Start 11/15/16 at 09:00 Atorvastatin Calcium (Lipitor) 80 mg DAILY PO Last administered on 11/25/16 08 :13; Admin Dose 80 MG; Start 11/15/16 at 09:00 Miscellaneous Information 1 ea NOTE XX ; Start 11/14/16 at 22:30 Glucose (Glutose) 15 gm Q15M PRN PO DECREASED GLUCOSE; Start 11/14/16 at 22:30 Glucose (Glutose) 22.5 gm Q15M PRN PO DECREASED GLUCOSE; Start 11/14/16 at 22:30 Dextrose (D50w Syringe) 25 ml Q15M PRN IV DECREASED GLUCOSE; Start 11/14/16 at 22:30 Dextrose (D50w Syringe) 50 ml Q15M PRN IV DECREASED GLUCOSE; Start 11/14/16 at 22:30 Glucagon (Glucagen) 1 mg Q15M PRN IM DECREASED GLUCOSE; Start 11/14/16 at 22:30 Glucose (Glutose) 15 gm Q15M PRN BUCCAL DECREASED GLUCOSE; Start 11/14/16 at 22: 30 Amikacin Sulfate (Amikacin Iv Per Pharmacy) AMIKACIN PER PHARMACY NOTE XX ; Start 11/18/16 at 12:00 SAHARA RAYMUNDO NP Nov 25, 2016 12:55
[2016-11-25 13:12] VITALS: BP 120/53; RESP 16
--- NOTE | 2016-11-25 14:14 | PN ---
Date/Time of Note Date/Time of Note DATE: 11/25/16 TIME: 12:40 Assessment/Plan Lines/Catheters IV Catheter Type (from [facility]): PERMACATH Lowry in Place (from [facility]): No Assessment/Plan Chief Complaint/Hosp Course 1. Cholelithiasis without cholecystitis: abdominal us: mild gallbladder wall thickening measuring 3.6 mm without surrounding fluid; LFT's normal; HIDA negative; no abdominal pain/guarding/tenderness; +bowel function -supportive- no surgical interventions recommended at this time 2. Sepsis: UTI; urine cx: ecoli vs. line infection: improved -supportive -to be discharged with abx 3. ESRD: on dialysis; previous HD without issues; poss revision of hd access vs. home -dialysis per renal 4. Diabetes: bedside glucose well controlled -blood sugar optimization -accuchecks 5. Hypertension. BP controlled -on norvasc 6. Mineral bone disorder. Continue to monitor calcium. Continue phosphate binders. 7. Anemia: chronic disease, ESRD; -monitor -transfuse as needed 8. Thrombocytopenia: , -monitor -bleeding precautions 9. Hyperlipidemia: -continue statin 10. Leukopenia: patient with chills,no fevers overnight, cxr & blood cx negative ; now normal wbc Patient seen and examined in collaboration with Dr. Dexter Beauchamp Problems: Subjective 24 Hr Interval Summary Possible revision of hd fistula vs. dc home today. Feels well. No c/o abdominal pain/discomfort. tolerating diet. + bowel function. No fevers, chills , santiago, dizziness, fainting, cp, palpitation Exam/Review of Systems Vital Signs Vitals Vital Signs Date Time Temp Pulse Resp B/P Pulse Ox O2 Delivery O2 Flow Rate FiO2 11/25/16 08:53 97.8 75 16 127/58 95 Intake and Output 11/24/16 11/24/16 11/25/16 15:00 23:00 07:00 Intake Total 1200 ml 450 ml Balance 1200 ml 450 ml Exam Free Text/Dictation Constitutional: alert, No oriented (forgetful ) Psych: nl mood/affect, no complaints, pleasant Head: atraumatic, normocephalic Eyes: nl lids, nl sclera ENMT: mucosa pink and moist Neck: non-tender, supple Respiratory: clear to auscultation Cardiovascular: nl pulses, regular rate and rhythm Gastrointestinal: non-tender, soft, nondistended No rebound or guarding (negative mann's) Musculoskeletal: nl extremities to inspection Extremities: normal pulses Neurological: No nl mental status (confused) Skin: nl turgor, No rash or lesions ETHEL YANG NP Nov 25, 2016 14:14
--- NOTE | 2016-11-30 04:58 | DS ---
DATE OF ADMISSION: 11/14/2016 DATE OF DISCHARGE: 11/25/2016 HOSPITAL COURSE: This is a 70-year-old female with a past medical history of end-stage renal disease on dialysis Wednesday, , and Wednesday with an access of PermCath and a right upper extremity AV fistula. The patient was admitted to [facility] for evaluation of fever and chills following dialysis. HOSPITAL COURSE: Upon arrival, the patient was noted to have a UTI and was given antibiotic therapy. She was seen by Dr. Michael. The patient responded well to antibiotic therapy but continued to have persistent chills, concerning for possible line infection. The patient had blood cultures drawn from the line and from periphery, which were negative. The patient was also seen by , vascular surgeon and recommendation was to salvage the line. There was no clinical need to remove the line as the patient had been clinically stable, cultures had been negative, and the patient had no further chills once antibiotic therapies were adjusted. Currently, at this time, the patient is stable in no acute distress. FOLLOWUP: She will be discharged home where she will follow up with in two weeks' time for scheduled outpatient revision of AV fistula. The patient will also be given antibiotics at her dialysis center, which has been arranged. DISCHARGE CONDITION: At the time of discharge, the patient was stable in no acute distress. FINAL DIAGNOSES: 1. Sepsis secondary to urinary tract infection. 2. Cholelithiasis. No evidence of cholecystitis. 3. End-stage renal disease. 4. Diabetes. 5. Hypertension. 6. Metabolic disorder. 7. Anemia. 8. Mild thrombocytopenia. 9. History of line infection. No evidence of line infection at this time. DISCHARGE MEDICATIONS: See med reconciliation list. NOTE: I spent over 40 minutes' time preparing the patient's discharge. Dictated By: Gilbert Jamil DO /[email or web address]/[email or web address] /Document#: [id number]
== END 2016-11-25 19:15 | disposition home or self-care (01) | DRG 871 ==
LOC: E/R 16:30 → MS2 19:06
PROVIDERS: ADMIT Internal Medicine; ATTEND Internal Medicine
PROC: 5A1D60Z (ICD-10-PCS; principal; 2016-11-15)
DX: A41.59 Other Gram-negative sepsis (principal); N18.6 End stage renal disease; E11.22 Type 2 diabetes mellitus with diabetic chronic kidney disease; I12.0 Hypertensive chronic kidney disease with stage 5 chronic kidney disease or end stage renal disease; D69.6 Thrombocytopenia, unspecified; N39.0 Urinary tract infection, site not specified; I25.10 Atherosclerotic heart disease of native coronary artery without angina pectoris; B96.20 Unspecified Escherichia coli [E. coli] as the cause of diseases classified elsewhere; Z16.12 Extended spectrum beta lactamase (ESBL) resistance; K80.20 Calculus of gallbladder without cholecystitis without obstruction; D63.1 Anemia in chronic kidney disease; E88.9 Metabolic disorder, unspecified; E78.5 Hyperlipidemia, unspecified; D72.819 Decreased white blood cell count, unspecified; Z87.01 Personal history of pneumonia (recurrent); Z99.2 Dependence on renal dialysis; Z79.82 Long term (current) use of aspirin; Z79.4 Long term (current) use of insulin
CPT/HCPCS: 36415; 70450; 71010; 76700; 78226; 80048; 80053; 80202; 82962; 83605; 83735; 84100; 84484; 85025; 85610; 85730; 87040; 87081; 87086; 90935; 93005; 96365; 96366; 96368; A9537; J0278; J0692; J1335; J1644; J1815; J3370

== ENCOUNTER 2016-11-26 15:54 | Inpatient (IN) | payer OTHER ==
[~2016-11-26] VITALS: Ht 152.4 cm; Wt 60.5 kg
[~2016-11-26 15:54] MED LIST changes: +AMLO-147 PO
[2016-11-26 16:27] LABS: ADD SCAN DIFF NO
[2016-11-26 16:31] LABS: ABNORMAL IP MESSAGE 1; HEMATOCRIT 24.5 % (37.0-47.0); HEMOGLOBIN 8.3 g/dl (12.0-16.0); MEAN CORPUSCULAR HEMOGLOBIN 26.7 pg (29.0-33.0); MEAN CORPUSCULAR HGB CONC 33.9 g/dl (32.0-37.0); MEAN CORPUSCULAR VOLUME 78.8 fl (82.0-101.0); PLATELET COUNT 84 10^3/UL (140-415); RED BLOOD COUNT 3.11 10^6/ul (4.20-5.40); RED CELL DISTRIBUTION WIDTH 16.4 % (11.5-14.5); WHITE BLOOD COUNT 16.8 10^3/ul (4.8-10.8)
[2016-11-26 16:44] LABS: INR 0.98
[2016-11-26 16:45] LABS: PARTIAL THROMBOPLASTIN TIME 37.7 Sec (25.0-35.0)
[2016-11-26 16:51] LABS: ALANINE AMINOTRANSFERASE 54 IU/L (13-69); ALBUMIN 3.7 g/dl (3.3-4.9); ALKALINE PHOSPHATASE 102 IU/L (42-121); ANION GAP 19 (8-16); ASPARTATE AMINO TRANSFERASE 58 IU/L (15-46); BILIRUBIN,INDIRECT 0.4 mg/dl (0-1.1); BILIRUBIN,TOTAL 0.4 mg/dl (0.2-1.3); BLOOD UREA NITROGEN 18 mg/dl (7-20); CALCIUM 8.6 mg/dl (8.4-10.2); CARBON DIOXIDE 30 mmol/L (21-31); CHLORIDE 92 mmol/L (97-110); CREATININE 2.31 mg/dl (0.44-1.00); GLUCOSE 169 mg/dl (70-220); POTASSIUM 3.5 mmol/L (3.5-5.1); SODIUM 137 mmol/L (135-144); TOTAL PROTEIN 7.4 g/dl (6.1-8.1)
[2016-11-26 17:02] LABS: TROPONIN-I < 0.012 ng/ml (0.00-0.12)
[2016-11-26] MEDS ORDERED: VANCOMYCIN 1.25 GM in SOD CHLORIDE 0.9% 250 ML IVPB ONE (17:30)
[2016-11-26] MEDS ORDERED: CEFEPIME 1GM/50 ML (PMX) 50 ML IVPB ONE (17:30)
[2016-11-26 17:41] LABS: INR 0.94; PROTIME 12.6 Sec (12.2-14.2)
[2016-11-26 17:42] LABS: PARTIAL THROMBOPLASTIN TIME 38.3 Sec (25.0-35.0)
[2016-11-26 17:43] LABS: LYMPHOCYTES # 0.8 10^3/ul (0.8-2.9); MONOCYTE # 1.2 10^3/ul (0.3-0.9); NEUTROPHIL # 14.6 10^3/ul (1.6-7.5); PLATELET ESTIMATE PLT APPEAR DECREASED
--- NOTE | 2016-11-26 18:17 | RADRPT ---
PROCEDURE: XR Chest. CLINICAL INDICATION: Chest pain. TECHNIQUE: Single frontal view of the chest was obtained. COMPARISON: Chest x-ray 10/11/2016 10:12 a.m. FINDINGS: A tunneled left internal jugular vein dialysis catheter is identified in place with its tip in the r ight atrium. No pneumothorax is noted on this excretory phase radiograph. There is vascular crowdi ng and compressive atelectasis in the bases of the lungs. Monitoring electrodes are noted across th e chest. There are small degenerative osteophytes in the thoracic spine. The heart, cardiomediasti nal silhouette and hilar structures are normal. The pulmonary vasculature is normal. There is a lef t-sided aorta. The lungs are clear. The costophrenic angles are normal. IMPRESSION: 1. Expiratory phase radiograph with a dialysis catheter with its tip in the proximal right atrium. 2. Atherosclerosis of the aortic arch. 3. No pneumothorax is identified. RPTAT:AAJJ Physician Fred Date Time Electronically viewed and signed by Merrill Magallanes Physician on 11/26/2016 18:17 LEONCIO/
[2016-11-26] MEDS ORDERED: ONDANSETRON 4 MG INJ IV PRN (18:30)
[2016-11-26] MEDS ORDERED: ACETAMINOPHEN 325 MG TAB PO PRN (18:30)
--- NOTE | 2016-11-26 18:32 | ERA ---
ER Documentation Chief Complaint Date/Time DATE: 11/26/16 TIME: 18:27 Chief Complaint BIB RA FROM DIALYSIS CENTER FOR EVAL OF LOW BLOOD PRESSURE HPI This is a 71-year-old female with a history of end-stage renal disease on dialysis Wednesday, and Wednesday who was recently discharged from the hospital who presents to the emergency room today after being brought in by ambulance from her dialysis center for evaluation of low blood pressure. According to the patient's daughter who is giving the history this patient was recently discharged from the hospital. She states that the patient was complaining of chills and did have a fever last night. The patient was given Tylenol and today and dialysis after she completed her dialysis the patient felt weak. She did have a low systolic blood pressure of 88. The patient's glucose was 64. The patient was given 215 cc of D10 in route by ambulance and was brought to the ER for evaluation. She is denying any pain at this time to states she is feeling weak. ROS All systems reviewed and are negative except as per history of present illness. Medications Home Meds Reported Medications Amlodipine Besylate* (Amlodipine Besylate*) 10 Mg Tablet, 10 MG PO DAILY, #30 TAB 11/14/16 Aspirin (Low Dose Aspirin) 81 Mg Tablet.dr, 81 MG PO DAILY, #30 TAB 09/28/16 Insulin Regular, Human (Humulin R) 100 Unit/1 Ml Vial, 2 UNITS IJ AC MEALS, VIAL 09/28/16 Calcium Acetate* (Calcium Acetate*) 667 Mg Capsule, 667 MG PO WITH MEALS, #30 CAP 09/28/16 Atorvastatin* (Atorvastatin*) 80 Mg Tablet, 80 MG PO DAILY, #30 TAB 09/28/16 Allergies Allergies: Coded Allergies: No Known Allergy (Unverified , 11/26/16) PMhx/Soc History of Surgery: Yes (RIGHT A-V FISTULA (2013,2015,2016)left sided arturo cath ) Anesthesia Reaction: No Hx Neurological Disorder: No Hx Respiratory Disorders: No Hx Cardiac Disorders: Yes (HYPERTENSION) Hx Psychiatric Problems: No Hx Miscellaneous Medical Probl: Yes (esrf) Hx Alcohol Use: No Hx Substance Use: No Hx Tobacco Use: No Smoking Status: Never smoker Physical Exam Vitals Vital Signs Date Time Temp Pulse Resp B/P Pulse Ox O2 Delivery O2 Flow Rate FiO2 11/26/16 18:23 77 16 98/43 100 Room Air 11/26/16 16:25 78 15 113/46 100 Room Air 11/26/16 15:57 98.2 83 18 103/51 93 Physical Exam INITIAL VITAL SIGNS: Reviewed by me GENERAL: The patient is well developed and appropriate for usual state of health in no apparent distress HEENT: Pupils equal, round, and reactive to light. EOMI. There is no scleral icterus. NECK: C-spine is soft and supple, there is no meningismus. There is no cervical lymphadenopathy. LUNGS: Coarse bilaterally. There are no rales, wheezes or rhonchi. HEART: Regular rate and rhythm, no murmurs, clicks, rubs or gallops. ABDOMEN: Soft, non-tender, non-distended. There are bowel sounds in all four quadrants. No rebound or guarding. EXTREMITIES: There is no peripheral cyanosis or edema. No focal swelling or erythema. NEUROLOGICAL: The patient moves all four extremities with 5/5 strength. Cranial nerves II - XII are intact. Normal gait. Alert and oriented SKIN: Right upper extremity AV fistula, erythematous and warm to touch, intra- chest wall catheter, no cellulitis or erythema there is no apparent rash or petechiae. HEME/LYMPHATIC: There is no evidence of excessive bruising or lymphedema. PSYCHIATRIC: The patient does not appear anxious or depressed. Result Diagram: 11/26/16 1620 11/26/16 1620 Results 24 hrs Laboratory Tests Test 11/26/16 16:18 11/26/16 16:20 11/26/16 16:50 11/26/16 17:05 Bedside Glucose 202mg/dL White Blood Count 16.810^3/ul Red Blood Count 3.1110^6/ul Hemoglobin 8.3g/dl Hematocrit 24.5% Mean Corpuscular Volume 78.8fl Mean Corpuscular Hemoglobin 26.7pg Mean Corpuscular Hemoglobin Concent 33.9g/dl Red Cell Distribution Width 16.4% Platelet Count 8410^3/UL Mean Platelet Volume fl Neutrophils % 87.0% Band Neutrophils % 1.0% Lymphocytes % 5.0% Monocytes % 7.0% Neutrophils # 14.610^3/ul Lymphocytes # 0.810^3/ul Monocytes # 1.210^3/ul Platelet Estimate PLT APPEAR DECREASED Prothrombin Time 13.0Sec 12.6Sec Prothrombin Time Ratio 1.0 1.0 INR International Normalized Ratio 0.98 0.94 Activated Partial Thromboplast Time 37.7Sec 38.3Sec Sodium Level 137mmol/L Potassium Level 3.5mmol/L Chloride Level 92mmol/L Carbon Dioxide Level 30mmol/L Anion Gap 19 Blood Urea Nitrogen 18mg/dl Creatinine 2.31mg/dl Glucose Level 169mg/dl Calcium Level 8.6mg/dl Total Bilirubin 0.4mg/dl Direct Bilirubin 0.00mg/dl Indirect Bilirubin 0.4mg/dl Aspartate Amino Transf (AST/SGOT) 58IU/L Alanine Aminotransferase (ALT/SGPT) 54IU/L Alkaline Phosphatase 102IU/L Troponin I < 0.012ng/ml Total Protein 7.4g/dl Albumin 3.7g/dl Globulin 3.70g/dl Albumin/Globulin Ratio 1.00 Lactic Acid Level 1.5mmol/L Current Medications Medications (Trade) Dose Ordered Sig/Hiram Route PRN Reason Start Time Stop Time Status Last Admin Dose Admin Vancomycin HCl 1.25 gm/Sodium Chloride 250 ml @ 83.333 mls/ hr ONCE ONCE IVPB 11/26/16 17:30 11/26/16 20:29 Cefepime HCl (Maxipime 1gm/50 ml (Pmx)) 50 ml @ 100 mls/hr ONCE ONCE IVPB 11/26/16 17:30 11/26/16 17:59 DC 11/26/16 17:36 Procedures/MDM EKG: Rate/Rhythm: [Normal Sinus Rhythm] QRS, ST, T-waves: [No changes consistent w/ acute ischemia] Impression: [No evidence of ischemia or arrhythmia] EKG: #2 Rate/Rhythm: [Normal Sinus Rhythm] QRS, ST, T-waves: [No changes consistent w/ acute ischemia] Impression: [No evidence of ischemia or arrhythmia] Chest X-ray 1V Interpreted by me: Soft Tissue: No acute abnormalities Bones: No acute abnormalities Mediastinum/Cardiac Silhouette/Lungs: [No acute abnormalities] This 71-year-old female presents to the ER for evaluation of generalized weakness. This patient did receive her dialysis today and was hypotensive or hypoglycemic. She was given D10 in route to the emergency room. When I evaluated her blood pressure was 105/73. She was not tachycardic however she was complaining of generalized weakness and did have dry mucous membranes. The patient did have lab work drawn in the emergency room here which does show a leukocytosis. I have looked at this patient's previous lab records and this patient did not have a leukocytosis when she was in the hospital. The patient underwent a thorough workup including a HIDA scan which was negative for cholecystitis. Given this patient's hypotension, age, and leukocytosis she will be placed in for admission at this time. She was not given 30 cc/kg of normal saline due to the fact that she is not hypotensive at this time and is a dialysis patient. The patient was started on vancomycin and cefepime after blood cultures were obtained. The patient will be admitted at this time under the care of Dr. tran Departure Diagnosis: Primary Impression: Hypotension Additional Impressions: Leukocytosis Microcytic anemia Renal insufficiency Condition: Stable JOSE NARAYANAN DO Nov 26, 2016 18:32
[2016-11-26 18:59] LABS: ADD UMIC YES; UR ASCORBIC ACID NEGATIVE (NEGATIVE); UR BACTERIA FEW /HPF (NONE SEEN); UR BILIRUBIN (Dip) NEGATIVE (NEGATIVE); UR BLOOD (Dip) NEGATIVE (NEGATIVE); UR CLARITY CLEAR (CLEAR); UR COLOR YELLOW (YELLOW); UR GLUCOSE (Dip) NEGATIVE (NEGATIVE); UR KETONES (Dip) NEGATIVE (NEGATIVE); UR LEUKOCYTE ESTERASE (Dip) NEGATIVE Leu/ul (NEGATIVE); UR NITRITE (Dip) NEGATIVE (NEGATIVE); UR RBC 1 /HPF (0-5); UR SPECIFIC GRAVITY (Dip) 1.008 (1.003-1.030); UR TOTAL PROTEIN (Dip) 2+ mg/dl (NEGATIVE); UR UROBILINOGEN (Dip) NEGATIVE (NEGATIVE)
[2016-11-26] MEDS ORDERED: SOD CHLORIDE 0.9% 200 ML IV STA (19:08)
[2016-11-26 20:51] VITALS: BP 114/53; PULSE 87
[2016-11-26 21:00] VITALS: Ht 152.4 cm; Wt 60.5 kg
[2016-11-27] MEDS ORDERED: NACL 0.9% 3 ML SYG IV SCH
[2016-11-27] MEDS ORDERED: ONDANSETRON 4 MG INJ IV PRN
[2016-11-27] MEDS ORDERED: VANCOMYCIN IV PER PHARMACY XX SCH
[2016-11-27] MEDS ORDERED: ZOLPIDEM 5 MG TAB PO PRN
[2016-11-27] MEDS ORDERED: DOBUTamine/D5W 1 MG/ML DRIP 250 ML IV SCH
[2016-11-27] MEDS ORDERED: GLUCOSE GEL 15 GRAM TUBE BUCCAL PRN (00:30)
[2016-11-27] MEDS ORDERED: GLUCAGON 1 MG INJ IM PRN (00:30)
[2016-11-27] MEDS ORDERED: DEXTROSE 50% 50 ML SYRINGE IV PRN ×2 (00:30)
[2016-11-27] MEDS ORDERED: GLUCOSE GEL 15 GRAM TUBE PO PRN ×2 (00:30)
[2016-11-27 01:31] LABS: ADD SCAN DIFF NO
[2016-11-27 01:32] LABS: ABNORMAL IP MESSAGE 1; BASOPHILS % 0.2 % (0.0-2.0); EOSINOPHILS # 0.1 10^3/ul (0.0-0.5); EOSINOPHILS % 0.7 % (0.0-7.0); HEMATOCRIT 24.6 % (37.0-47.0); HEMOGLOBIN 8.1 g/dl (12.0-16.0); LYMPHOCYTES % 7.3 % (15.0-51.0); MEAN CORPUSCULAR HEMOGLOBIN 26.3 pg (29.0-33.0); MEAN CORPUSCULAR HGB CONC 32.9 g/dl (32.0-37.0); MEAN CORPUSCULAR VOLUME 79.9 fl (82.0-101.0); MONOCYTES % 7.8 % (0.0-11.0); NEUTROPHIL # 10.8 10^3/ul (1.6-7.5); NEUTROPHILS % 83.1 % (39.0-77.0); PLATELET COUNT 97 10^3/UL (140-415); RED BLOOD COUNT 3.08 10^6/ul (4.20-5.40); RED CELL DISTRIBUTION WIDTH 16.5 % (11.5-14.5)
[2016-11-27 01:48] LABS: INR 1.01; PROTIME 13.3 Sec (12.2-14.2)
[2016-11-27 01:49] LABS: PARTIAL THROMBOPLASTIN TIME 40.5 Sec (25.0-35.0)
[2016-11-27 01:57] LABS: ALBUMIN 3.2 g/dl (3.3-4.9); ALBUMIN/GLOBULIN RATIO 1.03; BILIRUBIN,INDIRECT 0.4 mg/dl (0-1.1); BILIRUBIN,TOTAL 0.4 mg/dl (0.2-1.3); CALCIUM 8.3 mg/dl (8.4-10.2); CREATINE KINASE 49 IU/L (23-200); CREATININE 3.13 mg/dl (0.44-1.00); TOTAL PROTEIN 6.3 g/dl (6.1-8.1)
[2016-11-27 02:09] LABS: CK-MB 0.33 ng/ml (0.0-2.4)
[2016-11-27 02:13] LABS: TROPONIN-I < 0.012 ng/ml (0.00-0.12)
[2016-11-27 05:15] LABS: CREATINE KINASE 54 IU/L (23-200)
[2016-11-27 05:25] LABS: TROPONIN-I 0.013 ng/ml (0.00-0.12)
[2016-11-27 05:27] LABS: CK-MB < 0.22 ng/ml (0.0-2.4)
[2016-11-27] MEDS ORDERED: INSULIN ASPART [NOVOLOG] 3 ML PEN SC SCH (07:50)
[2016-11-27 08:42] VITALS: BP 91/43; RESP 18
--- NOTE | 2016-11-27 08:45 | QN ---
Documentation Comment Patient seen and examined. H/P fully dictated LEFTY BARRAZA DO Nov 27, 2016 08:44
[2016-11-27] MEDS ORDERED: CEFAZOLIN 1 GM/50 ML (PMX) 50 ML IVPB SCH (09:00)
[2016-11-27] MEDS: AMLODIPINE 10 MG TAB PO SCH (09:00)
[2016-11-27] MEDS: CALCIUM ACETATE 667 MG CAP PO SCH ×3 (09:03→17:47)
[2016-11-27] MEDS: ASPIRIN (EC) 81 MG TAB PO SCH (09:04)
[2016-11-27] MEDS: ATORVASTATIN 80 MG TAB PO SCH (09:04)
[2016-11-27] MEDS: HEPARIN 5,000 UNIT/0.5 ML VIAL SC SCH ×2 (09:07→21:04)
[2016-11-27 09:30] VITALS: BP 116/50; PULSE 80
[2016-11-27] MEDS: INSULIN ASPART [NOVOLOG] 3 ML PEN SC SCH ×3 (11:40→21:00)
--- NOTE | 2016-11-27 13:03 | HP ---
DATE OF ADMISSION: 11/26/2016 CHIEF COMPLAINT: Hypertension and chills. HISTORY OF PRESENT ILLNESS: The patient is a 71-year-old female with a past medical history of end-stage renal disease, on dialysis Wednesday, , and Wednesday. History of diabetes, history of hypertension who presents to [facility] for chills. The patient was recently admitted to [facility] two weeks ago and was discharged 3 days ago. The patient on a previous hospital course was diagnosed with UTI with questionable line infection. The patient's blood cultures were negative. The patient was receiving IV antibiotics and was discharged with antibiotics to be given at her dialysis center. The patient, yesterday following dialysis, was noted to be hypotensive and having chills. As a result, EMS was called. The patient was noted to be hypoglycemic with a sugar of 64, and brought to [facility] Emergency room. In the emergency room the patient had a chest x-ray, which showed no acute findings. The patient was given IV antibiotics and IV fluids, and admitted to Med /surg for evaluation. Upon my evaluation of the patient, at this time she is currently stable, denies any nausea, vomiting, no chest pain. PAST MEDICAL HISTORY: As stated above. History of end-stage renal disease, history of hypertension, history of diabetes. PAST SURGICAL HISTORY: Status post PermCath placement. Status post AV fistula. FAMILY HISTORY: Noncontributory. SOCIAL HISTORY: Does not drink, smoke, or do drugs. ALLERGIES: NO KNOWN DRUG ALLERGIES. MEDICATIONS: Patient medications have been reviewed. REVIEW OF SYSTEMS: A 14 point review of systems is conducted, pertinent positives as in HPI, otherwise negative. PHYSICAL EXAMINATION: VITAL SIGNS: Blood pressure is 91/43, respirations 18, temperature 99. HEENT: Head is normocephalic. NECK: Supple. HEART: Regular rate. LUNGS: Show diminished breath sounds at the bases. ABDOMEN: Soft, nontender to palpation. No rebound or guarding. EXTREMITIES: Negative for clubbing, cyanosis, no edema. SKIN: No rashes. MUSCULOSKELETAL: No joint effusion. NEUROLOGICAL: No change in exam. LABORATORY DATA: Shows a white count 13.9, hemoglobin 8.1, hematocrit 24.6, platelet count is 97,000. Sodium 138, potassium 4.2, chloride 95, BUN 20, creatinine 2.13. Lactic acid 0.8. ASSESSMENT AND PLAN: This is a 71-year-old female who presents with: 1. Systemic inflammatory response syndrome, possible sepsis. Underlying source unclear, possible line infection. Plan at this point is to continue outpatient antibiotic therapy. We will check blood cultures. Monitor serial lactic acid levels. Will also get ID evaluation and vascular surgery evaluation with [____], to consider possible PermCath exchange. 2. End-stage renal disease. The patient received dialysis tomorrow on schedule Wednesday, and Wednesday. 3. Hypertension. Etiology may be secondary to hypovolemia, due to ultrafiltration dialysis. Patient was given IV fluids. Monitor blood pressure closely. 4. Diabetes type 2. Accu-Cheks and sliding scale. 5. Cholelithiasis, without any evidence of cholecystitis. 6. [____]. Monitor counts closely. [____] status post anemia monitor any change level. 7. History of thrombocytopenia. Continue to monitor. LENGTH OF ADMISSION: Please note I spent 25 minutes face to face time with the patient. CODE STATUS: The patient is a full code. Dictated By: Gilbert Jamil DO /[email or web address] /Document#: [id number]
[2016-11-27] MEDS ORDERED: AMIKACIN IV PER PHARMACY XX SCH (14:30)
--- NOTE | 2016-11-27 15:03 | CONS ---
Date/Time of Note Date/Time of Note DATE: 11/27/16 TIME: 15:02 Assessment/Plan Assessment/Plan Chief Complaint/Hosp Course Patient was readmitted for recurrent fevers shivering chills and generalized weakness. She is alert looks comfortable WBC yesterday 16.8 today 13 with H&H 8.1 and 24.6 platelets 97 neutrophils 83.1 Antimicrobials: amikacin vancomycin Indwelling: right chest permacath Physical examination: Well-developed chronically ill-appearing fragile elderly woman who is alert in no distress. Head atraumatic, normocephalic, sclera anicteric. Neck is supple, trachea midline. Chest rise symmetrical breath sounds clear. Heart: S1-S2. Abdomen soft, bowel tones present. Extremities without cyanosis Assessment: 1. Sepsis with recurrent shivering, fevers, leukocytosis likely line sepsis 2. Status post E. coli ESBL UTI 3. Gallstones, no evidence of cholecystitis per surgery 4. End-stage renal disease, hemodialysis dependent 5. Hypertension 6. Diabetes Plan: Clinically stable, continue antibiotics pending AV fistula transposition, consider discontinuing hemodialysis catheter and send tip for culture. Discussed with Dr. Jamil Problems: Consultation Date/Type/Reason Admit Date/Time Nov 26, 2016 at 18:26 Initial Consult Date Type of Consultation: ID Exam/Review of Systems Vital Signs Vitals Vital Signs Date Time Temp Pulse Resp B/P Pulse Ox O2 Delivery O2 Flow Rate FiO2 11/27/16 09:30 80 116/50 11/27/16 08:42 99.0 18 97 11/26/16 20:51 Room Air Intake and Output 11/26/16 11/26/16 11/27/16 15:00 23:00 07:00 Intake Total 50 ml Balance 50 ml Results Result Diagram: 11/27/16 0037 11/27/16 0037 Results 24 hrs Laboratory Tests Test 11/26/16 16:18 11/26/16 16:20 11/26/16 16:50 11/26/16 17:05 Bedside Glucose 202 White Blood Count 16.8 #H Red Blood Count 3.11 L Hemoglobin 8.3 L Hematocrit 24.5 L Mean Corpuscular Volume 78.8 L Mean Corpuscular Hemoglobin 26.7 L Mean Corpuscular Hemoglobin Concent 33.9 Red Cell Distribution Width 16.4 H Platelet Count 84 L Mean Platelet Volume Neutrophils % 87.0 H Band Neutrophils % 1.0 Lymphocytes % 5.0 L Monocytes % 7.0 Neutrophils # 14.6 H Lymphocytes # 0.8 Monocytes # 1.2 H Platelet Estimate PLT APPEAR DECREASED Prothrombin Time 13.0 12.6 Prothrombin Time Ratio 1.0 1.0 INR International Normalized Ratio 0.98 0.94 Activated Partial Thromboplast Time 37.7 H 38.3 H Sodium Level 137 Potassium Level 3.5 Chloride Level 92 L Carbon Dioxide Level 30 Anion Gap 19 H Blood Urea Nitrogen 18 Creatinine 2.31 H Glucose Level 169 Calcium Level 8.6 Total Bilirubin 0.4 Direct Bilirubin 0.00 Indirect Bilirubin 0.4 Aspartate Amino Transf (AST/SGOT) 58 H Alanine Aminotransferase (ALT/SGPT) 54 Alkaline Phosphatase 102 Troponin I < 0.012 Total Protein 7.4 Albumin 3.7 Globulin 3.70 H Albumin/Globulin Ratio 1.00 Lactic Acid Level 1.5 Test 11/26/16 18:10 11/26/16 18:45 11/26/16 21:01 11/27/16 00:37 Urine Color YELLOW Urine Clarity CLEAR Urine pH 8.0 Urine Specific Gap 1.008 Urine Ketones NEGATIVE Urine Nitrite NEGATIVE Urine Bilirubin NEGATIVE Urine Urobilinogen NEGATIVE Urine Leukocyte Esterase NEGATIVE Urine Microscopic RBC 1 Urine Microscopic WBC 1 Urine Bacteria FEW A Urine Hemoglobin NEGATIVE Urine Glucose NEGATIVE Urine Total Protein 2+ H Lactic Acid Level 1.4 0.8 Bedside Glucose 93 White Blood Count 13.0 #H Red Blood Count 3.08 L Hemoglobin 8.1 L Hematocrit 24.6 L Mean Corpuscular Volume 79.9 L Mean Corpuscular Hemoglobin 26.3 L Mean Corpuscular Hemoglobin Concent 32.9 Red Cell Distribution Width 16.5 H Platelet Count 97 L Mean Platelet Volume Neutrophils % 83.1 H Lymphocytes % 7.3 L Monocytes % 7.8 Eosinophils % 0.7 Basophils % 0.2 Neutrophils # 10.8 H Lymphocytes # 1.0 Monocytes # 1.0 H Eosinophils # 0.1 Basophils # 0.0 Nucleated Red Blood Cells # 0.0 Prothrombin Time 13.3 Prothrombin Time Ratio 1.0 INR International Normalized Ratio 1.01 Activated Partial Thromboplast Time 40.5 H Sodium Level 138 Potassium Level 4.0 Chloride Level 95 L Carbon Dioxide Level 28 Anion Gap 19 H Blood Urea Nitrogen 20 Creatinine 3.13 H Glucose Level 93 # Calcium Level 8.3 L Total Bilirubin 0.4 Direct Bilirubin 0.00 Indirect Bilirubin 0.4 Aspartate Amino Transf (AST/SGOT) 46 Alanine Aminotransferase (ALT/SGPT) 58 Alkaline Phosphatase 94 Creatine Kinase 49 Creatine Kinase Index 0.7 Creatinine Kinase MB (Mass) 0.33 Troponin I < 0.012 Total Protein 6.3 # Albumin 3.2 L Globulin 3.10 Albumin/Globulin Ratio 1.03 Test 11/27/16 04:27 11/27/16 08:44 11/27/16 12:36 Creatine Kinase 54 Creatine Kinase Index 0.4 Creatinine Kinase MB (Mass) < 0.22 Troponin I 0.013 Bedside Glucose 105 128 Medications Medications Current Medications Ondansetron HCl (Zofran Inj) 4 mg Q6H PRN IV NAUSEA AND/OR VOMITING; Start at 00:00 Acetaminophen (Tylenol Tab) 650 mg Q6H PRN PO PAIN LEVEL 1-3 OR FEVER; Start at 00:00 Zolpidem Tartrate (Ambien) 5 mg QHS PRN PO SLEEP; Start 11/27/16 at 00:00 Heparin Sodium (Porcine) (Heparin (5000 Units/0.5 ml)) 5,000 unit Q12 SC Last administered on 11/27/16 09:07; Admin Dose 5,000 UNIT; Start 11/27/16 at 09:00 Amlodipine Besylate (Norvasc) 10 mg DAILY PO ; Start 11/27/16 at 09:00 Aspirin (Halfprin) 81 mg DAILY PO Last administered on 11/27/16 09:04; Admin Dose 81 MG; Start 11/27/16 at 09:00 Atorvastatin Calcium (Lipitor) 80 mg DAILY PO Last administered on 11/27/16 09 :04; Admin Dose 80 MG; Start 11/27/16 at 09:00 Miscellaneous Information 1 ea NOTE XX ; Start 11/27/16 at 00:30 Glucose (Glutose) 15 gm Q15M PRN PO DECREASED GLUCOSE; Start 11/27/16 at 00:30 Glucose (Glutose) 22.5 gm Q15M PRN PO DECREASED GLUCOSE; Start 11/27/16 at 00: 30 Dextrose (D50w Syringe) 25 ml Q15M PRN IV DECREASED GLUCOSE; Start 11/27/16 at 00:30 Dextrose (D50w Syringe) 50 ml Q15M PRN IV DECREASED GLUCOSE; Start 11/27/16 at 00:30 Glucagon (Glucagen) 1 mg Q15M PRN IM DECREASED GLUCOSE; Start 11/27/16 at 00:30 Glucose (Glutose) 15 gm Q15M PRN BUCCAL DECREASED GLUCOSE; Start 11/27/16 at 00 :30 Diagnostic Test (Pha) (Accu-Chek) 1 ea 02 XX ; Start 11/28/16 at 02:00 Amikacin Sulfate PER PHARMACY DOSING NOTE XX ; Start 11/27/16 at 14:30 Amikacin Sulfate/ Sodium Chloride (Amikacin/NS) 101.4 ml @ 102 mls/hr ONCE IVPB ; Start 11/27/16 at 17:00; Stop 11/27/16 at 23:45 SAHARA RAYMUNDO NP Nov 27, 2016 15:03
[2016-11-27] MEDS ORDERED: AMIKACIN 350 MG in SOD CHLORIDE 0.9% 100 ML IVPB SCH (17:00)
[2016-11-27 21:12] VITALS: BP 123/57; RESP 20
[2016-11-28] VITALS (13 sets, daily range): BP systolic 91–144; BP diastolic 49–66; PULSE 67–78; RESP 17–20
[2016-11-28] MEDS ORDERED: ACCU-CHEK XX SCH (02:00)
[2016-11-28] MEDS: ACCU-CHEK XX SCH (02:00)
[2016-11-28 05:46] LABS: ABNORMAL IP MESSAGE 1; HEMATOCRIT 23.6 % (37.0-47.0); HEMOGLOBIN 7.5 g/dl (12.0-16.0); MEAN CORPUSCULAR HEMOGLOBIN 25.7 pg (29.0-33.0); MEAN CORPUSCULAR HGB CONC 31.8 g/dl (32.0-37.0); MEAN CORPUSCULAR VOLUME 80.8 fl (82.0-101.0); PLATELET COUNT 84 10^3/UL (140-415); RED BLOOD COUNT 2.92 10^6/ul (4.20-5.40); RED CELL DISTRIBUTION WIDTH 16.5 % (11.5-14.5); WHITE BLOOD COUNT 7.6 10^3/ul (4.8-10.8)
[2016-11-28 06:06] LABS: POSITIVE DIFF @See below
[2016-11-28 06:15] LABS: CALCIUM 8.4 mg/dl (8.4-10.2); CREATININE 5.23 mg/dl (0.44-1.00); PHOSPHORUS 3.4 mg/dl (2.5-4.9)
[2016-11-28] MEDS: INSULIN ASPART [NOVOLOG] 3 ML PEN SC SCH ×4 (07:50→21:00)
[2016-11-28 08:23] LABS: ANISOCYTOSIS 1+ (0-0); EOSINOPHILS # 0.1 10^3/ul (0.0-0.5); LYMPHOCYTES # 2.2 10^3/ul (0.8-2.9); MONOCYTE # 1.1 10^3/ul (0.3-0.9); NEUTROPHIL # 4.2 10^3/ul (1.6-7.5)
[2016-11-28] MEDS: ASPIRIN (EC) 81 MG TAB PO SCH (08:49)
[2016-11-28] MEDS: CALCIUM ACETATE 667 MG CAP PO SCH ×3 (08:49→18:35)
[2016-11-28] MEDS: HEPARIN 5,000 UNIT/0.5 ML VIAL SC SCH ×2 (08:54→21:00)
[2016-11-28] MEDS: AMLODIPINE 10 MG TAB PO SCH (09:00)
[2016-11-28 10:04] LABS: IRON 36 ug/dl (35-150)
[2016-11-28 10:14] LABS: TOTAL IRON BINDING CAPACITY 179 ug/dl (241-421)
--- NOTE | 2016-11-28 10:52 | CONS ---
DATE OF ADMISSION: 11/26/2016 DATE OF CONSULTATION: 11/27/2016 Dear Doctors: Ms. Lezama is a 71-year-old female, known to our vascular surgery service secondary to end-stage renal disease. The patient has been having recurrent episodes of hypertension and chills, in which the patient has been having continual evaluations for possible UTI infection, pneumonia recently and possible line sepsis. During her course of workup, her catheter site has not had findings of purulent drainage or erythema or pain upon palpation. However, vascular surgery consultation has been obtained for further evaluation. At the moment, patient denies shortness of breath, chest pain, nausea, vomiting, fever, or chills. REVIEW OF SYSTEMS: Fourteen point review performed, negative except what was mentioned in HPI. PAST MEDICAL HISTORY: Entails end-stage renal disease, on dialysis Wednesday, , Wednesday. Hypertension, diabetes, noncompliance, hyperlipidemia, anemia of chronic disease. PAST SURGICAL HISTORY: Status post Permcatheter, status post right upper extremity AV fistula creation, status post bilateral upper extremity AV graft creation at outside facility. FAMILY HISTORY: Positive for hypertension. SOCIAL HISTORY: Denies tobacco, alcohol, or illicit drug use. ALLERGIES: NO KNOWN DRUG ALLERGIES. PHYSICAL EXAMINATION: GENERAL APPEARANCE: Alert, oriented x3. No apparent distress. HEENT: Normocephalic, atraumatic. PERRLA. EOMI. Mucosa moist. NECK: Supple. No carotid bruit. LUNGS: Clear to auscultation bilaterally. ABDOMEN: Soft, nontender, nondistended. Bowel sounds positive. EXTREMITIES: Right lower extremity, palpable femoral pulse. Palpable pedal pulse. Motor and sensory intact. Capillary refill 2-3 seconds. Left lower extremity, palpable femoral pulse. Palpable pedal pulse. Motor sensory and intact. Capillary refill 2-3 seconds. Right upper extremity, palpable brachial pulse. Motor and sensory intact. Capillary refill 2-3 seconds. Surgical scar is well healed. There is an antecubital fistula which has a bruit and thrill present. Left upper extremity, palpable brachial pulse. Motor and sensory intact. Capillary refill 2-3 seconds. Surgical scar well healed. There is a thrombosed graft that there is no indication of any infection. ASSESSMENT AND PLAN: 1. End-stage renal disease: It seems that the patient has been having recurrent admissions to the hospital secondary for episodes of chills and hypertension. As of recent, patient has had episodes of pneumonia which have resolved and been treated with antibiotics. Patient also had Klebsiella bacteremia which was suggestion of a possible urinary tract infection. Throughout these hospitalizations, patient has never had any erythema, purulence or tenderness upon catheter site. However, at this point, it would be reasonable for us to remove the Permcatheter and provide the patient with a possible catheter holiday. Would recommend to schedule the patient in the next day or so. 2. We will await the blood culture evaluations. 3. Optimize vascular status (nutrition, sugar control and antiplatelets). 4. Discussed findings, plan and management with the patient in the primary service and they understand. Thank you for allowing us to partake in the care of your patient. Please call with any questions. Dictated By: Mio Redmond MD /[email or web address] /Document#: [id number]
[2016-11-28] MEDS: ATORVASTATIN 80 MG TAB PO SCH (13:43)
--- NOTE | 2016-11-28 13:58 | CONS ---
Date/Time of Note Date/Time of Note DATE: 11/28/16 TIME: 13:57 Assessment/Plan Assessment/Plan Chief Complaint/Hosp Course No acute events overnight patient is alert looks comfortable denies pain discomfort antimicrobials: amikacin vancomycin Indwelling: right chest permacath Physical examination: Well-developed chronically ill-appearing fragile elderly woman who is alert in no distress. Head atraumatic, normocephalic, sclera anicteric. Neck is supple, trachea midline. Chest rise symmetrical breath sounds clear. Heart: S1-S2. Abdomen soft, bowel tones present. Extremities without cyanosis Assessment: 1. Sepsis with recurrent shivering, fevers, leukocytosis likely line sepsis 2. Status post E. coli ESBL UTI 3. Gallstones, no evidence of cholecystitis per surgery 4. End-stage renal disease, hemodialysis dependent 5. Hypertension 6. Diabetes Plan: Clinically stable, continue antibiotics, pending discontinuing hemodialysis catheter, will send tip for culture. Discussed with staff Discussed with Dr. Jamil Problems: Consultation Date/Type/Reason Admit Date/Time Nov 26, 2016 at 18:26 Type of Consultation: ID Exam/Review of Systems Vital Signs Vitals Vital Signs Date Time Temp Pulse Resp B/P Pulse Ox O2 Delivery O2 Flow Rate FiO2 11/28/16 07:00 98.6 75 18 111/52 98 11/26/16 20:51 Room Air Intake and Output 11/27/16 11/27/16 11/28/16 15:00 23:00 07:00 Intake Total 50 ml 601.4 ml 240 ml Balance 50 ml 601.4 ml 240 ml Results Result Diagram: 11/28/16 0436 11/28/16 0436 Results 24 hrs Laboratory Tests Test 11/27/16 17:35 11/27/16 21:01 11/27/16 23:59 11/28/16 04:36 Bedside Glucose 128 178 Lactic Acid Level 0.8 White Blood Count 7.6 # Red Blood Count 2.92 L Hemoglobin 7.5 L Hematocrit 23.6 L Mean Corpuscular Volume 80.8 L Mean Corpuscular Hemoglobin 25.7 L Mean Corpuscular Hemoglobin Concent 31.8 L Red Cell Distribution Width 16.5 H Platelet Count 84 L Mean Platelet Volume Neutrophils % 55.0 Lymphocytes % 29.0 Monocytes % 15.0 H Eosinophils % 1.0 Basophils % Nucleated Red Blood Cells % 0.0 Neutrophils # 4.2 Lymphocytes # 2.2 Monocytes # 1.1 H Eosinophils # 0.1 Basophils # Nucleated Red Blood Cells # Anisocytosis 1+ Sodium Level 141 Potassium Level 4.0 Chloride Level 99 Carbon Dioxide Level 27 Anion Gap 19 H Blood Urea Nitrogen 34 #H Creatinine 5.23 #H Glucose Level 105 Calcium Level 8.4 Phosphorus Level 3.4 Magnesium Level 2.0 Test 11/28/16 04:38 11/28/16 08:33 11/28/16 12:24 Iron Level 36 Total Iron Binding Capacity 179 L Percent Iron Saturation 20 L Ferritin 785.0 H Bedside Glucose 100 180 Medications Medications Current Medications Ondansetron HCl (Zofran Inj) 4 mg Q6H PRN IV NAUSEA AND/OR VOMITING; Start at 00:00 Acetaminophen (Tylenol Tab) 650 mg Q6H PRN PO PAIN LEVEL 1-3 OR FEVER; Start at 00:00 Zolpidem Tartrate (Ambien) 5 mg QHS PRN PO SLEEP; Start 11/27/16 at 00:00 Heparin Sodium (Porcine) (Heparin (5000 Units/0.5 ml)) 5,000 unit Q12 SC Last administered on 11/28/16 08:54; Admin Dose 5,000 UNIT; Start 11/27/16 at 09:00 Amlodipine Besylate (Norvasc) 10 mg DAILY PO ; Start 11/27/16 at 09:00 Aspirin (Halfprin) 81 mg DAILY PO Last administered on 11/28/16 08:49; Admin Dose 81 MG; Start 11/27/16 at 09:00 Atorvastatin Calcium (Lipitor) 80 mg DAILY PO Last administered on 11/28/16 13 :43; Admin Dose 80 MG; Start 11/27/16 at 09:00 Miscellaneous Information 1 ea NOTE XX ; Start 11/27/16 at 00:30 Glucose (Glutose) 15 gm Q15M PRN PO DECREASED GLUCOSE; Start 11/27/16 at 00:30 Glucose (Glutose) 22.5 gm Q15M PRN PO DECREASED GLUCOSE; Start 11/27/16 at 00: 30 Dextrose (D50w Syringe) 25 ml Q15M PRN IV DECREASED GLUCOSE; Start 11/27/16 at 00:30 Dextrose (D50w Syringe) 50 ml Q15M PRN IV DECREASED GLUCOSE; Start 11/27/16 at 00:30 Glucagon (Glucagen) 1 mg Q15M PRN IM DECREASED GLUCOSE; Start 11/27/16 at 00:30 Glucose (Glutose) 15 gm Q15M PRN BUCCAL DECREASED GLUCOSE; Start 11/27/16 at 00 :30 Diagnostic Test (Pha) (Accu-Chek) 1 ea 02 XX ; Start 11/28/16 at 02:00 Amikacin Sulfate (Amikacin Iv Per Pharmacy) PER PHARMACY DOSING NOTE XX ; Start 11/27/16 at 14:30 SAHARA RAYMUNDO NP Nov 28, 2016 13:58
[2016-11-28] MEDS: AMIKACIN 250 MG in SOD CHLORIDE 0.9% 100 ML IVPB SCH (18:36)
[2016-11-28] MEDS: EPOETIN 4000 UNITS/1 ML INJ (ESRD) SC SCH (18:39)
[2016-11-29] VITALS (22 sets, daily range): BP systolic 106–181; BP diastolic 53–76; PULSE 70–77; RESP 14–37
[2016-11-29] MEDS: ACCU-CHEK XX SCH (02:00)
[2016-11-29] MEDS ORDERED: LIDOCAINE 2% (SDV) 5 ML INJ ONE (07:00)
[2016-11-29] MEDS ORDERED: PROPOFOL 200 MG INJ ONE (07:00)
[2016-11-29 07:08] LABS: ABNORMAL IP MESSAGE 1; BASOPHILS % 0.5 % (0.0-2.0); EOSINOPHILS # 0.2 10^3/ul (0.0-0.5); EOSINOPHILS % 3.9 % (0.0-7.0); HEMATOCRIT 25.3 % (37.0-47.0); HEMOGLOBIN 8.2 g/dl (12.0-16.0); LYMPHOCYTES # 1.6 10^3/ul (0.8-2.9); LYMPHOCYTES % 25.7 % (15.0-51.0); MEAN CORPUSCULAR HEMOGLOBIN 25.9 pg (29.0-33.0); MEAN CORPUSCULAR HGB CONC 32.4 g/dl (32.0-37.0); MEAN CORPUSCULAR VOLUME 80.1 fl (82.0-101.0); MONOCYTE # 0.9 10^3/ul (0.3-0.9); MONOCYTES % 14.1 % (0.0-11.0); NEUTROPHIL # 3.4 10^3/ul (1.6-7.5); NEUTROPHILS % 55.5 % (39.0-77.0); RED BLOOD COUNT 3.16 10^6/ul (4.20-5.40); RED CELL DISTRIBUTION WIDTH 16.2 % (11.5-14.5); WHITE BLOOD COUNT 6.1 10^3/ul (4.8-10.8)
[2016-11-29 07:15] LABS: PLATELET COUNT 119 10^3/UL (140-415); POSITIVE DIFF @See below
[2016-11-29 07:41] LABS: CREATININE 3.53 mg/dl (0.44-1.00); PHOSPHORUS 3.5 mg/dl (2.5-4.9)
[2016-11-29] MEDS: INSULIN ASPART [NOVOLOG] 3 ML PEN SC SCH ×4 (07:50→20:47)
[2016-11-29] MEDS: CALCIUM ACETATE 667 MG CAP PO SCH ×4 (07:50→17:34)
[2016-11-29] MEDS: ASPIRIN (EC) 81 MG TAB PO SCH (08:18)
[2016-11-29] MEDS: AMLODIPINE 10 MG TAB PO SCH (08:19)
[2016-11-29] MEDS: ATORVASTATIN 80 MG TAB PO SCH (08:19)
[2016-11-29] MEDS ORDERED: BUPIVACAINE 0.25%/EPI (SDV) 30 ML INJ ONE (09:31)
[2016-11-29] MEDS ORDERED: LIDOCAINE 1% (STERILE-PAK) 30 ML INJ ONE (09:31)
[2016-11-29] MEDS ORDERED: HEPARIN 1000 UNITS/ML 10 ML INJ ONE (10:00)
[2016-11-29] MEDS ORDERED: DIPHENHYDRAMINE 50 MG INJ IV PRN (11:00)
[2016-11-29] MEDS ORDERED: ONDANSETRON 4 MG INJ IV PRN (11:00)
[2016-11-29] MEDS ORDERED: MEPERIDINE 25 MG INJ IV PRN (11:00)
[2016-11-29] MEDS ORDERED: FENTAnyl 50 MCG/ML VIAL IV PRN (11:00)
[2016-11-29] MEDS ORDERED: HYDROmorphONE (0.2 MG/ML) 10ML SYG IV PRN (11:00)
[2016-11-29] MEDS ORDERED: hydrALAzine 20 MG INJ IV PRN (11:30)
--- NOTE | 2016-11-29 11:38 | HPN ---
Date/Time of Note Date/Time of Note DATE: 11/29/16 TIME: 11:37 Interval H&P Admission Note Pt. seen H&P reviewed: No system changes FABIOLA MARTINEZ MD Nov 29, 2016 11:38
[2016-11-29] MEDS: LABETALOL HCL 20MG INJ IV PRN ×2 (11:49→12:07)
--- NOTE | 2016-11-29 12:34 | RADRPT ---
PROCEDURE: XR Chest. CLINICAL INDICATION: Line placement TECHNIQUE: Single frontal chest x-ray. COMPARISON: 11/26/2016 FINDINGS: Since the prior study, there has been removal of the prior left internal jugular dialysis catheter w ith placement of a new catheter with the tip within the atrial caval junction region. There is decre ased atelectasis within the lung bases. There is no focal consolidation, pleural effusion, or pneumo thorax. Mild cardiomegaly is again noted. Mediastinal contours are unremarkable. There are atheros clerotic calcifications within the aortic arch. Bones are unchanged without an acute fracture. RPTAT: QQ IMPRESSION: 1. Replacement of a new left dialysis catheter with the tip in the atrial caval junction region. 2. Mild atherosclerotic vascular disease. mild cardiomegaly. 3. Decreased bibasilar atelectasis. .Ila Cm MD, MD Date Time Electronically viewed and signed by .Ila Cm MD, on 11/29/2016 12:34 .T/
--- NOTE | 2016-11-29 14:58 | CONS ---
Date/Time of Note Date/Time of Note DATE: 11/29/16 TIME: 14:57 Assessment/Plan Assessment/Plan Chief Complaint/Hosp Course No acute events overnight patient is alert looks comfortable denies pain discomfort antimicrobials: amikacin vancomycin Indwelling: right chest permacath Physical examination: Well-developed chronically ill-appearing fragile elderly woman who is alert in no distress. Head atraumatic, normocephalic, sclera anicteric. Neck is supple, trachea midline. Chest rise symmetrical breath sounds clear. Heart: S1-S2. Abdomen soft, bowel tones present. Extremities without cyanosis Assessment: 1. Sepsis with recurrent shivering, fevers, leukocytosis likely line sepsis 2. Status post E. coli ESBL UTI 3. Gallstones, no evidence of cholecystitis per surgery 4. End-stage renal disease, hemodialysis dependent 5. Hypertension 6. Diabetes Plan: Clinically stable, s/p HD catheter dc'd, continue antibiotics, f/u tip culture. Discussed with staff Problems: Consultation Date/Type/Reason Admit Date/Time Nov 26, 2016 at 18:26 Type of Consultation: ID Exam/Review of Systems Vital Signs Vitals Vital Signs Date Time Temp Pulse Resp B/P Pulse Ox O2 Delivery O2 Flow Rate FiO2 11/29/16 14:00 98.1 72 16 155/68 99 Room Air 11/29/16 11:25 8.0 Intake and Output 11/28/16 11/28/16 11/29/16 15:00 23:00 07:00 Intake Total 1321 ml 0 ml Output Total 2500 ml Balance -1179 ml 0 ml Results Result Diagram: 11/29/16 0520 11/29/16 0520 Results 24 hrs Laboratory Tests Test 11/28/16 17:33 11/28/16 21:23 11/29/16 00:42 11/29/16 05:20 Bedside Glucose 159 179 Lactic Acid Level 1.2 White Blood Count 6.1 Red Blood Count 3.16 L Hemoglobin 8.2 L Hematocrit 25.3 L Mean Corpuscular Volume 80.1 L Mean Corpuscular Hemoglobin 25.9 L Mean Corpuscular Hemoglobin Concent 32.4 Red Cell Distribution Width 16.2 H Platelet Count 119 #L Mean Platelet Volume Neutrophils % 55.5 Lymphocytes % 25.7 Monocytes % 14.1 H Eosinophils % 3.9 Basophils % 0.5 Nucleated Red Blood Cells % 0.0 Neutrophils # 3.4 Lymphocytes # 1.6 Monocytes # 0.9 Eosinophils # 0.2 Basophils # 0.0 Nucleated Red Blood Cells # 0.0 Sodium Level 141 Potassium Level 4.0 Chloride Level 95 L Carbon Dioxide Level 30 Anion Gap 20 H Blood Urea Nitrogen 25 H Creatinine 3.53 #H Glucose Level 107 Calcium Level 9.0 Phosphorus Level 3.5 Magnesium Level 2.0 Test 11/29/16 08:35 11/29/16 11:26 11/29/16 12:38 Bedside Glucose 110 103 109 Medications Medications Current Medications Ondansetron HCl (Zofran Inj) 4 mg Q6H PRN IV NAUSEA AND/OR VOMITING; Start at 00:00 Acetaminophen (Tylenol Tab) 650 mg Q6H PRN PO PAIN LEVEL 1-3 OR FEVER; Start at 00:00 Zolpidem Tartrate (Ambien) 5 mg QHS PRN PO SLEEP; Start 11/27/16 at 00:00 Heparin Sodium (Porcine) (Heparin (5000 Units/0.5 ml)) 5,000 unit Q12 SC Last administered on 11/28/16 08:54; Admin Dose 5,000 UNIT; Start 11/27/16 at 09:00 ; Status Future Hold Amlodipine Besylate (Norvasc) 10 mg DAILY PO ; Start 11/27/16 at 09:00 Aspirin (Halfprin) 81 mg DAILY PO Last administered on 11/28/16 08:49; Admin Dose 81 MG; Start 11/27/16 at 09:00 Atorvastatin Calcium (Lipitor) 80 mg DAILY PO Last administered on 11/28/16 13 :43; Admin Dose 80 MG; Start 11/27/16 at 09:00 Miscellaneous Information 1 ea NOTE XX ; Start 11/27/16 at 00:30 Glucose (Glutose) 15 gm Q15M PRN PO DECREASED GLUCOSE; Start 11/27/16 at 00:30 Glucose (Glutose) 22.5 gm Q15M PRN PO DECREASED GLUCOSE; Start 11/27/16 at 00: 30 Dextrose (D50w Syringe) 25 ml Q15M PRN IV DECREASED GLUCOSE; Start 11/27/16 at 00:30 Dextrose (D50w Syringe) 50 ml Q15M PRN IV DECREASED GLUCOSE; Start 11/27/16 at 00:30 Glucagon (Glucagen) 1 mg Q15M PRN IM DECREASED GLUCOSE; Start 11/27/16 at 00:30 Glucose (Glutose) 15 gm Q15M PRN BUCCAL DECREASED GLUCOSE; Start 11/27/16 at 00 :30 Diagnostic Test (Pha) (Accu-Chek) 1 ea XX ; Start 11/28/16 at 02:00 Amikacin Sulfate (Amikacin Iv Per Pharmacy) PER PHARMACY DOSING NOTE XX ; Start 11/27/16 at 14:30 SAHARA RAYMUNDO NP Nov 29, 2016 14:58
[2016-11-30] MEDS: ACETAMINOPHEN 325 MG TAB PO PRN (00:12)
[2016-11-30] MEDS: ACCU-CHEK XX SCH (02:45)
--- NOTE | 2016-11-30 06:00 | OPR ---
DATE OF OPERATION: 11/29/2016 SURGEON: Mio Redmond MD PREOPERATIVE DIAGNOSIS: End-stage renal disease, and sepsis. POSTOPERATIVE DIAGNOSIS: End-stage renal disease, and sepsis. OPION PERFORMED: Removal of tunneled hemodialysis catheter. Placement of a non tunneled catheter. ANESTHESIA: Local with moderate sedation. COMPLICATIONS: None. ESTIMATED BLOOD LOSS: Minimal. Transfusion none. SPECIMEN: Permanent catheter tip sent for microbiology. INDICATIONS: This is a 8-year-old female, whom has had multiple hospitalizations over the past 2 months, in which patient had presented with pneumonia workup and was treated with antibiotics. Subtitle subsequent to that presented with a new episode of chills and workup for a Klebsiella UTI. She now returns again with having episodes of chills that have been unclear. Throughout this course the patient has not shown any findings of erythema, tenderness, or drainage from the perm catheter site of her left chest wall. However, at this point, it would be reasonable to remove the perm catheter and send the tip for culture and to replace with a temporary catheter for now so she can undergo her dialysis and received her medications. Risks and benefits of procedure were discussed with the patient and daughter and were not limited to, , [place], pneumonia, stroke, infection, thrombosis of the catheter, pulmonary embolism, nerve injury, bleeding, and she has elected to undergo surgical intervention. PROCEDURE: 1. Removal of the left internal jugular vein tunneled hemodialysis catheter. 2. Left internal jugular vein non tunneled hemodialysis catheter. DESCRIPTION OF PROCEDURE: The patient was brought into the operating room, placed in supine position. The patient's arms were placed at 80 degrees. Normal bony prominences were well padded. Anesthesia team had placed appropriate lines and sedation was provided for the patient. Time-out was performed. Appropriate site was marked and confirmed. The patient's left neck and chest were prepped and draped in usual standard sterile fashion. The patient was already on preoperative antibiotics. At this point using a number 15 scalpel we made a 5 mm incision in the supraclavicular region where the catheter is being inserted into the left internal jugular vein. The catheter was exposed using Metzenbaum scissors. Once the catheter was exposed we went ahead and made sure that all the granulation tissue around the cuff and the catheter was released. This was performed in the operating room as it was difficult to remove the catheter at the bedside under sterile conditions. Attention was then turned to the port sites. We went ahead and placed a stiff wire through the venous port of the catheter. The catheter at this point, it was removed over the wire without difficulty. Pressure was held in the supraclavicular region and to prevent any bleeding. At this point, since the patient's bed was already in Trendelenburg position we went ahead and exchanged the catheter with a new Vivek catheter placed through the supraclavicular incision. The catheter was then advanced over the guidewire and the guidewire was removed without any difficulty. All the catheter ports were aspirated, flushed with heparinized saline solution and capped without any complications. The catheter was then secured with 0 nylon sutures at the desired depth and the sterile dressing was applied. Patient tolerated procedure well, was taken to the postanesthesia care in stable condition. Dictated By: Mio Redmond MD /[email or web address]/kinza /Document#: [id number]
[2016-11-30] MEDS: INSULIN ASPART [NOVOLOG] 3 ML PEN SC SCH ×4 (07:50→22:49)
[2016-11-30 08:00] VITALS: BP 131/61; RESP 16
[2016-11-30] MEDS: ATORVASTATIN 80 MG TAB PO SCH (08:38)
[2016-11-30] MEDS: AMLODIPINE 10 MG TAB PO SCH (08:38)
[2016-11-30] MEDS: CALCIUM ACETATE 667 MG CAP PO SCH ×3 (08:38→17:55)
[2016-11-30] MEDS: ASPIRIN (EC) 81 MG TAB PO SCH (08:38)
--- NOTE | 2016-11-30 10:37 | PN ---
Date/Time of Note Date/Time of Note DATE: 11/30/16 TIME: 10:35 Assessment/Plan VTE Prophylaxis VTE Prophylaxis Intervention: other Lines/Catheters IV Catheter Type (from [facility]): DEXTER CATH Urinary Cath still in place: Yes Reason Cath still needed: other (indicate) Assessment/Plan Chief Complaint/Hosp Course 1. Sepsis secondary line infection Patient had PermCath removed a Dexter catheter was placed Continue antibiotic therapy We will follow-up cultures 2. End-stage renal disease. The patient received dialysis tomorrow on schedule Wednesday, and Wednesday. Plan for dialysis tomorrow 3. Hypertension. Continue blood pressure regimen 4. Diabetes type 2. Accu-Cheks and sliding scale. 5. Cholelithiasis, without any evidence of cholecystitis. 6. [Anemia monitor H&H levels and give Epogen as needed 7. History of thrombocytopenia. Continue to monitor. Problems: Subjective 24 Hr Interval Summary Free Text/Dictation Patient seen and examined Had hemodialysis yesterday tolerated well Awaiting possible permacath placement will follow-up with vascular surgery Exam/Review of Systems Vital Signs Vitals Vital Signs Date Time Temp Pulse Resp B/P Pulse Ox O2 Delivery O2 Flow Rate FiO2 11/30/16 08:00 98.5 78 16 131/61 99 11/29/16 14:00 Room Air 11/29/16 11:25 8.0 Intake and Output 11/29/16 11/29/16 11/30/16 15:00 23:00 07:00 Intake Total 350 ml 520 ml 200 ml Output Total 10 ml 300 ml Balance 340 ml 220 ml 200 ml Exam EENT: Head is normocephalic. NECK: Supple. HEART: Regular rate LUNGS: Show diminished breath sounds at base. ABDOMEN: Soft, nontender to palpation without rebound or guarding. EXTREMITIES: Negative for clubbing, cyanosis. DERMATOLOGIC: No rashes. MUSCULOSKELETAL: No joint effusions, NEUROLOGIC: No change in exam. Results Result Diagram: 11/29/1651911/29/16 0520 Results 24 hrs Laboratory Tests Test 11/29/16 11:26 11/29/16 12:38 11/29/16 17:27 11/29/16 20:42 Bedside Glucose 103 109 154 207 Test 11/30/16 01:20 11/30/16 02:37 11/30/16 04:32 11/30/16 04:33 Lactic Acid Level 1.4 1.2 Bedside Glucose 138 Random Vancomycin Level 13.2 Test 11/30/16 08:37 Bedside Glucose 118 Medications Medications Current Medications Ondansetron HCl (Zofran Inj) 4 mg Q6H PRN IV NAUSEA AND/OR VOMITING; Start at 00:00 Acetaminophen (Tylenol Tab) 650 mg Q6H PRN PO PAIN LEVEL 1-3 OR FEVER Last administered on 11/30/16 00:12; Admin Dose 650 MG; Start 11/27/16 at 00:00 Zolpidem Tartrate (Ambien) 5 mg QHS PRN PO SLEEP; Start 11/27/16 at 00:00 Heparin Sodium (Porcine) (Heparin (5000 Units/0.5 ml)) 5,000 unit Q12 SC Last administered on 11/28/16 08:54; Admin Dose 5,000 UNIT; Start 11/27/16 at 09:00 ; Status Future Hold Amlodipine Besylate (Norvasc) 10 mg DAILY PO Last administered on 11/30/16 08: 38; Admin Dose 10 MG; Start 11/27/16 at 09:00 Aspirin (Halfprin) 81 mg DAILY PO Last administered on 11/30/16 08:38; Admin Dose 81 MG; Start 11/27/16 at 09:00 Atorvastatin Calcium (Lipitor) 80 mg DAILY PO Last administered on 11/30/16 08 :38; Admin Dose 80 MG; Start 11/27/16 at 09:00 Miscellaneous Information 1 ea NOTE XX ; Start 11/27/16 at 00:30 Glucose (Glutose) 15 gm Q15M PRN PO DECREASED GLUCOSE; Start 11/27/16 at 00:30 Glucose (Glutose) 22.5 gm Q15M PRN PO DECREASED GLUCOSE; Start 11/27/16 at 00: 30 Dextrose (D50w Syringe) 25 ml Q15M PRN IV DECREASED GLUCOSE; Start 11/27/16 at 00:30 Dextrose (D50w Syringe) 50 ml Q15M PRN IV DECREASED GLUCOSE; Start 11/27/16 at 00:30 Glucagon (Glucagen) 1 mg Q15M PRN IM DECREASED GLUCOSE; Start 11/27/16 at 00:30 Glucose (Glutose) 15 gm Q15M PRN BUCCAL DECREASED GLUCOSE; Start 11/27/16 at 00 :30 Diagnostic Test (Pha) (Accu-Chek) 1 ea 02 XX Last administered on 11/30/16t 02: 45; Admin Dose 1 EA; Start 11/28/16 at 02:00 Amikacin Sulfate (Amikacin Iv Per Pharmacy) PER PHARMACY DOSING NOTE XX ; Start 11/27/16 at 14:30 LEFTY BARRAZA DO Nov 30, 2016 10:37
--- NOTE | 2016-11-30 12:56 | CONS ---
Date/Time of Note Date/Time of Note DATE: 11/30/16 TIME: 12:55 Assessment/Plan Assessment/Plan Chief Complaint/Hosp Course No acute events overnight, patient is alert looks comfortable denies pain discomfort antimicrobials: amikacin vancomycin Indwelling: L chest chris Physical examination: Well-developed chronically ill-appearing fragile elderly woman who is alert in no distress. Head atraumatic, normocephalic, sclera anicteric. Neck is supple, trachea midline. Chest rise symmetrical breath sounds clear. Heart: S1-S2. Abdomen soft, bowel tones present. Extremities without cyanosis Assessment: 1. Sepsis with recurrent shivering, fevers, leukocytosis likely line sepsis 2. Status post E. coli ESBL UTI 3. Gallstones, no evidence of cholecystitis per surgery 4. End-stage renal disease, hemodialysis dependent 5. Hypertension 6. Diabetes Plan: Clinically stable, s/p HD catheter dc'd, continue antibiotics, f/u tip culture. Discussed with staff Problems: Consultation Date/Type/Reason Admit Date/Time Nov 26, 2016 at 18:26 Type of Consultation: ID Exam/Review of Systems Vital Signs Vitals Vital Signs Date Time Temp Pulse Resp B/P Pulse Ox O2 Delivery O2 Flow Rate FiO2 11/30/16 08:00 98.5 78 16 131/61 99 11/29/16 14:00 Room Air 11/29/16 11:25 8.0 Intake and Output 11/29/16 11/29/16 11/30/16 15:00 23:00 07:00 Intake Total 350 ml 520 ml 200 ml Output Total 10 ml 300 ml Balance 340 ml 220 ml 200 ml Results Result Diagram: 11/29/16 0520 11/29/16 0520 Results 24 hrs Laboratory Tests Test 11/29/16 17:27 11/29/16 20:42 11/30/16 01:20 11/30/16 02:37 Bedside Glucose 154 207 138 Lactic Acid Level 1.4 Test 11/30/16 04:32 11/30/16 04:33 11/30/16 08:37 11/30/16 12:38 Lactic Acid Level 1.2 Random Vancomycin Level 13.2 Bedside Glucose 118 133 Medications Medications Current Medications Ondansetron HCl (Zofran Inj) 4 mg Q6H PRN IV NAUSEA AND/OR VOMITING; Start at 00:00 Acetaminophen (Tylenol Tab) 650 mg Q6H PRN PO PAIN LEVEL 1-3 OR FEVER Last administered on 11/30/16 00:12; Admin Dose 650 MG; Start 11/27/16 at 00:00 Zolpidem Tartrate (Ambien) 5 mg QHS PRN PO SLEEP; Start 11/27/16 at 00:00 Heparin Sodium (Porcine) (Heparin (5000 Units/0.5 ml)) 5,000 unit Q12 SC Last administered on 11/28/16 08:54; Admin Dose 5,000 UNIT; Start 11/27/16 at 09:00 ; Status Future Hold Amlodipine Besylate (Norvasc) 10 mg DAILY PO Last administered on 11/30/16 08: 38; Admin Dose 10 MG; Start 11/27/16 at 09:00 Aspirin (Halfprin) 81 mg DAILY PO Last administered on 11/30/16 08:38; Admin Dose 81 MG; Start 11/27/16 at 09:00 Atorvastatin Calcium (Lipitor) 80 mg DAILY PO Last administered on 11/30/16 08 :38; Admin Dose 80 MG; Start 11/27/16 at 09:00 Miscellaneous Information 1 ea NOTE XX ; Start 11/27/16 at 00:30 Glucose (Glutose) 15 gm Q15M PRN PO DECREASED GLUCOSE; Start 11/27/16 at 00:30 Glucose (Glutose) 22.5 gm Q15M PRN PO DECREASED GLUCOSE; Start 11/27/16 at 00: 30 Dextrose (D50w Syringe) 25 ml Q15M PRN IV DECREASED GLUCOSE; Start 11/27/16 at 00:30 Dextrose (D50w Syringe) 50 ml Q15M PRN IV DECREASED GLUCOSE; Start 11/27/16 at 00:30 Glucagon (Glucagen) 1 mg Q15M PRN IM DECREASED GLUCOSE; Start 11/27/16 at 00:30 Glucose (Glutose) 15 gm Q15M PRN BUCCAL DECREASED GLUCOSE; Start 11/27/16 at 00 :30 Diagnostic Test (Pha) (Accu-Chek) 1 ea 02 XX Last administered on 11/30/16 02: 45; Admin Dose 1 EA; Start 11/28/16 at 02:00 Amikacin Sulfate (Amikacin Iv Per Pharmacy) PER PHARMACY DOSING NOTE XX ; Start 11/27/16 at 14:30 SAHARA RAYMUNDO NP Nov 30, 2016 12:56
[2016-11-30] MEDS ORDERED: VANCOMYCIN 1 GM in NS 250 ML IVPB SCH (14:30)
[2016-11-30 19:21] VITALS: BP 134/63; RESP 18
[2016-12-01] VITALS (10 sets, daily range): BP systolic 98–139; BP diastolic 48–74; PULSE 65–85; RESP 18–20
[2016-12-01] MEDS: ACCU-CHEK XX SCH (02:55)
[2016-12-01 05:36] LABS: CREATININE 5.56 mg/dl (0.44-1.00); PHOSPHORUS 4.1 mg/dl (2.5-4.9); POTASSIUM 4.8 mmol/L (3.5-5.1)
[2016-12-01] MEDS: INSULIN ASPART [NOVOLOG] 3 ML PEN SC SCH ×4 (07:50→21:09)
--- NOTE | 2016-12-01 10:36 | PN ---
Date/Time of Note Date/Time of Note DATE: 12/01/16 TIME: 10:33 Assessment/Plan Lines/Catheters IV Catheter Type (from [facility]): Chris permacath [place] in Place (from [facility]): No Assessment/Plan Chief Complaint/Hosp Course -End-stage renal disease: It seems that the patient has been having recurrent admissions to the hospital secondary for episodes of chills and hypertension. As of recent, patient has had episodes of pneumonia and treated with antibiotics. Patient also had Klebsiella bacteremia which was suggestion of a possible urinary tract infection. -S/P Left perm catheter removal, culture tip is negative thus far -S/P Left IJ Chris catheter -Optimize vascular status (nutrition, sugar control and antiplatelets). -Discussed findings, plan and management with the patient in the primary service and they understand. -Thank you for allowing us to partake in the care of your patient. Please call with any questions. Problems: Subjective 24 Hr Interval Summary no new vascular events overnight Exam/Review of Systems Vital Signs Vitals Vital Signs Date Time Temp Pulse Resp B/P Pulse Ox O2 Delivery O2 Flow Rate FiO2 12/01/16 09:00 85 12/01/16 09:00 16 12/01/16 08:44 98.3 98/48 98 11/29/16 14:00 Room Air 11/29/16 11:25 8.0 Intake and Output 11/30/16 11/30/16 12/01/16 15:00 23:00 07:00 Intake Total 1850 ml 180 ml Output Total 600 ml Balance 1850 ml -420 ml Exam Free Text/Dictation GENERAL APPEARANCE: Alert, oriented x3. CVS: S1S2 present LUNGS: Clear to auscultation bilaterally. Left neck with chris catheter intact ABDOMEN: Soft, nontender, nondistended. Bowel sounds positive. EXTREMITIES: Right upper extremity, palpable brachial pulse. Motor and sensory intact. Capillary refill 2-3 seconds. Surgical scar is well healed. Antecubital fistula with bruit and thrill present. Results Result Diagram: 11/29/16 0520 12/01/16 0427 FABIOLA MARTINEZ MD Dec 01, 2016 10:36 FABIOLA MARTINEZ MD Dec 01, 2016 10:36
--- NOTE | 2016-12-01 10:53 | CONS ---
Date/Time of Note Date/Time of Note DATE: 12/01/16 TIME: 10:52 Assessment/Plan Assessment/Plan Chief Complaint/Hosp Course ID PROGRESS NOTE TOTAL ABX DAY #5 => Vanco IV + Amikacin 24H INTERVAL SUMMARY * Awake, alert, responsive, VSS, NAD * PermCath (L-IJ) removed 11/29 w/placement of temporary L-IJ non-tunneled HD catheter for recurrent sepsis indicators = fever/chills, leukocytosis, and hypotension during HD. * 11/29 Central Line Tip Cx (-) * BCx (+)GNR KP prior admission on 10/10/16 ==> All subsequent BCx have been negative including 11/14(-) and 11/19(-); 11/21 (-); 11/26 (-) * Prior admission 11/14/16 Urine (+)E.Coli/ESBL low colony counts = repeat UA not impressive for UTI PHYSICAL EXAMINATION: GENERAL: VSS, NAD, no fevers HEENT: Unremarkable NECK: Supple, CHEST: Equal chest rise bilaterally, without dyspnea on observation, left IJ HD catheter HEART: Pulse RRR ABDOMEN: Soft EXTREMITIES: Warm SKIN: Warm, dry ID ASSESSMENT: 71 yo F admitted with: 1. Sepsis with recurrent shivering after hemodialysis, subjective fevers, low grade temps, significant leukocytosis 16.8 on admission and episodes of hypotension * => likely due to PermCath sepsis despite negative blood cultures. * Patient also w/hx of 10/10/16 (+)GNR-KP blood cultures, hx of E.Coli ESBL UTI, and prior HCAP = BCx, UA this admission remain negative. 2. Hx of E. coli ESBL UTI w/low colony counts 3. Cholelithiasis without cholecystitis = conservative Tx per surgery recommended prior admission * HIDA negative prior admission 4. End-stage renal disease, hemodialysis dependent * New HD temporary L-IJ catheter 11/29/16 * s/p RUEXT fistulogram September 2016 (not ripe) 5. Hypertension 6. Diabetes 7. Hx of recurrent HCAP -> asymptomatic INVASIVES: *New HD Cath (non-tunneled) ABX ALLERGIES: KNDA CURRENT ABX: DAY # 5 => Vanco IV + Amikacin ID RECOMMENDATIONS: 1. Repeat BCx are negative, PermCath DC'd with new temporary access in place, RUEXT AVF not ready for use, recommend 14 day total course ABX. 2. Sepsis has RESOLVED; blood cultures negative and patient is cleared by Dr. Michael for repeat PermCath placement 3. DC PLANNING ABD RECOMMENDATIONS: When cleared for DC home, patient may DC home on the following IV ABX to be given in HD Unit by RN post HD: * Vancomycin 1GM IVPB next dose due after next scheduled HD w/continued dose per OP pharmacist until last day 12/07/16 * Amikacin 250mg IVPB after each HD until last day 12/07/16 Problems: Consultation Date/Type/Reason Admit Date/Time Nov 26, 2016 at 18:26 Initial Consult Date Type of Consultation: ID Exam/Review of Systems Vital Signs Vitals Vital Signs Date Time Temp Pulse Resp B/P Pulse Ox O2 Delivery O2 Flow Rate FiO2 12/01/16 09:00 85 12/01/16 09:00 16 12/01/16 08:44 98.3 98/48 98 11/29/16 14:00 Room Air 11/29/16 11:25 8.0 Intake and Output 11/30/16 11/30/16 12/01/16 15:00 23:00 07:00 Intake Total 1850 ml 180 ml Output Total 600 ml Balance 1850 ml -420 ml Results Result Diagram: 11/29/16 0520 12/01/16 0427 Results 24 hrs Laboratory Tests Test 11/30/16 12:38 11/30/16 17:48 11/30/16 20:59 11/30/16 22:45 Bedside Glucose 133 166 217 181 Test 12/01/16 02:54 12/01/16 04:27 12/01/16 10:03 Bedside Glucose 146 138 Sodium Level 143 Potassium Level 4.8 Chloride Level 103 Carbon Dioxide Level 24 Anion Gap 21 H Blood Urea Nitrogen 48 #H Creatinine 5.56 #H Glucose Level 148 # Calcium Level 9.0 Phosphorus Level 4.1 Magnesium Level 2.0 Medications Medications Current Medications Ondansetron HCl (Zofran Inj) 4 mg Q6H PRN IV NAUSEA AND/OR VOMITING; Start at 00:00 Acetaminophen (Tylenol Tab) 650 mg Q6H PRN PO PAIN LEVEL 1-3 OR FEVER Last administered on 11/30/16t 00:12; Admin Dose 650 MG; Start 11/27/16 at 00:00 Zolpidem Tartrate (Ambien) 5 mg QHS PRN PO SLEEP; Start 11/27/16 at 00:00 Amlodipine Besylate (Norvasc) 10 mg DAILY PO Last administered on 11/30/16 08: 38; Admin Dose 10 MG; Start 11/27/16 at 09:00 Aspirin (Halfprin) 81 mg DAILY PO Last administered on 11/30/16 08:38; Admin Dose 81 MG; Start 11/27/16 at 09:00 Atorvastatin Calcium (Lipitor) 80 mg DAILY PO Last administered on 11/30/16 08 :38; Admin Dose 80 MG; Start 11/27/16 at 09:00 Miscellaneous Information 1 ea NOTE XX ; Start 11/27/16 at 00:30 Glucose (Glutose) 15 gm Q15M PRN PO DECREASED GLUCOSE; Start 11/27/16 at 00:30 Glucose (Glutose) 22.5 gm Q15M PRN PO DECREASED GLUCOSE; Start 11/27/16 at 00: 30 Dextrose (D50w Syringe) 25 ml Q15M PRN IV DECREASED GLUCOSE; Start 11/27/16 at 00:30 Dextrose (D50w Syringe) 50 ml Q15M PRN IV DECREASED GLUCOSE; Start 11/27/16 at 00:30 Glucagon (Glucagen) 1 mg Q15M PRN IM DECREASED GLUCOSE; Start 11/27/16 at 00:30 Glucose (Glutose) 15 gm Q15M PRN BUCCAL DECREASED GLUCOSE; Start 11/27/16 at 00 :30 Diagnostic Test (Pha) (Accu-Chek) 1 ea 02 XX Last administered on 12/01/16 02: 55; Admin Dose 1 EA; Start 11/28/16 at 02:00 Amikacin Sulfate (Amikacin Iv Per Pharmacy) PER PHARMACY DOSING NOTE XX ; Start 11/27/16 at 14:30 Heparin Sodium (Porcine) (Heparin (5000 Units/0.5 ml)) 5,000 unit BID SC ; Start 12/01/16 at 09:00 CELY TREVIÑO NP Dec 01, 2016 10:53
[2016-12-01] MEDS: ATORVASTATIN 80 MG TAB PO SCH (11:36)
[2016-12-01] MEDS: CALCIUM ACETATE 667 MG CAP PO SCH ×3 (11:36→17:55)
[2016-12-01] MEDS: AMLODIPINE 10 MG TAB PO SCH (11:37)
[2016-12-01] MEDS: AMIKACIN 250 MG in SOD CHLORIDE 0.9% 100 ML IVPB SCH (11:38)
[2016-12-01] MEDS: ASPIRIN (EC) 81 MG TAB PO SCH (11:39)
[2016-12-01] MEDS: EPOETIN 4000 UNITS/1 ML INJ (ESRD) SC SCH (11:44)
[2016-12-01] MEDS: HEPARIN 5,000 UNIT/0.5 ML VIAL SC SCH ×2 (11:46→21:09)
[2016-12-02] MEDS: ACCU-CHEK XX SCH (02:14)
[2016-12-02 07:00] VITALS: BP 122/57; RESP 18
[2016-12-02] MEDS: INSULIN ASPART [NOVOLOG] 3 ML PEN SC SCH ×4 (07:50→20:35)
[2016-12-02] MEDS: AMLODIPINE 10 MG TAB PO SCH (08:58)
[2016-12-02] MEDS: CALCIUM ACETATE 667 MG CAP PO SCH ×3 (08:58→18:19)
[2016-12-02] MEDS: ATORVASTATIN 80 MG TAB PO SCH (08:58)
[2016-12-02] MEDS: ASPIRIN (EC) 81 MG TAB PO SCH (08:59)
[2016-12-02] MEDS: HEPARIN 5,000 UNIT/0.5 ML VIAL SC SCH ×2 (09:00→20:35)
--- NOTE | 2016-12-02 15:38 | CONS ---
Date/Time of Note Date/Time of Note DATE: 12/02/16 TIME: 15:32 Assessment/Plan Assessment/Plan Chief Complaint/Hosp Course ID PROGRESS NOTE TOTAL ABX DAY #6 => Vanco IV + Amikacin 24H INTERVAL SUMMARY * Pleasant 71 yo F, sitting up on bed, tells me she is doing "OK", smiling, awake, alert, responsive, VSS, NAD * RECENT EVENTS: PermCath (L-IJ) removed 11/29 w/placement of temporary L-IJ non- tunneled HD catheter for recurrent sepsis indicators = fever/chills, leukocytosis, and hypotension during HD. * 11/29 Central Line Tip Cx (-) 72 hours * MICRO: BCx (+)GNR KP prior admission on 10/10/16 ==> All subsequent BCx have been negative including 11/14(-) and 11/19(-); 11/21 (-); 11/26 (-) * Prior admission 11/14/16 Urine (+)E.Coli/ESBL low colony counts = repeat UA not impressive for UTI PHYSICAL EXAMINATION: GENERAL: VSS, NAD, no fevers HEENT: Unremarkable NECK: Supple, CHEST: Equal chest rise bilaterally, without dyspnea on observation, left IJ HD catheter HEART: Pulse RRR ABDOMEN: Soft EXTREMITIES: Warm SKIN: Warm, dry ID ASSESSMENT: 71 yo F admitted with: 1. S/P Sepsis w/ recurrent shivering HD, subjective fevers/low grade temps, Leukocytosis 16.8 on admission, w/hypotension = RESOLVED * Likely due to PermCath sepsis despite negative blood cultures. * Patient also w/hx of 10/10/16 (+)GNR-KP blood cultures, hx of E.Coli ESBL UTI, and prior HCAP = BCx, UA this admission remain negative. 2. End-stage renal disease, hemodialysis dependent * New HD temporary L-IJ catheter 11/29/16 * s/p RUEXT fistulogram September 2016 (not ripe) 3. Cholelithiasis without cholecystitis = conservative Tx per surgery recommended prior admission * HIDA negative prior admission 4. Hx of E. coli ESBL UTI w/low colony counts, recent admission 5. Hypertension 6. Diabetes 7. Hx of recurrent HCAP -> asymptomatic INVASIVES: *New HD Cath (non-tunneled) ABX ALLERGIES: KNDA CURRENT ABX: DAY # 6 => Vanco IV + Amikacin ID RECOMMENDATIONS: 1. Repeat BCx are negative, PermCath DC'd 11/29 with new temporary access in place, RUEXT AVF not ready for use: * Recommend 14 day total course ABX due to recurrent nature of symptoms suspicious for true PermCath sepsis despite (-) Tip Cx. 2. Sepsis has RESOLVED; blood cultures negative, and patient is cleared by Dr. Michael for repeat PermCath placement 3. DC PLANNING ABD RECOMMENDATIONS: When cleared for DC home, patient may DC home on the following IV ABX to be given in HD Unit by RN post HD: * Vancomycin 1GM IVPB next dose due after next scheduled HD w/continued dose per OP pharmacist until last day 12/07/16 * Amikacin 250mg IVPB after each HD until last day 12/07/16 . Problems: Consultation Date/Type/Reason Admit Date/Time Nov 26, 2016 at 18:26 Type of Consultation: ID Exam/Review of Systems Vital Signs Vitals Vital Signs Date Time Temp Pulse Resp B/P Pulse Ox O2 Delivery O2 Flow Rate FiO2 12/02/16 07:00 98.6 77 18 122/57 98 11/29/16 14:00 Room Air 11/29/16 11:25 8.0 Intake and Output 12/01/16 12/01/16 12/02/16 15:00 23:00 07:00 Intake Total 1101 ml 840 ml 450 ml Output Total 3000 ml Balance -1899 ml 840 ml 450 ml Results Result Diagram: 11/29/16 0520 12/01/16 0427 Results 24 hrs Laboratory Tests Test 12/01/16 17:49 12/01/16 21:06 12/02/16 00:10 12/02/16 02:05 Bedside Glucose 139 189 153 Lactic Acid Level 1.1 Test 12/02/16 08:31 12/02/16 12:31 Bedside Glucose 121 141 Medications Medications Current Medications Ondansetron HCl (Zofran Inj) 4 mg Q6H PRN IV NAUSEA AND/OR VOMITING; Start at 00:00 Acetaminophen (Tylenol Tab) 650 mg Q6H PRN PO PAIN LEVEL 1-3 OR FEVER Last administered on 11/30/16 00:12; Admin Dose 650 MG; Start 11/27/16 at 00:00 Zolpidem Tartrate (Ambien) 5 mg QHS PRN PO SLEEP; Start 11/27/16 at 00:00 Amlodipine Besylate (Norvasc) 10 mg DAILY PO Last administered on 12/02/16 08: 58; Admin Dose 10 MG; Start 11/27/16 at 09:00 Aspirin (Halfprin) 81 mg DAILY PO Last administered on 12/02/16 08:59; Admin Dose 81 MG; Start 11/27/16 at 09:00 Atorvastatin Calcium (Lipitor) 80 mg DAILY PO Last administered on 12/02/16 08 :58; Admin Dose 80 MG; Start 11/27/16 at 09:00 Miscellaneous Information 1 ea NOTE XX ; Start 11/27/16 at 00:30 Glucose (Glutose) 15 gm Q15M PRN PO DECREASED GLUCOSE; Start 11/27/16 at 00:30 Glucose (Glutose) 22.5 gm Q15M PRN PO DECREASED GLUCOSE; Start 11/27/16 at 00: 30 Dextrose (D50w Syringe) 25 ml Q15M PRN IV DECREASED GLUCOSE; Start 11/27/16 at 00:30 Dextrose (D50w Syringe) 50 ml Q15M PRN IV DECREASED GLUCOSE; Start 11/27/16 at 00:30 Glucagon (Glucagen) 1 mg Q15M PRN IM DECREASED GLUCOSE; Start 11/27/16 at 00:30 Glucose (Glutose) 15 gm Q15M PRN BUCCAL DECREASED GLUCOSE; Start 11/27/16 at 00 :30 Diagnostic Test (Pha) (Accu-Chek) 1 ea 02 XX Last administered on 12/02/16 02: 14; Admin Dose 1 EA; Start 11/28/16 at 02:00 Amikacin Sulfate (Amikacin Iv Per Pharmacy) PER PHARMACY DOSING NOTE XX ; Start 11/27/16 at 14:30 Heparin Sodium (Porcine) (Heparin (5000 Units/0.5 ml)) 5,000 unit BID SC Last administered on 12/02/16 09:00; Admin Dose 5,000 UNIT; Start 12/01/16 at 09:00 CELY TREVIÑO NP Dec 02, 2016 15:37
[2016-12-02 20:16] VITALS: BP 111/55; RESP 20
[2016-12-03] VITALS (10 sets, daily range): BP systolic 90–131; BP diastolic 45–63; PULSE 73–86; RESP 18–20
[2016-12-03] MEDS: ACCU-CHEK XX SCH (02:07)
[2016-12-03] MEDS: INSULIN ASPART [NOVOLOG] 3 ML PEN SC SCH ×4 (07:50→20:20)
[2016-12-03] MEDS: CALCIUM ACETATE 667 MG CAP PO SCH ×3 (08:42→17:36)
[2016-12-03] MEDS: ATORVASTATIN 80 MG TAB PO SCH (08:42)
[2016-12-03] MEDS: ASPIRIN (EC) 81 MG TAB PO SCH (08:42)
[2016-12-03] MEDS: AMLODIPINE 10 MG TAB PO SCH (08:43)
[2016-12-03] MEDS: HEPARIN 5,000 UNIT/0.5 ML VIAL SC SCH ×2 (08:49→20:20)
--- NOTE | 2016-12-03 09:34 | PN ---
Date/Time of Note Date/Time of Note DATE: 12/03/16 TIME: 09:32 Assessment/Plan VTE Prophylaxis VTE Prophylaxis Intervention: other Lines/Catheters IV Catheter Type (from Nrs): chris cath Urinary Cath still in place: No Assessment/Plan Chief Complaint/Hosp Course Sepsis secondary line infection Patient had PermCath removed a Chris catheter was placed Continue antibiotic therapy Patient will need permacath placement for discharge, defer to vascular surgery We will follow-up cultures End-stage renal disease. The patient received dialysis tomorrow on schedule Wednesday, and Wednesday. Plan for dialysis today Hypertension. Continue blood pressure regimen Diabetes type 2. Accu-Cheks and sliding scale. Cholelithiasis, without any evidence of cholecystitis. [Anemia monitor H&H levels and give Epogen as needed History of thrombocytopenia. Continue to monitor. Access patient pending permacath placement possible AV fistula revision Problems: Subjective 24 Hr Interval Summary Free Text/Dictation Patient seen and examined No other events noted Exam/Review of Systems Vital Signs Vitals Vital Signs Date Time Temp Pulse Resp B/P Pulse Ox O2 Delivery O2 Flow Rate FiO2 12/03/16 08:27 98.1 79 20 131/63 97 11/29/16 14:00 Room Air 11/29/16 11:25 8.0 Intake and Output 12/02/16 12/02/16 12/03/16 15:00 23:00 07:00 Intake Total 500 ml 500 ml Balance 500 ml 500 ml Exam EENT: Head is normocephalic. NECK: Supple. HEART: Regular rate LUNGS: Show diminished breath sounds at base. ABDOMEN: Soft, nontender to palpation without rebound or guarding. EXTREMITIES: Negative for clubbing, cyanosis. DERMATOLOGIC: No rashes. MUSCULOSKELETAL: No joint effusions, NEUROLOGIC: No change in exam. Respiratory: clear to auscultation Results Result Diagram: 11/29/16 0520 12/01/16 0427 Results 24 hrs Laboratory Tests Test 12/02/16 12:31 12/02/16 17:41 12/02/16 20:31 12/03/16 02:03 Bedside Glucose 141 159 188 133 Test 12/03/16 08:41 Bedside Glucose 135 Medications Medications Current Medications Ondansetron HCl (Zofran Inj) 4 mg Q6H PRN IV NAUSEA AND/OR VOMITING; Start at 00:00 Acetaminophen (Tylenol Tab) 650 mg Q6H PRN PO PAIN LEVEL 1-3 OR FEVER Last administered on 11/30/16 00:12; Admin Dose 650 MG; Start 11/27/16 at 00:00 Zolpidem Tartrate (Ambien) 5 mg QHS PRN PO SLEEP; Start 11/27/16 at 00:00 Amlodipine Besylate (Norvasc) 10 mg DAILY PO Last administered on 12/03/16 08: 43; Admin Dose 10 MG; Start 11/27/16 at 09:00 Aspirin (Halfprin) 81 mg DAILY PO Last administered on 12/03/16 08:42; Admin Dose 81 MG; Start 11/27/16 at 09:00 Atorvastatin Calcium (Lipitor) 80 mg DAILY PO Last administered on 12/03/16 08 :42; Admin Dose 80 MG; Start 11/27/16 at 09:00 Miscellaneous Information 1 ea NOTE XX ; Start 11/27/16 at 00:30 Glucose (Glutose) 15 gm Q15M PRN PO DECREASED GLUCOSE; Start 11/27/16 at 00:30 Glucose (Glutose) 22.5 gm Q15M PRN PO DECREASED GLUCOSE; Start 11/27/16 at 00: 30 Dextrose (D50w Syringe) 25 ml Q15M PRN IV DECREASED GLUCOSE; Start 11/27/16 at 00:30 Dextrose (D50w Syringe) 50 ml Q15M PRN IV DECREASED GLUCOSE; Start 11/27/16 at 00:30 Glucagon (Glucagen) 1 mg Q15M PRN IM DECREASED GLUCOSE; Start 11/27/16 at 00:30 Glucose (Glutose) 15 gm Q15M PRN BUCCAL DECREASED GLUCOSE; Start 11/27/16 at 00 :30 Diagnostic Test (Pha) (Accu-Chek) 1 ea 02 XX Last administered on 12/03/16 02: 07; Admin Dose 1 EA; Start 11/28/16 at 02:00 Amikacin Sulfate (Amikacin Iv Per Pharmacy) PER PHARMACY DOSING NOTE XX ; Start 11/27/16 at 14:30 Heparin Sodium (Porcine) (Heparin (5000 Units/0.5 ml)) 5,000 unit BID SC Last administered on 12/03/16 08:49; Admin Dose 5,000 UNIT; Start 12/01/16 at 09:00 LEFTY BARRAZA DO Dec 03, 2016 09:34
--- NOTE | 2016-12-03 13:00 | PN ---
Date/Time of Note Date/Time of Note DATE: 12/03/16 TIME: 12:58 Assessment/Plan Lines/Catheters IV Catheter Type (from [facility]): DEXTER Lowry in Place (from [facility]): No Assessment/Plan Chief Complaint/Hosp Course -End-stage renal disease: It seems that the patient has been having recurrent admissions to the hospital secondary for episodes of chills and hypertension. As of recent, patient has had episodes of pneumonia and treated with antibiotics. Patient also had Klebsiella bacteremia which was suggestion of a possible urinary tract infection. -S/P Left perm catheter removal, culture tip is negative thus far -S/P Left IJ Dexter catheter -Will schedule patient for a new perm catheter placement. Shes also scheduled for OR next week for transposition of her RUE fistula as an outpt -Optimize vascular status (nutrition, sugar control and antiplatelets). -Discussed findings, plan and management with the patient in the primary service and they understand. -Thank you for allowing us to partake in the care of your patient. Please call with any questions. Problems: Subjective 24 Hr Interval Summary no new vascular events overnight Exam/Review of Systems Vital Signs Vitals Vital Signs Date Time Temp Pulse Resp B/P Pulse Ox O2 Delivery O2 Flow Rate FiO2 12/03/16 08:27 98.1 79 20 131/63 97 11/29/16 14:00 Room Air 11/29/16 11:25 8.0 Intake and Output 12/02/16 12/02/16 12/03/16 15:00 23:00 07:00 Intake Total 500 ml 500 ml Balance 500 ml 500 ml Exam Free Text/Dictation GENERAL APPEARANCE: Alert, oriented x3. CVS: S1S2 present LUNGS: Clear to auscultation bilaterally. Left neck with Dexter catheter intact ABDOMEN: Soft, nontender, nondistended. Bowel sounds positive. EXTREMITIES: Right upper extremity, palpable brachial pulse. Motor and sensory intact. Capillary refill 2-3 seconds. Surgical scar is well healed. Antecubital fistula with bruit and thrill present. Results Result Diagram: 11/29/16 0520 12/01/16 0427 FABIOLA MARTINEZ MD Dec 03, 2016 12:59
[2016-12-03] MEDS: AMIKACIN 250 MG in SOD CHLORIDE 0.9% 100 ML IVPB SCH (14:13)
[2016-12-03] MEDS: EPOETIN 4000 UNITS/1 ML INJ (ESRD) SC SCH (14:14)
--- NOTE | 2016-12-03 14:58 | PN ---
DATE: 12/01/2016 SUBJECTIVE DATA: The patient is getting hemodialysis, tolerating it well. No other acute events noted. OBJECTIVE DATA: VITAL SIGNS: Blood pressure 98/48, respirations 18, pulse 75, temperature 98.3. HEENT: Head is normocephalic. NECK: Supple. HEART: Regular rate. LUNGS: Diminished breath sounds at the base. ABDOMEN: Soft, nontender to palpation. No rebound or guarding. EXTREMITIES: Negative for clubbing or cyanosis. No edema. DERMATOLOGIC: No rashes. MUSCULOSKELETAL: No joint effusions. NEUROLOGIC: No change in exam. MEDICATIONS: Reviewed. LABORATORY AND DIAGNOSTIC DATA: Sodium 143, potassium 4.8, BUN 48, creatinine 5.56. ASSESSMENT AND PLAN: 1. Sepsis secondary to line infection. The patient's had Permacath removed. Currently on antibiotic therapy. Follow up with cultures. Follow up with infectious disease when a subsequent Permacath can be placed. 2. End-stage renal disease. Currently, patient is on hemodialysis and tolerating well. 3. Hypertension, controlled. Continue current blood pressure regimen. 4. Diabetes. Continue Accu-Cheks and sliding scale. 5. History of cholelithiasis. 6. Thrombocytopenia. Continue to monitor. 7. Anemia. Monitor H and H levels. . Dictated By: Gilbert Jamil DO /[email or web address]/[email or web address] /Document#: [id number]
--- NOTE | 2016-12-03 15:03 | PN ---
DATE: 12/02/2016 SUBJECTIVE DATA: The patient is stable, had hemodialysis yesterday and tolerated well. Plan for dialysis again tomorrow. The patient has been cleared by infectious disease for Permacath placement. Vascular surgery was informed. No other events noted. OBJECTIVE DATA: VITAL SIGNS: Blood pressure 122/56, respirations 18, pulse 77, temperature 98.6. HEENT: Head is normocephalic. NECK: Supple. HEART: Regular rate. LUNGS: Diminished breath sounds at the base. ABDOMEN: Soft, nontender to palpation. No rebound or guarding. EXTREMITIES: Negative for clubbing or cyanosis. No edema. DERMATOLOGIC: No rashes. MUSCULOSKELETAL: No joint effusions. NEUROLOGIC: No change in exam. MEDICATIONS: Reviewed. LABORATORY AND DIAGNOSTIC DATA: Reviewed. No new labs. ASSESSMENT AND PLAN: 1. Sepsis secondary to line infection. The patient's Permacath was removed. The patient is on IV antibiotics. Repeat cultures were negative. Per infectious disease, patient is cleared for another Permacath placement. Will follow up with vascular surgery. Continue antibiotic regimen. 2. End-stage renal disease. The patient is on dialysis Wednesday, and Wednesday. Plan for dialysis tomorrow. 3. Hypertension. Continue current blood pressure regimen. 4. Diabetes. Continue Accu-Cheks and insulin sliding scale. 5. Cholelithiasis with no evidence of cholecystitis. 6. Anemia. Continue to monitor H and H levels. Continue Epogen. 7. History of thrombocytopenia. Continue to monitor. Dictated By: Gilbert Jamil DO /kenneth/ec /Document#: [id number]
--- NOTE | 2016-12-03 18:34 | CONS ---
Date/Time of Note Date/Time of Note DATE: 12/03/16 TIME: 18:26 Assessment/Plan Assessment/Plan Chief Complaint/Hosp Course ID PROGRESS NOTE TOTAL ABX DAY #7 => Vanco IV + Amikacin 24H INTERVAL SUMMARY * No clinical indication of recurrent sepsis since PermCath removed 11/29 * PLAN: new perm catheter placement 12/04. Shes also scheduled for OR next week for transposition of her RUE fistula as an outpt * => Keep her on ABX through the tj-op AVF period anticipate last day * RECENT EVENTS: PermCath (L-IJ) removed 11/29 w/placement of temporary L-IJ non- tunneled HD catheter for recurrent sepsis indicators = fever/chills, leukocytosis, and hypotension during HD. * 11/29 Central Line Tip Cx (-) 72 hours * MICRO: BCx (+)GNR KP prior admission on 10/10/16 ==> All subsequent BCx have been negative including 11/14(-) and 11/19(-); 11/21 (-); 11/26 (-) * Prior admission 11/14/16 Urine (+)E.Coli/ESBL low colony counts = repeat UA not impressive for UTI PHYSICAL EXAMINATION: GENERAL: VSS, NAD, no fevers HEENT: Unremarkable NECK: Supple, CHEST: Equal chest rise bilaterally, without dyspnea on observation, left IJ HD catheter HEART: Pulse RRR ABDOMEN: Soft EXTREMITIES: Warm SKIN: Warm, dry ID ASSESSMENT: 71 yo F admitted with: 1. S/P Sepsis w/ recurrent shivering HD, subjective fevers/low grade temps, Leukocytosis 16.8 on admission, w/hypotension = RESOLVED * Likely due to PermCath sepsis despite negative blood cultures. * Patient also w/hx of 10/10/16 (+)GNR-KP blood cultures, hx of E.Coli ESBL UTI, and prior HCAP = BCx, UA this admission remain negative. 2. End-stage renal disease, hemodialysis dependent * New HD temporary L-IJ catheter 11/29/16 * s/p RUEXT fistulogram September 2016 (not ripe) 3. Cholelithiasis without cholecystitis = conservative Tx per surgery recommended prior admission * HIDA negative prior admission 4. Hx of E. coli ESBL UTI w/low colony counts, recent admission 5. Hypertension 6. Diabetes 7. Hx of recurrent HCAP -> asymptomatic INVASIVES: *New HD Cath (non-tunneled) ABX ALLERGIES: KNDA CURRENT ABX: DAY # 7 => Vanco IV + Amikacin ID RECOMMENDATIONS: 1. No clinical indication of recurrent sepsis since PermCath DC'd 11/29. * Patient is cleared for new perm catheter placement 12/04. * Patient cleared for OR next week for transposition of her RUE fistula as an outpt 3. DC PLANNING ABD RECOMMENDATIONS: When cleared for DC home, patient may DC home on the following IV ABX to be given in HD Unit by RN post HD: * => Keep her on ABX through the tj-op AVF period. * Vancomycin 1GM IVPB next dose due after next scheduled HD w/continued dose per OP pharmacist until last day 12/11/16 * Amikacin 250mg IVPB after each HD until last day 12/11/16 . Problems: Consultation Date/Type/Reason Admit Date/Time Nov 26, 2016 at 18:26 Type of Consultation: ID Exam/Review of Systems Vital Signs Vitals Vital Signs Date Time Temp Pulse Resp B/P Pulse Ox O2 Delivery O2 Flow Rate FiO2 12/03/16 15:11 98.8 77 20 110/50 100 11/29/16 14:00 Room Air 11/29/16 11:25 8.0 Intake and Output 12/02/16 12/02/16 12/03/16 15:00 23:00 07:00 Intake Total 500 ml 500 ml Balance 500 ml 500 ml Results Result Diagram: 11/29/16 0520 12/01/16 0427 Results 24 hrs Laboratory Tests Test 12/02/16 20:31 12/03/16 02:03 12/03/16 08:41 12/03/16 12:53 Bedside Glucose 188 133 135 179 Test 12/03/16 17:32 Bedside Glucose 189 Medications Medications Current Medications Ondansetron HCl (Zofran Inj) 4 mg Q6H PRN IV NAUSEA AND/OR VOMITING; Start at 00:00 Acetaminophen (Tylenol Tab) 650 mg Q6H PRN PO PAIN LEVEL 1-3 OR FEVER Last administered on 11/30/16t 00:12; Admin Dose 650 MG; Start 11/27/16 at 00:00 Zolpidem Tartrate (Ambien) 5 mg QHS PRN PO SLEEP; Start 11/27/16 at 00:00 Amlodipine Besylate (Norvasc) 10 mg DAILY PO Last administered on 12/03/16 08: 43; Admin Dose 10 MG; Start 11/27/16 at 09:00 Aspirin (Halfprin) 81 mg DAILY PO Last administered on 12/03/16 08:42; Admin Dose 81 MG; Start 11/27/16 at 09:00 Atorvastatin Calcium (Lipitor) 80 mg DAILY PO Last administered on 12/03/16 08 :42; Admin Dose 80 MG; Start 11/27/16 at 09:00 Miscellaneous Information 1 ea NOTE XX ; Start 11/27/16 at 00:30 Glucose (Glutose) 15 gm Q15M PRN PO DECREASED GLUCOSE; Start 11/27/16 at 00:30 Glucose (Glutose) 22.5 gm Q15M PRN PO DECREASED GLUCOSE; Start 11/27/16 at 00: 30 Dextrose (D50w Syringe) 25 ml Q15M PRN IV DECREASED GLUCOSE; Start 11/27/16 at 00:30 Dextrose (D50w Syringe) 50 ml Q15M PRN IV DECREASED GLUCOSE; Start 11/27/16 at 00:30 Glucagon (Glucagen) 1 mg Q15M PRN IM DECREASED GLUCOSE; Start 11/27/16 at 00:30 Glucose (Glutose) 15 gm Q15M PRN BUCCAL DECREASED GLUCOSE; Start 11/27/16 at 00 :30 Diagnostic Test (Pha) (Accu-Chek) 1 ea 02 XX Last administered on 12/03/16 02: 07; Admin Dose 1 EA; Start 11/28/16 at 02:00 Amikacin Sulfate (Amikacin Iv Per Pharmacy) PER PHARMACY DOSING NOTE XX ; Start 11/27/16 at 14:30 Heparin Sodium (Porcine) (Heparin (5000 Units/0.5 ml)) 5,000 unit BID SC Last administered on 12/03/16 08:49; Admin Dose 5,000 UNIT; Start 12/01/16 at 09:00 CELY TREVIÑO NP Dec 03, 2016 18:33
[2016-12-04] MEDS: ACCU-CHEK XX SCH (02:00)
[2016-12-04 05:37] LABS: BASOPHILS % 0.2 % (0.0-2.0); EOSINOPHILS # 0.3 10^3/ul (0.0-0.5); EOSINOPHILS % 5.1 % (0.0-7.0); HEMATOCRIT 26.3 % (37.0-47.0); HEMOGLOBIN 8.4 g/dl (12.0-16.0); LYMPHOCYTES # 1.8 10^3/ul (0.8-2.9); LYMPHOCYTES % 32.4 % (15.0-51.0); MEAN CORPUSCULAR HGB CONC 31.9 g/dl (32.0-37.0); MEAN CORPUSCULAR VOLUME 81.4 fl (82.0-101.0); MEAN PLATELET VOLUME 11.2 fl (7.4-10.4); MONOCYTE # 0.5 10^3/ul (0.3-0.9); MONOCYTES % 8.2 % (0.0-11.0); NEUTROPHILS % 53.4 % (39.0-77.0); PLATELET COUNT 165 10^3/UL (140-415); RED BLOOD COUNT 3.23 10^6/ul (4.20-5.40); WHITE BLOOD COUNT 5.5 10^3/ul (4.8-10.8)
[2016-12-04 06:20] LABS: CALCIUM 8.7 mg/dl (8.4-10.2); CREATININE 3.73 mg/dl (0.44-1.00); MAGNESIUM 1.9 mg/dl (1.7-2.5); PHOSPHORUS 4.1 mg/dl (2.5-4.9); POTASSIUM 3.6 mmol/L (3.5-5.1)
--- NOTE | 2016-12-04 06:28 | PN ---
DATE: 11/28/2016 SUBJECTIVE DATA: The patient is stable. No acute events overnight. The patient is scheduled for hemodialysis today. The patient is in no other acute distress. OBJECTIVE DATA: VITAL SIGNS: Blood pressure 111/62, respirations 18, pulse 75, temperature 98.6. HEENT: Head is normocephalic. NECK: Supple. HEART: Regular rate. LUNGS: Diminished breath sounds at the bases. ABDOMEN: Soft, nontender to palpation. No rebound or guarding. EXTREMITIES: Negative for clubbing or cyanosis. No edema. DERMATOLOGIC: Clean. No rashes. MUSCULOSKELETAL: No joint effusion. NEUROLOGIC: No change in exam. Patient's medications reviewed. LABORATORY DATA: Shows sodium 141, potassium 4.0. BUN 34, creatinine 5.23. White count 7.6, hemoglobin 10.5, hematocrit of 23.6. Platelet count is 84. ASSESSMENT AND PLAN: 1. Sepsis believed to be secondary to a line infection. The patient is currently on antibiotic therapy. Repeat cultures have been sent. Patient is pending PermCath removal by . Will continue to monitor. Follow up with ID for further recommendations. 2. Endstage renal disease. Patient is on dialysis Wednesday, , Wednesday. Plan for dialysis today for 3 hours, K bath, calcium 2.5. 3. Anemia. The patient had a drop in hemoglobin. Etiology is likely due to chronic disease. No active evidence of bleeding. Plan is to check an iron panel, ferritin level. Will continue Epogen after dialysis. Consider IV iron if there is evidence of iron deficiency. Will consider transfusion if hemoglobin levels should fall below 7 g/dL. 4. Mineral bone disorder. Monitor calcium and phosphorous levels. 5. Hypertension. Continue to monitor. 6. Diabetes. Continue Accu-Cheks and insulin sliding scale. 7. History of cholelithiasis with no evidence of cholecystitis. 8. Thrombocytopenia, chronic. Continue to monitor. 9. Dyslipidemia. Continue statin therapy. Dictated By: Gilbert Jamil DO /[email or web address]/[email or web address] /Document#: [id number]
[2016-12-04] MEDS: INSULIN ASPART [NOVOLOG] 3 ML PEN SC SCH ×4 (07:50→21:00)
[2016-12-04] MEDS: CALCIUM ACETATE 667 MG CAP PO SCH ×3 (07:50→17:55)
[2016-12-04 07:51] VITALS: BP 131/61; RESP 17
[2016-12-04] MEDS ORDERED: DEXTROSE 5%-0.45% NACL 1,000 ML IV SCH (08:30)
[2016-12-04] MEDS: HEPARIN 5,000 UNIT/0.5 ML VIAL SC SCH ×2 (09:00→20:57)
[2016-12-04] MEDS: ATORVASTATIN 80 MG TAB PO SCH (09:00)
[2016-12-04] MEDS: ASPIRIN (EC) 81 MG TAB PO SCH (09:00)
[2016-12-04] MEDS: AMLODIPINE 10 MG TAB PO SCH (09:00)
[2016-12-04 14:54] VITALS: BP 122/60; RESP 19
[2016-12-04] MEDS: VANCOMYCIN 1 GM in NS 250 ML IVPB SCH (15:43)
--- NOTE | 2016-12-04 18:05 | CONS ---
Date/Time of Note Date/Time of Note DATE: 12/04/16 TIME: 18:04 Assessment/Plan Assessment/Plan Chief Complaint/Hosp Course ID PROGRESS NOTE TOTAL ABX DAY #8 => Vanco IV + Amikacin 24H INTERVAL SUMMARY * NPO => Schedule for new PermCath tonight * No clinical indication of recurrent sepsis since PermCath removed 11/29 * PLAN: new perm catheter placement 12/04. Shes also scheduled for OR next week for transposition of her RUE fistula as an outpt * => Keep her on ABX through the tj-op AVF period anticipate last day PHYSICAL EXAMINATION: GENERAL: VSS, NAD, no fevers HEENT: Unremarkable NECK: Supple, CHEST: Equal chest rise bilaterally, without dyspnea on observation, left IJ HD catheter HEART: Pulse RRR ABDOMEN: Soft EXTREMITIES: Warm SKIN: Warm, dry ID ASSESSMENT: 71 yo F admitted with: 1. S/P Sepsis w/ recurrent shivering HD, subjective fevers/low grade temps, Leukocytosis 16.8 on admission, w/hypotension = RESOLVED * Likely due to PermCath sepsis despite negative blood cultures. * Patient also w/hx of 10/10/16 (+)GNR-KP blood cultures, hx of E.Coli ESBL UTI, and prior HCAP = BCx, UA this admission remain negative. 2. End-stage renal disease, hemodialysis dependent * New HD temporary L-IJ catheter 11/29/16 * s/p RUEXT fistulogram September 2016 (not ripe) 3. Cholelithiasis without cholecystitis = conservative Tx per surgery recommended prior admission * HIDA negative prior admission 4. Hx of E. coli ESBL UTI w/low colony counts, recent admission 5. Hypertension 6. Diabetes 7. Hx of recurrent HCAP -> asymptomatic INVASIVES: *New HD Cath (non-tunneled) ABX ALLERGIES: KNDA CURRENT ABX: DAY #8 => Vanco IV + Amikacin ID RECOMMENDATIONS: 1. No clinical indication of recurrent sepsis since PermCath DC'd 11/29. * Patient is cleared for new perm catheter placement 12/04. * Patient cleared for OR next week for transposition of her RUE fistula as an outpt 3. DC PLANNING ABD RECOMMENDATIONS: When cleared for DC home, patient may DC home on the following IV ABX to be given in HD Unit by RN post HD: * => Keep her on ABX through the tj-op AVF period. * Vancomycin 1GM IVPB next dose due after next scheduled HD w/continued dose per OP pharmacist until last day 12/11/16 * Amikacin 250mg IVPB after each HD until last day 12/11/16 . Problems: Consultation Date/Type/Reason Admit Date/Time Nov 26, 2016 at 18:26 Type of Consultation: ID Exam/Review of Systems Vital Signs Vitals Vital Signs Date Time Temp Pulse Resp B/P Pulse Ox O2 Delivery O2 Flow Rate FiO2 12/04/16 14:54 98.1 73 19 122/60 94 Intake and Output 12/03/16 12/03/16 12/04/16 15:00 23:00 07:00 Intake Total 500 ml 821 ml 200 ml Output Total 2500 ml Balance -2000 ml 821 ml 200 ml Results Result Diagram: 12/04/16 0428 12/04/16 0428 Results 24 hrs Laboratory Tests Test 12/03/16 20:17 12/03/16 23:55 12/04/16 01:25 12/04/16 04:28 Bedside Glucose 220 151 Lactic Acid Level 1.0 White Blood Count 5.5 Red Blood Count 3.23 L Hemoglobin 8.4 L Hematocrit 26.3 L Mean Corpuscular Volume 81.4 L Mean Corpuscular Hemoglobin 26.0 L Mean Corpuscular Hemoglobin Concent 31.9 L Red Cell Distribution Width 17.0 H Platelet Count 165 # Mean Platelet Volume 11.2 H Neutrophils % 53.4 Lymphocytes % 32.4 Monocytes % 8.2 Eosinophils % 5.1 Basophils % 0.2 Nucleated Red Blood Cells % 0.0 Neutrophils # 3.0 Lymphocytes # 1.8 Monocytes # 0.5 Eosinophils # 0.3 Basophils # 0.0 Nucleated Red Blood Cells # 0.0 Sodium Level 140 Potassium Level 3.6 Chloride Level 96 L Carbon Dioxide Level 29 Anion Gap 19 H Blood Urea Nitrogen 28 H Creatinine 3.73 H Glucose Level 127 Calcium Level 8.7 Phosphorus Level 4.1 Magnesium Level 1.9 Test 12/04/16 08:16 12/04/16 12:11 12/04/16 17:38 Bedside Glucose 122 119 91 Medications Medications Current Medications Ondansetron HCl (Zofran Inj) 4 mg Q6H PRN IV NAUSEA AND/OR VOMITING; Start at 00:00 Acetaminophen (Tylenol Tab) 650 mg Q6H PRN PO PAIN LEVEL 1-3 OR FEVER Last administered on 11/30/16 00:12; Admin Dose 650 MG; Start 11/27/16 at 00:00 Zolpidem Tartrate (Ambien) 5 mg QHS PRN PO SLEEP; Start 11/27/16 at 00:00 Amlodipine Besylate (Norvasc) 10 mg DAILY PO Last administered on 12/03/16 08: 43; Admin Dose 10 MG; Start 11/27/16 at 09:00 Aspirin (Halfprin) 81 mg DAILY PO Last administered on 12/03/16 08:42; Admin Dose 81 MG; Start 11/27/16 at 09:00 Atorvastatin Calcium (Lipitor) 80 mg DAILY PO Last administered on 12/03/16 08 :42; Admin Dose 80 MG; Start 11/27/16 at 09:00 Miscellaneous Information 1 ea NOTE XX ; Start 11/27/16 at 00:30 Glucose (Glutose) 15 gm Q15M PRN PO DECREASED GLUCOSE; Start 11/27/16 at 00:30 Glucose (Glutose) 22.5 gm Q15M PRN PO DECREASED GLUCOSE; Start 11/27/16 at 00: 30 Dextrose (D50w Syringe) 25 ml Q15M PRN IV DECREASED GLUCOSE; Start 11/27/16 at 00:30 Dextrose (D50w Syringe) 50 ml Q15M PRN IV DECREASED GLUCOSE; Start 11/27/16 at 00:30 Glucagon (Glucagen) 1 mg Q15M PRN IM DECREASED GLUCOSE; Start 11/27/16 at 00:30 Glucose (Glutose) 15 gm Q15M PRN BUCCAL DECREASED GLUCOSE; Start 11/27/16 at 00 :30 Diagnostic Test (Pha) (Accu-Chek) 1 ea 02 XX Last administered on 12/03/16 02: 07; Admin Dose 1 EA; Start 11/28/16 at 02:00 Amikacin Sulfate (Amikacin Iv Per Pharmacy) PER PHARMACY DOSING NOTE XX ; Start 11/27/16 at 14:30 Heparin Sodium (Porcine) 5000 unit 5,000 unit BID SC Last administered on 20:20; Admin Dose 5,000 UNIT; Start 12/01/16 at 09:00 Dextrose/Sodium Chloride 1,000 ml @ 40 mls/hr Q24H IV Last administered on 08:13; Admin Dose 40 MLS/HR; Start 12/04/16 at 08:30 Vancomycin HCl (Vancocin) 250 ml @ 125 mls/hr Q96H IVPB Last administered on 15:43; Admin Dose 125 MLS/HR; Start 12/04/16 at 16:00 CELY TREVIÑO NP Dec 04, 2016 18:05
[2016-12-04 20:59] VITALS: BP 120/59; RESP 19
[2016-12-05] VITALS (14 sets, daily range): BP systolic 102–136; BP diastolic 51–74; PULSE 70–79; RESP 17–20
[2016-12-05] MEDS: ACCU-CHEK XX SCH (01:17)
[2016-12-05] MEDS: CALCIUM ACETATE 667 MG CAP PO SCH ×3 (07:50→17:47)
[2016-12-05] MEDS: INSULIN ASPART [NOVOLOG] 3 ML PEN SC SCH ×4 (07:50→21:00)
[2016-12-05] MEDS: HEPARIN 5,000 UNIT/0.5 ML VIAL SC SCH ×2 (09:00→20:30)
[2016-12-05] MEDS: ASPIRIN (EC) 81 MG TAB PO SCH (09:00)
[2016-12-05] MEDS: AMLODIPINE 10 MG TAB PO SCH (09:00)
[2016-12-05] MEDS: ATORVASTATIN 80 MG TAB PO SCH (09:00)
--- NOTE | 2016-12-05 09:22 | PN ---
DATE: 12/05/2016 SUBJECTIVE DATA: The patient is pending PermCath placement today. No other events noted. OBJECTIVE DATA: VITAL SIGNS: Blood pressure 123/56, respirations 20, pulse 78, temperature 98.1. HEENT: Head is normocephalic. NECK: Supple. HEART: Regular rate. LUNGS: Diminished breath sounds at the base. ABDOMEN: Soft, nontender to palpation. No rebound or guarding. EXTREMITIES: Negative for clubbing, cyanosis, no edema. DERMATOLOGIC: No rashes. MUSCULOSKELETAL: No joint effusion. NEUROLOGIC: Unchanged. MEDICATION: The patient's medications were reviewed. LABORATORY AND DIAGNOSTIC DATA: Laboratory data has been reviewed. No new labs. ASSESSMENT AND PLAN: 1. Sepsis secondary to line infection. The patient PermCath was removed. The patient is currently on IV antibiotics. Will continue for another week. 2. Access. The patient has a twin catheter, pending PermCath placement. The patient is also scheduled for a transposition of AV fistula in 1-2 weeks time. 3. End-stage renal disease. Patient is on dialysis Wednesday, , Wednesday. Plan for dialysis today. We will dialyze for 3 hours 3K bath, calcium 2.5. 4. Hypertension. Continue current blood pressure regimen. 5. Diabetes. Continue current insulin sliding scale. 6. Cholelithiasis. No evidence of cholecystitis. 7. Anemia. Monitor H and H levels. 8. History of thrombocytopenia. Continue to monitor. Dictated By: Gilbert Jamil DO /[email or web address]/tosha /Document#: [id number]
[2016-12-05] MEDS: EPOETIN 4000 UNITS/1 ML INJ (ESRD) SC SCH (10:04)
[2016-12-05] MEDS: AMIKACIN 250 MG in SOD CHLORIDE 0.9% 100 ML IVPB SCH (10:05)
--- NOTE | 2016-12-05 10:06 | PN ---
Date/Time of Note Date/Time of Note DATE: 12/05/16 TIME: 10:04 Assessment/Plan Lines/Catheters IV Catheter Type (from [facility]): chris cath Lowry in Place (from [facility]): No Assessment/Plan Chief Complaint/Hosp Course -End-stage renal disease: It seems that the patient has been having recurrent admissions to the hospital secondary for episodes of chills and hypertension. As of recent, patient has had episodes of pneumonia and treated with antibiotics. Patient also had Klebsiella bacteremia which was suggestion of a possible urinary tract infection. -S/P Left perm catheter removal, culture tip is negative thus far -S/P Left IJ Chris catheter -Awaiting perm catheter placement by IR. -Shes also scheduled for OR WednesdayDecember 08 for transposition of her RUE fistula -Optimize vascular status (nutrition, sugar control and antiplatelets). -Discussed findings, plan and management with the patient in the primary service and they understand. -Thank you for allowing us to partake in the care of your patient. Please call with any questions. Problems: Subjective 24 Hr Interval Summary no new vascular events overnight Exam/Review of Systems Vital Signs Vitals Vital Signs Date Time Temp Pulse Resp B/P Pulse Ox O2 Delivery O2 Flow Rate FiO2 12/05/16 08:13 98.1 78 20 123/56 99 12/05/16 02:00 Room Air Intake and Output 12/04/16 12/04/16 12/05/16 15:00 23:00 07:00 Intake Total 650 ml 760 ml Output Total 250 ml Balance 650 ml 510 ml Exam Free Text/Dictation GENERAL: Alert, oriented x3. CVS: S1S2 present LUNGS: Clear to auscultation bilaterally. Left neck with Chris catheter intact ABDOMEN: Soft, nontender, nondistended. Bowel sounds positive. EXTREMITIES: Right upper extremity, palpable brachial pulse. Motor and sensory intact. Capillary refill 2-3 seconds. Surgical scar is well healed. Antecubital fistula with bruit and thrill present. Results Result Diagram: 12/04/168 12/04/16 042 FABIOLA MARTINEZ MD Dec 05, 2016 10:06
--- NOTE | 2016-12-05 13:34 | RADRPT ---
PROCEDURE: Left-sided IJ PERMACATH PLACEMENT CLINICAL INDICATION: renal failure TECHNIQUE: Informed consent was obtained from the patient following careful explanation of the risks and benefi ts of the procedure. Versed and Fentanyl were administered by the nurse who monitored the patient. T he patient was already on antibiotics. Fluoroscopy time: 0.5 min Number of images/cine sequences: 1 The patient was placed supine on the angiographic table and the left side of the neck, existing cath eter and anterior chest wall were prepped and draped in the usual sterile fashion. Cap, mask, steril e gown, sterile gloves, large sterile sheath, hand hygiene with 2% chlorhexidine was utilized. 1% l idocaine with lidocaine was utilized for local anesthesia. The existing catheter in the left neck was exchanged over the wire and a guidewire was advanced into the central veins as confirmed by fluoroscopic guidance. A site in the patient's chest wall was selected and anesthetized with lidocaine. A small incision was made with a #11 blade. The catheter was then tunneled in a retrograde fashion from the incision in the chest wall towards t he puncture site in the patient's neck. The introducer in the patient's neck was exchanged over a wire for a peel-away sheath. The catheter was advanced through the peel-away sheath and the peel-away sheath was removed. The catheter was flushed with heparin. The catheter was sutured to the patient's skin. The incision and the neck was closed with 4-0 Vicry l. A sterile dressing was applied. The patient tolerated the procedure well. COMPARISON: None FINDINGS: Left-sided Perma-Cath in appropriate position. RPTAT: AA IMPRESSION: Uncomplicated placement of a 23 cm tip-to-cuff Adam-Palindrome tunneled hemodyalisys catheter with it s tip overlying the mid right atrium. The catheter is ready for use.. .Carmelo Hobbs MD, Date Time Electronically viewed and signed by .Carmelo Hobbs MD, MD on 12/05/2016 13:34 .S/
--- NOTE | 2016-12-05 14:18 | CONS ---
Date/Time of Note Date/Time of Note DATE: 12/05/16 TIME: 14:15 Assessment/Plan Assessment/Plan Chief Complaint/Hosp Course ID PROGRESS NOTE TOTAL ABX DAY #9 => Vanco IV + Amikacin 24H INTERVAL SUMMARY * Doing well post new left chest PermCath, siting up in bed w/family present assisting patient with lunch * Pleasant 71 yo F, smiling, looks much better gaining strength back, no F/C/N/V /D/CP/SOB * No clinical indication of recurrent sepsis since PermCath removed 11/29 * PLAN: OR next week for transposition of her RUE fistula as an outpt * => Keep her on ABX through the tj-op AVF period anticipate last day PHYSICAL EXAMINATION: GENERAL: VSS, NAD, no fevers HEENT: Unremarkable NECK: Supple, CHEST: Equal chest rise bilaterally, without dyspnea on observation, left IJ HD catheter HEART: Pulse RRR ABDOMEN: Soft EXTREMITIES: Warm SKIN: Warm, dry ID ASSESSMENT: 71 yo F admitted with: 1. S/P Sepsis w/ recurrent shivering HD, subjective fevers/low grade temps, Leukocytosis 16.8 on admission, w/hypotension = RESOLVED * Likely due to PermCath sepsis despite negative blood cultures. * Patient also w/hx of 10/10/16 (+)GNR-KP blood cultures, hx of E.Coli ESBL UTI, and prior HCAP = BCx, UA this admission remain negative. 2. End-stage renal disease, hemodialysis dependent * New HD temporary L-IJ catheter 11/29/16 * s/p RUEXT fistulogram September 2016 (not ripe) 3. Cholelithiasis without cholecystitis = conservative Tx per surgery recommended prior admission * HIDA negative prior admission 4. Hx of E. coli ESBL UTI w/low colony counts, recent admission 5. Hypertension 6. Diabetes 7. Hx of recurrent HCAP -> asymptomatic INVASIVES: *New HD Cath (non-tunneled) ABX ALLERGIES: KNDA CURRENT ABX: DAY #9 => Vanco IV + Amikacin ID RECOMMENDATIONS: 1. No clinical indication of recurrent sepsis since PermCath DC'd 11/29. * PLAN: OR next week for transposition of her RUE fistula as an outpt * => Keep her on ABX through the tj-op AVF period anticipate last day 3. DC PLANNING ABD RECOMMENDATIONS: When cleared for DC home, patient may DC home on the following IV ABX to be given in HD Unit by RN post HD: * => Keep her on ABX through the tj-op AVF period. * Vancomycin 1GM IVPB next dose due after next scheduled HD w/continued dose per OP pharmacist until last day 12/11/16 * Amikacin 250mg IVPB after each HD until last day 12/11/16 * ABX recommendations discussed w/patient and daughter in room who express understanding/agreement/gratitude. . . Problems: Consultation Date/Type/Reason Admit Date/Time Nov 26, 2016 at 18:26 Type of Consultation: ID Exam/Review of Systems Vital Signs Vitals Vital Signs Date Time Temp Pulse Resp B/P Pulse Ox O2 Delivery O2 Flow Rate FiO2 12/05/16 08:13 98.1 78 20 123/56 99 12/05/16 02:00 Room Air Intake and Output 12/04/16 12/04/16 12/05/16 15:00 23:00 07:00 Intake Total 650 ml 760 ml Output Total 250 ml Balance 650 ml 510 ml Results Result Diagram: 12/04/16 0428 12/04/16 0428 Results 24 hrs Laboratory Tests Test 12/04/16 17:38 12/04/16 21:43 12/05/16 08:20 Bedside Glucose 91 114 155 Medications Medications Current Medications Ondansetron HCl (Zofran Inj) 4 mg Q6H PRN IV NAUSEA AND/OR VOMITING; Start at 00:00 Acetaminophen (Tylenol Tab) 650 mg Q6H PRN PO PAIN LEVEL 1-3 OR FEVER Last administered on 11/30/16 00:12; Admin Dose 650 MG; Start 11/27/16 at 00:00 Zolpidem Tartrate (Ambien) 5 mg QHS PRN PO SLEEP; Start 11/27/16 at 00:00 Amlodipine Besylate (Norvasc) 10 mg DAILY PO Last administered on 12/03/16 08: 43; Admin Dose 10 MG; Start 11/27/16 at 09:00 Aspirin (Halfprin) 81 mg DAILY PO Last administered on 12/03/16 08:42; Admin Dose 81 MG; Start 7/21/17 at 09:00 Atorvastatin Calcium (Lipitor) 80 mg DAILY PO Last administered on 12/03/16 08 :42; Admin Dose 80 MG; Start 11/27/16 at 09:00 Miscellaneous Information 1 ea NOTE XX ; Start 11/27/16 at 00:30 Glucose (Glutose) 15 gm Q15M PRN PO DECREASED GLUCOSE; Start 11/27/16 at 00:30 Glucose (Glutose) 22.5 gm Q15M PRN PO DECREASED GLUCOSE; Start 11/27/16 at 00: 30 Dextrose (D50w Syringe) 25 ml Q15M PRN IV DECREASED GLUCOSE; Start 11/27/16 at 00:30 Dextrose (D50w Syringe) 50 ml Q15M PRN IV DECREASED GLUCOSE; Start 11/27/16 at 00:30 Glucagon (Glucagen) 1 mg Q15M PRN IM DECREASED GLUCOSE; Start 11/27/16 at 00:30 Glucose (Glutose) 15 gm Q15M PRN BUCCAL DECREASED GLUCOSE; Start 11/27/16 at 00 :30 Diagnostic Test (Pha) (Accu-Chek) 1 ea 02 XX Last administered on 12/05/16 01: 17; Admin Dose 1 EA; Start 11/28/16 at 02:00 Amikacin Sulfate (Amikacin Iv Per Pharmacy) PER PHARMACY DOSING NOTE XX ; Start 11/27/16 at 14:30 Heparin Sodium (Porcine) 5000 unit 5,000 unit BID SC Last administered on 20:57; Admin Dose 5,000 UNIT; Start 12/01/16 at 09:00 Dextrose/Sodium Chloride 1,000 ml @ 40 mls/hr Q24H IV Last administered on 08:13; Admin Dose 40 MLS/HR; Start 12/04/16 at 08:30 Vancomycin HCl (Vancocin) 250 ml @ 125 mls/hr Q96H IVPB Last administered on 15:43; Admin Dose 125 MLS/HR; Start 12/04/16 at 16:00 CELY TREVIÑO NP Dec 05, 2016 14:18
[2016-12-06] MEDS: ACCU-CHEK XX SCH (01:17)
[2016-12-06 03:20] VITALS: BP 131/62; RESP 18
[2016-12-06] MEDS: ACETAMINOPHEN 325 MG TAB PO PRN (03:20)
--- NOTE | 2016-12-06 07:10 | PN ---
DATE: 12/04/2016 SUBJECTIVE DATA: The patient is scheduled for PermCath placement today. No other events noted. OBJECTIVE DATA: VITAL SIGNS: Blood pressure 131/61, respirations 17, pulse 97, temperature 97.7. HEENT: Head is normocephalic. NECK: Supple. HEART: Regular rate. LUNGS: Show diminished breath sounds at the bases. ABDOMEN: Soft, nontender on palpation. No rebound or guarding. EXTREMITIES: Negative for clubbing, cyanosis. No edema. DERMATOLOGIC: No rashes. MUSCULOSKELETAL: No joint effusion. NEUROLOGICAL: No change. MEDICATIONS: The patient's medications are reviewed. LABORATORY AND DIAGNOSTIC DATA: Sodium 140, potassium 3.6, chloride 96, BUN 28, creatinine 3.73. White count 5.5, hemoglobin 8.4, hematocrit 26.3, platelet count 155. ASSESSMENT AND PLAN: 1. Sepsis secondary to line infection. The patient's PermCath was removed. The patient is completing antibiotic course. Continue to monitor. Follow up with Infectious Disease. 2. Access. The patient is pending PermCath placement today. 3. End-stage renal disease. The patient is on dialysis Wednesday, , and Wednesday. Plan for dialysis tomorrow. 4. Hypertension. Continue current blood pressure regimen. 5. Diabetes. Continue Accu-Chek and insulin sliding scale. 6. Cholelithiasis without any evidence of cholecystitis. 7. Anemia. Monitor H and H levels. Continue Epogen. 8. Thrombocytopenia. Continue to monitor. Dictated By: Gilbert Jamil DO /kenneth/kaylin /Document#: [id number]
[2016-12-06] MEDS: INSULIN ASPART [NOVOLOG] 3 ML PEN SC SCH ×4 (07:50→21:00)
[2016-12-06 08:21] VITALS: BP 138/63; RESP 20
[2016-12-06] MEDS: ATORVASTATIN 80 MG TAB PO SCH (08:25)
[2016-12-06] MEDS: CALCIUM ACETATE 667 MG CAP PO SCH ×3 (08:25→17:27)
[2016-12-06] MEDS: ASPIRIN (EC) 81 MG TAB PO SCH (08:26)
[2016-12-06] MEDS: AMLODIPINE 10 MG TAB PO SCH (08:26)
[2016-12-06] MEDS: HEPARIN 5,000 UNIT/0.5 ML VIAL SC SCH ×2 (08:32→20:15)
--- NOTE | 2016-12-06 10:54 | PN ---
DATE: 12/06/2016 SUBJECTIVE DATA: The patient is stable. No acute events overnight. Had a PermCath placed yesterday. No other events noted. OBJECTIVE DATA: VITAL SIGNS: Blood pressure is 131/67, respirations 18, pulse 81, temperature 98.0 HEENT: Head is normocephalic. NECK: Supple. HEART: Regular rate. LUNGS: Diminished breath sounds at the base. ABDOMEN: Soft, nontender to palpation. No rebound or guarding. EXTREMITIES: Negative for clubbing, cyanosis. No edema. DERMATOLOGIC: No rashes. MUSCULOSKELETAL: Joint effusion. NEUROLOGIC: No change in exam. MEDICATIONS: Patient medications been reviewed. LABORATORY DATA: Reviewed no new labs. ASSESSMENT AND PLAN: 1. Sepsis secondary to line infection. The patient's PermCath was removed. The patient has completed antibiotic course. 2. Access. The patient had a PermCath placed pending a AV fistula transposition on Wednesday. 3. End-stage renal disease. Patient is on dialysis Wednesday, Wednesday, , Wednesday. Plan for dialysis tomorrow in anticipation of procedure on Wednesday. 4. Hypertension continue current blood pressure regimen. 5. Diabetes. Continue current insulin regimen. Cholelithiasis without any evidence of cholecystitis. 6. Anemia monitor H and H levels. 7. Known thrombocytopenia. Continue to monitor. 8. Gastrointestinal. Deep venous thrombosis prophylaxis. Dictated By: Gilbert Jamil DO /kenneth/katina /Document#: [id number]
--- NOTE | 2016-12-06 12:06 | CONS ---
Date/Time of Note Date/Time of Note DATE: 12/06/16 TIME: 12:03 Assessment/Plan Assessment/Plan Chief Complaint/Hosp Course Assessment/Plan Chief Complaint/Hosp Course ID PROGRESS NOTE TOTAL ABX DAY #9 => Vanco IV + Amikacin 24H INTERVAL SUMMARY * Doing well post new left chest PermCath. Denies Pain. No Acute Distress. * Pleasant 71 yo F, smiling, looks much better gaining strength back, no F/C/N/V /D/CP/SOB * No clinical indication of recurrent sepsis since PermCath removed 11/29 * PLAN: OR next week for transposition of her RUE fistula as an outpt * => Keep her on ABX through the tj-op AVF period anticipate last day PHYSICAL EXAMINATION: GENERAL: VSS, NAD, no fevers HEENT: Unremarkable NECK: Supple, CHEST: Equal chest rise bilaterally, without dyspnea on observation, left IJ HD catheter HEART: Pulse RRR ABDOMEN: Soft EXTREMITIES: Warm SKIN: Warm, dry ID ASSESSMENT: 71 yo F admitted with: 1. S/P Sepsis w/ recurrent shivering HD, subjective fevers/low grade temps, Leukocytosis 16.8 on admission, w/hypotension = RESOLVED * Likely due to PermCath sepsis despite negative blood cultures. * Patient also w/hx of 10/10/16 (+)GNR-KP blood cultures, hx of E.Coli ESBL UTI, and prior HCAP = BCx, UA this admission remain negative. 2. End-stage renal disease, hemodialysis dependent * New HD temporary L-IJ catheter 11/29/16 * s/p RUEXT fistulogram September 2016 (not ripe) 3. Cholelithiasis without cholecystitis = conservative Tx per surgery recommended prior admission * HIDA negative prior admission 4. Hx of E. coli ESBL UTI w/low colony counts, recent admission 5. Hypertension 6. Diabetes 7. Hx of recurrent HCAP -> asymptomatic INVASIVES: *New HD Cath (non-tunneled) ABX ALLERGIES: KNDA CURRENT ABX: DAY #9 => Vanco IV + Amikacin ID RECOMMENDATIONS: 1. No clinical indication of recurrent sepsis since PermCath DC'd 11/29. * PLAN: OR next week for transposition of her RUE fistula as an outpt * Keep her on ABX through the tj-op AVF period anticipate last day 12/11/16 2. DC PLANNING ABD RECOMMENDATIONS: When cleared for DC home, patient may DC home on the following IV ABX to be given in HD Unit by RN post HD: * => Keep her on ABX through the tj-op AVF period. * Vancomycin 1GM IVPB next dose due after next scheduled HD w/continued dose per OP pharmacist until last day 12/11/16 * Amikacin 250mg IVPB after each HD until last day 12/11/16 Problems: Consultation Date/Type/Reason Admit Date/Time Nov 26, 2016 at 18:26 Initial Consult Date Type of Consultation: ID Exam/Review of Systems Vital Signs Vitals Vital Signs Date Time Temp Pulse Resp B/P Pulse Ox O2 Delivery O2 Flow Rate FiO2 12/06/16 08:21 97.3 74 20 138/63 97 12/05/16 14:30 Room Air Intake and Output 12/05/16 12/05/16 12/06/16 15:00 23:00 07:00 Intake Total 801 ml 240 ml 380 ml Output Total 2500 ml Balance -1699 ml 240 ml 380 ml Results Result Diagram: 12/04/16 0428 12/04/16 0428 Results 24 hrs Laboratory Tests Test 12/05/16 17:37 12/05/16 20:25 12/06/16 08:24 Bedside Glucose 141 143 118 Medications Medications Current Medications Ondansetron HCl (Zofran Inj) 4 mg Q6H PRN IV NAUSEA AND/OR VOMITING; Start at 00:00 Acetaminophen (Tylenol Tab) 650 mg Q6H PRN PO PAIN LEVEL 1-3 OR FEVER Last administered on 12/06/16 03:20; Admin Dose 650 MG; Start 11/27/16 at 00:00 Zolpidem Tartrate (Ambien) 5 mg QHS PRN PO SLEEP; Start 11/27/16 at 00:00 Amlodipine Besylate (Norvasc) 10 mg DAILY PO Last administered on 12/06/16 08: 26; Admin Dose 10 MG; Start 11/27/16 at 09:00 Aspirin (Halfprin) 81 mg DAILY PO Last administered on 12/06/16 08:26; Admin Dose 81 MG; Start 11/27/16 at 09:00 Atorvastatin Calcium (Lipitor) 80 mg DAILY PO Last administered on 12/06/16 08 :25; Admin Dose 80 MG; Start 11/27/16 at 09:00 Miscellaneous Information 1 ea NOTE XX ; Start 11/27/16 at 00:30 Glucose (Glutose) 15 gm Q15M PRN PO DECREASED GLUCOSE; Start 11/27/16 at 00:30 Glucose (Glutose) 22.5 gm Q15M PRN PO DECREASED GLUCOSE; Start 11/27/16 at 00: 30 Dextrose (D50w Syringe) 25 ml Q15M PRN IV DECREASED GLUCOSE; Start 11/27/16 at 00:30 Dextrose (D50w Syringe) 50 ml Q15M PRN IV DECREASED GLUCOSE; Start 11/27/16 at 00:30 Glucagon (Glucagen) 1 mg Q15M PRN IM DECREASED GLUCOSE; Start 11/27/16 at 00:30 Glucose (Glutose) 15 gm Q15M PRN BUCCAL DECREASED GLUCOSE; Start 11/27/16 at 00 :30 Diagnostic Test (Pha) (Accu-Chek) 1 ea 02 XX Last administered on 12/05/16 01: 17; Admin Dose 1 EA; Start 11/28/16 at 02:00 Amikacin Sulfate (Amikacin Iv Per Pharmacy) PER PHARMACY DOSING NOTE XX ; Start 11/27/16 at 14:30 Heparin Sodium (Porcine) 5000 unit 5,000 unit BID SC Last administered on 08:32; Admin Dose 5,000 UNIT; Start 12/01/16 at 09:00 Vancomycin HCl (Vancocin) 250 ml @ 125 mls/hr Q96H IVPB Last administered on 15:43; Admin Dose 125 MLS/HR; Start 12/04/16 at 16:00 JADE DOYLE NP Dec 06, 2016 12:06
[2016-12-06 15:43] VITALS: BP 126/58; RESP 20
[2016-12-06 19:15] VITALS: BP 137/61; RESP 18
[2016-12-07 01:45] VITALS: BP 132/58; RESP 18
[2016-12-07] MEDS: ACCU-CHEK XX SCH (02:00)
[2016-12-07 08:46] VITALS: BP 148/65; RESP 18
[2016-12-07] MEDS: INSULIN ASPART [NOVOLOG] 3 ML PEN SC SCH ×4 (08:52→20:26)
[2016-12-07] MEDS: CALCIUM ACETATE 667 MG CAP PO SCH ×3 (08:52→17:45)
[2016-12-07] MEDS: ASPIRIN (EC) 81 MG TAB PO SCH (08:53)
[2016-12-07] MEDS: ATORVASTATIN 80 MG TAB PO SCH (08:53)
[2016-12-07] MEDS: AMLODIPINE 10 MG TAB PO SCH (08:53)
[2016-12-07] MEDS: HEPARIN 5,000 UNIT/0.5 ML VIAL SC SCH ×2 (09:30→21:00)
--- NOTE | 2016-12-07 11:08 | PN ---
DATE: 12/07/2016 SUBJECTIVE: Patient is stable. No events overnight. No fevers, chills, nausea, vomiting. OBJECTIVE DATA: Blood pressure is 140/65, respirations 18, pulse 75, temperature 98.1. HEENT: Head is normocephalic. NECK: Supple. HEART: Regular rate. LUNGS: Diminished breath sounds at the base. ABDOMEN: Soft, nontender to palpation. No rebound or guarding. EXTREMITIES: Negative for clubbing, cyanosis. No edema. DERMATOLOGIC: No rashes. MUSCULOSKELETAL: No joint effusion. NEUROLOGIC: No change in exam. MEDICATIONS: The patient's medications been reviewed. LABORATORY AND DIAGNOSTIC DATA: Has been reviewed. No new labs. ASSESSMENT AND PLAN: 1. Sepsis secondary to line infection. The patient's PermCath was removed. The patient is completing antibiotic course. 2. Access. Patient has a PermCath. Pending AV fistula transposition tomorrow. 3. End-stage renal disease. The patient is on dialysis Wednesday, , Wednesday. Plan for hemodialysis tomorrow. 4. Hypertension. Continue current blood pressure regimen. 5. Diabetes. Continue Accu-Chek and sliding scale. 6. Cholelithiasis without any evidence of cholecystitis. 7. Anemia. Monitor hemoglobin and hematocrit levels. Continue Epogen. 8. Thrombocytopenia. Continue to monitor. 9. Gastrointestinal and deep venous thrombosis prophylaxis. Dictated By: Gilbert Jamil DO /kenneth/hollis /Document#: [id number]
--- NOTE | 2016-12-07 11:30 | PN ---
DATE: 11/29/2016 SUBJECTIVE DATA: The patient had hemodialysis yesterday and tolerated it well. The patient is scheduled for PermCath removal today. No other acute events noted. OBJECTIVE DATA: VITAL SIGNS: Blood pressure 124/60, respirations 19, pulse 71, temperature 98.8 degrees. HEENT: Head is normocephalic. NECK: Supple. CARDIAC: Heart is regular rate. RESPIRATORY: Lungs show diminished breath sounds at the bases. ABDOMEN: Soft, nontender to palpation. No rebound or guarding. EXTREMITIES: Negative for clubbing, cyanosis. No edema. SKIN: No rashes. MUSCULOSKELETAL: No joint effusion. NEUROLOGIC: Unchanged exam. The patient's medications reviewed. LABORATORY AND DIAGNOSTIC DATA: White count 6.1, hemoglobin 8.2, platelet count 119,000. Sodium 141, potassium 4, BUN 25, creatinine 3.53. ASSESSMENT AND PLAN: 1. Sepsis possibly due to line infection. The patient is scheduled for PermCath removal today. Continue current antibiotic regimen. Follow up with Infectious Disease. Follow up with Vascular Surgery. 2. End-stage renal disease. The patient is scheduled for dialysis next Wednesday. 3. Hypertension, controlled. Continue to monitor. 4. Diabetes. Continue Accu-Chek sliding scale. 5. Cholelithiasis. No evidence of cholecystitis. Continue to monitor. 6. Anemia. Monitor hemoglobin and hematocrit levels. 7. Thrombocytopenia. Continue to monitor. Dictated By: Gilbert Jamil DO /kenneth/clp /Document#: [id number]
--- NOTE | 2016-12-07 13:08 | CONS ---
Date/Time of Note Date/Time of Note DATE: 12/07/16 TIME: 13:05 Assessment/Plan Assessment/Plan Chief Complaint/Hosp Course ID PROGRESS NOTE TOTAL ABX DAY #10 => Vanco IV + Amikacin 24H INTERVAL SUMMARY * Alert, awake, VSS, NAD, no F/C/N/V/D/CP/SOB * No clinical indication of recurrent sepsis since PermCath removed 11/29, new PermCath placed 12/05 * PLAN: OR tomorrow for AVF revision/transposition * => Keep her on ABX through the tj-op AVF period anticipate last day PHYSICAL EXAMINATION: GENERAL: VSS, NAD, no fevers HEENT: Unremarkable NECK: Supple, CHEST: Equal chest rise bilaterally, without dyspnea on observation, left IJ HD catheter HEART: Pulse RRR ABDOMEN: Soft EXTREMITIES: Warm SKIN: Warm, dry ID ASSESSMENT: 71 yo F admitted with: 1. S/P Sepsis w/ recurrent shivering HD, subjective fevers/low grade temps, Leukocytosis 16.8 on admission, w/hypotension = RESOLVED * Likely due to PermCath sepsis despite negative blood cultures. * Patient also w/hx of 10/10/16 (+)GNR-KP blood cultures, hx of E.Coli ESBL UTI, and prior HCAP = BCx, UA this admission remain negative. 2. End-stage renal disease, hemodialysis dependent * New HD temporary L-IJ catheter 11/29/16 * s/p RUEXT fistulogram September 2016 (not ripe) 3. Cholelithiasis without cholecystitis = conservative Tx per surgery recommended prior admission * HIDA negative prior admission 4. Hx of E. coli ESBL UTI w/low colony counts, recent admission 5. Hypertension 6. Diabetes 7. Hx of recurrent HCAP -> asymptomatic INVASIVES: *New PermCATH (12/05/16) ABX ALLERGIES: KNDA CURRENT ABX: DAY #10 => Vanco IV + Amikacin ID RECOMMENDATIONS: 1. No clinical indication of recurrent sepsis since PermCath DC'd 11/29 w/new PermCath placed 12/05 * PLAN: OR tomorrow for transposition of her RUE AVF * => Keep her on ABX through the tj-op AVF period anticipate last day 3. DC PLANNING ABD RECOMMENDATIONS: When cleared for DC home, patient may DC home on the following IV ABX to be given in HD Unit by RN post HD: * => Keep her on ABX through the tj-op AVF period. * Vancomycin 1GM IVPB next dose due after next scheduled HD w/continued dose per OP pharmacist until last day 12/11/16 * Amikacin 250mg IVPB after each HD until last day 12/11/16 . . Problems: Consultation Date/Type/Reason Admit Date/Time Nov 26, 2016 at 18:26 Type of Consultation: ID Exam/Review of Systems Vital Signs Vitals Vital Signs Date Time Temp Pulse Resp B/P Pulse Ox O2 Delivery O2 Flow Rate FiO2 12/07/16 08:46 98.1 75 18 148/65 97 12/05/16 14:30 Room Air Intake and Output 12/06/16 12/06/16 12/07/16 15:00 23:00 07:00 Intake Total 600 ml 250 ml Output Total 550 ml Balance 50 ml 250 ml Results Result Diagram: 12/04/16 0428 12/04/16 0428 Results 24 hrs Laboratory Tests Test 12/06/16 17:24 12/06/16 20:11 12/07/16 08:51 12/07/16 12:59 Bedside Glucose 148 178 106 185 Medications Medications Current Medications Ondansetron HCl (Zofran Inj) 4 mg Q6H PRN IV NAUSEA AND/OR VOMITING; Start at 00:00 Acetaminophen (Tylenol Tab) 650 mg Q6H PRN PO PAIN LEVEL 1-3 OR FEVER Last administered on 12/06/16 03:20; Admin Dose 650 MG; Start 11/27/16 at 00:00 Zolpidem Tartrate (Ambien) 5 mg QHS PRN PO SLEEP; Start 11/27/16 at 00:00 Amlodipine Besylate (Norvasc) 10 mg DAILY PO Last administered on 12/07/16 08: 53; Admin Dose 10 MG; Start 11/27/16 at 09:00 Aspirin (Halfprin) 81 mg DAILY PO Last administered on 12/07/16 08:53; Admin Dose 81 MG; Start 11/27/16 at 09:00 Atorvastatin Calcium (Lipitor) 80 mg DAILY PO Last administered on 12/07/16 08 :53; Admin Dose 80 MG; Start 11/27/16 at 09:00 Miscellaneous Information 1 ea NOTE XX ; Start 11/27/16 at 00:30 Glucose (Glutose) 15 gm Q15M PRN PO DECREASED GLUCOSE; Start 11/27/16 at 00:30 Glucose (Glutose) 22.5 gm Q15M PRN PO DECREASED GLUCOSE; Start 11/27/16 at 00: 30 Dextrose (D50w Syringe) 25 ml Q15M PRN IV DECREASED GLUCOSE; Start 11/27/16 at 00:30 Dextrose (D50w Syringe) 50 ml Q15M PRN IV DECREASED GLUCOSE; Start 11/27/16 at 00:30 Glucagon (Glucagen) 1 mg Q15M PRN IM DECREASED GLUCOSE; Start 11/27/16 at 00:30 Glucose (Glutose) 15 gm Q15M PRN BUCCAL DECREASED GLUCOSE; Start 11/27/16 at 00 :30 Diagnostic Test (Pha) (Accu-Chek) 1 ea 02 XX Last administered on 12/05/16 01: 17; Admin Dose 1 EA; Start 11/28/16 at 02:00 Amikacin Sulfate (Amikacin Iv Per Pharmacy) PER PHARMACY DOSING NOTE XX ; Start 11/27/16 at 14:30 Heparin Sodium (Porcine) 5000 unit 5,000 unit BID SC Last administered on 09:30; Admin Dose 5,000 UNIT; Start 12/01/16 at 09:00 Vancomycin HCl (Vancocin) 250 ml @ 125 mls/hr Q96H IVPB Last administered on 15:43; Admin Dose 125 MLS/HR; Start 12/04/16 at 16:00 Miscellaneous Information (*Rx Drug Level Order Reminder*) VANCOMYCIN TROUGH 12/08 AT 1500 ONCE ONCE XX ; Start 12/08/16 at 15:00; Stop 12/08/16 at 15:01 CELY TREVIÑO NP Dec 07, 2016 13:08
[2016-12-07 15:43] VITALS: BP 140/63; RESP 18
[2016-12-07 20:00] VITALS: BP 115/58; RESP 18
[2016-12-08] VITALS (11 sets, daily range): BP systolic 98–150; BP diastolic 48–67; PULSE 69–76; RESP 16–20
[2016-12-08] MEDS: ACCU-CHEK XX SCH (02:00)
[2016-12-08] MEDS: INSULIN ASPART [NOVOLOG] 3 ML PEN SC SCH ×4 (07:50→21:00)
[2016-12-08] MEDS: CALCIUM ACETATE 667 MG CAP PO SCH ×3 (07:50→18:15)
[2016-12-08] MEDS ORDERED: LIDOCAINE 2% (SDV) 5 ML INJ ONE (08:08)
[2016-12-08] MEDS ORDERED: ROCURONIUM 50 MG INJ ONE (08:08)
[2016-12-08] MEDS ORDERED: GLYCOPYRROLATE 0.4 MG INJ ONE (08:08)
[2016-12-08] MEDS ORDERED: NEOSTIGMINE 3 MG/3 ML SYRINGE ONE (08:09)
[2016-12-08] MEDS ORDERED: PROPOFOL 20 ML ONE (08:09)
[2016-12-08] MEDS ORDERED: FENTAnyl 50 MCG/ML VIAL ONE (08:09)
[2016-12-08] MEDS ORDERED: MIDAZOLAM 1 MG/ML 2 ML INJ ONE (08:09)
[2016-12-08] MEDS: ASPIRIN (EC) 81 MG TAB PO SCH (08:09)
[2016-12-08] MEDS: ATORVASTATIN 80 MG TAB PO SCH (08:09)
[2016-12-08] MEDS: AMLODIPINE 10 MG TAB PO SCH (08:10)
[2016-12-08] MEDS: HEPARIN 5,000 UNIT/0.5 ML VIAL SC SCH ×2 (08:11→22:16)
[2016-12-08] MEDS ORDERED: ROPIVACAINE 0.5 % 30 ML VIAL ONE (09:05)
--- NOTE | 2016-12-08 10:43 | PN ---
DATE: 12/08/2016 SUBJECTIVE DATA: The patient is stable. No acute events overnight. No fevers, chills, nausea, vomiting. OBJECTIVE DATA: VITAL SIGNS: Blood pressure is 117/58, respirations 19, pulse 75, temperature 97.8. HEENT: Head is normocephalic. NECK: Supple. HEART: Regular rate. LUNGS: Show diminished breath sounds at the base. ABDOMEN: Soft, nontender to palpation. No rebound or guarding. EXTREMITIES: Negative for clubbing, cyanosis, no edema. DERMATOLOGIC: No rashes. MUSCULOSKELETAL: No joint effusions. NEUROLOGIC: No change in exam. MEDICATIONS: Reviewed. LABORATORY AND DIAGNOSTIC DATA: Show a white count of 5.5, hemoglobin 8.4, crit of 26.3, platelet count 165. ASSESSMENT AND PLAN: 1. Sepsis secondary to line infection. The patient's PermCath was removed. The patient is completing antibiotic course. 2. Access. Patient's pending an arteriovenous fistula transposition today. 3. End-stage renal disease. Continue dialysis and plan for dialysis today. 4. Hypertension. Continue current blood pressure regimen. 5. Diabetes. Continue current insulin regimen. 6. Cholelithiasis. 7. Anemia. Monitor H and H levels. Continue Epogen. 8. Thrombocytopenia. Continue to monitor. 9. Gastrointestinal and deep venous thrombosis prophylaxis. Dictated By: Gilbert Jamil DO /[email or web address] /Document#: [id number]
[2016-12-08] MEDS: AMIKACIN 250 MG in SOD CHLORIDE 0.9% 100 ML IVPB SCH (11:22)
[2016-12-08] MEDS: EPOETIN 4000 UNITS/1 ML INJ (ESRD) SC SCH (11:24)
[2016-12-08] MEDS: VANCOMYCIN 1 GM in NS 250 ML IVPB SCH (16:41)
--- NOTE | 2016-12-08 19:48 | CONS ---
Date/Time of Note Date/Time of Note DATE: 12/08/16 TIME: 19:47 Assessment/Plan Assessment/Plan Chief Complaint/Hosp Course ID PROGRESS NOTE TOTAL ABX DAY #11 => Vanco IV + Amikacin 24H INTERVAL SUMMARY * Surgery postponed today due to potassium level of 2.9 * No other new issues, VSS, no fevers, no complaints offered PHYSICAL EXAMINATION: GENERAL: VSS, NAD, no fevers HEENT: Unremarkable NECK: Supple, CHEST: Equal chest rise bilaterally, without dyspnea on observation, left IJ HD catheter HEART: Pulse RRR ABDOMEN: Soft EXTREMITIES: Warm SKIN: Warm, dry ID ASSESSMENT: 71 yo F admitted with: 1. S/P Sepsis w/ recurrent shivering HD, subjective fevers/low grade temps, Leukocytosis 16.8 on admission, w/hypotension = RESOLVED * Likely due to PermCath sepsis despite negative blood cultures. * Patient also w/hx of 10/10/16 (+)GNR-KP blood cultures, hx of E.Coli ESBL UTI, and prior HCAP = BCx, UA this admission remain negative. 2. End-stage renal disease, hemodialysis dependent * New HD temporary L-IJ catheter 11/29/16 * s/p RUEXT fistulogram September 2016 (not ripe) 3. Cholelithiasis without cholecystitis = conservative Tx per surgery recommended prior admission * HIDA negative prior admission 4. Hx of E. coli ESBL UTI w/low colony counts, recent admission 5. Hypertension 6. Diabetes 7. Hx of recurrent HCAP -> asymptomatic INVASIVES: *New PermCATH (12/05/16) ABX ALLERGIES: KNDA CURRENT ABX: DAY #11 => Vanco IV + Amikacin ID RECOMMENDATIONS: 1. No clinical indication of recurrent sepsis since PermCath DC'd 11/29 w/new PermCath placed 12/05 * PLAN: OR or transposition of her RUE AVF * => Keep her on ABX through the tj-op AVF period anticipate last day 3. DC PLANNING ABD RECOMMENDATIONS: When cleared for DC home, patient may DC home on the following IV ABX to be given in HD Unit by RN post HD: * => Keep her on ABX through the tj-op AVF period. * Vancomycin 1GM IVPB next dose due after next scheduled HD w/continued dose per OP pharmacist until last day 12/11/16 * Amikacin 250mg IVPB after each HD until last day 12/11/16 . . Problems: Consultation Date/Type/Reason Admit Date/Time Nov 26, 2016 at 18:26 Type of Consultation: ID Exam/Review of Systems Vital Signs Vitals Vital Signs Date Time Temp Pulse Resp B/P Pulse Ox O2 Delivery O2 Flow Rate FiO2 12/08/16 14:00 98.4 70 16 150/67 98 12/05/16 14:30 Room Air Intake and Output 12/07/16 12/07/16 12/08/16 15:00 23:00 07:00 Intake Total 750 ml 50 ml Balance 750 ml 50 ml Results Result Diagram: 12/04/16 0428 12/08/16 1353 Results 24 hrs Laboratory Tests Test 12/07/16 20:25 12/08/16 08:28 12/08/16 08:58 12/08/16 12:44 Bedside Glucose 134 148 93 Potassium Level 2.9 *L Test 12/08/16 13:53 12/08/16 15:12 12/08/16 17:10 Potassium Level 3.8 Vancomycin Level Trough 9.8 L Bedside Glucose 125 Medications Medications Current Medications Ondansetron HCl (Zofran Inj) 4 mg Q6H PRN IV NAUSEA AND/OR VOMITING; Start at 00:00 Acetaminophen (Tylenol Tab) 650 mg Q6H PRN PO PAIN LEVEL 1-3 OR FEVER Last administered on 12/06/16 03:20; Admin Dose 650 MG; Start 11/27/16 at 00:00 Zolpidem Tartrate (Ambien) 5 mg QHS PRN PO SLEEP; Start 11/27/16 at 00:00 Amlodipine Besylate (Norvasc) 10 mg DAILY PO Last administered on 12/07/16 08: 53; Admin Dose 10 MG; Start 11/27/16 at 09:00 Aspirin (Halfprin) 81 mg DAILY PO Last administered on 12/07/16 08:53; Admin Dose 81 MG; Start 11/27/16 at 09:00 Atorvastatin Calcium (Lipitor) 80 mg DAILY PO Last administered on 12/07/16 08 :53; Admin Dose 80 MG; Start 11/27/16 at 09:00 Miscellaneous Information 1 ea NOTE XX ; Start 11/27/16 at 00:30 Glucose (Glutose) 15 gm Q15M PRN PO DECREASED GLUCOSE; Start 11/27/16 at 00:30 Glucose (Glutose) 22.5 gm Q15M PRN PO DECREASED GLUCOSE; Start 11/27/16 at 00: 30 Dextrose (D50w Syringe) 25 ml Q15M PRN IV DECREASED GLUCOSE; Start 11/27/16 at 00:30 Dextrose (D50w Syringe) 50 ml Q15M PRN IV DECREASED GLUCOSE; Start 11/27/16 at 00:30 Glucagon (Glucagen) 1 mg Q15M PRN IM DECREASED GLUCOSE; Start 11/27/16 at 00:30 Glucose (Glutose) 15 gm Q15M PRN BUCCAL DECREASED GLUCOSE; Start 11/27/16 at 00 :30 Diagnostic Test (Pha) (Accu-Chek) 1 ea 02 XX Last administered on 12/05/16 01: 17; Admin Dose 1 EA; Start 11/28/16 at 02:00 Amikacin Sulfate (Amikacin Iv Per Pharmacy) PER PHARMACY DOSING NOTE XX ; Start 11/27/16 at 14:30 Heparin Sodium (Porcine) 5000 unit 5,000 unit BID SC Last administered on 09:30; Admin Dose 5,000 UNIT; Start 12/01/16 at 09:00 Vancomycin HCl/ Sodium Chloride (Vancocin/NS) 250 ml @ 83.333 mls/ hr Q96H IVPB ; Start 12/12/16 at 00:00 CELY TREVIÑO NP Dec 08, 2016 19:48
[2016-12-09] MEDS: ACCU-CHEK XX SCH (02:00)
[2016-12-09 02:28] VITALS: BP 133/65; RESP 19
[2016-12-09] MEDS: INSULIN ASPART [NOVOLOG] 3 ML PEN SC SCH ×2 (07:50→13:14)
[2016-12-09 08:10] VITALS: BP 141/63; RESP 20
[2016-12-09] MEDS: ASPIRIN (EC) 81 MG TAB PO SCH (08:43)
[2016-12-09] MEDS: ATORVASTATIN 80 MG TAB PO SCH (08:43)
[2016-12-09] MEDS: AMLODIPINE 10 MG TAB PO SCH (08:44)
[2016-12-09] MEDS: CALCIUM ACETATE 667 MG CAP PO SCH ×2 (09:08→13:10)
[2016-12-09] MEDS: HEPARIN 5,000 UNIT/0.5 ML VIAL SC SCH (09:15)
--- NOTE | 2016-12-09 12:18 | DS ---
DATE OF ADMISSION: 11/26/2016 DATE OF DISCHARGE: 12/09/2016 HOSPITAL COURSE: This is a 71-year-old female with a past medical history of end-stage renal disease, history of diabetes and hypertension, who presented to [facility] with chills. The patient recently was admitted to [facility] prior to this hospitalization 2 weeks ago for similar presentation. At that time, patient was treated with IV antibiotics and discharged home. She now presents again with chills. Upon arrival the patient had elevated white count and was admitted to med/surg. Etiology is felt to be secondary to line infection. The patient was seen by DrRandolph . The patient's PermCath was removed. The patient was on a line holiday and had initially Fred catheter placed before repeat PermCath was placed. The patient's repeat blood cultures have all been negative. The patient was seen by infectious disease and recommend continue IV antibiotics of vancomycin, gentamicin for a 2 week course, completing antibiotics on 12/11/2016. The patient's other medical problems including hypertension and diabetes, were stable during the hospital course. The patient does have a mild thrombocytopenia which has been stable and is being evaluated in the outpatient setting. Currently at this time the patient will be discharged home. She will follow up with in the outpatient setting for eventual transposition of her AV fistula. The patient will also be continue with IV antibiotics. At the time of discharge, the patient is stable. No acute distress. FINAL DIAGNOSES: 1. Sepsis secondary to line infection. The patient is status post PermCath removal and exchange. 2. Atrioventricular fistula pending transposition outpatient setting 3. End stage renal disease. 4. Hypertension. 5. Diabetes. 6. Anemia. 7. Thrombocytopenia. 8. Cholelithiasis with no evidence of cholecystitis. DISCHARGE CONDITION: At the time of discharge, the patient is stable and in no acute distress. MEDICATIONS: See reconciliation list. TIME SPENT: Please note, I spent over 40 minutes time preparing patient's discharge. Dictated By: Gilbert Jmail DO /[email or web address] /Document#: [id number]
[2016-12-09 15:04] VITALS: BP 135/60; RESP 18
[2016-12-12] MEDS ORDERED: VANCOMYCIN 1.25 GM in SOD CHLORIDE 0.9% 250 ML IVPB SCH ×2
== END 2016-12-09 16:32 | disposition home or self-care (01) | DRG 314 ==
LOC: E/R 15:54 → MS1 18:26
PROVIDERS: ADMIT Internal Medicine; ATTEND Internal Medicine
PROC: 5A1D60Z (ICD-10-PCS; 2016-11-28)
PROC: 0JPT0XZ Removal of Tunneled Vascular Access Device from Trunk Subcutaneous Tissue and Fascia, Open Approach (ICD-10-PCS; 2016-11-29)
PROC: 05HN33Z Insertion of Infusion Device into Left Internal Jugular Vein, Percutaneous Approach (ICD-10-PCS; 2016-11-29)
PROC: 05PY33Z Removal of Infusion Device from Upper Vein, Percutaneous Approach (ICD-10-PCS; principal; 2016-11-29 10:00)
PROC: 02H633Z Insertion of Infusion Device into Right Atrium, Percutaneous Approach (ICD-10-PCS; 2016-12-05)
PROC: 05PYX3Z Removal of Infusion Device from Upper Vein, External Approach (ICD-10-PCS; 2016-12-05)
PROC: 0JH63XZ Insertion of Tunneled Vascular Access Device into Chest Subcutaneous Tissue and Fascia, Percutaneous Approach (ICD-10-PCS; 2016-12-05)
DX: T80.211A Bloodstream infection due to central venous catheter, initial encounter (principal); A41.9 Sepsis, unspecified organism; N18.6 End stage renal disease; I12.0 Hypertensive chronic kidney disease with stage 5 chronic kidney disease or end stage renal disease; D69.6 Thrombocytopenia, unspecified; E11.22 Type 2 diabetes mellitus with diabetic chronic kidney disease; I95.3 Hypotension of hemodialysis; Z99.2 Dependence on renal dialysis; Z79.4 Long term (current) use of insulin; D64.9 Anemia, unspecified; K80.20 Calculus of gallbladder without cholecystitis without obstruction; D63.8 Anemia in other chronic diseases classified elsewhere; Z91.19 Patient's noncompliance with other medical treatment and regimen; E78.5 Hyperlipidemia, unspecified; Y71.8 Miscellaneous cardiovascular devices associated with adverse incidents, not elsewhere classified; M89.8X9 Other specified disorders of bone, unspecified site; E83.9 Disorder of mineral metabolism, unspecified
CPT/HCPCS: 36415; 36558; 71010; 80048; 80053; 80202; 81001; 82550; 82553; 82728; 82962; 83540; 83605; 83735; 84100; 84132; 84484; 85025; 85610; 85730; 87040; 87070; 87081; 87086; 90935; 93005; 96365; 96375; C1752; J0278; J0690; J0692; J1644; J1815; J2250; J2710; J2795; J3010; J3370; J7040; J7042; J7050; P9612; Q4081

== ENCOUNTER 2017-01-12 06:16 | Day surgery (SDC) | payer OTHER ==
[2016-11-23 10:56] VITALS: BMI 27.8
[2017-01-12] VITALS (12 sets, daily range): BP systolic 109–141; BP diastolic 29–63; PULSE 66–79; RESP 16–25; Ht 157.5 cm; Wt 55.4 kg
[~2017-01-12] VITALS: Ht 157.5 cm; Wt 55.4 kg
[~2017-01-12 06:16] MED LIST changes: +CEFAZOLIN 2 GM/50 ML (PMX) 50 ML IVPB SCH; +FENTAnyl 50 MCG/ML VIAL ONE; +HEPARIN 1000 UNITS/ML 10 ML INJ ONE; +LIDOCAINE 1% (MDV) 20 ML INJ ONE; +LIDOCAINE 2% (SDV) 5 ML INJ ONE; +MIDAZOLAM 1 MG/ML 2 ML INJ ONE; +PROPOFOL 20 ML ONE
--- NOTE | 2017-01-12 06:48 | HPN ---
Date/Time of Note Date/Time of Note DATE: 01/12/17 TIME: 06:48 Interval H&P Admission Note Pt. seen H&P reviewed: No system changes FABIOLA MARTINEZ MD Jan 12, 2017 06:48
[2017-01-12] MEDS ORDERED: GELATIN SIZE 100 SPONGE ONE (06:53)
[2017-01-12] MEDS ORDERED: LIDOCAINE 1% (MPF) 30 ML INJ ONE (06:53)
--- NOTE | 2017-01-12 06:53 | PDOCDIS ---
Discharge Instructions DIAGNOSIS Discharge Diagnosis ESRD CONDITION Patient Condition: Good HOME CARE INSTRUCTIONS: Special Diet: RENAL DIET ACTIVITY: Activity Restrictions: Avoid heavy lifting No Sexual Activity Do not Drive Do not operate Machinery Do not operate Power Tool Avoid Heavy Housework FOLLOW UP/APPOINTMENTS Follow-up Plan FOLLOW UP IN 2 WEEKS WITH JUAN KEEP ARM SLING ON FOR 8-10HRS UNTIL MOTOR/SENSORY OF THE FINGERTIPS RETURN MAY REMOVE DRESSING IN 48HRS MAY SHOWER IN 48HRS NO BATHING OR SWIMMING FABIOLA MARTINEZ MD Jan 12, 2017 06:53
[2017-01-12] MEDS ORDERED: HEPARIN 1000 UNITS/ML 10 ML INJ ONE ×2 (06:54→10:02)
[2017-01-12] MEDS ORDERED: THROMBIN 5000 UNIT VIAL ONE (06:54)
--- NOTE | 2017-01-12 06:57 | OPR ---
Date/Time of Note Date/Time of Note DATE: 01/12/17 TIME: 06:53 Operative Report Free Text/Dictation DATE OF OPERATION: 01/12/2017 SURGEON: Mio Martinez MD PREOPERATIVE DIAGNOSIS: End-stage renal disease POSTOPERATIVE DIAGNOSIS: Same PROCEDURE: 1.Ligation of forearm brachiocephalic fistula (antecubital vein) 2. Creation of right arm brachiobasilic arteriovenous fistula and transposition ANESTHESIA: Local & Regional COMPLICATIONS: None. ESTIMATED BLOOD LOSS: Minimal. TRANSFUSION: None SPECIMEN: None. HEPARIN: 2500units INDICATIONS: This is a 71-year-old female whom had a non matured right brachiocephalic fistula The risks and benefits of the procedure were discussed with the patient and not limited to , SD, pneumonia, stroke, infection, thrombosis of graft and arterial, revisions of AVF, steal and she elected to undergo surgical intervention. DESCRIPTION: The patient was placed in supine position on the operating room table. The arms were placed at 80 degrees. The normal bony prominences were padded. The anesthesia team had placed the appropriate lines and anesthesia was induced. Time-out performed and the appropriate site was marked and confirmed. The patient's upper extremity prepped and draped in the usual standard sterile fashion. Preoperative antibiotics were administered prior to the skin incision. Skin along the medial aspect of the upper arm was infiltrated with 1% lidocaine. A 15 cm longitudinal incision was then performed along the medial aspect of the inner upper arm towards the axilla. The incision was deepened down through the subcutaneous tissue and fat, and the basilar vein was identified at the level of the antecubital fossa. The vein was encircled with a vessel loop and then dissected proximally about 8 inches to the upper arm and 2 inches distally and its branches were isolated, ligated and divided. The overlying nerve branches were preserved. The basilar vein was then dissected free from the antecubital fossa where it was continuous to the antecubital vein. The antecubital vein was where we had formed a previous forearm brachiocephalic fistula and the basilic vein has matured. The cephalic vein was still small in caliber and non-matured. We ligated the proximal aspect of the cephalic vein with 3-0 silk suture. The remnant antecubital vein was oversewn with a 6-0 Prolene suture. Subsequently,we tunneled the basilic vein in the anterior upper arm subcutaneous tissue with a [place] tunneler. The vein was directed towards the brachial artery and the antecubital fossa. Vein was flushed with heparinized saline solution and checked for kinks and twists. The brachial artery was then palpated and the soft tissue overlying it was incised. The brachial artery was exposed and encircled with vessel loop. A 2 cm segment of the brachial artery was then circumferentially dissected. The patient was then given 2500 units of heparin intravenously. Yasargil clamps were then applied on the brachial artery and a 6 mm arteriotomy was then performed in its anterior wall. Basilic vein was spatulated to match the size of the arteriotomy. An anastomosis was then created between the end of the vein and the arteriotomy using a 6-0 Prolene running suture. At the completion of the anastomosis, the basilic vein was allowed to back bleed and the brachial artery was forward flushed and back bled. The anastomosis was irrigated with heparinized saline solution. The sutures were tied and the suture line was checked for hemostasis, which was adequate. There was an excellent thrill in the vein and the vein was readily palpable under the skin. Hemostasis was then ensured. There was evidence of an excellent pulse in the radial and ulnar arteries at the wrist. The wounds were irrigated and then closed with 3-0 Vicryl for the subcutaneous tissue. The skin was closed with skin erickson. The patient tolerated the procedure well and was transferred to the postanesthesia care unit in stable condition. All instruments , needles and sponge counts were correct 2 Anesthesia Type: moderate sedation Estimated Blood Loss: minimal Transfusion Required: no Specimen: none Grafts/Implants: none Complications: no Pt Condition Post Procedure: stable MIO MARTINEZ MD Jan 12, 2017 06:57
[2017-01-12] MEDS ORDERED: LIDOCAINE 2% (SDV) 5 ML INJ ONE (07:48)
[2017-01-12] MEDS ORDERED: PROPOFOL 0 ML ONE (07:48)
[2017-01-12] MEDS ORDERED: ROPIVACAINE 0.5 % 30 ML VIAL ONE (07:48)
[2017-01-12] MEDS ORDERED: FENTAnyl 50 MCG/ML VIAL ONE (08:02)
[2017-01-12] MEDS ORDERED: MIDAZOLAM 1 MG/ML 2 ML INJ ONE (08:02)
[2017-01-12] MEDS ORDERED: PROPOFOL 20 ML ONE (08:02)
[2017-01-12] MEDS ORDERED: CEFAZOLIN 1 GM INJ ONE (08:03)
[2017-01-12] MEDS ORDERED: EPHEDrine SULFATE 50 MG/5 ML SYG IV PRN (09:00)
[2017-01-12] MEDS ORDERED: HYDROmorphONE (0.2 MG/ML) 10ML SYG IV PRN ×3 (09:00)
[2017-01-12] MEDS ORDERED: METOCLOPRAMIDE 10 MG INJ IV PRN (09:00)
[2017-01-12] MEDS ORDERED: OXYCODONE/ACETAMINOPHEN (5/325) TAB PO PRN ×2 (09:00)
[2017-01-12] MEDS ORDERED: MIDAZOLAM 1 MG/ML 2 ML INJ IV PRN (09:00)
[2017-01-12] MEDS ORDERED: MEPERIDINE 25 MG INJ IV PRN (09:00)
[2017-01-12] MEDS ORDERED: hydrALAzine 20 MG INJ IV PRN (09:00)
[2017-01-12] MEDS ORDERED: ONDANSETRON 4 MG INJ IV PRN (09:00)
[2017-01-12] MEDS ORDERED: FENTAnyl 50 MCG/ML VIAL IV PRN ×3 (09:00)
[2017-01-12] MEDS ORDERED: DIPHENHYDRAMINE 50 MG INJ IV PRN (09:00)
[2017-01-12] MEDS ORDERED: LABETALOL HCL 20MG INJ IV PRN (09:00)
[2017-01-12] MEDS ORDERED: THROMBIN(HUM PLAS)/FIBRINOG/CA 5 ML VIAL TOP ONE (09:10)
[2017-01-12] MEDS ORDERED: CEFAZOLIN 2 GM/50 ML (PMX) 50 ML IVPB ONE (10:00)
== END 2017-01-12 13:04 | disposition home or self-care (01) ==
LOC: SDS 06:16
PROVIDERS: ATTEND Student in an Organized Health Care Education/Training Program
DX: I12.0 Hypertensive chronic kidney disease with stage 5 chronic kidney disease or end stage renal disease (principal); N18.6 End stage renal disease; E78.5 Hyperlipidemia, unspecified
CPT/HCPCS: 36821; 82962; 84132; C9250; J0690; J1644; J2250; J2795; J3010; Z7512; Z7610

== ENCOUNTER 2017-03-05 13:07 | Day surgery (SDC) | payer OTHER ==
[~2017-03-05] VITALS: Ht 157.5 cm; Wt 54.8 kg
[~2017-03-05 13:07] MED LIST changes: -CEFAZOLIN 2 GM/50 ML (PMX) 50 ML IVPB SCH; -FENTAnyl 50 MCG/ML VIAL ONE; -HEPARIN 1000 UNITS/ML 10 ML INJ ONE; -LIDOCAINE 1% (MDV) 20 ML INJ ONE; -LIDOCAINE 2% (SDV) 5 ML INJ ONE; -MIDAZOLAM 1 MG/ML 2 ML INJ ONE; -PROPOFOL 20 ML ONE
--- NOTE | 2017-03-05 14:49 | RADRPT ---
PROCEDURE: XR Chest 1 View. CLINICAL INDICATION: Abnormal breath sounds, preop. TECHNIQUE: AP view of the chest was obtained. COMPARISON: November 29, 2016 FINDINGS: The heart size is within normal limits. Calcified atherosclerosis is noted in the aorta. Left sided dialysis catheter has its tip at the expected location of the cavoatrial junction. Scattered atelec tasis is noted in the bilateral lower lobes. No consolidations are identified. No pneumothorax is s een. Osseous structures are intact. IMPRESSION: Calcified atherosclerosis in the aorta. Scattered atelectasis in the bilateral lower lobes. RPTAT: AA .Dale Martinez MD, MD Date Time Electronically viewed and signed by .Dale Martinez MD, MD on 03/05/2017 14:49 .P/
[2017-03-05 14:55] VITALS: BP 107/55; PULSE 80; RESP 16
--- NOTE | 2017-03-05 14:55 | HPN ---
Date/Time of Note Date/Time of Note DATE: 03/05/17 TIME: 14:55 Interval H&P Admission Note Pt. seen H&P reviewed: No system changes FABIOLA MARTINEZ MD Mar 05, 2017 14:55
--- NOTE | 2017-03-05 14:56 | CONS ---
Date/Time of Note Date/Time of Note DATE: 03/05/17 TIME: 14:55 Consultation Date/Type/Reason Admit Date/Time Hx of Present Illness DATE 03/05/2017 VASCULAR SURGERY H&P ASSESSMENT/PLAN: -End-stage renal disease & central stenosis: transposition of her RUE fistula and tolerating use of fistula -Will schedule for perm catheter removal and central venogram for possible intervention if needed -Optimize vascular status (nutrition, sugar control and antiplatelets). -Discussed findings, plan and management with the patient in the primary service and they understand. -Thank you for allowing us to partake in the care of your patient. Please call with any questions. Dear Doctors: Ms. Lezama is a 71-year-old female, known to our vascular surgery service secondary to end-stage renal disease. The patient has been having recurrent episodes of hypertension and chills, in which the patient has been having continual evaluations for possible UTI infection, pneumonia recently and possible line sepsis. During her course of workup, her catheter site has not had findings of purulent drainage or erythema or pain upon palpation. However, vascular surgery consultation has been obtained for further evaluation. At the moment, patient denies shortness of breath, chest pain, nausea, vomiting, fever, or chills. REVIEW OF SYSTEMS: Fourteen point review performed, negative except what was mentioned in HPI. PAST MEDICAL HISTORY: Entails end-stage renal disease, on dialysis Wednesday, , Wednesday. Hypertension, diabetes, noncompliance, hyperlipidemia, anemia of chronic disease. PAST SURGICAL HISTORY: Status post Permcatheter, status post right upper extremity AV fistula creation, status post bilateral upper extremity AV graft creation at outside facility. FAMILY HISTORY: Positive for hypertension. SOCIAL HISTORY: Denies tobacco, alcohol, or illicit drug use. ALLERGIES: NO KNOWN DRUG ALLERGIES. PHYSICAL EXAMINATION: GENERAL APPEARANCE: Alert, oriented x3. No apparent distress. HEENT: Normocephalic, atraumatic. PERRLA. EOMI. Mucosa moist. NECK: Supple. No carotid bruit. LUNGS: Clear to auscultation bilaterally. ABDOMEN: Soft, nontender, nondistended. Bowel sounds positive. EXTREMITIES: Right lower extremity, palpable femoral pulse. Palpable pedal pulse. Motor and sensory intact. Capillary refill 2-3 seconds. Left lower extremity, palpable femoral pulse. Palpable pedal pulse. Motor sensory and intact. Capillary refill 2-3 seconds. Right upper extremity, palpable brachial pulse. Motor and sensory intact. Capillary refill 2-3 seconds. Surgical scar is well healed. The fistula which has a bruit and thrill present. Left upper extremity, palpable brachial pulse. Motor and sensory intact. Capillary refill 2-3 seconds. Surgical scar well healed. There is a thrombosed graft that there is no indication of any infection. Exam/Review of Systems Results Result Diagram: 03/05/17 1358 03/05/17 1358 Results 24 hrs Laboratory Tests Test 03/05/17 13:56 03/05/17 13:58 Bedside Glucose 91 White Blood Count 6.5 Red Blood Count 5.06 # Hemoglobin 12.6 # Hematocrit 39.7 # Mean Corpuscular Volume 78.5 L Mean Corpuscular Hemoglobin 24.9 L Mean Corpuscular Hemoglobin Concent 31.7 L Red Cell Distribution Width 20.9 #H Platelet Count 123 #L Mean Platelet Volume Neutrophils % 50.3 Lymphocytes % 32.6 Monocytes % 9.6 Eosinophils % 7.0 Basophils % 0.3 Nucleated Red Blood Cells % 0.0 Neutrophils # 3.3 Lymphocytes # 2.1 Monocytes # 0.6 Eosinophils # 0.5 Basophils # 0.0 Nucleated Red Blood Cells # 0.0 Prothrombin Time 14.7 H Prothrombin Time Ratio 1.1 INR International Normalized Ratio 1.15 Activated Partial Thromboplast Time Pending Sodium Level 139 Potassium Level 5.1 Chloride Level 97 Carbon Dioxide Level 25 Anion Gap 22 H Blood Urea Nitrogen 56 H Creatinine 4.62 H Glucose Level 93 Calcium Level 9.5 FABIOLA MARTINEZ MD Mar 05, 2017 14:56
[2017-03-05] MEDS ORDERED: HEPARIN 1000 UNITS/NS (A-LINE) 1,000 ML ONE (15:01)
[2017-03-05] MEDS ORDERED: LIDOCAINE 1% (MDV) 20 ML INJ ONE (15:01)
[2017-03-05] MEDS ORDERED: IODIXANOL LOCM 100 ML BTL ONE (15:01)
--- NOTE | 2017-03-05 15:01 | SIPON ---
Date/Time of Note Date/Time of Note DATE: 03/05/17 TIME: 15:00 Operative Report Preoperative Diagnosis ESRD Postoperative Diagnosis SAME Operation/Procedure Performed REMOVAL OF RIGHT PERMANENT CATHETER & VENOGRAM LEFT BRACHIOCEPHALIC AND SVC VENOPLASTY Surgeon see signature line academic assistant NONE Anesthesia: moderate sedation Estimated blood loss: minimal Transfusion Required none Specimen NONE Grafts/Implants none Complications none FABIOLA MARTINEZ MD Mar 05, 2017 15:01
--- NOTE | 2017-03-05 15:01 | SIPON ---
Date/Time of Note Date/Time of Note DATE: 03/05/17 TIME: 15:00 Operative Report Preoperative Diagnosis ESRD Postoperative Diagnosis SAME Operation/Procedure Performed REMOVAL OF RIGHT PERMANENT CATHETER & VENOGRAM LEFT BRACHIOCEPHALIC AND SVC VENOPLASTY Surgeon see signature line assistant statistician NONE Anesthesia: moderate sedation Estimated blood loss: minimal Transfusion Required none Specimen NONE Grafts/Implants none Complications none FABIOLA MARTINEZ MD Mar 05, 2017 15:01
--- NOTE | 2017-03-05 15:01 | SIPON ---
Date/Time of Note Date/Time of Note DATE: 03/05/17 TIME: 15:00 Operative Report Preoperative Diagnosis ESRD Postoperative Diagnosis SAME Operation/Procedure Performed REMOVAL OF RIGHT PERMANENT CATHETER & VENOGRAM LEFT BRACHIOCEPHALIC AND SVC VENOPLASTY Surgeon see signature line retail assistant manager NONE Anesthesia: moderate sedation Estimated blood loss: minimal Transfusion Required none Specimen NONE Grafts/Implants none Complications none FABIOLA MARTINEZ MD Mar 05, 2017 15:01
--- NOTE | 2017-03-05 15:02 | PDOCDIS ---
Discharge Instructions DIAGNOSIS Discharge Diagnosis ESRD CONDITION Patient Condition: Good HOME CARE INSTRUCTIONS: Special Diet: RESUME PREO DIET ACTIVITY: Activity Restrictions: Avoid heavy lifting Do not Drive Do not operate Machinery Do not operate Power Tool Avoid Heavy Housework Bathing Restrictions: Shower FOLLOW UP/APPOINTMENTS Follow-up Plan FOLLOWUP WITH [facility] FABIOLA MARTINEZ MD Mar 05, 2017 15:02
[2017-03-05 15:11] VITALS: Ht 157.5 cm; Wt 54.8 kg
--- NOTE | 2017-03-05 16:40 | OPR ---
Date/Time of Note Date/Time of Note DATE: 03/05/17 TIME: 16:31 Operative Report Preoperative Diagnosis ESRD & CENTRAL STENOSIS Postoperative Diagnosis SAME Surgeon see signature line Outside Sales Representative NONE Anesthesia Type: moderate sedation Estimated Blood Loss: minimal Transfusion none Specimen NONE Grafts/Implants none Complications none Disposition: PACU Procedure Description DATE OF OPERATION: 03/05/2017 SURGEON: Mio Martinez MD. PREOPERATIVE DIAGNOSIS: End-stage renal disease & Central stenosis POSTOPERATIVE DIAGNOSIS: same ANESTHESIA: Local with moderate sedation. ESTIMATED BLOOD LOSS: Minimal. COMPLICATIONS: None. ACCESS: Left chest wall catheter. INDICATIONS: This is a 71-year-old female with history of end-stage renal disease who has a chest wall catheter with a recent right upper extremity AV fistula creation that has matured and transposed and has been used for access. The patient has been coming along well with 2-needle cannulation and is now time to remove the catheter. The patient and family have been informed of the alternatives, risks and benefits, risks including but not limited to bleeding, thrombosis, embolization, myocardial infarction, , device malfunction, infection, pneumothorax, nephrotoxicity and patient has agreed to proceed. PROCEDURE: 1. Moderate sedation, 2. Fluoroscopic guidance of a central catheter removal 3. Central venogram of the Left brachiocephalic vein and SVC 4. Removal of a central venous non-tunneled catheter. 5. Venoplasty of left brachiocephalic vein and superior vena cava with atlas [id number] balloon DESCRIPTION OF PROCEDURE: The patient was brought into the angio suite and positioned in supine position. The patient's neck and chest wall were shaved, prepped and draped in the usual standard sterile fashion. Timeout was completed verifying the correct patient, procedure, site, positioning and special equipment needed prior to beginning of the procedure. Local anesthesia was then infiltrated in the region of the chest wall. The patient neck had turned to the contralateral side. The catheter was then flushed with heparinized saline solution to correct the function of each port. At this point, using an Amplatz wire access was obtained via the central tunneled catheter placing the wire in the inferior vena cava with fluoroscopy. At this point, central venous catheter was pulled back to the junction of the internal jugular vein and subclavian vein. Using a Visipaque, a central venogram was performed to evaluate for any central stenosis prior to removing of our Perm-Catheter. 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 At this point, the central catheter was removed without any complications and using an [place] [id number] via bare back technique, balloon venoplasty of the left brachiocephalic vein and superior vena cava was performed. Completion venogram identified improved venous flow to the right atrium without any flow limiting stenosis. The stiff wire was also removed. Manual compression was held on the IJ landmark and using a 3-0 nylon suture, the puncture site was closed. Sterile dressing was applied. The patient tolerated the procedure well and was taken to postop recovery unit in stable condition. MIO MARTINEZ MD Mar 05, 2017 16:39
[2017-03-05 16:45] VITALS: BP 112/62; PULSE 91; RESP 16
--- NOTE | 2017-03-06 12:57 | RADRPT ---
Vent Rate: 77 bpm RR Interval: 0 msec [place] Interval: 166 msec QRS Duration: 84 msec QT Interval: 364 msec QTC Interval: 411 msec P-R-T [place]: 52 - 77 - 68 degrees Normal sinus rhythm Normal ECG Electronically Signed By: Hilario Briseno [id number]
--- NOTE | 2017-03-06 12:57 | RADRPT ---
Vent Rate: 77 bpm RR Interval: 0 msec [place] Interval: 166 msec QRS Duration: 84 msec QT Interval: 364 msec QTC Interval: 411 msec P-R-T [place]: 52 - 77 - 68 degrees Normal sinus rhythm Normal ECG Electronically Signed By: Hilario Briseno [id number]
--- NOTE | 2017-03-06 12:57 | RADRPT ---
Vent Rate: 77 bpm RR Interval: 0 msec [place] Interval: 166 msec QRS Duration: 84 msec QT Interval: 364 msec QTC Interval: 411 msec P-R-T [place]: 52 - 77 - 68 degrees Normal sinus rhythm Normal ECG Electronically Signed By: Hilario Briseno [id number]
== END 2017-03-05 18:10 | disposition home or self-care (01) ==
LOC: SDS 13:07
PROVIDERS: ATTEND Student in an Organized Health Care Education/Training Program
DX: I12.0 Hypertensive chronic kidney disease with stage 5 chronic kidney disease or end stage renal disease (principal); E11.22 Type 2 diabetes mellitus with diabetic chronic kidney disease; N18.6 End stage renal disease; T82.858A Stenosis of other vascular prosthetic devices, implants and grafts, initial encounter; Y83.2 Surgical operation with anastomosis, bypass or graft as the cause of abnormal reaction of the patient, or of later complication, without mention of misadventure at the time of the procedure
CPT/HCPCS: 36589; 36902; 36907; 71010; 80048; 82962; 85025; 85610; 85730; 93005; C1725; C1894; J1644; Q9967; Z7610